=== PATIENT | female | born 1960 | race Caucasian/White ===

== ENCOUNTER 2020-08-21 07:24 | Day surgery (SDC) | payer OTHER ==
[2020-08-21 08:07] LABS: BUN Blood Urea Nitrogen 17 mg/dL (7-18); Bicarbonate 29 mmol/L (21-32); Glucose Level 132 mg/dL (74-106); Potassium 4.1 mmol/L (3.5-5.1); Sodium Level 141 mmol/L (136-145)
[2020-08-21 08:09] LABS: Absolute Lymphocytes (CBC) 2.1 K/uL (0.7-4.9); Basophils % 0.5 % (0-1.3); Hematocrit 36.2 % (36.0-45.0); Lymphocytes % 29.9 % (15.3-44.8); MPV 7.2 fL (7.6-11.3); RBC Red Blood Cell Count 4.11 M/uL (3.86-4.86)
[2020-08-21] MEDS ORDERED: CEFAZOLIN/SWI 1gm 1 GM/10 ML SYR ONE (08:11)
[2020-08-21] MEDS ORDERED: Ringers Lactate 1,000 ML IV ONE (08:11)
[2020-08-21 08:13] VITALS: O2SAT 99
--- NOTE | 2020-08-21 09:13 | RAD REPORT ---
EXAM DESCRIPTION: RAD - Chest Pa And Lat (2 Views) - 08/21/2020 8:32 am CLINICAL HISTORY: STAT, S [facility] DAY SURGERY, BED 7 Chest pain. COMPARISON: Chest Pa And Lat (2 Views) dated 06/27/2017; CHEST PA AND LAT 2 VIEW dated 12/24/2013 FINDINGS: The lungs are clear. The heart is upper limit of normal in size. No displaced fractures. IMPRESSION: No acute or concerning finding suspected.
[2020-08-21] MEDS ORDERED: MIDAZOLAM HCL 2 MG/2 ML INJ ONE (10:22)
[2020-08-21] MEDS ORDERED: LIDOCAINE 2% MPF 5 ML VIAL ONE (10:22)
[2020-08-21] MEDS ORDERED: propofoL 200 MG/20 ML VIAL IV ONE ×2 (10:22→11:14)
[2020-08-21] MEDS ORDERED: ONDANSETRON 4 MG/2 ML VIAL ONE (10:22)
[2020-08-21] MEDS ORDERED: KETOROLAC 30 MG/ML INJ ONE (10:22)
[2020-08-21] MEDS ORDERED: FENTANYL CITR 100 MCG/2 ML ONE (10:22)
[2020-08-21] MEDS ORDERED: dexAMETHasone 4 MG/ML VIAL ONE (10:23)
[2020-08-21 11:39] VITALS: BP 110/70; TEMP 96.9
--- NOTE | 2020-08-21 11:54 | OP ---
Date of Procedure: 08/21/2020 Surgeon: Bakari Valencia MD Tube Mill Operator: CAS Muniz. Preoperative Diagnosis: Right arm masses x2. Postoperative Diagnosis: Right arm masses x2. Procedure: Excision of right arm mass x2, proximal one 4 cm x 2 cm, distal one 2 cm x 2 cm and both of were closed with layered closure. Estimated Blood Loss: Minimal. Specimen: Right arm mass x2. Findings: Likely lipoma. Anesthesia: General. Complications: MAC. Complications: None. Disposition: The patient tolerated the procedure in stable condition and taken to Recovery in good g eneral condition. Procedure In Detail: The patient was brought to the OR and placed in supine position. MAC anesthesi a began. The patient was prepped and draped in the usual sterile fashion. Marcaine 0.5% infiltrated locally. A 15-blade used to make a 1 cm incision in the proximal right medial arm. Subcutaneous ti ssues divided. Initially, it felt like a lymph node, but incision to that area, a hard lipoma was id entified, excised and sent to Pathology as specimen. Wound irrigated. Bleeding controlled with caut juvencio. A 3-0 chromic used to reapproximate subcutaneous tissue and close the skin and then distal to t hat near the elbow, there was another mass near the epitrochlear region concerning for a lymph node a nd a 2 cm incision was made. Subcutaneous tissue divided and again it turned out to be a lipoma and was excised and sent to Pathology. Wound irrigated. Bleeding controlled with cautery. A 3-0 chromi c used to reapproximate the subcutaneous tissue and close the skin. Sterile dressing was applied. T he patient was awakened and taken to Recovery in good general condition. Discharge Note: The patient will go to Day Surgery and home when stable. Disposition: Home. Condition: Stable. Discharge Instructions: Resume home medications and diet. Activity as tolerated. No lifting. Francisco ve outer dressing in 2 days. Shower. Keep wound clean and dry. Follow up in my office in 10 days. Call for appointment. Tylenol No.3 one tablet p.o. q.4 p.r.n. pain. Keep Steri-Strips on at all ti mes. /MODL Voice ID: [id number] Report ID: [id number]
--- NOTE | 2020-08-21 11:55 | EKG ---
Test Date: 2020-08-21 Test Time: 06:55:31 Finisher [employer]: ROBERTA MEASUREMENT RESULTS: Intervals: Rate: 64 RI: 174 QRSD: 86 QT: 436 QTc: 449 [place]: P: 79 RI: 174 QRS: 36 T: 52 INTERPRETIVE STATEMENTS: Normal sinus rhythm Normal ECG Compared to ECG 03/28/2013 14:53:01 Sinus bradycardia no longer present Electronically Signed On 08-21-20 11:53:59 CDT by Matthew Lee
== END 2020-08-21 12:20 | disposition home or self-care (01) ==
LOC: OR 07:24
PROVIDERS: ATTEND Surgery
PROC: 0JBG0ZZ Excision of Right Lower Arm Subcutaneous Tissue and Fascia, Open Approach (ICD-10-PCS; principal; 2020-08-21 09:30)
DX: D17.21 Benign lipomatous neoplasm of skin and subcutaneous tissue of right arm (principal); Z20.822 Contact with and (suspected) exposure to COVID-19
CPT/HCPCS: 93005; 85025; 80048; 36415; 88304; 71046; 11402; 11404; U0003; J2704 ×2; J1100; J2250; J3010; J0690; J7120; J2405; 88305

== ENCOUNTER 2022-07-25 16:25 | Inpatient (IN) | payer OTHER ==
--- OUTSIDE RECORDS SUMMARY | 2022-07-25 16:32 | XMS REPORT | Continuity of Care Document ---
:1960 Author Organization [facility] [place] [facility] t Address [address] [place] [address] [place] [id number] Care Team Providers Name Role Phone Steven Barentt Primary Care Physician Yani Jacobo Attending Clinician Unavailable 2, [facility] Infusion Chair Attending Clinician Unavailable Briana Marcos MD Attending Clinician BRIANA MARCOS Attending Clinician Unavailable Doctor Unassigned, [place] Attending Clinician Unavailable [email or web address] Attending Clinician Unavailable Tamia Restrepo Attending Clinician Unavailable 1, Ad[facility] Infusion Chair Attending Clinician Unavailable Renee Tafoya RN Attending Clinician Unavailable Only, Ang Db Test Attending Clinician Unavailable Olvin Clements Attending Clinician OLVIN MCRAE Attending Clinician Unavailable 1, Ad[facility] Infusion Nurse Attending Clinician Unavailable [email or web address] Admitting Clinician Unavailable BRIANA MARCOS Admitting Clinician Unavailable Briana Marcos MD Admitting Clinician Tamia Restrepo Admitting Clinician Unavailable UNDEFINED Admitting Clinician Unavailable Payers Payer Name Policy Type Policy Number Effective Date Expiration Date Ally fung [place]ICARE B-[place]: [id number] 1997 [employer] 00:00:00 Problems Condition Condition Condition Status Onset Resolution Last Treating Co mments Source Name Details Category Date Date Treatment Clinician Date No known No known Disease Unive rs active active ity of problems problems [facility] Allergies, Adverse Reactions, Alerts Allergy Allergy Status Severity Reaction(s) Onset Inactive Treating Comm ents Source Name Type Date Date Clinician MORPHINE DRUG Active Low Unknown-Cmnt 2021-03 Un zulema INGREDI 0-20 ity of 00:00: [place] [facility] Morphine Propensi Active Unknown - 2021-03 "Does not Univers ty to See comments 0-20 work" ity of adverse 00:00: [place] reaction 00 Medical s to Branch drug morphine DA Active CO DOESNT WORK [facility] 8-10 [place] 00:00: d 00 [facility] No Known DA Active U 2020-0 [facility] Allergie 7-23 [place] 00:00: d 00 [facility] milk FA Active SV 2020-0 [facility] 7-21 Clear 00:00: [place] 00 [facility] milk FA Active SV STUFFY NOSE 2020-0 [facility] 7-21 Clear 00:00: [place] 00 [facility] MILK DRUG Active Other-Cmnt Univer s INGREDI 3-10 ity of 00:00: [place] 00 Medical Branch Milk Propensi Active Other - See Liquid Uni vers ty to comments 3-10 milk.. ity of adverse 00:00: Makes [place] reaction 00 patient Medical s congested Branch Social History Social Habit Start Date Stop Date Quantity Comments Source History SDOH University o f Alcohol Frequency [place] [facility] History SDOH University o f Alcohol Std [place] [facility] Drinks Branch History SDOH University o f Alcohol Binge [place] [facility] al Branch History of Cigarette Smoker Universi ty of tobacco use [facility] Exposure to 2021-12-04 2021-12-14 Not sure [facility] SARS-CoV-2 00:00:00 09:27:00 [facility] [place] Alcohol intake 2019-07-26 2019-07-26 0 /d University of 00:00:00 00:00:00 [facility] Tobacco use and 2016-12-02 2016-12-02 Smokeless tobacco Un iversity of exposure 00:00:00 00:00:00 non-user [facility] Alcohol Comment 2016-05-09 2016-05-09 Social Drinker Unive rsity of 00:00:00 00:00:00 [facility] Sex Ass[birth year] At [birth year] Universit y of 00:00:00 00:00:00 [facility] Smoking Status Start Date Stop Date Source Ex-smoker 2016-12-02 00:00:00 2016-12-02 00:00:00 [facility] Medications Ordered Filled Start Stop Current Ordering Indication Dosage Frequency Signature Comments Components Source Medication Medication Date Date Medication? Clinician (SIG) Name Name vedolizumab 2022- No [id number] 300mg 300 mg, IV Univers (ENTYVIO) 05-31 Infusion, ity of 300 mg in 15:30: 16:02 [place]CE[place] 1 [place] NaCl 0.9% 00 :00 dose, On Medica l (NS) 250 mL 05/31/22 Br anch IV infusion at 0930, Administer over 30 Minutes, 250 mL vedolizumab 2022- No [id number] 300mg 300 mg, IV Univers (ENTYVIO) 04-14 Infusion, ity of 300 mg in 15:00: 15:25 ONCE, 1 [place] NaCl 0.9% 00 :00 dose, On Medica l (NS) 250 mL [place]anna Branch IV infusion 04/14/22 at 0900, Administer over 30 Minutes, 250 mL vedolizumab 2022- No [id number] 300mg 300 mg, IV Univers (ENTYVIO) 04-14 Infusion, ity of 300 mg in 15:00: 15:25 ONCE, 1 [place] NaCl 0.9% 00 :00 dose, On Medica l (NS) 250 mL [place] Branch IV infusion 04/14/22 at 0900, Administer over 30 Minutes, 250 mL vedolizumab 2021-03- No [id number] 300mg 300 mg, IV Univers (ENTYVIO) 04-10 Infusion, ity of 300 mg in 14:26: 15:48 ONCE, 1 [place] NaCl 0.9% 00 :00 dose, On Medica l (NS) 250 mL Tue Branch IV infusion 02/08/22 at 0830, Administer over 30 Minutes, 250 mL water for 2021-03- No PRN, Univers irrigation 03-27 Starting ity of irrigation 19:36: 19:55 on Mon [place] solution 00 :51 01/25/22 at Medic al 1436, Branch Until Mon01/25/22 at 1455, Routine, Intra-op simethicone 2021-03- No PRN, [facility] rs (GAS RELIEF 03-27 Starting ity of (SIMETHICON 19:36: 19:55 on Mon [place] as E)) 40 00 :51 01/25/22 at Medical mg/0.6 mL 1436, Branch drops Until Mon01/25/22 at 1455, Routine, Intra-op lactated 2021-03- No 1000mL at 42 [facility] rs ringers IV 03-27 mL/hr, ity of infusion 18:15: 18:09 1,000 mL, Emmanuel as 1,000 mL 00 :00 IV Medical Infusion, Branch ONCE, 1 dose, On Mon01/25/22 at 1315, Routine, DSU Pre-op lactated 2021-03- No 1000mL at 42 [facility] rs ringers IV 03-27 mL/hr, ity of infusion 18:15: 18:09 1,000 mL, Emmanuel as 1,000 mL 00 :00 IV Medical Infusion, Branch ONCE, 1 dose, On Mon01/25/22 at 1315, Routine, DSU Pre-op amphetamine 2021-03 Yes 20mg Take 20 mg Univers -dextroamph 03-27 by mouth ity of etamine 20 15:43: daily. [place] mg 24 hr 02 Medical capsule Branch atenolol 25 2021-03 Yes 25mg Take 25 mg Univers mg tablet 1-01 by mouth ity of 15:43: daily. [place] [address] Medical Branch atorvastati 2021-03 Yes 10mg Take 10 mg Univers n 10 mg 01 by mouth ity of tablet 15:43: at [place] 02 bedtime. Medical Branch celecoxib 2021-03 Yes 200mg Take 200 Uni vers 200 mg 1-01 mg by ity of capsule 15:43: mouth [place] 02 daily. Medical Branch clonazePAM 2021-03 Yes .5mg Take 0.5 Uni vers 0.5 mg 1-01 mg by ity of tablet 15:43: mouth [place] 02 every Medical evening. Branch DULoxetine 2021-03 Yes 60mg Take 60 mg U nivers 60 mg 03-27 by mouth 2 ity of capsule 15:43: (two) [place] 02 times Medical daily. Branch estradiol 1 2021-03 Yes 1mg Take 1 mg U nivers mg tablet 03-27 by mouth ity of 15:43: daily. [place] [address] Medical Branch fluticasone 2021-03 Yes 2{spray Use 2 Un zulema propionate 03-27 } Sprays in ity of 50 15:43: each [place] [facility]/actuati 02 nostril Medic al on nasal daily. Branch spray fluocinonid 2021-03 Yes 1{dose} Apply 1 Univers e 0.05 % 1 Dose to ity of ointment 15:43: area(s) 2 [place] 02 (two) Medical times Branch daily. hyoscyamine 2021-03 Yes .125mg Take 0.125 Univers 0.125 mg 1-01 mg by ity of tablet 15:43: mouth [place] 02 every 6 Medical (six) Branch hours as needed. methocarbam 2021-03 Yes 750mg Take 750 U nivers ol 750 mg 1-01 mg by ity of tablet 15:43: mouth 3 [place] 02 (three) Medical times Branch daily. budesonide- 2021-03 Yes 1{puff} Inhale 1 Univers formoterol 1-01 Puff ity of (SYMBICORT) 15:43: daily. [place] 160-4.5 02 Medical mcg/actuati Branch on inhaler valsartan-h 2021-03 Yes 1{tbl} Take 1 Un zulema ydrochlorot 1- tablet by ity of hiazide 15:43: mouth [place] 320-25 mg 02 daily. Medical per tablet Branch multivit 2021-03 Yes 1{tbl} Take 1 Unive rs with 1-01 tablet by ity of minerals/maritza 15:43: mouth [place] tein 02 daily. Medical (MULTIVITAM Branch IN 50 PLUS ORAL) coenzyme 2021-03 Yes 100mg Take 100 Univ ers Q10 100 mg 1-01 mg by ity of softgel 15:43: mouth in [place] 02 the Medical morning. Branch Biotin 2021-03 Yes 2500ug Take 2,500 Uni vers 2,500 mcg 1-01 mcg by ity of Cap 15:43: mouth [place] 02 daily. Medical Branch acetaminoph 2021-03 Yes 2{tbl} Take 2 Un zulema en 650 mg 1- tablets by ity of CR tablet 15:43: mouth in [facility] s 02 the Medical morning Branch and 2 tablets in the evening. amphetamine 2021-03 Yes 20mg Take 20 mg Univers -dextroamph 03-27 by mouth ity of etamine 20 15:43: daily. [place] mg 24 hr 02 Medical capsule Branch atenolol 25 2021-03 Yes 25mg Take 25 mg Univers mg tablet 01 by mouth ity of 15:43: daily. 02 Medical Branch atorvastati 2021-03 Yes 10mg Take 10 mg Univers n 10 mg 01 by mouth ity of tablet 15:43: at [place] 02 bedtime. Medical Branch celecoxib 2021-03 Yes 200mg Take 200 Uni vers 200 mg 1-01 mg by ity of capsule 15:43: mouth [place] 02 daily. Medical Branch clonazePAM 2021-03 Yes .5mg Take 0.5 Uni vers 0.5 mg 1-01 mg by ity of tablet 15:43: mouth [place] 02 every Medical evening. Branch DULoxetine 2021-03 Yes 60mg Take 60 mg U nivers 60 mg -01 by mouth 2 ity of capsule 15:43: (two) [place] 02 times Medical daily. Branch estradiol 1 2021-03 Yes 1mg Take 1 mg U nivers mg tablet 01 by mouth ity of 15:43: daily. [place] 02 Medical Branch fluticasone 2021-03 Yes 2{spray Use 2 Un zulema propionate 1- } Sprays in ity of 50 15:43: each [place] mcg/actuati 02 nostril Medic al on nasal daily. Branch spray fluocinonid 2021-03 Yes 1{dose} Apply 1 Univers e 0.05 % 1- Dose to ity of ointment 15:43: area(s) 2 [place] 02 (two) Medical times Branch daily. hyoscyamine 2021-03 Yes .125mg Take 0.125 Univers 0.125 mg 1-01 mg by ity of tablet 15:43: mouth [place] 02 every 6 Medical (six) Branch hours as needed. methocarbam 2021-03 Yes 750mg Take 750 U nivers ol 750 mg 1-01 mg by ity of tablet 15:43: mouth 3 [place] 02 (three) Medical times Branch daily. budesonide- 2021-03 Yes 1{puff} Inhale 1 Univers formoterol 1- Puff ity of (SYMBICORT) 15:43: daily. [place] 160-4.5 02 Medical mcg/actuati Branch on inhaler valsartan-h 2021-03 Yes 1{tbl} Take 1 Un zulema ydrochlorot 1- tablet by ity of hiazide 15:43: mouth [place] 320-25 mg 02 daily. Medical per tablet Branch multivit 2021-03 Yes 1{tbl} Take 1 Unive rs with 1-01 tablet by ity of minerals/maritza 15:43: mouth [place] tein 02 daily. Medical (MULTIVITAM Branch IN 50 PLUS ORAL) coenzyme 2021-03 Yes 100mg Take 100 Univ ers Q10 100 mg 1-01 mg by ity of softgel 15:43: mouth in [place] 02 the Medical morning. Branch Biotin 2021-03 Yes 2500ug Take 2,500 Uni vers 2,500 mcg 1-01 mcg by ity of Cap 15:43: mouth [place] 02 daily. Medical Branch acetaminoph 2021-03 Yes 2{tbl} Take 2 Un zulema en 650 mg 1-01 tablets by ity of CR tablet 15:43: mouth in [place] 02 the Medical morning Branch and 2 tablets in the evening. amphetamine 2021-03 Yes 20mg Take 20 mg Univers -dextroamph 03-27 by mouth ity of etamine 20 15:43: daily. [place] mg 24 hr 02 Medical capsule Branch atenolol 25 2021-03 Yes 25mg Take 25 mg Univers mg tablet 01 by mouth ity of 15:43: daily. [place] [address] Medical Branch atorvastati 2021-03 Yes 10mg Take 10 mg Univers n 10 mg 01 by mouth ity of tablet 15:43: at [place] 02 bedtime. Medical Branch celecoxib 2021-03 Yes 200mg Take 200 Uni vers 200 mg 1-01 mg by ity of capsule 15:43: mouth [place] 02 daily. Medical Branch clonazePAM 2021-03 Yes .5mg Take 0.5 Uni vers 0.5 mg 1-01 mg by ity of tablet 15:43: mouth [place] 02 every Medical evening. Branch DULoxetine 2021-03 Yes 60mg Take 60 mg U nivers 60 mg 01 by mouth 2 ity of capsule 15:43: (two) [place] 02 times Medical daily. Branch estradiol 1 2021-03 Yes 1mg Take 1 mg U nivers mg tablet 03-27 by mouth ity of 15:43: daily. [place] [address] Medical Branch fluticasone 2021-03 Yes 2{spray Use 2 Un zulema propionate 03-27 } Sprays in ity of 50 15:43: each [place] [facility]/actuati 02 nostril Medic al on nasal daily. Branch spray fluocinonid 2021-03 Yes 1{dose} Apply 1 Univers e 0.05 % 03-27 Dose to ity of ointment 15:43: area(s) 2 [place] 02 (two) Medical times Branch daily. hyoscyamine 2021-03 Yes .125mg Take 0.125 Univers 0.125 mg 1-01 mg by ity of tablet 15:43: mouth [place] 02 every 6 Medical (six) Branch hours as needed. methocarbam 2021-03 Yes 750mg Take 750 U nivers ol 750 mg 1-01 mg by ity of tablet 15:43: mouth 3 [place] 02 (three) Medical times Branch daily. budesonide- 2021-03 Yes 1{puff} Inhale 1 Univers formoterol 1-01 Puff ity of (SYMBICORT) 15:43: daily. [place] 160-4.5 02 Medical mcg/actuati Branch on inhaler valsartan-h 2021-03 Yes 1{tbl} Take 1 Un zulema ydrochlorot 1- tablet by ity of hiazide 15:43: mouth [place] 320-25 mg 02 daily. Medical per tablet Branch multivit 2021-03 Yes 1{tbl} Take 1 Unive rs with 1-01 tablet by ity of minerals/maritza 15:43: mouth [place] tein 02 daily. Medical (MULTIVITAM Branch IN 50 PLUS ORAL) coenzyme 2021-03 Yes 100mg Take 100 Univ ers Q10 100 mg 1-01 mg by ity of softgel 15:43: mouth in [place] 02 the Medical morning. Branch Biotin 2021-03 Yes 2500ug Take 2,500 Uni vers 2,500 mcg 1-01 mcg by ity of Cap 15:43: mouth [place] 02 daily. Medical Branch acetaminoph 2021-03 Yes 2{tbl} Take 2 Un zulema en 650 mg 1-01 tablets by ity of CR tablet 15:43: mouth in [place] 02 the Medical morning Branch and 2 tablets in the evening. amphetamine 2021-03 Yes 20mg Take 20 mg Univers -dextroamph 03-27 by mouth ity of etamine 20 15:43: daily. [place] mg 24 hr 02 Medical capsule Branch atenolol 25 2021-03 Yes 25mg Take 25 mg Univers mg tablet 01 by mouth ity of 15:43: daily. 02 Medical Branch atorvastati 2021-03 Yes 10mg Take 10 mg Univers n 10 mg 01 by mouth ity of tablet 15:43: at [place] 02 bedtime. Medical Branch celecoxib 2021-03 Yes 200mg Take 200 Uni vers 200 mg 1-01 mg by ity of capsule 15:43: mouth [place] 02 daily. Medical Branch clonazePAM 2021-03 Yes .5mg Take 0.5 Uni vers 0.5 mg 1-01 mg by ity of tablet 15:43: mouth [place] 02 every Medical evening. Branch DULoxetine 2021-03 Yes 60mg Take 60 mg U nivers 60 mg 1-01 by mouth 2 ity of capsule 15:43: (two) [place] 02 times Medical daily. Branch estradiol 1 2021-03 Yes 1mg Take 1 mg U nivers mg tablet -01 by mouth ity of 15:43: daily. 02 Medical Branch fluticasone 2021-03 Yes 2{spray Use 2 Un zulema propionate 1- } Sprays in ity of 50 15:43: each [place] mcg/actuati 02 nostril Medic al on nasal daily. Branch spray fluocinonid 2021-03 Yes 1{dose} Apply 1 Univers e 0.05 % 1-01 Dose to ity of ointment 15:43: area(s) 2 [place] 02 (two) Medical times Branch daily. hyoscyamine 2021-03 Yes .125mg Take 0.125 Univers 0.125 mg 1-01 mg by ity of tablet 15:43: mouth [place] 02 every 6 Medical (six) Branch hours as needed. methocarbam 2021-03 Yes 750mg Take 750 U nivers ol 750 mg 1-01 mg by ity of tablet 15:43: mouth 3 [place] 02 (three) Medical times Branch daily. budesonide- 2021-03 Yes 1{puff} Inhale 1 Univers formoterol 1-01 Puff ity of (SYMBICORT) 15:43: daily. [place] 160-4.5 02 Medical mcg/actuati Branch on inhaler valsartan-h 2021-03 Yes 1{tbl} Take 1 Un zulema ydrochlorot 1-01 tablet by ity of hiazide 15:43: mouth [place] 320-25 mg 02 daily. Medical per tablet Branch multivit 2021-03 Yes 1{tbl} Take 1 Unive rs with 1-01 tablet by ity of minerals/maritza 15:43: mouth [place] tein 02 daily. Medical (MULTIVITAM Branch IN 50 PLUS ORAL) coenzyme 2021-03 Yes 100mg Take 100 Univ ers Q10 100 mg 1-01 mg by ity of softgel 15:43: mouth in [place] 02 the Medical morning. Branch Biotin 2021-03 Yes 2500ug Take 2,500 Uni vers 2,500 mcg 1-01 mcg by ity of Cap 15:43: mouth [place] 02 daily. Medical Branch acetaminoph 2021-03 Yes 2{tbl} Take 2 Un zulema en 650 mg 1-01 tablets by ity of CR tablet 15:43: mouth in [place] 02 the Medical morning Branch and 2 tablets in the evening. amphetamine 2021-03 Yes 20mg Take 20 mg Univers -dextroamph 1-01 by mouth ity of etamine 20 15:43: daily. [place] mg 24 hr 02 Medical capsule Branch atenolol 25 2022-1 Yes 25mg Take 25 mg Univers mg tablet 101 by mouth ity of 15:43: daily. [place] [address] Medical Branch atorvastati 2021-03 Yes 10mg Take 10 mg Univers n 10 mg 01 by mouth ity of tablet 15:43: at [place] 02 bedtime. Medical Branch celecoxib 2021-03 Yes 200mg Take 200 Uni vers 200 mg 1-01 mg by ity of capsule 15:43: mouth [place] 02 daily. Medical Branch clonazePAM 2021-03 Yes .5mg Take 0.5 Uni vers 0.5 mg 1-01 mg by ity of tablet 15:43: mouth [place] 02 every Medical evening. Branch DULoxetine 2021-03 Yes 60mg Take 60 mg U nivers 60 mg 03-27 by mouth 2 ity of capsule 15:43: (two) [place] 02 times Medical daily. Branch estradiol 1 2021-03 Yes 1mg Take 1 mg U nivers mg tablet 03-27 by mouth ity of 15:43: daily. [place] [address] Medical Branch fluticasone 2021-03 Yes 2{spray Use 2 Un zulema propionate 03-27 } Sprays in ity of 50 15:43: each [facility] [place] [facility]/actuati 02 nostril Medic al on nasal daily. Branch spray fluocinonid 2021-03 Yes 1{dose} Apply 1 Univers e 0.05 % 03-27 Dose to ity of ointment 15:43: area(s) 2 [place] 02 (two) Medical times Branch daily. hyoscyamine 2021-03 Yes .125mg Take 0.125 Univers 0.125 mg 1-01 mg by ity of tablet 15:43: mouth [place] 02 every 6 Medical (six) Branch hours as needed. methocarbam 2021-03 Yes 750mg Take 750 U nivers ol 750 mg 1-01 mg by ity of tablet 15:43: mouth 3 [place] 02 (three) Medical times Branch daily. budesonide- 2021-03 Yes 1{puff} Inhale 1 Univers formoterol 1-01 Puff ity of (SYMBICORT) 15:43: daily. [place] 160-4.5 02 Medical mcg/actuati Branch on inhaler valsartan-h 2021-03 Yes 1{tbl} Take 1 Un zulema ydrochlorot 1- tablet by ity of hiazide 15:43: mouth [place] 320-25 mg 02 daily. Medical per tablet Branch multivit 2021-03 Yes 1{tbl} Take 1 Unive rs with 1-01 tablet by ity of minerals/maritza 15:43: mouth [place] tein 02 daily. Medical (MULTIVITAM Branch IN 50 PLUS ORAL) coenzyme 2021-03 Yes 100mg Take 100 Univ ers Q10 100 mg 1-01 mg by ity of softgel 15:43: mouth in [place] 02 the Medical morning. Branch Biotin 2021-03 Yes 2500ug Take 2,500 Uni vers 2,500 mcg 1-01 mcg by ity of Cap 15:43: mouth [place] 02 daily. Medical Branch acetaminoph 2021-03 Yes 2{tbl} Take 2 Un zulema en 650 mg 1-01 tablets by ity of CR tablet 15:43: mouth in [place] 02 the Medical morning Branch and 2 tablets in the evening. amphetamine 2021-03 Yes 20mg Take 20 mg Univers -dextroamph 03-27 by mouth ity of etamine 20 15:43: daily. [place] mg 24 hr 02 Medical capsule Branch atenolol 25 2021-03 Yes 25mg Take 25 mg Univers mg tablet 01 by mouth ity of 15:43: daily. 02 Medical Branch atorvastati 2021-03 Yes 10mg Take 10 mg Univers n 10 mg 01 by mouth ity of tablet 15:43: at [place] 02 bedtime. Medical Branch celecoxib 2021-03 Yes 200mg Take 200 Uni vers 200 mg 1-01 mg by ity of capsule 15:43: mouth [place] 02 daily. Medical Branch clonazePAM 2021-03 Yes .5mg Take 0.5 Uni vers 0.5 mg 1-01 mg by ity of tablet 15:43: mouth [place] 02 every Medical evening. Branch DULoxetine 2021-03 Yes 60mg Take 60 mg U nivers 60 mg 1-01 by mouth 2 ity of capsule 15:43: (two) [place] 02 times Medical daily. Branch estradiol 1 2021-03 Yes 1mg Take 1 mg U nivers mg tablet -01 by mouth ity of 15:43: daily. [place] 02 Medical Branch fluticasone 2021-03 Yes 2{spray Use 2 Un zulema propionate - } Sprays in ity of 50 15:43: each [place] mcg/actuati 02 nostril Medic al on nasal daily. Branch spray fluocinonid 2021-03 Yes 1{dose} Apply 1 Univers e 0.05 % 1-01 Dose to ity of ointment 15:43: area(s) 2 [place] 02 (two) Medical times Branch daily. hyoscyamine 2021-03 Yes .125mg Take 0.125 Univers 0.125 mg 1-01 mg by ity of tablet 15:43: mouth [place] 02 every 6 Medical (six) Branch hours as needed. methocarbam 2021-03 Yes 750mg Take 750 U nivers ol 750 mg 1-01 mg by ity of tablet 15:43: mouth 3 [place] 02 (three) Medical times Branch daily. budesonide- 2021-03 Yes 1{puff} Inhale 1 Univers formoterol 1-01 Puff ity of (SYMBICORT) 15:43: daily. [place] 160-4.5 02 Medical mcg/actuati Branch on inhaler valsartan-h 2021-03 Yes 1{tbl} Take 1 Un zulema ydrochlorot 1-01 tablet by ity of hiazide 15:43: mouth [place] 320-25 mg 02 daily. Medical per tablet Branch multivit 2021-03 Yes 1{tbl} Take 1 Unive rs with 1-01 tablet by ity of minerals/maritza 15:43: mouth [place] tein 02 daily. Medical (MULTIVITAM Branch IN 50 PLUS ORAL) coenzyme 2021-03 Yes 100mg Take 100 Univ ers Q10 100 mg 1-01 mg by ity of softgel 15:43: mouth in [place] 02 the Medical morning. Branch Biotin 2021-03 Yes 2500ug Take 2,500 Uni vers 2,500 mcg 1-01 mcg by ity of Cap 15:43: mouth [place] 02 daily. Medical Branch acetaminoph 2021-03 Yes 2{tbl} Take 2 Un zulema en 650 mg 1-01 tablets by ity of CR tablet 15:43: mouth in [place] 02 the Medical morning Branch and 2 tablets in the evening. amphetamine 2021-03 Yes 20mg Take 20 mg Univers -dextroamph 1-01 by mouth ity of etamine 20 15:43: daily. [place] mg 24 hr 02 Medical capsule Branch atenolol 25 2021-03 Yes 25mg Take 25 mg Univers mg tablet 01 by mouth ity of 15:43: daily. [place] [address] Medical Branch atorvastati 2021-03 Yes 10mg Take 10 mg Univers n 10 mg 01 by mouth ity of tablet 15:43: at [place] 02 bedtime. Medical Branch celecoxib 2021-03 Yes 200mg Take 200 Uni vers 200 mg 1-01 mg by ity of capsule 15:43: mouth [place] 02 daily. Medical Branch clonazePAM 2021-03 Yes .5mg Take 0.5 Uni vers 0.5 mg 1-01 mg by ity of tablet 15:43: mouth [place] 02 every Medical evening. Branch DULoxetine 2021-03 Yes 60mg Take 60 mg U nivers 60 mg 03-27 by mouth 2 ity of capsule 15:43: (two) [place] 02 times Medical daily. Branch estradiol 1 2021-03 Yes 1mg Take 1 mg U nivers mg tablet 03-27 by mouth ity of 15:43: daily. [place] [address] Medical Branch fluticasone 2021-03 Yes 2{spray Use 2 Un zulema propionate 03-27 } Sprays in ity of 50 15:43: each [place] [facility]/actuati 02 nostril Medic al on nasal daily. Branch spray fluocinonid 2021-03 Yes 1{dose} Apply 1 Univers e 0.05 % 03-27 Dose to ity of ointment 15:43: area(s) 2 [place] 02 (two) Medical times Branch daily. hyoscyamine 2021-03 Yes .125mg Take 0.125 Univers 0.125 mg 1-01 mg by ity of tablet 15:43: mouth [place] 02 every 6 Medical (six) Branch hours as needed. methocarbam 2021-03 Yes 750mg Take 750 U nivers ol 750 mg 1-01 mg by ity of tablet 15:43: mouth 3 [place] 02 (three) Medical times Branch daily. budesonide- 2021-03 Yes 1{puff} Inhale 1 Univers formoterol 1-01 Puff ity of (SYMBICORT) 15:43: daily. [place] 160-4.5 02 Medical mcg/actuati Branch on inhaler valsartan-h 2021-03 Yes 1{tbl} Take 1 Un zulema ydrochlorot 1- tablet by ity of hiazide 15:43: mouth [place] 320-25 mg 02 daily. Medical per tablet Branch amphetamine 2021-03 Yes 20mg Take 20 mg Univers -dextroamph 03-27 by mouth ity of etamine 20 15:43: daily. [place] mg 24 hr 02 Medical capsule Branch atenolol 25 2021-03 Yes 25mg Take 25 mg Univers mg tablet 01 by mouth ity of 15:43: daily. [place] Medical Branch atorvastati 2021-03 Yes 10mg Take 10 mg Univers n 10 mg 01 by mouth ity of tablet 15:43: at [place] 02 bedtime. Medical Branch celecoxib 2021-03 Yes 200mg Take 200 Uni vers 200 mg 1-01 mg by ity of capsule 15:43: mouth [place] 02 daily. Medical Branch clonazePAM 2021-03 Yes .5mg Take 0.5 Uni vers 0.5 mg 1-01 mg by ity of tablet 15:43: mouth [place] 02 every Medical evening. Branch DULoxetine 2021-03 Yes 60mg Take 60 mg U nivers 60 mg 03-27 by mouth 2 ity of capsule 15:43: (two) [place] 02 times Medical daily. Branch estradiol 1 2021-03 Yes 1mg Take 1 mg U nivers mg tablet 03-27 by mouth ity of 15:43: daily. [place] [address] Medical Branch fluticasone 2021-03 Yes 2{spray Use 2 Un zulema propionate 03-27 } Sprays in ity of 50 15:43: each [place] mcg/actuati 02 nostril Medic al on nasal daily. Branch spray fluocinonid 2021-03 Yes 1{dose} Apply 1 Univers e 0.05 % 03-27 Dose to ity of ointment 15:43: area(s) 2 [place] 02 (two) Medical times Branch daily. hyoscyamine 2021-03 Yes .125mg Take 0.125 Univers 0.125 mg 1-01 mg by ity of tablet 15:43: mouth [place] 02 every 6 Medical (six) Branch hours as needed. methocarbam 2021-03 Yes 750mg Take 750 U nivers ol 750 mg 1-01 mg by ity of tablet 15:43: mouth 3 [place] 02 (three) Medical times Branch daily. budesonide- 2021-03 Yes 1{puff} Inhale 1 [facility] formoterol 1-01 Puff ity of (SYMBICORT) 15:43: daily. [place] 160-4.5 02 Medical mcg/actuati Branch on inhaler valsartan-h 2021-03 Yes 1{tbl} Take 1 Un zulema ydrochlorot 1- tablet by ity of hiazide 15:43: mouth [place] 320-25 mg 02 daily. Medical per tablet Branch amphetamine 2021-03 Yes 20mg Take 20 mg [facility] -dextroamph 03-27 by mouth ity of etamine 20 15:43: daily. [place] mg 24 hr 02 Medical capsule Branch atenolol 25 2021-03 Yes 25mg Take 25 mg [facility] mg tablet 01 by mouth ity of 15:43: daily. [place] 02 Medical Branch atorvastati 2021-03 Yes 10mg Take 10 mg [facility] n 10 mg 03-27 by mouth ity of tablet 15:43: at [place] 02 bedtime. Medical Branch celecoxib 2021-03 Yes 200mg Take 200 Uni vers 200 mg 1-01 mg by ity of capsule 15:43: mouth [place] 02 daily. Medical Branch clonazePAM 2021-03 Yes .5mg Take 0.5 Uni vers 0.5 mg 1-01 mg by ity of tablet 15:43: mouth [place] 02 every Medical evening. Branch DULoxetine 2021-03 Yes 60mg Take 60 mg U nivers 60 mg 03-27 by mouth 2 ity of capsule 15:43: (two) [place] 02 times Medical daily. Branch estradiol 1 2021-03 Yes 1mg Take 1 mg U nivers mg tablet 03-27 by mouth ity of 15:43: daily. [place] [address] Medical Branch fluticasone 2021-03 Yes 2{spray Use 2 Un zulema propionate 03-27 } Sprays in ity of 50 15:43: each [place] mcg/actuati 02 nostril Medic al on nasal daily. Branch spray fluocinonid 2021-03 Yes 1{dose} Apply 1 [facility] e 0.05 % 03-27 Dose to ity of ointment 15:43: area(s) 2 [place] 02 (two) Medical times Branch daily. hyoscyamine 2021-03 Yes .125mg Take 0.125 [facility] 0.125 mg 1-01 mg by ity of tablet 15:43: mouth [place] 02 every 6 Medical (six) Branch hours as needed. methocarbam 2021-03 Yes 750mg Take 750 U nivers ol 750 mg 1-01 mg by ity of tablet 15:43: mouth 3 [place] 02 (three) Medical times Branch daily. budesonide- 2021-03 Yes 1{puff} Inhale 1 [facility] formoterol 1- Puff ity of (SYMBICORT) 15:43: daily. [place] 160-4.5 02 Medical [facility]/actuati Branch on inhaler valsartan-h 2021-03 Yes 1{tbl} Take 1 Un zulema ydrochlorot 1- tablet by ity of hiazide 15:43: mouth [place] 320-25 mg 02 daily. Medical per tablet Branch amphetamine 2021-03 Yes 20mg Take 20 mg [facility] -dextroamph 03-27 by mouth ity of etamine 20 15:43: daily. [place] mg 24 hr 02 Medical capsule Branch atenolol 25 2021-03 Yes 25mg Take 25 mg [facility] mg tablet 03-27 by mouth ity of 15:43: daily. [place] Medical Branch atorvastati 2021-03 Yes 10mg Take 10 mg [facility] n 10 mg 03-27 by mouth ity of tablet 15:43: at [place] [address] bedtime. Medical Branch celecoxib 2021-03 Yes 200mg Take 200 Uni vers 200 mg 1-01 mg by ity of capsule 15:43: mouth [place] 02 daily. Medical Branch clonazePAM 2021-03 Yes .5mg Take 0.5 Uni vers 0.5 mg 1-01 mg by ity of tablet 15:43: mouth [place] 02 every Medical evening. Branch DULoxetine 2021-03 Yes 60mg Take 60 mg U nivers 60 mg 01 by mouth 2 ity of capsule 15:43: (two) [place] 02 times Medical daily. Branch estradiol 1 2021-03 Yes 1mg Take 1 mg U nivers mg tablet 03-27 by mouth ity of 15:43: daily. [place] [address] Medical Branch fluticasone 2021-03 Yes 2{spray Use 2 Un zulema propionate 1 } Sprays in ity of 50 15:43: each [facility] [place] [facility]/actuati 02 nostril Medic al on nasal daily. Branch spray fluocinonid 2021-03 Yes 1{dose} Apply 1 [facility] e 0.05 % 1 Dose to ity of ointment 15:43: area(s) 2 [place] 02 (two) Medical times Branch daily. hyoscyamine 2021-03 Yes .125mg Take 0.125 [facility] 0.125 mg 1-01 mg by ity of tablet 15:43: mouth [place] 02 every 6 Medical (six) Branch hours as needed. methocarbam 2021-03 Yes 750mg Take 750 U nivers ol 750 mg 1-01 mg by ity of tablet 15:43: mouth 3 [place] 02 (three) Medical times Branch daily. budesonide- 2021-03 Yes 1{puff} Inhale 1 [facility] formoterol 1- Puff ity of (SYMBICORT) 15:43: daily. [place] 160-4.5 02 Medical mcg/actuati Branch on inhaler valsartan-h 2021-03 Yes 1{tbl} Take 1 Un zulema ydrochlorot 03-27 tablet by ity of hiazide 15:43: mouth [place] 320-25 mg 02 daily. Medical per tablet Branch amphetamine 2021-03 Yes 20mg Take 20 mg [facility] -dextroamph 03-27 by mouth ity of etamine 20 15:43: daily. [place] mg 24 hr 02 Medical capsule Branch atenolol 25 2021-03 Yes 25mg Take 25 mg [facility] mg tablet 01 by mouth ity of 15:43: daily. [place] [address] Medical Branch atorvastati 2021-03 Yes 10mg Take 10 mg [facility] n 10 mg 03-27 by mouth ity of tablet 15:43: at [place] 02 bedtime. Medical Branch celecoxib 2021-03 Yes 200mg Take 200 [facility] vers 200 mg 1-01 mg by ity of capsule 15:43: mouth [place] 02 daily. Medical Branch clonazePAM 2021-03 Yes .5mg Take 0.5 Uni vers 0.5 mg 1-01 mg by ity of tablet 15:43: mouth [place] 02 every Medical evening. Branch DULoxetine 2021-03 Yes 60mg Take 60 mg U nivers 60 mg -01 by mouth 2 ity of capsule 15:43: (two) [place] 02 times Medical daily. Branch estradiol 1 2021-03 Yes 1mg Take 1 mg U nivers mg tablet 01 by mouth ity of 15:43: daily. [place] [address] Medical Branch fluticasone 2021-03 Yes 2{spray Use 2 Un zulema propionate 1- } Sprays in ity of 50 15:43: each [facility] [place] [facility]/actuati 02 nostril Medic al on nasal daily. Branch spray fluocinonid 2021-03 Yes 1{dose} Apply 1 [facility] e 0.05 % 1- Dose to ity of ointment 15:43: area(s) 2 [place] 02 (two) Medical times Branch daily. hyoscyamine 2021-03 Yes .125mg Take 0.125 [facility] 0.125 mg 1-01 mg by ity of tablet 15:43: mouth [place] 02 every 6 Medical (six) Branch hours as needed. methocarbam 2021-03 Yes 750mg Take 750 U nivers ol 750 mg 1-01 mg by ity of tablet 15:43: mouth 3 [place] 02 (three) Medical times Branch daily. budesonide- 2021-03 Yes 1{puff} Inhale 1 [facility] formoterol 1- Puff ity of (SYMBICORT) 15:43: daily. [place] 160-4.5 02 Medical mcg/actuati Branch on inhaler valsartan-h 2021-03 Yes 1{tbl} Take 1 Un zulema ydrochlorot 1- tablet by ity of hiazide 15:43: mouth [place] 320-25 mg 02 daily. Medical per tablet Branch amphetamine 2021-03 Yes 20mg Take 20 mg [facility] -dextroamph 03-27 by mouth ity of etamine 20 15:43: daily. [place] mg 24 hr 02 Medical capsule Branch atenolol 25 2021-03 Yes 25mg Take 25 mg [facility] mg tablet 03-27 by mouth ity of 15:43: daily. [place] [address] Medical Branch atorvastati 2021-03 Yes 10mg Take 10 mg [facility] n 10 mg 01 by mouth ity of tablet 15:43: at [place] 02 bedtime. Medical Branch celecoxib 2021-03 Yes 200mg Take 200 Uni vers 200 mg 1-01 mg by ity of capsule 15:43: mouth [place] 02 daily. Medical Branch clonazePAM 2021-03 Yes .5mg Take 0.5 Uni vers 0.5 mg 1-01 mg by ity of tablet 15:43: mouth [place] 02 every Medical evening. Branch DULoxetine 2021-03 Yes 60mg Take 60 mg U nivers 60 mg 03-27 by mouth 2 ity of capsule 15:43: (two) [place] 02 times Medical daily. Branch estradiol 1 2021-03 Yes 1mg Take 1 mg U nivers mg tablet 03-27 by mouth ity of 15:43: daily. [place] 02 Medical Branch fluticasone 2021-03 Yes 2{spray Use 2 Un zulema propionate 03-27 } Sprays in ity of 50 15:43: each [facility] [place] [facility] nost[facility] Medic al on nasal daily. Branch spray fluocinonid 2021-03 Yes 1{dose} Apply 1 [facility] e 0.05 % 03-27 Dose to ity of ointment 15:43: area(s) 2 [place] 02 (two) Medical times Branch daily. hyoscyamine 2021-03 Yes .125mg Take 0.125 [facility] 0.125 mg 1-01 mg by ity of tablet 15:43: mouth [place] 02 every 6 Medical (six) Branch hours as needed. methocarbam 2021-03 Yes 750mg Take 750 U nivers ol 750 mg 1-01 mg by ity of tablet 15:43: mouth 3 [place] 02 (three) Medical times Branch daily. budesonide- 2021-03 Yes 1{puff} Inhale 1 [facility] formoterol 03-27 Puff ity of (SYMBICORT) 15:43: daily. [place] 160-4.5 02 Medical mcg/actuati Branch on inhaler valsartan-h 2021-03 Yes 1{tbl} Take 1 Un zulema ydrochlorot 03-27 tablet by ity of hiazide 15:43: mouth [place] 320-25 mg 02 daily. Medical per tablet Branch amphetamine 2021-03 Yes 20mg Take 20 mg [facility] -dextroamph 03-27 by mouth ity of etamine 20 15:43: daily. [place] mg 24 hr 02 Medical capsule Branch atenolol 25 2021-03 Yes 25mg Take 25 mg [facility] mg tablet 03-27 by mouth ity of 15:43: daily. [place] 02 Medical Branch atorvastati 2021-03 Yes 10mg Take 10 mg [facility] n 10 mg 03-27 by mouth ity of tablet 15:43: at [place] 02 bedtime. Medical Branch celecoxib 2021-03 Yes 200mg Take 200 Uni vers 200 mg 1-01 mg by ity of capsule 15:43: mouth [place] 02 daily. Medical Branch clonazePAM 2021-03 Yes .5mg Take 0.5 Uni vers 0.5 mg 1-01 mg by ity of tablet 15:43: mouth [place] 02 every Medical evening. Branch DULoxetine 2021-03 Yes 60mg Take 60 mg U nivers 60 mg 01 by mouth 2 ity of capsule 15:43: (two) [place] 02 times Medical daily. Branch estradiol 1 2021-03 Yes 1mg Take 1 mg U nivers mg tablet 01 by mouth ity of 15:43: daily. [place] 02 Medical Branch fluticasone 2021-03 Yes 2{spray Use 2 Un zulema propionate 03-27 } Sprays in ity of 50 15:43: each [place] mcg/actuati 02 nostril Medic al on nasal daily. Branch spray fluocinonid 2021-03 Yes 1{dose} Apply 1 [facility] e 0.05 % 03-27 Dose to ity of ointment 15:43: area(s) 2 [place] 02 (two) Medical times Branch daily. hyoscyamine 2021-03 Yes .125mg Take 0.125 [facility] 0.125 mg 1-01 mg by ity of tablet 15:43: mouth [place] 02 every 6 Medical (six) Branch hours as needed. methocarbam 2021-03 Yes 750mg Take 750 U nivers ol 750 mg 1-01 mg by ity of tablet 15:43: mouth 3 [place] 02 (three) Medical times Branch daily. budesonide- 2021-03 Yes 1{puff} Inhale 1 [facility] formoterol 1-01 Puff ity of (SYMBICORT) 15:43: daily. [place] 160-4.5 02 Medical mcg/actuati Branch on inhaler valsartan-h 2021-03 Yes 1{tbl} Take 1 Un zulema ydrochlorot 1-01 tablet by ity of hiazide 15:43: mouth [place] 320-25 mg 02 daily. Medical per tablet Branch multivit 2021-03 Yes 1{tbl} Take 1 Unive rs with 1-01 tablet by ity of minerals/maritza 15:43: mouth [place] tein 02 daily. Medical (MULTIVITAM Branch IN 50 PLUS ORAL) coenzyme 2021-03 Yes 100mg Take 100 Univ ers Q10 100 mg 1-01 mg by ity of softgel 15:43: mouth in [place] 02 the Medical morning. Branch Biotin 2021-03 Yes 2500ug Take 2,500 Uni vers 2,500 mcg 1-01 mcg by ity of Cap 15:43: mouth [place] 02 daily. Medical Branch acetaminoph 2021-03 Yes 2{tbl} Take 2 Un zulema en 650 mg 1-01 tablets by ity of CR tablet 15:43: mouth in [place] 02 the Medical morning Branch and 2 tablets in the evening. amphetamine 2021-03 Yes 20mg Take 20 mg [facility] -dextroamph 01 by mouth ity of etamine 20 15:43: daily. [place] mg 24 hr 02 Medical capsule Branch atenolol 25 2021-03 Yes 25mg Take 25 mg [facility] mg tablet 01 by mouth ity of 15:43: daily. [place] Medical Branch atorvastati 2021-03 Yes 10mg Take 10 mg [facility] n 10 mg 01 by mouth ity of tablet 15:43: at [place] 02 bedtime. Medical Branch celecoxib 2021-03 Yes 200mg Take 200 Uni vers 200 mg 1-01 mg by ity of capsule 15:43: mouth [place] 02 daily. Medical Branch clonazePAM 2021-03 Yes .5mg Take 0.5 Uni vers 0.5 mg 1-01 mg by ity of tablet 15:43: mouth [place] 02 every Medical evening. Branch DULoxetine 2021-03 Yes 60mg Take 60 mg U nivers 60 mg 1-01 by mouth 2 ity of capsule 15:43: (two) [place] 02 times Medical daily. Branch estradiol 1 2021-03 Yes 1mg Take 1 mg U nivers mg tablet 01 by mouth ity of 15:43: daily. [place] 02 Medical Branch fluticasone 2021-03 Yes 2{spray Use 2 Un zulema propionate 03-27 } Sprays in ity of 50 15:43: each [place] mcg/actuati 02 nostril Medic al on nasal daily. Branch spray fluocinonid 2021-03 Yes 1{dose} Apply 1 [facility] e 0.05 % 1- Dose to ity of ointment 15:43: area(s) 2 [place] 02 (two) Medical times Branch daily. hyoscyamine 2021-03 Yes .125mg Take 0.125 [facility] 0.125 mg 1-01 mg by ity of tablet 15:43: mouth [place] 02 every 6 Medical (six) Branch hours as needed. methocarbam 2021-03 Yes 750mg Take 750 U nivers ol 750 mg 1-01 mg by ity of tablet 15:43: mouth 3 [place] 02 (three) Medical times Branch daily. budesonide- 2021-03 Yes 1{puff} Inhale 1 [facility] formoterol 1-01 Puff ity of (SYMBICORT) 15:43: daily. [place] 160-4.5 02 Medical mcg/actuati Branch on inhaler valsartan-h 2021-03 Yes 1{tbl} Take 1 Un zulema ydrochlorot 1-01 tablet by ity of hiazide 15:43: mouth [place] 320-25 mg 02 daily. Medical per tablet Branch multivit 2021-03 Yes 1{tbl} Take 1 Unive rs with 1-01 tablet by ity of minerals/maritza 15:43: mouth [place] tein 02 daily. Medical (MULTIVITAM Branch IN 50 PLUS ORAL) coenzyme 2021-03 Yes 100mg Take 100 Univ ers Q10 100 mg 1-01 mg by ity of softgel 15:43: mouth in [place] 02 the Medical morning. Branch Biotin 2021-03 Yes 2500ug Take 2,500 Uni vers 2,500 mcg 1-01 mcg by ity of Cap 15:43: mouth [place] 02 daily. Medical Branch acetaminoph 2021-03 Yes 2{tbl} Take 2 Un zulema en 650 mg 1-01 tablets by ity of CR tablet 15:43: mouth in [place] 02 the Medical morning Branch and 2 tablets in the evening. amphetamine 2021-03 Yes 20mg Take 20 mg [facility] -dextroamph 1-01 by mouth ity of etamine 20 15:43: daily. [place] mg 24 hr 02 Medical capsule Branch atenolol 25 2021-03 Yes 25mg Take 25 mg [facility] mg tablet 1-01 by mouth ity of 15:43: daily. [place] 02 Medical Branch atorvastati 2021-03 Yes 10mg Take 10 mg [facility] n 10 mg 1-01 by mouth ity of tablet 15:43: at [place] 02 bedtime. Medical Branch celecoxib 2021-03 Yes 200mg Take 200 Uni vers 200 mg 1-01 mg by ity of capsule 15:43: mouth [place] 02 daily. Medical Branch clonazePAM 2021-03 Yes .5mg Take 0.5 Uni vers 0.5 mg 1-01 mg by ity of tablet 15:43: mouth [place] 02 every Medical evening. Branch DULoxetine 2021-03 Yes 60mg Take 60 mg U nivers 60 mg 01 by mouth 2 ity of capsule 15:43: (two) [place] 02 times Medical daily. Branch estradiol 1 2021-03 Yes 1mg Take 1 mg U nivers mg tablet 01 by mouth ity of 15:43: daily. [place] 02 Medical Branch fluticasone 2021-03 Yes 2{spray Use 2 Un zulema propionate 03-27 } Sprays in ity of 50 15:43: each [place] mcg/actuati 02 nostril Medic al on nasal daily. Branch spray fluocinonid 2021-03 Yes 1{dose} Apply 1 [facility] e 0.05 % 03-27 Dose to ity of ointment 15:43: area(s) 2 [place] 02 (two) Medical times Branch daily. hyoscyamine 2021-03 Yes .125mg Take 0.125 [facility] 0.125 mg 1-01 mg by ity of tablet 15:43: mouth [place] 02 every 6 Medical (six) Branch hours as needed. methocarbam 2021-03 Yes 750mg Take 750 U nivers ol 750 mg 1-01 mg by ity of tablet 15:43: mouth 3 [place] 02 (three) Medical times Branch daily. budesonide- 2021-03 Yes 1{puff} Inhale 1 [facility] formoterol 1-01 Puff ity of (SYMBICORT) 15:43: daily. [place] 160-4.5 02 Medical mcg/actuati Branch on inhaler valsartan-h 2021-03 Yes 1{tbl} Take 1 Un zulema ydrochlorot 1-01 tablet by ity of hiazide 15:43: mouth [place] 320-25 mg 02 daily. Medical per tablet Branch multivit 2021-03 Yes 1{tbl} Take 1 Unive rs with 1-01 tablet by ity of minerals/maritza 15:43: mouth [place] tein 02 daily. Medical (MULTIVITAM Branch IN 50 PLUS ORAL) coenzyme 2021-03 Yes 100mg Take 100 Univ ers Q10 100 mg 1-01 mg by ity of softgel 15:43: mouth in [place] 02 the Medical morning. Branch Biotin 2021-03 Yes 2500ug Take 2,500 Uni vers 2,500 mcg 1-01 mcg by ity of Cap 15:43: mouth [place] 02 daily. Medical Branch acetaminoph 2021-03 Yes 2{tbl} Take 2 Un zulema en 650 mg 1-01 tablets by ity of CR tablet 15:43: mouth in [place] 02 the Medical morning Branch and 2 tablets in the evening. amphetamine 2021-03 Yes 20mg Take 20 mg [facility] -dextroamph 01 by mouth ity of etamine 20 15:43: daily. [place] mg 24 hr 02 Medical capsule Branch atenolol 25 2021-03 Yes 25mg Take 25 mg [facility] mg tablet 01 by mouth ity of 15:43: daily. [place] Medical Branch atorvastati 2021-03 Yes 10mg Take 10 mg [facility] n 10 mg 01 by mouth ity of tablet 15:43: at [place] 02 bedtime. Medical Branch celecoxib 2021-03 Yes 200mg Take 200 Uni vers 200 mg 1-01 mg by ity of capsule 15:43: mouth [place] 02 daily. Medical Branch clonazePAM 2021-03 Yes .5mg Take 0.5 Uni vers 0.5 mg 1-01 mg by ity of tablet 15:43: mouth [place] 02 every Medical evening. Branch DULoxetine 2021-03 Yes 60mg Take 60 mg U nivers 60 mg -01 by mouth 2 ity of capsule 15:43: (two) [place] 02 times Medical daily. Branch estradiol 1 2021-03 Yes 1mg Take 1 mg U nivers mg tablet 01 by mouth ity of 15:43: daily. [place] 02 Medical Branch fluticasone 2021-03 Yes 2{spray Use 2 Un zulema propionate 1- } Sprays in ity of 50 15:43: each [place] mcg/actuati 02 nostril Medic al on nasal daily. Branch spray fluocinonid 2021-03 Yes 1{dose} Apply 1 [facility] e 0.05 % 1- Dose to ity of ointment 15:43: area(s) 2 [place] 02 (two) Medical times Branch daily. hyoscyamine 2021-03 Yes .125mg Take 0.125 [facility] 0.125 mg 1-01 mg by ity of tablet 15:43: mouth [place] 02 every 6 Medical (six) Branch hours as needed. methocarbam 2021-03 Yes 750mg Take 750 U nivers ol 750 mg 1-01 mg by ity of tablet 15:43: mouth 3 [place] 02 (three) Medical times Branch daily. budesonide- 2021-03 Yes 1{puff} Inhale 1 [facility] formoterol 1-01 Puff ity of (SYMBICORT) 15:43: daily. [place] 160-4.5 02 Medical mcg/actuati Branch on inhaler valsartan-h 2021-03 Yes 1{tbl} Take 1 Un zulema ydrochlorot 1-01 tablet by ity of hiazide 15:43: mouth [place] 320-25 mg 02 daily. Medical per tablet Branch multivit 2021-03 Yes 1{tbl} Take 1 Unive rs with 0-20 tablet by ity of minerals/maritza 16:26: mouth [place] tein 33 daily. Medical (MULTIVITAM Branch IN 50 PLUS ORAL) coenzyme 2021-03 Yes 100mg Take 100 Univ ers Q10 100 mg 0-20 mg by ity of softgel 16:26: mouth in [place] 33 the Medical morning. Branch Biotin 2021-03 Yes 2500ug Take 2,500 Uni vers 2,500 mcg 0-20 mcg by ity of Cap 16:26: mouth [place] 33 daily. Medical Branch acetaminoph 2021-03 Yes 2{tbl} Take 2 Un zulema en 650 mg 0-20 tablets by ity of CR tablet 16:26: mouth in [place] 33 the Medical morning Branch and 2 tablets in the evening. amphetamine 2021-03 Yes 20mg Take 20 mg [facility] -dextroamph 0-20 by mouth ity of etamine 20 16:14: daily. [place] mg 24 hr 10 Medical capsule Branch atenolol 25 2021-03 Yes 25mg Take 25 mg [facility] mg tablet 0-20 by mouth ity of 16:14: daily. [place] 10 Medical Branch atorvastati 2021-03 Yes 10mg Take 10 mg [facility] n 10 mg 0-20 by mouth ity of tablet 16:14: at [place] 10 bedtime. Medical Branch celecoxib 2021-03 Yes 200mg Take 200 Uni vers 200 mg 0-20 mg by ity of capsule 16:14: mouth [place] 10 daily. Medical Branch clonazePAM 2021-03 Yes .5mg Take 0.5 Uni vers 0.5 mg 0-20 mg by ity of tablet 16:14: mouth [place] 10 every Medical evening. Branch DULoxetine 2021-03 Yes 60mg Take 60 mg U nivers 60 mg 0-20 by mouth 2 ity of capsule 16:14: (two) [place] 10 times Medical daily. Branch estradiol 1 2021-03 Yes 1mg Take 1 mg U nivers mg tablet 0-20 by mouth ity of 16:14: daily. [place] 10 Medical Branch fluticasone 2021-03 Yes 2{spray Use 2 Un zulema propionate 0-20 } Sprays in ity of 50 16:14: each [place] mcg/actuati 10 nostril Medic al on nasal daily. Branch spray fluocinonid 2021-03 Yes 1{dose} Apply 1 [facility] e 0.05 % 0-20 Dose to ity of ointment 16:14: area(s) 2 [place] 10 (two) Medical times Branch daily. hyoscyamine 2021-03 Yes .125mg Take 0.125 [facility] 0.125 mg 0-20 mg by ity of tablet 16:14: mouth [place] 10 every 6 Medical (six) Branch hours as needed. methocarbam 2021-03 Yes 750mg Take 750 U nivers ol 750 mg 0-20 mg by ity of tablet 16:14: mouth 3 [place] 10 (three) Medical times Branch daily. valsartan-h 2021-03 Yes 1{tbl} Take 1 Un zulema ydrochlorot 0-20 tablet by ity of hiazide 16:14: mouth [place] 320-25 mg 10 daily. Medical per tablet Branch vedolizumab 2021- No [id number] 300mg 300 mg, IV [facility] (ENTYVIO) 12-1420 Infusion, ity of 300 mg in 15:15: 15:34 ONCE, 1 [place] NaCl 0.9% 00 :00 dose, On Medica l (NS) 250 mL Tue Branch IV infusion 12/14/21 at 1015, Administer over 30 Minutes, 250 mL vedolizumab 2022-0 2- No [id number] 300mg 300 mg, IV [facility] (ENTYVIO) 12-14 Infusion, ity of 300 mg in 15:15: 15:34 ONCE, 1 [place] NaCl 0.9% 00 :00 dose, On Medica l (NS) 250 mL Tue Branch IV infusion 12/14/21 at 1015, Administer over 30 Minutes, 250 mL vedolizumab 2022-0 2- No [id number] 300mg 300 mg, IV [facility] (ENTYVIO) 12-14 Infusion, ity of 300 mg in 15:15: 15:34 ONCE, 1 [place] NaCl 0.9% 00 :00 dose, On Medica l (NS) 250 mL Tue Branch IV infusion 12/14/21 at 1015, Administer over 30 Minutes, 250 mL pregabalin 2022-0 Yes 100mg Take 100 Un zulema 50 mg 9-02 mg by ity of capsule 00:00: mouth in [place] the Medical morning. Branch pregabalin 2022-0 Yes 100mg Take 100 Un zulema 50 mg 9-02 mg by ity of capsule 00:00: mouth in [place] the Medical morning. Branch pregabalin 2022-0 Yes 100mg Take 100 Un zulema 50 mg 9-02 mg by ity of capsule 00:00: mouth in [place] the Medical morning. Branch pregabalin 2022-0 Yes 100mg Take 100 Un zulema 50 mg 9-02 mg by ity of capsule 00:00: mouth in [place] the Medical morning. Branch pregabalin 2022-0 Yes 100mg Take 100 Un zulema 50 mg 9-02 mg by ity of capsule 00:00: mouth in [place] the Medical morning. Branch pregabalin 2022-0 Yes 100mg Take 100 Un zulema 50 mg 9-02 mg by ity of capsule 00:00: mouth in [place] the Medical morning. Branch pregabalin 2022-0 Yes 100mg Take 100 Un zulema 50 mg 9-02 mg by ity of capsule 00:00: mouth in [place] the Medical morning. Branch pregabalin 2022-0 Yes 100mg Take 100 Un zulema 50 mg 9-02 mg by ity of capsule 00:00: mouth in [place] 00 the Medical morning. Branch pregabalin 2022-0 Yes 100mg Take 100 Un zulema 50 mg 9-02 mg by ity of capsule 00:00: mouth in [place] 00 the Medical morning. Branch pregabalin 2022-0 Yes 100mg Take 100 Un zulema 50 mg 9-02 mg by ity of capsule 00:00: mouth in [place] 00 the Medical morning. Branch metformin 2022-0 Yes 500mg Take 500 Uni vers ER 500 mg 8-29 mg by ity of 24 hr 00:00: mouth in [place] tablet 00 the Medical morning. Branch metformin 2022-0 Yes 500mg Take 500 Uni vers ER 500 mg 8-29 mg by ity of 24 hr 00:00: mouth in [place] tablet 00 the Medical morning. Branch metformin 2022-0 Yes 500mg Take 500 Uni vers ER 500 mg 8-29 mg by ity of 24 hr 00:00: mouth in [place] tablet 00 the Medical morning. Branch metformin 2022-0 Yes 500mg Take 500 Uni vers ER 500 mg 8-29 mg by ity of 24 hr 00:00: mouth in [place] tablet 00 the Medical morning. Branch metformin 2022-0 Yes 500mg Take 500 Uni vers ER 500 mg 8-29 mg by ity of 24 hr 00:00: mouth in [place] tablet 00 the Medical morning. Branch metformin 2022-0 Yes 500mg Take 500 Uni vers ER 500 mg 8-29 mg by ity of 24 hr 00:00: mouth in [place] tablet 00 the Medical morning. Branch metformin 2022-0 Yes 500mg Take 500 Uni vers ER 500 mg 8-29 mg by ity of 24 hr 00:00: mouth in [place] tablet 00 the Medical morning. Branch metformin 2022-0 Yes 500mg Take 500 Uni vers ER 500 mg 8-29 mg by ity of 24 hr 00:00: mouth in [place] tablet 00 the Medical morning. Branch metformin 2022-0 Yes 500mg Take 500 Uni vers ER 500 mg 8-29 mg by ity of 24 hr 00:00: mouth in [place] tablet 00 the Medical morning. Branch metformin 2022-0 Yes 500mg Take 500 Uni vers ER 500 mg 8-29 mg by ity of 24 hr 00:00: mouth in [place] tablet 00 the Medical morning. Branch vedolizumab 2021-0 2021- No [id number] 300mg 300 mg, IV [facility] (ENTYVIO) 7-15 07-15 Infusion, ity of 300 mg in 15:56: 17:02 ONCE, 1 [place] NaCl 0.9% 00 :00 dose, On Medica l (NS) 250 mL Fri Branch IV infusion 10/08/21 at 1100, Administer over 30 Minutes, 250 mL vedolizumab 2021-0 2- No [id number] 300mg 300 mg, IV [facility] (ENTYVIO) 10-08 Infusion, ity of 300 mg in 15:56: 17:02 ONCE, 1 [place] NaCl 0.9% 00 :00 dose, On Medica l (NS) 250 mL Fri Branch IV infusion 10/08/21 at 1100, Administer over 30 Minutes, 250 mL vedolizumab 2021-0 2021- No [id number] 300mg 300 mg, IV [facility] (ENTYVIO) 10-08 Infusion, ity of 300 mg in 15:56: 17:02 ONCE, 1 [place] NaCl 0.9% 00 :00 dose, On Medica l (NS) 250 mL Fri Branch IV infusion 10/08/21 at 1100, Administer over 30 Minutes, 250 mL vedolizumab 2021-0 2021- No [id number] 300mg 300 mg, IV [facility] (ENTYVIO) 10-08 Infusion, ity of 300 mg in :56: 17:02 ONCE, 1 [place] NaCl 0.9% 00 :00 dose, On Medica l (NS) 250 mL Fri Branch IV infusion 10/08/21 at 1100, Administer over 30 Minutes, 250 mL vedolizumab 2021-0 2021- No [id number] 300mg 300 mg, IV [facility] (ENTYVIO) 10-08 Infusion, ity of 300 mg in 15:56: 17:02 ONCE, 1 [place] NaCl 0.9% 00 :00 dose, On Medica l (NS) 250 mL Fri Branch IV infusion 10/08/21 at 1100, Administer over 30 Minutes, 250 mL vedolizumab 2021-0 2- No [id number] 300mg 300 mg, IV Univers (ENTYVIO) 10-08 Infusion, ity of 300 mg in 15:56: 17:02 [place]CE, 1 [place] NaCl 0.9% 00 :00 dose, On Medica l (NS) 250 mL Fri Branch IV infusion 10/08/21 at 1100, Administer over 30 Minutes, 250 mL vedolizumab 2021- No [id number] 300mg 300 mg, IV Univers (ENTYVIO) 08-1320 Infusion, ity of 300 mg in 17:30: 17:29 [place]CE, [place] NaCl 0.9% 00 :00 dose, On Medica l (NS) 250 mL Fri Branch IV infusion 08/13/21 at 1230, Administer over 30 Minutes, 250 mL DULoxetine Yes 60mg Take 60 mg U nivers 60 mg 4-09 by mouth 2 ity of capsule 13:01: (two) [place] 23 times Medical daily. Branch valsartan-h Yes 1{tbl} Take 1 Un [facility] ydrochlorot 4-09 tablet by ity of hiazide 13:01: mouth [place] 320-25 mg 23 daily. Medical per tablet Branch DULoxetine Yes 60mg Take 60 mg U nivers 60 mg 4-09 by mouth 2 ity of capsule 13:01: (two) [place] 23 times Medical daily. Branch valsartan-h Yes 1{tbl} Take 1 Un [place] ydrochlorot 4-09 tablet by ity of hiazide 13:01: mouth [place] 320-25 mg 23 daily. Medical per tablet Branch DULoxetine Yes 60mg Take 60 mg U nivers 60 mg 4-09 by mouth 2 ity of capsule 13:01: (two) [place] 23 times Medical daily. Branch valsartan-h Yes 1{tbl} Take 1 Un [place] ydrochlorot 4-09 tablet by ity of hiazide 13:01: mouth [place] 320-25 mg 23 daily. Medical per tablet Branch atenolol Yes 25mg Take 25 mg Univers mg tablet 8-31 by mouth ity of 10:45: daily. [address] estradiol 1 Yes 1mg Take 1 mg U nivers mg tablet 8-31 by mouth ity of 10:45: daily. [address] atenolol Yes 25mg Take 25 mg Univers mg tablet 8-31 by mouth ity of 10:45: daily. [address] estradiol 1 2018-0 Yes 1mg Take 1 mg U nivers mg tablet 8-31 by mouth ity of 10:45: daily. [address] atenolol 25 2018-0 Yes 25mg Take 25 mg Univers mg tablet 8-31 by mouth ity of 10:45: daily. [address] estradiol 1 2018-0 Yes 1mg Take 1 mg U nivers mg tablet 8-31 by mouth ity of 10:45: daily. [address] amphetamine 2016-03 Yes 20mg Take 20 mg Univers -dextroamph 0-27 by mouth ity of etamine 20 10:50: daily. [place] mg 24 hr 24 Medical capsule Branch atorvastati 2016-03 Yes 10mg Take 10 mg Univers n 10 mg 0-27 by mouth ity of tablet 10:50: at [place] 24 bedtime. Medical Branch celecoxib 2016-03 Yes 200mg Take 200 Uni vers (CELEBREX) 0-27 mg by ity of 200 mg 10:50: mouth [place] capsule 24 daily. Medical Branch clonazePAM 2016-03 Yes .5mg Take 0.5 Uni vers 0.5 mg 0-27 mg by ity of tablet 10:50: mouth [place] 24 every Medical evening. Branch fluticasone 2016-03 Yes 2{spray Use 2 Un zulema (FLONASE) 0-27 } Sprays in ity o f 50 10:50: each [place] mcg/actuati 24 nostril Medic al on nasal daily. Branch spray fluocinonid 2016-03 Yes 1{dose} Apply 1 Univers e 0.05 % 0-27 Dose to ity of ointment 10:50: area(s) 2 [place] 24 (two) Medical times Branch daily. hyoscyamine 2016-03 Yes .125mg Take 0.125 Univers 0.125 mg 0-27 mg by ity of tablet 10:50: mouth [place] 24 every 6 Medical (six) Branch hours as needed. methocarbam 2016-03 Yes 750mg Take 750 U nivers ol 750 mg 0-27 mg by ity of tablet 10:50: mouth 3 [place] 24 (three) Medical times Branch daily. budesonide- 2016-03 Yes 1{puff} Inhale 1 Univers formoterol 0-27 Puff ity of (SYMBICORT) 10:50: daily. [place] 160-4.5 24 Medical mcg/actuati Branch on inhaler amphetamine 2016-03 Yes 20mg Take 20 mg Univers -dextroamph 0-27 by mouth ity of etamine 20 10:50: daily. [place] mg 24 hr 24 Medical capsule Branch atorvastati 2016-03 Yes 10mg Take 10 mg Univers n 10 mg 0-27 by mouth ity of tablet 10:50: at [place] 24 bedtime. Medical Branch celecoxib 2016-03 Yes 200mg Take 200 Uni vers (CELEBREX) 0-27 mg by ity of 200 mg 10:50: mouth [place] capsule 24 daily. Medical Branch clonazePAM 2016-03 Yes .5mg Take 0.5 Uni vers 0.5 mg 0-27 mg by ity of tablet 10:50: mouth [place] 24 every Medical evening. Branch fluticasone 2016-03 Yes 2{spray Use 2 Un [facility] (FLONASE) 0-27 } Sprays in ity o f 50 10:50: each [place] mcg/actuati 24 nostril Medic al on nasal daily. Branch spray fluocinonid 2016-03 Yes 1{dose} Apply 1 Univers e 0.05 % 0-27 Dose to ity of ointment 10:50: area(s) 2 [place] 24 (two) Medical times Branch daily. hyoscyamine 2016-03 Yes .125mg Take 0.125 Univers 0.125 mg 0-27 mg by ity of tablet 10:50: mouth [place] 24 every 6 Medical (six) Branch hours as needed. methocarbam 2016-03 Yes 750mg Take 750 U nivers ol 750 mg 0-27 mg by ity of tablet 10:50: mouth 3 [place] 24 (three) Medical times Branch daily. budesonide- 2016-03 Yes 1{puff} Inhale 1 Univers formoterol 0-27 Puff ity of (SYMBICORT) 10:50: daily. [place] 160-4.5 24 Medical mcg/actuati Branch on inhaler amphetamine 2016-03 Yes 20mg Take 20 mg Univers -dextroamph 0-27 by mouth ity of etamine 20 10:50: daily. [place] mg 24 hr 24 Medical capsule Branch atorvastati 2016-03 Yes 10mg Take 10 mg Univers n 10 mg 0-27 by mouth ity of tablet 10:50: at [place] 24 bedtime. Medical Branch celecoxib 2016-03 Yes 200mg Take 200 Uni vers (CELEBREX) 0-27 mg by ity of 200 mg 10:50: mouth [place] capsule 24 daily. Medical Branch clonazePAM 2016-03 Yes .5mg Take 0.5 Uni vers 0.5 mg 0-27 mg by ity of tablet 10:50: mouth [place] 24 every Medical evening. Branch fluticasone 2016-03 Yes 2{spray Use 2 Un [facility] (FLONASE) 0-27 } Sprays in ity o f 50 10:50: each [place] mcg/actuati 24 nostril Medic al on nasal daily. Branch spray fluocinonid 2016-03 Yes 1{dose} Apply 1 Univers e 0.05 % 0-27 Dose to ity of ointment 10:50: area(s) 2 [place] 24 (two) Medical times Branch daily. hyoscyamine 2016-03 Yes .125mg Take 0.125 Univers 0.125 mg 0-27 mg by ity of tablet 10:50: mouth [place] 24 every 6 Medical (six) Branch hours as needed. methocarbam 2016-03 Yes 750mg Take 750 U nivers ol 750 mg 0-27 mg by ity of tablet 10:50: mouth 3 [place] 24 (three) Medical times Branch daily. budesonide- 2016-03 Yes 1{puff} Inhale 1 [facility] formoterol 0-27 Puff ity of (SYMBICORT) 10:50: daily. [place] 160-4.5 24 Medical mcg/actuati Branch on inhaler budesonide- 2016-03 Yes 1{puff} Inhale 1 [facility] formoterol 0-27 Puff ity of (SYMBICORT) 10:50: daily. [place] 160-4.5 24 Medical mcg/actuati Branch on inhaler montelukast 2008-03 Yes 10mg Take 10 mg Univers 10 mg 1-01 by mouth ity of tablet 00:00: in the [place] 00 morning. Medical Branch cimetidine 2008-03 Yes 200mg Take 200 Un [facility] (TAGAMET 1-01 mg by ity of HB) 200 mg 00:00: mouth in [place] as tablet 00 the Medical morning. Branch montelukast 2008-03 Yes 10mg Take 10 mg Univers 10 mg 1-01 by mouth ity of tablet 00:00: in the [place] 00 morning. Medical Branch cimetidine 2008-03 Yes 200mg Take 200 Un [facility] (TAGAMET 1-01 mg by ity of HB) 200 mg 00:00: mouth in [place] as tablet 00 the Medical morning. Branch montelukast 2008-03 Yes 10mg Take 10 mg Univers 10 mg 1-01 by mouth ity of tablet 00:00: in the [place] 00 morning. Medical Branch cimetidine 2008-03 Yes 200mg Take 200 Un [facility] (TAGAMET 1-01 mg by ity of HB) 200 mg 00:00: mouth in [place] as tablet 00 the Medical morning. Branch montelukast 2008-03 Yes 10mg Take 10 mg Univers 10 mg 1-01 by mouth ity of tablet 00:00: in the [place] 00 morning. Medical Branch cimetidine 2008-03 Yes 200mg Take 200 Un [facility] (TAGAMET 1-01 mg by ity of HB) 200 mg 00:00: mouth in [place] as tablet 00 the Medical morning. Branch montelukast 2008-03 Yes 10mg Take 10 mg Univers 10 mg 1-01 by mouth ity of tablet 00:00: in the [place] 00 morning. Medical Branch cimetidine 2008-03 Yes 200mg Take 200 Un [facility] (TAGAMET 1-01 mg by ity of HB) 200 mg 00:00: mouth in [place] as tablet 00 the Medical morning. Branch montelukast 2008-03 Yes 10mg Take 10 mg Univers 10 mg 1-01 by mouth ity of tablet 00:00: in the [place] 00 morning. Medical Branch cimetidine 2008-03 Yes 200mg Take 200 Un [facility] (TAGAMET 1-01 mg by ity of HB) 200 mg 00:00: mouth in [place] as tablet 00 the Medical morning. Branch montelukast 2008-03 Yes 10mg Take 10 mg Univers 10 mg 1-01 by mouth ity of tablet 00:00: in the [place] 00 morning. Medical Branch cimetidine 2008-03 Yes 200mg Take 200 Un [facility] (TAGAMET 1-01 mg by ity of HB) 200 mg 00:00: mouth in [place] as tablet 00 the Medical morning. Branch montelukast 2008-03 Yes 10mg Take 10 mg Univers 10 mg 1-01 by mouth ity of tablet 00:00: in the [place] 00 morning. Medical Branch cimetidine 2008- Yes 200mg Take 200 Un [facility] (TAGAMET 1-01 mg by ity of HB) 200 mg 00:00: mouth in [place] as tablet 00 the Medical morning. Branch montelukast 2008- Yes 10mg Take 10 mg Univers 10 mg 1-01 by mouth ity of tablet 00:00: in the [place] 00 morning. Medical Branch cimetidine 2008- Yes 200mg Take 200 Un [facility] (TAGAMET 1-01 mg by ity of HB) 200 mg 00:00: mouth in [place] as tablet 00 the Medical morning. Branch montelukast 2008- Yes 10mg Take 10 mg Univers 10 mg 1-01 by mouth ity of tablet 00:00: in the [place] 00 morning. Medical Branch cimetidine 2008- Yes 200mg Take 200 Un [facility] (TAGAMET 1-01 mg by ity of HB) 200 mg 00:00: mouth in [place] as tablet 00 the Medical morning. Branch Immunizations Ordered Filled Immunization Date Status Comments [facility] e Immunization Name Name SARS-COV-2 COVID-19 2020-07-04 Completed Unive rsity of PFIZER VACCINE 00:00:00 [facility] SARS-COV-2 COVID-19 2020-07-04 Completed Unive rsity of PFIZER VACCINE 00:00:00 [facility] SARS-COV-2 COVID-19 2020-07-04 Completed Unive rsity of PFIZER VACCINE 00:00:00 [facility] SARS-COV-2 COVID-19 2020-07-04 Completed Unive rsity of PFIZER VACCINE 00:00:00 [facility] SARS-COV-2 COVID-19 2020-07-04 Completed Unive rsity of PFIZER VACCINE 00:00:00 [facility] SARS-COV-2 COVID-19 2020-07-04 Completed Unive rsity of PFIZER VACCINE 00:00:00 [facility] SARS-COV-2 COVID-19 2020-07-04 Completed Unive rsity of PFIZER VACCINE 00:00:00 [facility] SARS-COV-2 COVID-19 2020-07-04 Completed Unive rsity of PFIZER VACCINE 00:00:00 [facility] SARS-COV-2 COVID-19 2020-07-04 Completed Unive rsity of PFIZER VACCINE 00:00:00 [facility] Branch SARS-COV-2 COVID-19 2020-07-04 Completed Unive rsity of PFIZER VACCINE 00:00:00 [facility] Branch SARS-COV-2 COVID-19 2020-07-04 Completed Unive rsity of PFIZER VACCINE 00:00:00 [facility] Branch SARS-COV-2 COVID-19 2020-07-04 Completed Unive rsity of PFIZER VACCINE 00:00:00 [facility] Branch SARS-COV-2 COVID-19 2020-07-04 Completed Unive rsity of PFIZER VACCINE 00:00:00 [facility] Branch SARS-COV-2 COVID-19 2020-07-04 Completed Unive rsity of PFIZER VACCINE 00:00:00 [facility] Branch SARS-COV-2 COVID-19 2020-07-04 Completed Unive rsity of PFIZER VACCINE 00:00:00 [facility] Branch SARS-COV-2 COVID-19 2020-07-04 Completed Unive rsity of PFIZER VACCINE 00:00:00 [facility] Branch SARS-COV-2 COVID-19 2020-07-04 Completed Unive rsity of PFIZER VACCINE 00:00:00 [facility] Branch SARS-COV-2 COVID-19 2020-07-04 Completed Unive rsity of PFIZER VACCINE 00:00:00 [facility] Branch SARS-COV-2 COVID-19 2020-07-04 Completed Unive rsity of PFIZER VACCINE 00:00:00 [facility] Branch SARS-COV-2 COVID-19 2020-07-04 Completed Unive rsity of PFIZER VACCINE 00:00:00 [facility] Branch SARS-COV-2 COVID-19 2020-06-13 Completed Unive rsity of PFIZER VACCINE 00:00:00 [facility] Branch SARS-COV-2 COVID-19 2020-06-13 Completed Unive rsity of PFIZER VACCINE 00:00:00 [facility] Branch SARS-COV-2 COVID-19 2020-06-13 Completed Unive rsity of PFIZER VACCINE 00:00:00 [facility] Branch SARS-COV-2 COVID-19 2020-06-13 Completed Unive rsity of PFIZER VACCINE 00:00:00 [facility] Branch SARS-COV-2 COVID-19 2020-06-13 Completed Unive rsity of PFIZER VACCINE 00:00:00 [facility] Branch SARS-COV-2 COVID-19 2020-06-13 Completed Unive rsity of PFIZER VACCINE 00:00:00 [facility] Branch SARS-COV-2 COVID-19 2020-06-13 Completed Unive rsity of PFIZER VACCINE 00:00:00 [facility] Branch SARS-COV-2 COVID-19 2020-06-13 Completed Unive rsity of PFIZER VACCINE 00:00:00 [facility] Branch SARS-COV-2 COVID-19 2020-06-13 Completed Unive rsity of PFIZER VACCINE 00:00:00 [facility] Branch SARS-COV-2 COVID-19 2020-06-13 Completed Unive rsity of PFIZER VACCINE 00:00:00 [facility] Branch SARS-COV-2 COVID-19 2020-06-13 Completed Unive rsity of PFIZER VACCINE 00:00:00 [facility] Branch SARS-COV-2 COVID-19 2020-06-13 Completed Unive rsity of PFIZER VACCINE 00:00:00 [facility] Branch SARS-COV-2 COVID-19 2020-06-13 Completed Unive rsity of PFIZER VACCINE 00:00:00 [facility] Branch SARS-COV-2 COVID-19 2020-06-13 Completed Unive rsity of PFIZER VACCINE 00:00:00 [facility] Branch SARS-COV-2 COVID-19 2020-06-13 Completed Unive rsity of PFIZER VACCINE 00:00:00 [facility] Branch SARS-COV-2 COVID-19 2020-06-13 Completed Unive rsity of PFIZER VACCINE 00:00:00 [facility] Branch SARS-COV-2 COVID-19 2020-06-13 Completed Unive rsity of PFIZER VACCINE 00:00:00 [facility] Branch SARS-COV-2 COVID-19 2020-06-13 Completed Unive rsity of PFIZER VACCINE 00:00:00 [facility] Branch SARS-COV-2 COVID-19 2020-06-13 Completed Unive rsity of PFIZER VACCINE 00:00:00 [facility] Branch SARS-COV-2 COVID-19 2020-06-13 Completed Unive rsity of PFIZER VACCINE 00:00:00 [facility] Vital Signs Vital Name Observation Time Observation Value Comments Source Systolic blood 2022-05-31 14:30:00 139 mm[Hg] Univer sity of pressure [place] [facility] Diastolic blood 2022-05-31 14:30:00 81 mm[Hg] Unive rsity of pressure [place] [facility] Heart rate 2022-05-31 14:30:00 78 /min Universi ty of [place] [facility] Body temperature 2022-05-31 14:30:00 36 [place] Univ ersity of [place] [facility] Respiratory rate 2022-05-31 14:30:00 18 /min Univ ersity of [place] [facility] Body height 2022-05-31 14:30:00 160 cm Universi ty of [place] [facility] Body weight 2022-05-31 14:30:00 111.131 kg Universi ty of [place] [facility] BMI 2022-05-31 14:30:00 43.40 kg/m2 Universi ty of [place] [facility] Oxygen saturation in 2022-05-31 14:30:00 98 /min University of Arterial blood by [facility] Pulse oximetry Branch Systolic blood 2022-04-14 14:06:00 152 mm[Hg] Univer sity of pressure [place] [facility] Diastolic blood 2022-04-14 14:06:00 77 mm[Hg] Unive rsity of pressure [place] [facility] Heart rate 2022-04-14 14:06:00 69 /min Universi ty of [place] [facility] Body temperature 2022-04-14 14:06:00 35.94 [place] Univ ersity of [place] [facility] Respiratory rate 2022-04-14 14:06:00 16 /min Univ ersity of [place] [facility] Body weight 2022-04-14 14:06:00 108.863 kg Universi ty of [place] [facility] BMI 2022-04-14 14:06:00 42.52 kg/m2 Universi ty of [place] [facility] Oxygen saturation in 2022-04-14 14:06:00 96 /min University of Arterial blood by [facility] Pulse oximetry Branch Systolic blood 2022-02-08 14:24:00 145 mm[Hg] Univer sity of pressure [place] [facility] Diastolic blood 2022-02-08 14:24:00 70 mm[Hg] Unive rsity of pressure [place] [facility] Heart rate 2022-02-08 14:24:00 70 /min Universi ty of [place] [facility] Body temperature 2022-02-08 14:24:00 36.17 [place] Univ ersity of [place] [facility] Respiratory rate 2022-02-08 14:24:00 16 /min Univ ersity of [place] [facility] Oxygen saturation in 2022-02-08 14:24:00 97 /min University of Arterial blood by [facility] Pulse oximetry Branch Heart rate 2022-01-25 20:24:00 74 /min Universi ty of [place] [facility] Respiratory rate 2022-01-25 20:24:00 16 /min Univ ersity of [place] [facility] Oxygen saturation in 2022-01-25 20:24:00 94 /min University of Arterial blood by [facility] Pulse oximetry Branch Systolic blood 2022-01-25 20:23:00 118 mm[Hg] Univer sity of pressure [place] [facility] Diastolic blood 2022-01-25 20:23:00 66 mm[Hg] Unive rsity of pressure [place] [facility] Body temperature 2022-01-25 19:46:00 36.28 [place] Univ ersity of [place] [facility] Body height 2022-01-13 18:30:00 160 cm Universi ty of [place] [facility] Body weight 2022-01-13 18:30:00 108.9 kg Universi ty of [place] [facility] BMI 2022-01-13 18:30:00 42.54 kg/m2 [facility]i [facility] of [place] [facility] Systolic blood 2022-01-25 19:46:00 129 mm[Hg] Univer sity of pressure [place] [facility] Diastolic blood 2022-01-25 19:46:00 68 mm[Hg] Unive rsity of pressure [place] [facility] Heart rate 2022-01-25 19:46:00 78 /min [facility]i ty [facility] [place] [facility] Body temperature 2022-01-25 19:46:00 36.28 [place] Univ ersity of [place] [facility] Respiratory rate 2022-01-25 19:46:00 17 /min Univ ersity of [place] [facility] Oxygen saturation in 2022-01-25 19:46:00 100 /min University of Arterial blood by [facility] Pulse oximetry Branch Body height 2022-01-13 18:30:00 160 cm Universi ty [facility] [place] [facility] Body weight 2022-01-13 18:30:00 108.9 kg Universi ty of [place] [facility] BMI 2022-01-13 18:30:00 42.54 kg/m2 Universi ty of [place] [facility] Systolic blood 2021-12-14 14:25:00 133 mm[Hg] Univer sity of pressure [place] [facility] Diastolic blood 2021-12-14 14:25:00 76 mm[Hg] Unive rsity of pressure [place] [facility] Heart rate 2021-12-14 14:25:00 74 /min Universi ty of [place] [facility] Body temperature 2021-12-14 14:25:00 36.22 [place] Univ ersity of [place] [facility] Body weight 2021-12-14 14:25:00 108.863 kg Universi ty of [place] [facility] BMI 2021-12-14 14:25:00 42.51 kg/m2 [facility] ty [facility] [place] [facility] Oxygen saturation in 2021-12-14 14:25:00 96 /min University of Arterial blood by [place] [facility] Pulse oximetry Branch Systolic blood 2021-10-08 15:53:00 161 mm[Hg] Univer sity of pressure [place] [facility] Diastolic blood 2021-10-08 15:53:00 78 mm[Hg] Unive rsity of pressure [place] [facility] Heart rate 2021-10-08 15:53:00 81 /min [facility]i ty of [place] [facility] Body temperature 2021-10-08 15:53:00 36 [place] Univ ersity of [place] [facility] Respiratory rate 2021-10-08 15:53:00 16 /min Univ ersity of [place] [facility] Body height 2021-10-08 15:53:00 160 cm [facility]i ty [facility] [place] [facility] Body weight 2021-10-08 15:53:00 108.863 kg [facility]i ty [facility] [place] [facility] BMI 2021-10-08 15:53:00 42.51 kg/m2 [facility] ty [facility] [place] [facility] Oxygen saturation in 2021-10-08 15:53:00 95 /min University of Arterial blood by [employer] Pulse oximetry Branch Systolic blood 2021-08-13 16:22:00 155 mm[Hg] Univer sity of pressure [place] [facility] Diastolic blood 2021-08-13 16:22:00 76 mm[Hg] Unive rsity of pressure [facility] Heart rate 2021-08-13 16:22:00 82 /min [facility] Body temperature 2021-08-13 16:22:00 36.39 [place] [facility] 2021-08-13 16:22:00 160 cm [facility] Body weight 2021-08-13 16:22:00 111.131 kg [facility] BMI 2021-08-13 16:22:00 43.40 kg/m2 [facility] Oxygen saturation in 2021-08-13 16:22:00 98 /min [facility] Arterial blood by [facility] Pulse oximetry Branch Procedures Procedure Date / Time Performing Clinician Source Performed INFUSION THERAPY DOCUMENTS 2022-05-31 06:01:00 Doctor Unalouis , [facility] PHYSICIAN ORDERS 2022-05-09 06:01:00 Doctor Unassigned, [facility] Name [facility] INFUSION THERAPY DOCUMENTS 2022-04-14 06:01:00 Doctor Unalouis , [facility] ESOPHAGOGASTRODUODENOSCOPY 2022-01-25 19:18:00 King Marcos [facility] EGD (ENDO) 2022-01-25 19:09:20 Steven Barnett [facility] EGD (ENDO) 2022-01-25 19:09:20 Steven Barnett [facility] POCT GLUCOSE (AUTOMATED) 2022-01-25 18:06:00 Briana Marcos [facility] POCT GLUCOSE (AUTOMATED) 2022-01-25 18:06:00 Briana Marcos [facility] US ABDOMEN LIMITED 2022-01-20 15:33[facility] 2021-12-20 05:01:00 Doctor Alejandro, [facility] Name [facility] EXTERNAL PROVIDER RECORDS 2021-12-20 05:01:00 Doctor Unassnicole, [facility] [id number] 2019-10-17 00:00:00 VOLTH [facility] [id number] 2019-10-17 00:00:00 [facility] Encounters Start End Encounter Admission Attending Care Care Encounter Source Date/Time Date/Time Type Type Clinicians Facility Department ID 2019-10-15 Inpatient Donnell ESTESCL DAYS [id number] [facility] 2022-05-31 2022-05-31 Nurse 2, Adc Infusion Chair [facility] 1.2. 840.114 [id number] Univers 08:00:00 10:30:00 Visit Briana Marcos 350.1.1 3.10 ity of [place] [id number] [place] [id number] Branch 2022-05-31 2022-05-31 Outpatient [facility] [id number] Univers 08:00:00 08:00:00 BRIANA Zamudio [facility] 2022-05-31 2022-05-31 Orders Doctor MACHADO [id number] Univers 00:00:00 00:00:00 Only Unassigned, THALIA 350.1.13.10 ity of [place] [facility] 4.2.7.2.686 [place] as [id number] [address] 2022-05-20 2022-05-20 Outpatient R [facility] [id number] Univers 10:00:00 10:00:00 BRIANA Zamudio [facility] 2022-05-09 2022-05-09 Orders Doctor MACHADO [id number] Univers 00:00:00 00:00:00 Only Unassigned, THALIA [id number] ity of [place] [facility] [id number] [place] as [id number] [address] 2022-04-14 2022-04-14 Nurse 2, Adc Infusion Chair [facility] 1.2. 840.114 [id number] Univers 07:30:00 10:00:00 Visit Briana Marcos 350.1.1 3.10 [place] [id number] [address] 2022-04-14 2022-04-14 Outpatient R [facility] [id number] Univers 07:30:00 07:30:00 BRIANA Zamudio [facility] 2022-04-14 2022-04-14 Orders Doctor CARTER [id number] Univers 00:00:00 00:00:00 Only Unassigned, THALIA 350.1.13.10 ity of [place] [facility] 4.2.7.2.686 [place] as [id number] [address] 2022-04-08 2022-04-08 Outpatient GC_SWHATBIC PRIV PRIV [id number] [facility] 00:00:00 00:00:00 _[facility]_S [id number] Medica l 2022-04-05 2022-04-05 Outpatient R [facility] [id number] Univers 08:00:00 08:00:00 CARMENCITA ZamudioOmero kennedyduglas huerta [facility] 2022-02-08 2022-02-08 Nurse 2, Adc Infusion Chair [facility] 1.2. 840.114 [id number] Univers 08:00:00 10:30:00 Visit Briana Marcos 350.1.1 3.10 [place]y [id number] [id number] [address] 2022-02-08 2022-02-08 Outpatient R [facility] [id number] Univers 08:00:00 08:00:00 DemetriceCARMENCITAOmero christiansen terrie huerta [facility] 2022-01-25 2022-01-25 Outpatient R [facility] [id number] Univers 12:54:00 15:35:00 DemetriceCARMENCITAOmero falcon bradley [facility] 2022-01-25 2022-01-25 [facility] 1.2.840.114 [id number] Univers 12:54:00 15:35:00 Encounter Briana zamudio 350.1.13.10 ity of [place] [id number] [facility] [address] 2022-01-25 2022-01-25 Surgery [facility] 1.2.840.114 [id number] [facility] 14:09:00 14:46:00 demetrice Briana Gallagher [place] 350.1.13.10 it[place] of [place] [id number] [facility] [address] 2022-01-20 2022-01-20 Outpatient [facility] [id number] Univers 10:03:11 23:59:00 Demetrice BRIANA falcon bradley [facility] 2022-01-20 2022-01-20 [facility] 1.2.840.114 [id number] Univers 09:30:00 23:59:00 Encounter Briana zamudio 350.1.13.10 it[place] [id number] [facility] [address] 2022-01-19 2022-01-19 Outpatient [facility] [id number] Univers 00:00:00 00:00:00 Demetrice BRIANA falcon bradley [facility] 2022-01-12 2022-01-12 Outpatient [facility] [id number] Univers 00:00:00 00:00:00 Demetrice BRIAAN falcon bradley [facility] 2022-01-01 2022-01-01 Outpatient [facility] [id number] Univers 00:00:00 00:00:00 Demetrice BRIANA falcon bradley [facility] 2021-12-14 2021-12-14 Nurse 2, Adc Infusion Chair [facility] 1.2. 840.114 [id number] Univers 09:00:00 11:30:00 Visit Briana Marcos 350.1.1 3.10 ity of [place] [id number] Med ical [address] 2021-12-14 2021-12-14 [facility] [id number] Univers 09:00:00 09:00:00 BRIANA Zamudio [facility] 2021-12-10 2021-12-10 Outpatient [facility] [id number] Univers 09:00:00 09:00:00 BRIANA Zamudio [facility] 2021-12-03 2021-12-03 Outpatient [facility] [id number] Univers 10:00:00 10:00:00 BRIANA Zamudio [facility] 2021-11-04 2021-11-04 Outpatient KATARZYNA Restrepo, HCAPM HCAPM [id number] 64-20 [facility] 06:11:00 06:11:00 Tamia [id number] [facility] 2021-11-04 2021-11-04 Outpatient KATARZYNA Restrepo, HCAPM OA630 [id number] [facility] 06:11:00 06:11:00 Tamia 31 [facility] 2021-10-08 2021-10-08 Nurse 1, Adc Infusion Chair [facility] 1.2. 840.114 [id number] Univers 10:00:00 12:00:00 Visit Briana Marcos 350.1.1 3.10 [place] [id number] [address] 2021-10-08 2021-10-08 Outpatient [facility] [id number] Univers 10:00:00 10:00:00 BRIANA Zamudio brentduglas huerta [facility] 2021-10-08 2021-10-08 Outpatient [facility] [id number] Univers 10:00:00 10:00:00 CARMENCITA ZamudioOmero christiansen terrie huerta [facility] 2021-09-24 2021-09-24 Outpatient [facility] [id number] Univers 10:30:00 10:30:00 DINA ZamudioLIZBETH christiansen terrie huerta [facility] 2021-08-13 2021-08-13 Nurse 1, Adc Infusion Chair [facility] 1.2. 840.114 [id number] Univers 11:00:00 13:00:00 Visit Briana Marcos 350.1.1 3.10 ity of [place] [id number] [address] 2021-08-13 2021-08-13 Outpatient [facility] [id number] Univers 11:00:00 11:00:00 Demetrice DINASHRADDHAOmero falcon bradley [facility] 2021-07-30 2021-07-30 Outpatient [facility] [id number] Univers 10:30:00 10:30:00 BRIANA Zamudio bradley [facility] 2021-07-09 2021-07-09 Letter CARTER Tafoya 1.2.840.114 [id number] Univers 00:00:00 00:00:00 (Out) Renee VÁSQUEZ 350.1.13.10 it y of HOSPITAL 4.2.7.2.686 Emmanuel as [id number] [address] 2021-07-08 2021-07-08 Laboratory Only, Ang Db Test [facility] 1.2.8 40.114 [id number] Univers 11:30:00 11:45:00 Only Lele Acunote 350.1.13.10 ity of [place] 4.2.7.2.686 Emmanuel as JACLYN?BLEA [id number] [address] MEDICAL OFFICE [facility]ILD[facility] 2021-07-08 2021-07-08 Outpatient R LELE [facility] [id number] Univers 11:30:00 11:30:00 RANIA ity of [facility] 2021-06-18 2021-06-18 Nurse 1, Adc Infusion Chair [facility] 1.2. 840.114 [id number] Univers 09:00:00 09:30:00 Visit Briana Marcos 350.1.1 3.10 ity of [place] [id number] [address] 2021-06-18 2021-06-18 Outpatient [facility] [id number] Univers 09:00:00 09:00:00 DemetriceDINALIZBETH christiansen terrie huerta [facility] 2021-06-08 2021-06-08 Orders Doctor MACHADO 1.2.840.114 [id number] Univers 00:00:00 00:00:00 Only Unassigned, THALIA 350.1.13.10 [facility] 4.2.7.2.686 [place] as [phone] [address] 2021-06-04 2021-06-04 Outpatient [facility] [id number] Univers 10:30:00 10:30:00 BRIANA Zamudio bradley [facility] 2021-06-03 2021-06-03 Outpatient [facility] [id number] Univers 11:00:00 11:00:00 BRIANA Zamudio bradley [facility] 2021-04-09 2021-04-09 Nurse 1, Adc Infusion Nurse [facility] 1.2. 840.114 [id number] Univers 10:30:00 12:30:00 Visit Briana Marcos 350.1.1 3.10 [facility] 4.2.[place] [id number] [address] 2021-04-09 2021-04-09 Outpatient [facility] [id number] Univers 10:30:00 10:30:00 BRIANA Zamudio [facility] 2021-02-12 2021-02-12 Nurse 1, Adc Infusion Nurse [facility] 1.2. 840.114 [id number] Univers 10:39:30 12:39:30 Visit Briana Marcos 350.1.1 3.10 [facility] 4.2.[place] [id number] [address] 2021-02-12 2021-02-12 Outpatient [facility] [id number] Univers 10:30:00 10:30:00 BRIANA Zamudio [facility] 2021-02-12 2021-02-12 Orders Doctor CARTER 1.2.840.114 [id number] Univers 00:00:00 00:00:00 Only Unassigned, THALIA 350.1.13.10 ity of [place] [facility] 4.2.7.2.686 Emmanuel as [id number] [address] 2020-12-18 2020-12-18 Nurse 1, Adc Infusion Nurse [facility] 1.2. 840.114 [id number] Univers 10:40:27 12:40:27 Visit Briana Marcos 350.1.1 3.10 ity of [place] [id number] [address] 2020-12-18 2020-12-18 Outpatient [facility] [id number] Univers 10:30:00 10:30:00 BRIANA Zamudio [facility] 2020-12-18 2020-12-18 Orders Doctor MACHADO 1.2.840.114 [id number] Univers 00:00:00 00:00:00 Only Unassigned, THALIA 350.1.13.10 ity of [place] [facility] 4.2.7.2.686 Emmanuel as [id number] [address] 2020-12-04 2020-12-04 Outpatient [facility] [id number] Univers 10:30:00 10:30:00 BRIANA Zamudio [facility] 2020-10-23 2020-10-23 Nurse 1, Adc Infusion Nurse [facility] 1.2. 840.114 [id number] Univers 10:49:58 12:49:58 Visit Briana Marcos 350.1.1 3.10 ity of [place] [phone] [address] 2020-10-23 2020-10-23 Outpatient [facility] [id number] Univers 10:30:00 10:30:00 BRIANA Zamudio [facility] 2020-10-09 2020-10-09 Outpatient R [facility] [id number] Univers 10:30:00 10:30:00 ity of [facility] 2020-10-01 2020-10-01 Hospital [facility] 1.2.840.114 [id number] Univers 13:52:39 23:59:00 Encounter Briana zamudio 350.1.13.10 it[place] of [place] [id number] [facility] [address] 2020-10-01 2020-10-01 Outpatient [facility] [id number] Univers 00:00:00 00:00:00 Demetrice BRIANA falcon bradley [facility] 2020-08-28 2020-08-28 Nurse 1, Adc Infusion Nurse [facility] 1.2. 840.114 [id number] Univers 10:20:20 12:20:20 Visit Briana Marcos 350.1.1 3.10 it[place] of [place].2.686 [place] [facility] [id number] [facility] [address] 2020-08-28 2020-08-28 Outpatient [facility] [id number] Univers 10:00:00 10:00:00 Demetrice BRIANA falcon bradley [facility] 2020-08-28 2020-08-28 Outpatient [facility] [id number] Univers 10:00:00 10:00:00 Demetrice BRIANA falcon bradley [facility] 2020-08-28 2020-08-28 Orders Doctor MACHADO 1.2.840.114 [id number] Univers 00:00:00 00:00:00 Only Unassigned, THALIA 350.1.13.10 ity of [place] [facility] 4.2.7.2.686 Emmanuel as [id number] [facility] [address] 2020-08-14 2020-08-14 Outpatient R [facility] [id number] Univers 10:30:00 10:30:00 ity of [facility] 2020-07-17 2020-07-17 Nurse 1, Adc Infusion Chair [facility] 1.2. 840.114 [id number] Univers 11:02:23 13:02:23 Visit Briana Marcos 350.1.1 3.10 ity [facility] 4[place]2.[place] [id number] [address] 2020-07-17 2020-07-17 Outpatient R [facility] [id number] Univers 10:30:00 10:30:00 ity of [facility] 2020-07-10 2020-07-10 Orders Doctor CARTER 1.2.840.114 [id number] Univers 00:00:00 00:00:00 Only Unassigned, THALIA 350.1.13.[address] [facility] 4.2.7.2.686 Emmanuel as [id number] [address] 2020-07-04 2020-07-04 Outpatient [facility] [id number] Univers 16:20:00 16:20:00 ity of [facility] 2020-07-03 2020-07-03 Nurse 1, Adc Infusion Chair [facility] 1.2. 840.114 [id number] Univers 11:12:13 13:12:13 Visit Briana Marcos 350.1.1 3.10 ity [facility] 4[place]2.[place] [phone] [address] 2020-07-03 2020-07-03 [facility] [id number] Univers 11:00:00 11:00:00 BRIANA Zamudio o f [facility] 2020-06-23 2020-06-23 Orders Doctor MACHADO 1.2.840.114 [id number] Univers 00:00:00 00:00:00 Only Unassigned, THALIA 350.1.13.[address] [facility] 4.2.7.2.686 Emmanuel as [id number] [address] 2020-06-13 2020-06-13 Outpatient [facility] [id number] Univers 16:20:00 16:20:00 ity of [facility] 2020-05-08 2020-05-08 Nurse 1, Adc Infusion Chair [facility] 1.2. 840.114 [id number] Univers 10:22:40 12:22:40 Visit Briana Marcos 350.1.1 3.10 [place] of [place] [id number] [address] 2020-05-08 2020-05-08 Outpatient [facility] [id number] Univers 10:00:00 10:00:00 Demetrice BRIANA huerta [facility] 2020-05-08 2020-05-08 Orders Doctor CARTER 1.2.840.114 [id number] Univers 00:00:00 00:00:00 Only Unassigned, THALIA 350.1.13.10 ity of [place] [facility] 4.2.7.2.686 Emmanuel as [id number] [address] 2020-05-01 2020-05-01 Outpatient [facility] [id number] Univers 10:00:00 10:00:00 BRIANA Zamudio [facility] 2020-04-28 2020-04-28 Orders Doctor CARTER 1.2.840.114 [id number] Univers 00:00:00 00:00:00 Only Unassigned, THALIA 350.1.13.10 ity of [place] [facility] 4.2.7.2.686 Emmanuel as [id number] [address] 2020-03-06 2020-03-06 Nurse 1, Adc Infusion Nurse [facility] 1.2. 840.114 [id number] Univers 10:18:01 13:00:35 Visit Briana Marcos 350.1.1 3.10 [place] of [place] [id number] [address] 2020-03-06 2020-03-06 Outpatient [facility] [id number] Univers 10:00:00 10:00:00 BRIANA Zamudio [facility] 2020-01-10 2020-01-10 Outpatient [facility] [id number] Univers 10:00:00 10:00:00 BRIANA Zamudio [facility] 2020-01-07 2020-01-07 Nurse 1, Adc Infusion Chair [facility] 1.2. 840.114 [id number] Univers 10:19:32 12:19:32 Visit Briana Marcos 350.1.1 3.10 [place] [id number] [address] 2020-01-07 2020-01-07 Outpatient [facility] [id number] Univers 10:00:00 10:00:00 Demetrice BRIANA huerta [facility] 2020-01-07 2020-01-07 Orders Doctor MACHADO 1.2.840.114 [id number] Univers 00:00:00 00:00:00 Only Unassigned, THALIA 350.1.13.10 ity of [place] [facility] 4.2.7.2.686 Emmanuel as [id number] [address] 2019-11-15 2019-11-15 Outpatient [facility] [id number] Univers 10:00:00 10:00:00 BRIANA Zamudio [facility] 2019-11-12 2019-11-12 Nurse 1, Adc Infusion Chair [facility] 1.2. 840.114 [id number] Univers 11:18:05 13:18:05 Visit Briana Marcos 350.1.1 3.10 [place] of [place] [id number] [address] 2019-11-12 2019-11-12 Outpatient [facility] [id number] Univers 11:00:00 11:00:00 BRIANA Zamudio [facility] 2019-11-12 2019-11-12 Orders Doctor MACHADO 1.2.840.114 [id number] Univers 00:00:00 00:00:00 Only UnassignedTHALIA 350.1.13.10 ity of [place] [facility] 4.2.7.2.686 Emmanuel as [id number] [address] 2019-10-08 2019-10-08 Orders Doctor CARTER 1.2.840.114 [id number] Univers 00:00:00 00:00:00 Only Unassigned, THALIA 350.1.13.10 ity of [place] [facility] 4.2.7.2.686 Emmanuel as [id number] [address] 2019-10-08 2019-10-08 Orders Doctor CARTER 1.2.840.114 [id number] 00:00:00 00:00:00 Only Unassigned, THALIA 350.1.13.10 [place] [facility] 4.2.7.2.686 [id number] [facility] 2019-09-20 2019-09-20 Nurse 1, Adc Infusion Chair [facility] 1.2. 840.114 [id number] [facility] 10:24:26 10:54:26 Visit 1, Adc Infusion Nurse Nilson 350.1.1 3.10 ity of [place] 4.2.7.2.68 6 [place] [facility] [id number] [address] 2019-09-20 2019-09-20 Nurse 1, Adc Infusion Chair [facility] 1.2. 840.114 [id number] 10:24:26 10:54:26 Visit 1, Adc Infusion Nurse [place] 350.1.1 3.10 [place] 4.2.7.2.686 Surgical [id number] [place] [address] 2019-09-20 2019-09-20 Outpatient R CHARAFEDDIN [facility] [id number] Univers 10:00:00 10:00:00 BRIANA Zamudio [facility] 2019-08-27 2019-08-27 Outpatient R CHARAFEDDIN [facility] [id number] Univers 11:40:40 23:59:00 BRIANA Zamudio [facility] 2019-08-02 2019-08-02 Nurse 2, Adc Infusion Chair [facility] 1.2. 840.114 [id number] Univers 09:53:10 10:23:10 Visit 1, Adc Infusion Nurse Nilson 350.1.1 3.10 ity of [place] 4.2.7.2.68 6 [place] [facility] [id number] [address] 2019-08-02 2019-08-02 Nurse 2, Adc Infusion Chair [facility] 1.2. 840.114 [id number] 09:53:10 10:23:10 Visit 1, Adc Infusion Nurse [place] 350.1.1 3.10 [place] 4.2.7.2.686 Surgical [id number] [place] [address] 2019-08-02 2019-08-02 Outpatient [facility] [id number] [facility] 10:00:00 10:00:00 Demetrice BRIANA huerta [facility] 2019-08-02 2019-08-02 Orders Doctor MACHADO 1.2.840.114 [id number] [facility] 00:00:00 00:00:00 Only Unassigned, THALIA 350.1.13.10 ity of [place] [facility] 4.2.7.2.686 Emmanuel as [id number] [address] 2019-08-02 2019-08-02 Orders Doctor MACHADO 1.2.840.114 [id number] 00:00:00 00:00:00 Only Unassigned, THALIA 350.1.13.10 [place] [facility] 4.2.7.2.686 [id number] [facility] 2019-07-30 2019-07-30 Outpatient [facility] [id number] Univers 10:00:00 10:00:00 Demetrice BRIANA huerta [facility] 2019-07-26 2019-07-26 Outpatient [facility] [id number] Univers 10:00:00 10:00:00 Demetrice BRIANA huerta [facility] 2019-05-31 2019-05-31 Nurse 1, Adc Infusion Chair [facility] 1.2. 840.114 [id number] Univers 10:33:46 11:03:46 Visit 1, Adc Infusion Nurse Nilson 350.1.1 3.10 ity of [place] 4.2.7.2.68 6 [place] [facility] [id number] [address] 2019-05-31 2019-05-31 Nurse 1, Adc Infusion Chair [facility] 1.2. 840.114 [id number] 10:33:46 11:03:46 Visit 1, Adc Infusion Nurse [place] 350.1.1 3.10 [place] 4.2.7.2.686 Surgical [phone] [place] [address] 2019-05-31 2019-05-31 Outpatient [facility] [id number] Univers 10:00:00 10:00:00 Demetrice BRIANA huerta [facility] 2019-04-12 2019-04-12 Nurse 2, Adc Infusion Chair [facility] 1.2. 840.114 [id number] [facility] 10:21:57 10:51:57 Visit 1, Adc Infusion Nurse Nilson 350.1.1 3.10 ity of [place] 4.2.7.2.68 6 [place] [facility] [id number] [address] 2019-04-12 2019-04-12 Nurse 2, Adc Infusion Chair [facility] 1.2. 840.114 [id number] 10:21:57 10:51:57 Visit 1, Adc Infusion Nurse [place] 350.1.1 3.10 [place] 4.2.7.2.686 Surgical [id number] [place] [address] 2019-04-12 2019-04-12 Outpatient [facility] [id number] [facility] 10:00:00 10:00:00 DemetriceBRIANA [facility] 2019-04-12 2019-04-12 Orders Doctor MACHADO 1.2.840.114 [id number] [facility] 00:00:00 00:00:00 Only Unassigned, THALIA 350.1.13.10 ity of [place] [facility] 4.2.7.2.686 Emmanuel as [phone] [address] 2019-04-12 2019-04-12 Orders Doctor MACHADO 1.2.840.114 [id number] 00:00:00 00:00:00 Only Unassigned, THALIA 350.1.13.10 [place] [facility] 4.2.7.2.686 [id number] 009 2018-12-14 2018-12-14 Nurse 1, Adc Infusion Chair [facility] 1.2. 840.114 [id number] [facility] 10:15:46 10:45:46 Visit 1, Adc Infusion Nurse Nilson 350.1.1 3.10 ity of [place] 4.2.7.2.68 6 [place] [facility] [id number] [place] 2018-12-14 2018-12-14 Nurse 1, Adc Infusion Chair [facility] 1.2. 840.114 [id number] 10:15:46 10:45:46 Visit 1, Adc Infusion Nurse [place] 350.1.1 3.10 [place] 4.2.7.2.686 Surgical [phone] [place] [address] 2018-12-14 2018-12-14 Outpatient R ASHWIN [facility] [id number] Univers 10:00:00 10:00:00 BRIANA Zamudio f [facility] 2018-12-14 2018-12-14 Orders Doctor CARTER 1.2.840.114 [id number] Univers 00:00:00 00:00:00 Only Unassigned, THALIA 350.1.13.10 ity of [place] [facility] 4.2.7.2.686 Emmanuel as [phone] [address] 2018-12-14 2018-12-14 Orders Doctor CARTER 1.2.840.114 [id number] 00:00:00 00:00:00 Only Unassigned, THALIA 350.1.13.10 [place] [facility] 4.2.7.2.686 [id number] 009 Results Test Description Test Time Test Comments Results Result Comments Source POCT GLUCOSE (AUTOMATED) 2022-01-25 18:08:14 Test Item Value Reference Range Interpretation Comme nts POCT GLU (test code = 9203186192) 120 mg/dL 70-110 H Lab Interpretation (test code = 69078-4) [facility] 18:08:14 Test Item Value Reference Range Interpretation Comments POCT GLU (test code = 3585639381) 120 mg/dL 70-110 H Lab Interpretation (test code = Abnormal 18999-8) [facility] [id number] 08:34:00 Test Item Value Reference Range Interpretation Comments GLUCOSE BEDSIDE TESTING (test code 134 mg/dL 70-110 H = GLUBED) PROTHROMBIN [id number] 14:55:00 Test Item Value Reference Range Interpretation Comments PT PATIENT (test 10.6 SECONDS 9.3-12.9 N code = PTP) INTERNATIONAL NORMAL 0.93 INR Unit 0.8-1.2 N TARGE T INR BY RATIO (test code = INDICATIO N Indication INR) INR1. Prophylax is of venous thrombos is 2.0 - 3.0 (orthoped ic surgery), Proph ylaxis of venous throm bosis (other than hig h-risk surgery), Treat ment of Deep Vein Thrombosis/Pulm onary Embolism, Preve ntion of systemic emb olism - Tissue heart va lves, Acute Myocardia l Infarction (to prevent systemic emboli sm), Valvular heart disease, Acute Myocardial Infa rction (to prevent sys temic embolism), Valv ular heart disease, Atrial Fibrillation, Bileaflet mecha nical valve in aortic position.2. Mec hanical prosthetic valv es (high risk), 2. 5 - 3.5 Presence of Lup us Anticoagulant o r Antiphospholipi d Antibodies, Pre vention of systemic emb olism - Acute Myocardia l Infarction (to prevent recurrent infar ct). THROMBOPLASTIN TIME [id number] 14:55:00 Test Item Value Reference Range Interpretation Comments THROMBOPLASTIN TIME PARTIAL 36.5 SECONDS 26-35 H (test code = PTT) BASIC METABOLIC [id number] 12:52:00 Test Item Value Reference Range Interpretation Comments SODIUM (test code = NA) 137 mmol/L 134-147 N POTASSIUM (test code = 4.0 mmol/L 3.4-5.0 N K) CHLORIDE (test code = 102 mmol/L 100-108 N CL) CARBON DIOXIDE (test 31 mmol/L 21-32 N code = CO2) ANION GAP (test code = 4.0 GAP calc 4.0-15.0 N GAP) GLUCOSE (test code = 107 MG/DL 70-110 N GLU) BLOOD UREA NITROGEN 19 MG/DL 7-18 H (test code = BUN) GLOMERULAR FILTRATION >=60 max estimate >60 RATE (test code = GFR) estGFR CREATININE (test code = 0.5 MG/DL 0.6-1.0 L CREAT) CALCIUM (test code = CA) 9.1 MG/DL 8.5-10.1 N COVID 19 INHOUSE [id number] 12:50:00 Test Item Value Reference Range Interpretation Comments COVID 19 INHOUSE AG NEGATIVE Negative Per alayna facturer, (test code = negative result s should [id number]) be treated aspr esumptive and, if inconsi stent with clinical signs andsymptoms or necessary for patient man agement, should betested with an alternative mol ecular assay. Negative resultsdo not preclude SA RS-CoV-2 infection and s hould not be usedas the s ole basis for patient man agement decisions. Nega tive results should be considered in t he context of apatient's r ecent exposures, hist ory, presence of cli nicalsigns and symptoms co nsistent with COVID-19. URINALYSIS [id number] 12:45:00 Test Item Value Reference Range Interpretation Comments UA GLUCOSE DIPSTICK (test NEGATIVE mg/dL NEG code = DGLUU) UA BILIRUBIN DIPSTICK (test NEGATIVE mg/dL NEG code = BILU) UA KETONE DIPSTICK (test TRACE mg/dL NEG code = KETU) UA SPECIFIC GRAVITY (test 1.025 SG 1.005-1.030 code = SGU) UA BLOOD DIPSTICK (test NEGATIVE mg/DL NEG code = BELIA) UA PH DIPSTICK (test code = 5.5 pH UNITS 5.0-7.0 MELISSA) UA PROTEIN DIPSTICK (test NEGATIVE mg/dL NEG code = PROU) UA UROBILINIOGEN DIPSTICK 0.2 mg/dL <2.0 (test code = URO) UA NITRITE DIPSTICK (test NEGATIVE SCREEN NEG code = SHAI) UA LEUKOCYTE ESTERASE NEGATIVE Leuk/mcL NEGATIVE DIPSTICK (test code = LEUU) Urine Specimen Type: Clean CatchUR HCG [id number] 12:45:00 Test Item Value Reference Range Interpretation Comments UR HCG QUAL (test code = HCGQLU) NEGATIVE NEGATIVE Urine Specimen Type: Clean Catch- XR CHEST 1 [id number] 12:41:00 [facility] 1960 [facility]: [facility] 1960 Age[facility]S: 60 / F [id number] [facility] Unit #: [id number] Loc: [place] [address] Phys: Elio Cavazos MD Acct: [id number] Dis Date: Status: PRE [facility] – [place] PHONE #: [phone] Exam Date: 11/03/2021 1239 FAX #: Reason: PREOP EXAMS: CPT: [id number] XR CHEST 1 V 28940 Fluoro Time: DAP (Gy m2): Air Kerma (mGy): EXAM: CHEST ONE VIEW INDICATION: PREOP LOCATION: B2 COMPARISON: 2019 TECHNIQUE: AP view of the chest FINDINGS: The heart size is normal. The lungs are clear bilaterally. The pulmonary vasculature is normal. No pneumothorax or pleural effusion is identified. Theosseous structures are normal. IMPRESSION: No acute cardiopulmonary process. at 1241 Reported and signed by: Keyona Wan M.D. CC: Tamia Restrepo MD; Elio Cavazos MD PAGE 1 Signed Report Name: JESÚS MUNIZ [place] : 1960 Age/S: 60 / F [id number] [facility] Unit #: [id number] Loc: [place] [address] Phys: Elio Cavazos MD Acct: [id number] Dis Date: Status: PRE [facility] – [place] PHONE #: [phone] Exam Date: 11/03/2021 123 FAX #: Reason: PREOP EXAMS: CPT: [id number] XR CHEST 1 V 17144 Fluoro Time: DAP (Gy m2): Air Kerma (mGy): <Continued> Technologist: Nava English, RT(R) Trnscb Date/Time: 11/03/2021 (3112) 16 Orig Print D/T: S: 11/03/2021 (4530) PAGE 2 Signed ReportC W/AUTO [id number] 12:38:00 Test Item Value Reference Range Interpretation Comments WHITE BLOOD CELL (test code = 7.7 K/mm3 3.5-11.0 N WBC) RED BLOOD CELL (test code = 4.54 M/mm3 4.70-6.10 L RBC) HEMOGLOBIN (test code = HGB) 12.7 G/DL 10.4-14.9 N HEMATOCRIT (test code = HCT) 39.9 % 31.5-44.1 N MEAN CELL VOLUME (test code = 87.9 Fl 84.5-98.6 N MCV) MEAN CELL HGB (test code = MCH) 28.0 pg 27.0-34.2 N MEAN CELL HGB CONCETRATION 31.8 G/DL 31.5-34.0 N (test code = MCHC) RED CELL DISTRIBUTION WIDTH 14.3 SD 11.5-14.5 N (test code = RDW) PLATELET COUNT (test code = 297 K/mm3 150-450 N PLT) MEAN PLATELET VOLUME (test code 9.00 fL 7.0-10.5 N = MPV) NEUTROPHIL % (test code = NT%) 66.4 % 40-76 N IMMATURE GRANULOCYTE % (test 0.3 % 0.0-5.0 N code = IG%) LYMPHOCYTE % (test code = LY%) 23.1 % 20.5-51.1 N MONOCYTE % (test code = MO%) 7.8 % 1.7-9.3 N EOSINOPHIL % (test code = EO%) 2.1 % 0.0-6.0 N BASOPHIL % (test code = BA%) 0.3 % 0.0-2.0 N NUCLEATED RBC % (test code = 0.0 /100WBC% 0.0-1.0 N NRBC%) NEUTROPHIL # (test code = NT#) 5.1 K/mm3 1.8-7.6 N IMMATURE GRANULOCYTE # (test 0.02 x10 3/uL 0.00-0.03 N code = IG#) LYMPHOCYTE # (test code = LY#) 1.8 K/mm3 0.6-3.2 N MONOCYTE # (test code = MO#) 0.6 K/mm3 0.3-1.1 N EOSINOPHIL # (test code = EO#) 0.2 K/mm3 0.0-0.4 N BASOPHIL # (test code = BA#) 0.0 K/mm3 0.0-0.1 N NUCLEATED RBC # (test code = 0.0 K/mm3 0.0-0.1 N NRBC#) MANUAL DIFF REQUIRED (test code NO DIFF/SCN CRITERIA = MDIFF) SURGICAL [id number] 21:57:00 RUN DATE: 10/21/19 [facility] *LIVE* PAGE 1 RUN TIME: 2156 Specimen Inquiry RUN USER: INTERFACE --------- ---PATIENT: JESÚS MUNIZ LOC: G.5WS U #: [id number] AGE/SX: 58/F [place] [facility] [place]10/17[place]19REG DR: Yani Jacobo : 64 BED: 1 DIS: 10/19/19 STATUS: DIS IN TLOC: SPEC #: [id number] RECD: 10/18/19 STATUS: NANCY HUERTAS #: [id number] ARNOLD: 10/18/[address]: Yani Jacobo MD ENTERED: 10/21/19 SP TYPE: SURG SPEC OTHR DR: Marc Flynn MD, Luigi MD Undefined ProviderORDERED: GROSS AND MICRO CODES: [id number] - COLON, NOS COPIES TO: Marc Flynn MD [address] [place] [address] Murtaza Hernandez MD [address] [address] Undefined Provider Yani Jacobo MD [address] [place], [place] [address] [place] [address] [email or web address] PROCEDURES: GROSS AND MICRO (Incomplete) TISSUES: 1. COLON, NOS - Colon, right, terminal ileum, excision FINAL DIAGNOSIS Colon, right, terminal ileum, excision: Ulceration of the small intestine with moderate active acute inflammation consistent with patient's history of Crohn's disease, fibrous adhesions forming stricture, margins appear viable; 4 benign lymph nodes; appendix with fibrous obliteration of the tip. GROSS AND MICROSCOPIC GROSS EXAMINATION: Received in formalin labeled right colon and terminal ileum is a 9 cm in length 1.8 cm in diameter segment of colon with a 13 cm in length 3 cm in diameter portion of small intestine and a 5.5 cm in length 1 cm in diameter vermiform appendix. The surrounding adipose has CONTINUED ON NEXT PAGE --RUN DATE: 10/21/19[facility] *LIVE* PAGE 2 RUN TIME: 2156 Specimen Inquiry RUN USER: INTERFACE SPEC #: [id number] PATIENT:JESÚS MUNIZ #[id number] (Continued) GROSS AND MICROSCOPIC (Continued) some dense fibrosis, there are fibrous adhesions present. There is an additional 4 x 2.2 x 2 cm portion of intestine in the container with edson on either side. Mucosa of the small intestine shows areas of ulceration. The mucosa near ileocecal valve is granular. Areas of the colonic mucosa shows some mild erythema and is otherwise unremarkable. Tissue submitted (A)-(B) margins (C) appendix (D) additional portion of intestine (E) fibrous adhesions (F)-(H) small intestine (I)-(J) colon (K) lymph nodes. MICROSCOPIC EXAMINATION: Sections of the margins reveal viable tissue. There are reactive lymphoid aggregates present. The appendix shows fibrous obliteration of the lumen. The distal tip and is otherwise unremarkable. Sections of thesmall intestine show flattening of the villi with areas of active acute inflammation and ulceration of the mucosa. There is some inflammation extends into the muscularis in areas. The changes are consistent with the patient's history of Crohn's disease with skip areas and treatment. The serosa shows fibrous adhesions. The surrounding lymph nodes show some reactive changes. POST-OP DIAGNOSIS None given PRE-OP DIAGNOSIS Crohn's disease of terminal ileum with stricture REVIEWED BY: REBA Signed SIGNATURE ON Steven Jones Rebecca PRAKASH 10/21/19 2157 END OF REPORT CBC W/AUTO [id number] 08:27:00 Test Item Value Reference Range Interpretation Comments WHITE BLOOD CELL (test code = 9.66 x10 3/uL 4.5-11.0 N WBC) RED BLOOD CELL (test code = 3.53 x10 6/uL 3.54-5.02 L RBC) HEMOGLOBIN (test code = HGB) 10.2 g/dL 11.0-15.0 L HEMATOCRIT (test code = HCT) 33.7 % 33.0-45.0 N MEAN CELL VOLUME (test code = 95.5 fL 81.0-99.0 N MCV) MEAN CELL HGB (test code = MCH) 28.9 pg 27.0-33.0 N MEAN CELL HGB CONCETRATION 30.3 g/dL 33.0-37.0 L (test code = MCHC) RED CELL DISTRIBUTION WIDTH CV 14.8 % 11.5-14.5 H (test code = RDW) RED CELL DISTRIBUTION WIDTH SD 51.7 fL 37.0-54.0 N (test code = RDW-SD) PLATELET COUNT (test code = 275 x10 3/uL 150-400 N PLT) MEAN PLATELET VOLUME (test code 9.5 fL 7.0-9.0 H = MPV) NEUTROPHIL % (test code = NT%) 61.9 % 56.0-77.0 N IMMATURE GRANULOCYTE % (test 0.3 % 0.0-2.0 N code = IG%) LYMPHOCYTE % (test code = LY%) 26.4 % 14.0-32.0 N MONOCYTE % (test code = MO%) 9.0 % 4.8-9.0 N EOSINOPHIL % (test code = EO%) 2.1 % 0.3-3.7 N BASOPHIL % (test code = BA%) 0.3 % 0.0-2.0 N NUCLEATED RBC % (test code = 0.0 % 0-0 N NRBC%) NEUTROPHIL # (test code = NT#) 5.98 x10 3/uL 2.0-7.6 N IMMATURE GRANULOCYTE # (test 0.03 x10 3/uL 0.00-0.03 N code = IG#) LYMPHOCYTE # (test code = LY#) 2.55 x10 3/uL 1.0-3.8 N MONOCYTE # (test code = MO#) 0.87 x10 3/uL 0.1-0.8 H EOSINOPHIL # (test code = EO#) 0.20 x10 3/uL 0.0-0.2 N BASOPHIL # (test code = BA#) 0.03 x10 3/uL 0.0-0.2 N NUCLEATED RBC # (test code = 0.00 x10 3/uL 0.0-0.1 N NRBC#) MANUAL DIFF REQUIRED (test code NO = MDIFF) BASIC METABOLIC [id number] 08:19:00 Test Item Value Reference Range Interpretation Comments SODIUM (test code = NA) 142 mEq/L 134-147 N POTASSIUM (test code = 3.1 mEq/L 3.4-5.0 L K) CHLORIDE (test code = 106 mEq/L 100-108 N CL) CARBON DIOXIDE (test 31 mEq/L 21-33 N code = CO2) ANION GAP (test code = 8 0-20 N GAP) GLUCOSE (test code = 103 mg/dL 70-110 N GLU) BLOOD UREA NITROGEN 8 mg/dL 7-18 N (test code = BUN) GLOMERULAR FILTRATION 127.6 90-95 H Units of measure = RATE (test code = GFR) ml/mi n/1.73 m2 CREATININE (test code = 0.5 mg/dL 0.6-1.3 L CREAT) CALCIUM (test code = 8.7 mg/dL 8.0-10.5 N CA) CBC W/AUTO [id number] 08:38:00 Test Item Value Reference Range Interpretation Comments WHITE BLOOD CELL (test code = 13.61 x10 3/uL 4.5-11.0 H WBC) RED BLOOD CELL (test code = 3.74 x10 6/uL 3.54-5.02 N RBC) HEMOGLOBIN (test code = HGB) 11.0 g/dL 11.0-15.0 N HEMATOCRIT (test code = HCT) 35.0 % 33.0-45.0 N MEAN CELL VOLUME (test code = 93.6 fL 81.0-99.0 MCV) MEAN CELL HGB (test code = 29.4 pg 27.0-33.0 N MCH) MEAN CELL HGB CONCETRATION 31.4 g/dL 33.0-37.0 L (test code = MCHC) RED CELL DISTRIBUTION WIDTH CV 14.3 % 11.5-14.5 N (test code = RDW) RED CELL DISTRIBUTION WIDTH SD 49.4 fL 37.0-54.0 N (test code = RDW-SD) PLATELET COUNT (test code = 339 x10 3/uL 150-400 N PLT) MEAN PLATELET VOLUME (test 9.5 fL 7.0-9.0 H code = MPV) NEUTROPHIL % (test code = NT%) 80.5 % 56.0-77.0 H IMMATURE GRANULOCYTE % (test 0.6 % 0.0-2.0 N code = IG%) LYMPHOCYTE % (test code = LY%) 9.8 % 14.0-32.0 L MONOCYTE % (test code = MO%) 9.0 % 4.8-9.0 N EOSINOPHIL % (test code = EO%) 0.0 % 0.3-3.7 L BASOPHIL % (test code = BA%) 0.1 % 0.0-2.0 N NUCLEATED RBC % (test code = 0.0 % 0-0 N NRBC%) NEUTROPHIL # (test code = NT#) 10.96 x10 3/uL 2.0-7.6 H IMMATURE GRANULOCYTE # (test 0.08 x10 3/uL 0.00-0.03 H code = IG#) LYMPHOCYTE # (test code = LY#) 1.33 x10 3/uL 1.0-3.8 N MONOCYTE # (test code = MO#) 1.23 x10 3/uL 0.1-0.8 H EOSINOPHIL # (test code = EO#) 0.00 x10 3/uL 0.0-0.2 N BASOPHIL # (test code = BA#) 0.01 x10 3/uL 0.0-0.2 N NUCLEATED RBC # (test code = 0.00 x10 3/uL 0.0-0.1 N NRBC#) MANUAL DIFF REQUIRED (test NO code = MDIFF) BASIC METABOLIC [id number] 07:18:00 Test Item Value Reference Range Interpretation Comments SODIUM (test code = NA) 138 mEq/L 134-147 N POTASSIUM (test code = 3.5 mEq/L 3.4-5.0 K) CHLORIDE (test code = 102 mEq/L 100-108 N CL) CARBON DIOXIDE (test 29 mEq/L 21-33 N code = CO2) ANION GAP (test code = 11 0-20 N GAP) GLUCOSE (test code = 134 mg/dL 70-110 H GLU) BLOOD UREA NITROGEN 8 mg/dL 7-18 (test code = BUN) GLOMERULAR FILTRATION 86.6 90-95 L Units of measure = RATE (test code = GFR) ml/mi n/1.73 m2 CREATININE (test code = 0.7 mg/dL 0.6-1.3 N CREAT) CALCIUM (test code = 8.5 mg/dL 8.0-10.5 N CA) [id number] 07:18:00 Test Item Value Reference Range Interpretation Comments PHOSPHOROUS (test code = PHOS) 2.5 MG/DL 2.5-4.9 N [id number] 07:18:00 Test Item Value Reference Range Interpretation Comments MAGNESIUM (test code = MAG) 2.40 mg/dL 1.8-2.4 N CALCIUM [id number] 07:18:00 Test Item Value Reference Range Interpretation Comments CALCIUM IONIZED (test code = GLO) 1.04 MMOL/L 1.12-1.32 L BASIC METABOLIC [id number] 07:05:00 Test Item Value Reference Range Interpretation Comments SODIUM (test code = NA) mEq/L 134-147 POTASSIUM (test code = K) mEq/L 3.4-5.0 CHLORIDE (test code = CL) mEq/L 100-108 CARBON DIOXIDE (test code = CO2) mEq/L 21-33 ANION GAP (test code = GAP) 0-20 GLUCOSE (test code = GLU) mg/dL 70-110 BLOOD UREA NITROGEN (test code = BUN) mg/dL 7-18 GLOMERULAR FILTRATION RATE (test code 90-95 = GFR) CREATININE (test code = CREAT) mg/dL 0.6-1.3 CALCIUM (test code = CA) mg/dL 8.0-10.5 [id number] 07:05:00 Test Item Value Reference Range Interpretation Comments PHOSPHOROUS (test code = PHOS) MG/DL 2.5-4.9 [id number] 07:05:00 Test Item Value Reference Range Interpretation Comments MAGNESIUM (test code = MAG) mg/dL 1.8-2.4 CALCIUM [id number] 07:05:00 Test Item Value Reference Range Interpretation Comments CALCIUM IONIZED (test code = GLO) 1.04 MMOL/L 1.12-1.32 L BASIC METABOLIC [id number] 08:12:00 Test Item Value Reference Range Interpretation Comments SODIUM (test code = 137 mEq/L 134-147 N NA) POTASSIUM (test code = 4.9 mEq/L 3.4-5.0 SPECI MEN 2+ K) HEMOLYZED.Resul ts known to be adv ersely affected by hem olysis are: Potassium Magnesium LDH Phosphorus CHLORIDE (test code = 100 mEq/L 100-108 N CL) CARBON DIOXIDE (test 30 mEq/L 21-33 N code = CO2) ANION GAP (test code = 12 0-20 N GAP) GLUCOSE (test code = 170 mg/dL 70-110 H GLU) BLOOD UREA NITROGEN 11 mg/dL 7-18 (test code = BUN) GLOMERULAR FILTRATION 86.6 90-95 L Units of measure = RATE (test code = GFR) ml/mi n/1.73 m2 CREATININE (test code 0.7 mg/dL 0.6-1.3 = CREAT) CALCIUM (test code = 9.1 mg/dL 8.0-10.5 N CA) BASIC METABOLIC [id number] 08:06:00 Test Item Value Reference Range Interpretation Comments SODIUM (test code = 137 mEq/L 134-147 N NA) POTASSIUM (test code = 4.9 mEq/L 3.4-5.0 SPECI MEN 2+ K) HEMOLYZED.Resul ts known to be adv ersely affected by hem olysis are: Potassium Magnesium LDH Phosphorus CHLORIDE (test code = 100 mEq/L 100-108 N CL) CARBON DIOXIDE (test 30 mEq/L 21-33 N code = CO2) ANION GAP (test code = 12 0-20 N GAP) GLUCOSE (test code = 170 mg/dL 70-110 H GLU) BLOOD UREA NITROGEN 11 mg/dL 7-18 (test code = BUN) GLOMERULAR FILTRATION 90-95 RATE (test code = GFR) CREATININE (test code mg/dL 0.6-1.3 = CREAT) CALCIUM (test code = 9.1 mg/dL 8.0-10.5 N CA) COVID 19 Asymptomatic IH [id number] 11:48:00 Test Item Value Reference Range Interpretation Comments COVID 19 Asymptomatic Negative Negative A nega tive result is IH AG (test code = presumpti ve and should COVNONPUIAG) be confirmedwit h an FDA authorized mole cular assay, if neces alpa forpatient epifanio gement.A positive result does not rule out co-inf ections withother patho gens.This test detects santana th viable (live) and non-viable,SARS -CoV, and SARS-CoV-2. Kayla t performance dep ends on theamount of vi antonia (antigen) in th e sample.This kayla t has not been FDA cleare d or approved; the t est hasbeen authori zed by FDA under an Em ergency Use Authorizati on(EUA) for use by labo ratories certified under the CLIA thatmeet the requirements to perform moderate, high or waivedcomplexit y tests. BASIC METABOLIC [id number] 10:45:00 Test Item Value Reference Range Interpretation Comments SODIUM (test code = NA) 138 mEq/L 134-147 N POTASSIUM (test code = 3.5 mEq/L 3.4-5.0 N K) CHLORIDE (test code = 101 mEq/L 100-108 N CL) CARBON DIOXIDE (test 29 mEq/L 21-33 N code = CO2) ANION GAP (test code = 12 0-20 N GAP) GLUCOSE (test code = 135 mg/dL 70-110 H GLU) BLOOD UREA NITROGEN 18 mg/dL 7-18 N (test code = BUN) GLOMERULAR FILTRATION 127.6 90-95 H Units of measure = RATE (test code = GFR) ml/mi n/1.73 m2 CREATININE (test code = 0.5 mg/dL 0.6-1.3 L CREAT) CALCIUM (test code = 9.4 mg/dL 8.0-10.5 N CA) BASIC METABOLIC [id number] 10:44:00 Test Item Value Reference Range Interpretation Comments SODIUM (test code = NA) 138 mEq/L 134-147 N POTASSIUM (test code = K) 3.5 mEq/L 3.4-5.0 N CHLORIDE (test code = CL) 101 mEq/L 100-108 N CARBON DIOXIDE (test code = CO2) 29 mEq/L 21-33 N ANION GAP (test code = GAP) 12 0-20 N GLUCOSE (test code = GLU) 135 mg/dL 70-110 H BLOOD UREA NITROGEN (test code = 18 mg/dL 7-18 N BUN) GLOMERULAR FILTRATION RATE (test 90-95 code = GFR) CREATININE (test code = CREAT) mg/dL 0.6-1.3 CALCIUM (test code = CA) 9.4 mg/dL 8.0-10.5 N PROTHROMBIN [id number] 10:26:00 Test Item Value Reference Range Interpretation Comments PROTHROMBIN TIME 10.4 SECONDS 9.3-12.9 N PATIENT (test code = PTP) INTERNATIONAL NORMAL 1.0 0.8-1.2 N TARGET INR BY RATIO (test code = INDICATIO N Indication INR) INR1. Prophylax is of venous thrombos is 2.0 - 3.0 (orthoped ic surgery), Proph ylaxis of venous throm bosis (other than hig h-risk surgery), Treat ment of Deep Vein Thrombosis/Pulm onary Embolism, Preve ntion of systemic emb olism - Tissue heart va lves, Acute Myocardia l Infarction (to prevent systemic emboli sm), Valvular heart disease, Atrial Fibrillation, Bileaflet mecha nical valve in aortic position.2. Mec hanical prosthetic valv es (high risk), 2. 5 - 3.5 Presence of Lup us Anticoagulant o r Antiphospholipi d Antibodies, Pre vention of systemic emb olism - Acute Myocardia l Infarction (to prevent recurrent infar ct). THROMBOPLASTIN TIME [id number] 10:26:00 Test Item Value Reference Range Interpretation Comments THROMBOPLASTIN TIME 37.3 Seconds 25.0-39.5 N Therape utic Range: PARTIAL (test code = 50.4 - 88.3 Seconds PTT) Effective 07/10/2018 CBC W/AUTO [id number] 10:05:00 Test Item Value Reference Range Interpretation Comments WHITE BLOOD CELL (test code = 9.00 x10 3/uL 4.5-11.0 N WBC) RED BLOOD CELL (test code = 4.39 x10 6/uL 3.54-5.02 N RBC) HEMOGLOBIN (test code = HGB) 12.7 g/dL 11.0-15.0 N HEMATOCRIT (test code = HCT) 39.7 % 33.0-45.0 N MEAN CELL VOLUME (test code = 90.4 fL 81.0-99.0 N MCV) MEAN CELL HGB (test code = MCH) 28.9 pg 27.0-33.0 N MEAN CELL HGB CONCETRATION 32.0 g/dL 33.0-37.0 L (test code = MCHC) RED CELL DISTRIBUTION WIDTH CV 14.0 % 11.5-14.5 N (test code = RDW) RED CELL DISTRIBUTION WIDTH SD 46.2 fL 37.0-54.0 N (test code = RDW-SD) PLATELET COUNT (test code = 327 x10 3/uL 150-400 N PLT) MEAN PLATELET VOLUME (test code 9.0 fL 7.0-9.0 N = MPV) NEUTROPHIL % (test code = NT%) 53.8 % 56.0-77.0 L IMMATURE GRANULOCYTE % (test 0.8 % 0.0-2.0 N code = IG%) LYMPHOCYTE % (test code = LY%) 31.1 % 14.0-32.0 N MONOCYTE % (test code = MO%) 11.2 % 4.8-9.0 H EOSINOPHIL % (test code = EO%) 2.8 % 0.3-3.7 N BASOPHIL % (test code = BA%) 0.3 % 0.0-2.0 N NUCLEATED RBC % (test code = 0.0 % 0-0 N NRBC%) NEUTROPHIL # (test code = NT#) 4.84 x10 3/uL 2.0-7.6 N IMMATURE GRANULOCYTE # (test 0.07 x10 3/uL 0.00-0.03 H code = IG#) LYMPHOCYTE # (test code = LY#) 2.80 x10 3/uL 1.0-3.8 N MONOCYTE # (test code = MO#) 1.01 x10 3/uL 0.1-0.8 H EOSINOPHIL # (test code = EO#) 0.25 x10 3/uL 0.0-0.2 H BASOPHIL # (test code = BA#) 0.03 x10 3/uL 0.0-0.2 N NUCLEATED RBC # (test code = 0.00 x10 3/uL 0.0-0.1 N NRBC#) MANUAL DIFF REQUIRED (test code NO = MDIFF) - XR CHEST 2 [id number] 09:49:00 FAX: [place] Mayen [phone] [place]: St: PRE Name: JESÚS MUNIZ [facility] : 1960 Age/S: 58/F [address] [place] [address] Unit #: [id number] Loc: [address] [address] Phys: Lennie Jacobo Acct: [id number] Dis Date: Status: PRE IN PHONE #: [phone] Exam Date: 10/15/2019 0942 FAX #: [phone] Reason: PRE-OP COLECTOMY EXAMS: CPT CODE: [id number] XR CHEST 2 V 25897 XR CHEST 2 VIEWS HISTORY: PRE-OP COLECTOMY COMPARISON: None. FINDINGS: The lungs are clear. The heart and vascularmarkings are normal. No pleural abnormality. The bones are intact. IMPRESSION: No active process. at 0949 Reported and signed by: Mckinley Carlson M.D. CC: Yani Jacobo MD Technologist: RT Heather(Omero) Trnscrd Date/Time/By: 10/15/2019 (0963) : By: [email or web address] Orig Print D/T: S: 10/15/2019 (3375) PAGE 1 Signed Report
[2022-07-25 18:23] LABS: Absolute Lymphocytes (CBC) 1.5 K/uL (0.7-4.9); Hematocrit 34.7 % (36.0-45.0); MCV 84.1 fL (80-100); MPV 6.7 fL (7.6-11.3); RBC Red Blood Cell Count 4.13 M/uL (3.86-4.86)
[2022-07-25] MEDS ORDERED: NA CHLORIDE 0.9% 3,000 ML ONE (18:25)
[2022-07-25 18:31] LABS: Protime INR 1.15
[2022-07-25 18:42] LABS: Albumin 3.2 g/dL (3.4-5.0); Bilirubin Total 1.2 mg/dL (0.2-1.0); Potassium 3.5 mEq/L (3.5-5.1); Protein, Total 7.5 g/dL (6.4-8.2)
--- NOTE | 2022-07-25 18:45 | RAD REPORT ---
EXAM DESCRIPTION: RADChest Single View07/25/2022 6:20 pm CLINICAL HISTORY: Congestion;Cough COMPARISON: Chest Pa And Lat (2 Views) dated 08/21/2020; Chest Pa And Lat (2 Views) dated 06/27/2017; C HEST PA AND LAT 2 VIEW dated 12/24/2013 TECHNIQUE: Portable AP view of the chest. FINDINGS: New patchy right basilar airspace opacification. Possible trace right effusion. Minimal le ft basilar airspace opacification versus artifactual increased density related to superimposition of soft tissues. No pneumothorax or effusion. The cardiomediastinal contours are unremarkable. IMPRESSION: New patchy right basilar airspace opacities with possible trace effusion, concerning for pneumonia.
--- NOTE | 2022-07-25 18:56 | EDPHYS ---
Physician Documentation [facility] Name: Cristal Ramsay Age: 61 yrs Sex: Female : 1960 Arrival Date: 07/25/2022 Time: 16:25 Bed 2 Private MD: ED Physician Gary Bender HPI: 07/25 16:43 This 61 yrs old Female presents to ER via Wheelchair with complaints of Shortness Of kb Breath. 16:43 The patient has shortness of breath at rest. Onset: The symptoms/episode began/occurred kb 2 week(s) ago, and became worse last night. Duration: The symptoms are continuous. The patient's shortness of breath is aggravated by nothing, is alleviated by nothing. Associated signs and symptoms: Pertinent positives: productive cough. Severity of symptoms: At their worst the symptoms were moderate in the emergency department the symptoms are unchanged. The patient has not experienced similar symptoms in the past. The patient has not recently seen a physician. Pt reports cough and shortness of breath for 2 weeks, got worse last night. Reports chills and bodyaches this morning. . Historical: - Allergies: 16:33 No Known Allergies; mb9 - PMHx: 16:32 ADD/ADHD; COPD; Crohn's; Fibromyalgia; High Cholesterol; Hypertension; restless leg mb9 syndrome; - PSHx: 16:33 Appendectomy; mb9 - Immunization history:: Adult Immunizations up to date. - Social history:: Smoking status: Patient/guardian denies using tobacco. ROS: 16:39 Abdomen/GI: Negative for abdominal pain, nausea, vomiting, diarrhea, and constipation. kb 16:39 Constitutional: Positive for body aches, chills, malaise. 16:39 Respiratory: Positive for cough, shortness of breath, Negative for dyspnea on exertion, hemoptysis, orthopnea, pleurisy, sputum production, wheezing. 16:39 All other systems are negative. Exam: 16:39 Constitutional: This is a well developed, well nourished patient who is awake, alert, kb and in no acute distress. Head/Face: Normocephalic, atraumatic. ENT: Moist Mucous membranes Cardiovascular: Regular rate and rhythm with a normal S1 and S2. No gallops, murmurs, or rubs. No pulse deficits. Abdomen/GI: Soft, non-tender. No distention Skin: Warm, dry with normal turgor. Normal color. MS/ Extremity: Pulses equal, no cyanosis. Neurovascular intact. Full, normal range of motion. Neuro: Awake and alert, GCS 15, oriented to person, place, time, and situation. Moves all extremities. Normal gait. 16:39 Respiratory: the patient does not display signs of respiratory distress, Respirations: normal, Breath sounds: rhonchi, that are mild, are located in both bases. Vital Signs: 16:30 BP 83 / 52; Pulse 78; Resp 20; Temp 98.2(O); Pulse Ox 93% on R/A; Weight 111.13 kg; mb9 Height 5 ft. 3 in. ; Pain 7/10; 17:38 BP 94 / 59; Pulse 75; Resp 18; Pulse Ox 91% on R/A; ld1 18:15 BP 103 / 55; Pulse 76; Resp 18; Pulse Ox 92% on R/A; ld1 19:30 BP 104 / 54; Pulse 80; Resp 18; Pulse Ox 93% on R/A; nj1 20:30 BP 112 / 53; Pulse 89; Resp 20; Pulse Ox 91% on R/A; nj1 22:17 BP 117 / 57; Pulse 85; Resp 18; Temp 98.9; Pulse Ox 94% on 2 lpm NC; nj1 16:30 Body Mass Index 43.40 (111.13 kg, 160.02 cm) mb9 16:30 Pain Scale: Adult mb9 20:30 2 LPM via NC started at this time. nj1 MDM: 16:30 Patient medically screened. kb 16:42 Differential diagnosis: Chronic Obstructive Pulmonary Disease pneumonia, pulmonary kb edema, Sepsis. Data reviewed: vital signs, nurses notes. 18:55 Antibiotic administration: Levaquin given, pt just completed course of zithromax. kb Consideration of Admission/Observation Patient was admitted/placed on observation. Management of patient was discussed with the following: Hospitalist: MARYURI Guthrie accepts pt for admission under Dr Chandra. Counseling: I had a detailed discussion with the patient and/or guardian regarding: the historical points, exam findings, and any diagnostic results supporting the discharge/admit diagnosis, lab results, radiology results, the need for further work-up and treatment in the hospital. 07/25 16:36 Order name: Blood Culture Adult (2) kb 07/25 16:36 Order name: CBC with Diff; Complete Time: 21:14 kb 07/25 16:36 Order name: CMP; Complete Time: 18:45 kb 07/25 16:36 Order name: Lactate w/ 2H reflex if indic.; Complete Time: 18:38 kb 07/25 16:36 Order name: Protime (+inr); Complete Time: 18:32 kb 07/25 16:36 Order name: Ptt, Activated; Complete Time: 18:32 kb 07/25 16:44 Order name: Flu; Complete Time: 19:04 kb 07/25 16:44 Order name: SARS-COV-2 RT PCR; Complete Time: 19:26 kb 07/25 18:29 Order name: CBC Smear Scan; Complete Time: 21:14 EDMS 07/25 16:36 Order name: Chest Single View XRAY; Complete Time: 18:48 kb 07/25 16:36 Order name: EKG; Complete Time: 16:36 kb 07/25 16:36 Order name: Accucheck kb 07/25 16:36 Order name: Cardiac monitoring; Complete Time: 17:46 kb 07/25 16:36 Order name: EKG - Nurse/Tech; Complete Time: 17:22 kb 07/25 16:36 Order name: IV Saline Lock - Large Bore; Complete Time: 18:12 kb 07/25 16:36 Order name: Labs collected and sent; Complete Time: 18:12 kb 07/25 16:36 Order name: O2 Per Protocol; Complete Time: 17:21 kb 07/25 16:36 Order name: O2 Sat Monitoring; Complete Time: 17:22 kb 07/25 16:36 Order name: Vital Signs; Complete Time: 17:22 kb Administered Medications: 18:20 Drug: NS 0.9% IV (30 ml/kg) 30 ml/kg Route: IV; Rate: bolus; Site: right antecubital; nj1 20:17 Follow up: Response: No adverse reaction; IV Status: Infusion continued upon admission; nj1 IV Intake: 2050ml 18:52 CANCELLED (Physician Discretion): Rocephin IV 1 grams IV at calculated rate once; Given kb slow IV push per pharmacy instructions 18:52 CANCELLED (Physician Discretion): Zithromax IVPB 500 mg IVPB once over 1 hrs; mix in kb 250 mL NS 19:22 Drug: MethylPrednisoLONE IVP 125 mg Route: IVP; Site: right upper arm; cm9 22:15 Follow up: Response: No adverse reaction nj1 19:23 Drug: levofloxacin IVPB 500 mg Volume: 100 ml; Route: IVPB; Infused Over: 60 mins; cm9 Site: right upper arm; 20:20 Follow up: Response: No adverse reaction; IV Status: Completed infusion; IV Intake: nj1 100ml 19:23 Drug: Albuterol Inhalation 2.5 mg Route: Inhalation; cm9 19:23 Drug: Ipratropium Inhalation Aerosol 0.5 mg Route: Inhalation; cm9 Disposition: 07/26 07:15 Co-signature as Attending Physician, Gary Bender MD I reviewed the patient's care rn provided by the Advanced Practice Provider and agree with the diagnosis and treatment plan. Disposition Summary: 07/25/22 18:56 Hospitalization Ordered Hospitalization Status: Inpatient Admission kb Provider: Juan Pablo Chandra Location: Telemetry/[facility] (Inpatient) kb Condition: Stable kb Problem: new kb Symptoms: are unchanged kb Bed/Room Type: Standard kb Room Assignment: 219(07/25/22 19:52) cg Diagnosis - Pneumonia, unspecified organism kb - Hypotension, unspecified kb - Elevated white blood cell count kb Forms: - Medication Reconciliation Form kb - SBAR form kb Signatures: Dispatcher [employer] EDNava Sanches, OLENA FRAME CATCHER-Gary Green MD MD rn Garcia, Cindy, RN RN cg Brown, Sophia, PA-C PATalha sb4 Susanne Weber RN RN mb9 Vale Hou RN RN nj1 Mikaela Carrillo, ABHAY RN cm9 Corrections: (The following items were deleted from the chart) 07/25 18:52 18:49 Rocephin IV 1 grams IV at calculated rate once; Given slow IV push per pharmacy kb instructions ordered. kb 18:52 18:49 Zithromax IVPB 500 mg IVPB once over 1 hrs; mix in 250 mL NS ordered. kb kb 19:48 18:56 kb cg 19:52 19:48 216 cg cg
--- NOTE | 2022-07-25 18:56 | ER ---
Nurse's Notes [facility] Name: Cristal Ramsay Age: 61 yrs Sex: Female : 1960 Arrival Date: 07/25/2022 Time: 16:25 Bed 2 Private MD: Diagnosis: Pneumonia, unspecified organism;Hypotension, unspecified;Elevated white blood cell count Presentation: 07/25 16:30 Chief complaint: Patient states: "Last night I couldn't breathe, I had crackling in my mb9 chest, freezing cold, headache, and everything hurt. I've been coughing for 2 weeks". Coronavirus screen: Vaccine status: Patient reports receiving the 2nd dose of the covid vaccine. Ebola Screen: No symptoms or risks identified at this time. Initial Sepsis Screen: Does the patient meet any 2 criteria? No. Patient's initial sepsis screen is negative. Does the patient have a suspected source of infection? No. Patient's initial sepsis screen is negative. Risk Assessment: Do you want to hurt yourself or someone else? Patient reports no desire to harm self or others. Onset of symptoms was July 24, 2022. 16:30 Method Of Arrival: Wheelchair mb9 16:30 Acuity: HARLEEN 2 mb9 Triage Assessment: 22:10 Pain: Complains of pain in chest Pain currently is 7 out of 10 on a pain scale. nj1 Aggravated by Deep breathing/cough. Historical: - Allergies: 16:33 No Known Allergies; mb9 - PMHx: 16:32 ADD/ADHD; COPD; Crohn's; Fibromyalgia; High Cholesterol; Hypertension; restless leg mb9 syndrome; - PSHx: 16:33 Appendectomy; mb9 - Immunization history:: Adult Immunizations up to date. - Social history:: Smoking status: Patient/guardian denies using tobacco. Screenin:16 [facility] ED Fall Risk Assessment (Adult) History of falling in the last 3 months, ld1 including since admission No falls in past 3 months (0 pts). Abuse screen: Denies threats or abuse. Denies injuries from another. Nutritional screening: No deficits noted. Tuberculosis screening: No symptoms or risk factors identified. Assessment: 17:45 General: Appears in no apparent distress. uncomfortable, Behavior is calm, cooperative, nj1 appropriate for age. Cardiovascular: Patient's skin is warm and dry. Respiratory: Reports shortness of breath cough that is Airway is patent Respiratory effort is even, unlabored, Sputum is thick, blood streaked. 19:00 Reassessment: Patient appears in no apparent distress at this time. Patient and/or nj1 family updated on plan of care and expected duration. Pain level reassessed. Patient is alert, oriented x 3, equal unlabored respirations, skin warm/dry/pink. 20:00 Reassessment: Patient appears in no apparent distress at this time. Patient and/or nj1 family updated on plan of care and expected duration. Pain level reassessed. Patient is alert, oriented x 3, equal unlabored respirations, skin warm/dry/pink. 21:00 Reassessment: Patient appears in no apparent distress at this time. Patient and/or nj1 family updated on plan of care and expected duration. Pain level reassessed. Patient is alert, oriented x 3, equal unlabored respirations, skin warm/dry/pink. 21:10 Reassessment: Unsuccessful attempt to call report at this time. nj1 Vital Signs: 16:30 BP 83 / 52; Pulse 78; Resp 20; Temp 98.2(O); Pulse Ox 93% on R/A; Weight 111.13 kg; mb9 Height 5 ft. 3 in. ; Pain 7/10; 17:38 BP 94 / 59; Pulse 75; Resp 18; Pulse Ox 91% on R/A; ld1 18:15 BP 103 / 55; Pulse 76; Resp 18; Pulse Ox 92% on R/A; ld1 19:30 BP 104 / 54; Pulse 80; Resp 18; Pulse Ox 93% on R/A; nj1 20:30 BP 112 / 53; Pulse 89; Resp 20; Pulse Ox 91% on R/A; nj1 22:17 BP 117 / 57; Pulse 85; Resp 18; Temp 98.9; Pulse Ox 94% on 2 lpm NC; nj1 16:30 Body Mass Index 43.40 (111.13 kg, 160.02 cm) mb9 16:30 Pain Scale: Adult mb9 20:30 2 LPM via NC started at this time. [facility] ED Course: 16:26 Patient arrived in ED. ts1 16:29 Nava Jaime FNP-C is PHCP. kb 16:30 Gary Bender MD is Attending Physician. kb 16:30 Arm band placed on. mb9 16:32 Triage completed. mb9 16:51 Vale Hou, ABHAY is Primary Nurse. nj1 17:56 Radiology exam delayed due to IV insertion attempt and/or patient not having az appropriate IV at this time. waiting on IV to get started the first and second time. 18:00 Inserted saline lock: 20 gauge in right antecubital area, using aseptic technique. nj1 ,using aseptic technique. Ultrasound guided. Blood collected. 18:00 Patient maintains SpO2 saturation greater than 95% on room air. nj1 18:16 Patient has correct armband on for positive identification. Placed in gown. Bed in low ld1 position. Call light in reach. Side rails up X2. monitoring specialist on. Pulse ox on. NIBP on. Door closed. Noise minimized. Warm blanket given. 18:16 No provider procedures requiring assistance completed. Missed attempt(s): 20 gauge in ld1 left forearm. 18:16 Missed attempt(s): 20 gauge in right upper arm. ld1 18:22 Chest Single View XRAY In Process Unspecified. EDMS 18:35 COVID swab sent to lab. Flu and/or RSV swab sent to lab. jl7 18:56 Juan Pablo Chandra is Hospitalizing Provider. kb 22:05 Patient admitted, IV remains in place. nj1 Administered Medications: 18:20 Drug: NS 0.9% IV (30 ml/kg) 30 ml/kg Route: IV; Rate: bolus; Site: right antecubital; nj1 20:17 Follow up: Response: No adverse reaction; IV Status: Infusion continued upon admission; nj1 IV Intake: 2050ml 18:52 CANCELLED (Physician Discretion): Rocephin IV 1 grams IV at calculated rate once; Given kb slow IV push per pharmacy instructions 18:52 CANCELLED (Physician Discretion): Zithromax IVPB 500 mg IVPB once over 1 hrs; mix in kb 250 mL NS 19:22 Drug: MethylPrednisoLONE IVP 125 mg Route: IVP; Site: right upper arm; cm9 22:15 Follow up: Response: No adverse reaction nj1 19:23 Drug: levofloxacin IVPB 500 mg Volume: 100 ml; Route: IVPB; Infused Over: 60 mins; cm9 Site: right upper arm; 20:20 Follow up: Response: No adverse reaction; IV Status: Completed infusion; IV Intake: nj1 100ml 19:23 Drug: Albuterol Inhalation 2.5 mg Route: Inhalation; cm9 19:23 Drug: Ipratropium Inhalation Aerosol 0.5 mg Route: Inhalation; cm9 Medication: 18:16 VIS not applicable for this client. ld1 Intake: 20:17 IV: 2050ml; Total: 2050ml. nj1 20:20 IV: 100ml; Total: 2150ml. nj1 Outcome: 18:56 Decision to Hospitalize by Provider. kb 22:04 Admitted to Med/surg accompanied by tech, via stretcher, room 219, with oxygen, Report nj1 called to Bee BLANK 22:04 Condition: stable 22:04 Instructed on the need for admit. 22:31 Patient left the ED. lg3 Signatures: Dispatcher [employer] EDMS Nava Jaime, DIRECTOR MEDICAL SURGICAL-C DIRECTOR MEDICAL SURGICAL-Jaxon Quarles, RN RN jl7 Christie Ayon Lacie RN RN lg3 Yulia Smith RN RN ld1 Susanne Weber RN RN mb9 Vale Hou RN RN nj1 Mikaela Carrillo, RN RN cm9 Phyllis Harding, GISELA PAS ts1 Corrections: (The following items were deleted from the chart) 16:32 16:30 Pulse 78bpm; Resp 20bpm; Pulse Ox 93% RA; Temp 98.2F Oral; 111.13 kg; Height 5 mb9 ft. 3 in.; BMI: 43.4; mb9 16:35 16:30 Acuity: HARLEEN 3 mb9 mb9 16:35 16:30 Pulse 78bpm; Resp 20bpm; Pulse Ox 94% RA; Temp 98.2F Oral; 111.13 kg; Height 5 mb9 ft. 3 in.; BMI: 43.4; mb9 16:35 16:30 Pulse 78bpm; Resp 20bpm; Pulse Ox 96% RA; Temp 98.2F Oral; 111.13 kg; Height 5 mb9 ft. 3 in.; BMI: 43.4; Pain 7/10, Adult; mb9
[2022-07-25] MEDS ORDERED: METHYLPREDNISOLONE 125 MG INJ ONE (19:12)
[2022-07-25] MEDS ORDERED: ALBUTEROL 2.5 MG/3 ML NEB SOL ONE (19:13)
[2022-07-25] MEDS ORDERED: IPRATROPIUM BROM 0.5MG/2.5ML ONE (19:13)
[2022-07-25] MEDS ORDERED: Levofloxacin500mg IV 500 MG/100 ML BAG IV ONE (19:14)
--- NOTE | 2022-07-25 19:39 | P.HP ---
Certification for Inpatient Patient admitted to: Inpatient With expected LOS: <2 Midnights Patient will require the following post-hospital care: None Practitioner: I am a practitioner with admitting privileges, knowledge of patient current condition, hospital course, and medical plan of care. Services: Services provided to patient in accordance with Admission requirements found in Title 42 Section 412.3 of the Code of Federal Regulations Patient History Date of Service: 07/25/22 Primary Care Provider: Ericka Reason for admission: Pneumonia History of Present Illness: Ms. Ramsay is a 61 year old female with past medical history of asthma, hypertension, hyperlipidemia, crohns, and fibromyalgia who presented to the emergency department with complaints of productive cough x 2 weeks and new onset shortness of breath, chills and body aches. She states that she was not seen by her PCP but was prescribed a zpack for a "chest infection." BP was low upon arrival- 83/52. Today her labs are significant for WBC 21, sodium 131, chloride 97, BUN 20, tbili 1.2. Lactate negative. Covid/flu negative. Chest xray showed "New patchy right basilar airspace opacities with possible trace effusion, concerning for pneumonia." She is saturating appropriately on room air. In the emergency department, she was treated with IV fluids, solumedrol, breathing treatments, and levaquin. Blood pressure improved after sepsis fluids bolus. ED provider wishes to admit patient for further management. Allergies No Known Allergies Allergy (Verified 08/21/20 07:54) Home medications list reviewed: Yes Home Medications: Atorvastatin Calcium 1 tab PO DAILY 01/14/14 Celecoxib [Celebrex] 1 tab PO DAILY 01/14/14 Clonazepam 1 tab PO BEDTIME 01/14/14 Methocarbamol 1 tab PO PRN PRN 01/14/14 Multivitamin [Multivitamins] 1 tab PO DAILY 01/14/14 [place]-3 Fatty Acids [Fish Oil] 1 tab PO DAILY 01/14/14 atenoloL [Atenolol] 1 tab PO DAILY 01/14/14 estradioL [Estradiol] 1 tab PO DAILY 01/14/14 Duloxetine [Cymbalta Dalayed Release Pellets] 60 mg PO BID 06/13/14 Vitamin B Complex [B Complex] 1 tab PO DAILY 07/23/14 Fluticasone [Flonase 50mcg Nasal [place]] 2 sprays NS BID 11/20/14 Cimetidine [Tagamet] 150 mg PO BID 07/25/22 Dextroamphetamine/Amphetamine [Adderall Xr 20 mg Capsule] 20 mg PO DAILY 07/25/22 Fluticasone/Umeclidin/Vilanter [Trelegy Ellipta 200-62.5-25] 1 each IH DAILY 07/25/22 Metformin HCl [Metformin HCl ER] 500 mg PO BEDTIME 07/25/22 Montelukast [Singulair] 10 mg PO DAILY 07/25/22 Pregabalin [Lyrica] 50 mg PO BEDTIME 07/25/22 Valsartan 320 mg PO DAILY 07/25/22 - Past Medical/Surgical History Diabetic: No -: Asthma -: Crohns -: Fibromyalgia -: Hyperlipidemia -: Hypertension -: Restless Leg Syndrome -: Appendectomy Psychosocial/ Personal History: Patient is . - Family History Mother -: Heart disease Father -: Heart disease, Lung disease, Diabetes - Social History Smoking Status: Never smoker Alcohol use: No CD- Drugs: No Caffeine use: Yes Place of Residence: Home Review of Systems General: Chills, Sweats, Malaise Respiratory: Cough, Shortness of Breath, Sputum Physical Examination - Vital Signs Temperature: 98.2 F Blood Pressure: 103/55 Pulse: 76 Respirations: 18 Pulse Ox (%): 92 - Physical Exam General: Alert, In no apparent distress, Obese HEENT: Atraumatic, EOMI, Sclerae nonicteric Neck: Supple, 2+ carotid pulse no bruit Respiratory: Expiratory wheezes Cardiovascular: Regular rate/rhythm, Normal S1 S2 Gastrointestinal: Normal bowel sounds, No tenderness Musculoskeletal: No tenderness Integumentary: No rashes Neurological: Normal speech, Normal affect - Studies Laboratory Data (last 24 hrs) 07/25/22 18:00: PT 12.6 H, INR 1.15, APTT 34.0 07/25/22 18:00: Sodium 131 L, Potassium 3.5, BUN 20 H, Creatinine 0.89, Glucose 121 H, Total Bilirubin 1.2 H, AST 16, ALT 25, Alkaline Phosphatase 110 07/25/22 18:00: WBC 21.00 H, Hgb 11.5 L, Hct 34.7 L, Plt Count 330 Microbiology Data (last 24 hrs): 07/25/22 18:30 Nasopharnyx Influenza Type A Antigen Screen - Final 07/25/22 18:30 Nasopharnyx Influenza Type B Antigen Screen - Final Assessment and Plan - Problems (Diagnosis) (1) Pneumonia Current Visit: Yes Status: Acute Qualifiers: Pneumonia type: due to unspecified organism Laterality: right Lung location: lower lobe of lung Qualified Code(s): J18.9 - Pneumonia, unspecified organism (2) Hypertension Current Visit: Yes Status: Chronic Qualifiers: Hypertension type: primary hypertension Qualified Code(s): I10 - Essential (primary) hypertension (3) Hyperlipidemia Current Visit: Yes Status: Chronic Qualifiers: Hyperlipidemia type: unspecified Qualified Code(s): E78.5 - Hyperlipidemia, unspecified - Plan Patient is admitted for further management of pneumonia. Continue levaquin. Patient previously taking azithromycin. Blood cultures obtained. Obtain sputum culture. Solumedrol and incentive spirometry. Supportive measures with PRN breathing treatments, IV hydration, and antitussives. She is not requiring supplemental O2 at this time. Monitor pulse oximetry. Monitor and replete electrolytes per protocol. Reconcile and continue home medications. Lovenox for VTE prophylaxis. Full code. Discharge Plan: Home Plan to discharge in: 48 Hours - Advance Directives Does patient have a Living Will: No Does patient have a Durable POA for Healthcare: No - Code Status/Comfort Care Code Status Assessed: Yes Code Status: Full Code Physician Review: Patient Assessed, Agree with Above Assessment and Plan Critical Care: No Time Spent Managing Pts Care (In Minutes): 50
[2022-07-25 19:53] LABS: Blood Morphology Comment NOT SEEN (NOT SEEN); Platelet Estimate ADEQ; White Blood Cell Scan OK (OK)
[2022-07-25] MEDS ORDERED: IPRATROPIUM BROM 0.5MG/2.5ML NEB PRN (22:46)
[2022-07-25] MEDS ORDERED: ALBUTEROL 2.5 MG/3 ML NEB SOL NEB PRN (22:46)
[2022-07-25] MEDS ORDERED: Levofloxacin500mg IV 500 MG/100 ML BAG IV SCH (22:46)
[2022-07-25] MEDS ORDERED: ONDANSETRON 4 MG/2 ML VIAL IV PRN (22:46)
[2022-07-25] MEDS ORDERED: HYDROCODONE/CHLORPHEN 5 ML/OSYR PO PRN (22:46)
[2022-07-25] MEDS: NA CHLORIDE 0.9% 1,000 ML IV SCH (23:17)
[2022-07-26 00:07] VITALS: BMI 43.4
[2022-07-26] MEDS: BENZONATATE 100 MG CAP PO PRN ×3 (00:29→17:16)
[2022-07-26] MEDS: ACETAMINOPHEN 500 MG TAB PO PRN ×3 (00:29→23:49)
[2022-07-26] MEDS: PREGABALIN 150 MG CAP PO SCH ×2 (01:23→21:03)
[2022-07-26 06:15] LABS: Specific Gravity 1.007 (1.005-1.030); Urine Bilirubin NEGATIVE (Negative); Urine Blood Negative (Negative); Urine Clarity Clear (Clear); Urine Color Colorless (Yellow); Urine Glucose 2+ (Negative); Urine Protein NEGATIVE (Negative); Urine Urobilinogen Normal (Normal)
[2022-07-26 07:13] LABS: Absolute Lymphocytes (CBC) 0.8 K/uL (0.7-4.9); Hematocrit 30.9 % (36.0-45.0); Lymphocytes % 4.1 % (15.3-44.8); MCV 84.4 fL (80-100); MPV 6.8 fL (7.6-11.3); RBC Red Blood Cell Count 3.66 M/uL (3.86-4.86)
[2022-07-26 07:27] LABS: Magnesium 2.2 mg/dL (1.6-2.4); Phosphorus 2.6 mg/dL (2.5-4.9); Potassium 3.7 mEq/L (3.5-5.1)
[2022-07-26 08:09] LABS: Blood Morphology Comment NOT SEEN (NOT SEEN); Dohle Bodies PRESENT; Platelet Estimate ADEQ
[2022-07-26] MEDS: NA CHLORIDE 0.9% 1,000 ML IV SCH (08:46)
[2022-07-26] MEDS ORDERED: DULOXETINE 20 MG CAP PO SCH (09:00)
[2022-07-26] MEDS: atenoloL 25 MG TAB PO SCH (09:20)
[2022-07-26] MEDS: ATORVASTATIN 10 MG TAB PO SCH (09:20)
[2022-07-26] MEDS: MONTELUKAST 10 MG TAB PO SCH (09:20)
[2022-07-26] MEDS: DULOXETINE 30 MG CAP PO SCH ×2 (09:20→21:03)
[2022-07-26] MEDS: ENOXAPARIN 40 MG/0.4 ML SQ SCH (09:20)
[2022-07-26] MEDS: VALSARTAN 160 MG TAB PO SCH (09:27)
--- NOTE | 2022-07-26 14:20 | P.PN ---
Subjective Date of Service: 07/26/22 Primary Care Provider: Ericka Chief Complaint: Pneumonia Patient states her shortness of breath has improved compared to yesterday. She also reports improvement of the left pleuritic chest pain. She is coughing up bloodstained sputum. She has been afebrile. Physical Examination - Vital Signs Temperature: 97.0 F Blood Pressure: 125/61 Pulse: 75 Respirations: 18 Pulse Ox (%): 95 - Studies Laboratory Data (last 24 hrs) 07/25/22 18:00: PT 12.6 H, INR 1.15, APTT 34.0 07/25/22 18:00: Sodium 131 L, Potassium 3.5, BUN 20 H, Creatinine 0.89, Glucose 121 H, Total Bilirubin 1.2 H, AST 16, ALT 25, Alkaline Phosphatase 110 07/25/22 18:00: WBC 21.00 H, Hgb 11.5 L, Hct 34.7 L, Plt Count 330 Microbiology Data (last 24 hrs): 07/25/22 18:30 Nasopharnyx Influenza Type A Antigen Screen - Final 07/25/22 18:30 Nasopharnyx Influenza Type B Antigen Screen - Final Assessment And Plan - Current Problems (Diagnosis) (1) Pneumonia Current Visit: Yes Status: Acute Qualifiers: Pneumonia type: due to unspecified organism Laterality: right Lung location: lower lobe of lung Qualified Code(s): J18.9 - Pneumonia, unspecified organism (2) COPD (chronic obstructive pulmonary disease) Current Visit: Yes Status: Chronic Qualifiers: COPD type: unspecified COPD Qualified Code(s): J44.9 - Chronic obstructive pulmonary disease, unspecified (3) Hypertension Current Visit: Yes Status: Chronic Qualifiers: Hypertension type: primary hypertension Qualified Code(s): I10 - Essential (primary) hypertension - Plan Physical Exam General: Alert, In no apparent distress. Neck: Supple, 2+ carotid pulse no bruit Respiratory: Expiratory wheezes, bibasilar crackles. Cardiovascular: Regular rate/rhythm, Normal S1 S2 Gastrointestinal: Normal bowel sounds, No tenderness Musculoskeletal: No tenderness Integumentary: No rashes Neurological: Normal speech, Normal affect. Diagnosis Septic shock Community-acquired pneumonia COPD with acute exacerbation. Hypertension Plan: Hypotension responded to sepsis bolus in the ED. Blood pressure has been stable. Continue IV Levaquin Chest physiotherapy Follow blood cultures Supportive measures-pain medications as needed, mucolytics. Bronchodilators and nebs for COPD. No steroid for now. Resume home medications for hypertension.
[2022-07-26] MEDS ORDERED: ALBUTEROL 2.5 MG/3 ML NEB SOL NEB PRN (15:00)
[2022-07-26] MEDS ORDERED: HYDROCODONE/APAP 5/325 MG TAB PO PRN (15:42)
[2022-07-26] MEDS: Levofloxacin 750mg IV 750 MG/150 ML BAG IV SCH (15:51)
[2022-07-26] MEDS: FAMOTIDINE 20 MG TAB PO SCH (17:15)
[2022-07-26] MEDS ORDERED: Levofloxacin500mg IV 500 MG/100 ML BAG IV SCH (19:30)
[2022-07-26] MEDS: methocarbamoL 750 MG TAB PO PRN (21:02)
[2022-07-26] MEDS: clonazePAM 0.5 MG TAB PO PRN (21:03)
[2022-07-26] MEDS: METFORMIN ER 500 MG TAB PO SCH (22:05)
[2022-07-27 03:54] LABS: Absolute Lymphocytes (CBC) 1.5 K/uL (0.7-4.9); Hematocrit 28.8 % (36.0-45.0); Lymphocytes % 9.6 % (15.3-44.8); MPV 6.8 fL (7.6-11.3); RBC Red Blood Cell Count 3.43 M/uL (3.86-4.86)
[2022-07-27 04:04] LABS: Potassium 3.2 mEq/L (3.5-5.1)
[2022-07-27] MEDS: VALSARTAN 160 MG TAB PO SCH (08:35)
[2022-07-27] MEDS: DULOXETINE 30 MG CAP PO SCH ×2 (08:35→20:40)
[2022-07-27] MEDS: ENOXAPARIN 40 MG/0.4 ML SQ SCH (08:35)
[2022-07-27] MEDS: MONTELUKAST 10 MG TAB PO SCH (08:36)
[2022-07-27] MEDS: atenoloL 25 MG TAB PO SCH (08:36)
[2022-07-27] MEDS: ATORVASTATIN 10 MG TAB PO SCH (08:36)
[2022-07-27] MEDS: Fluticasone/Umeclidin/Vilanter [Trelegy Ellipta 200-62.5-25] Blst.W.Dev IH SCH (08:41)
[2022-07-27] MEDS ORDERED: POTASSIUM CL SA 10 MEQ TAB PO ONE (09:00)
[2022-07-27] MEDS: FLUTICASONE 50MCG NASAL SPRAY NAS SCH ×2 (09:00→20:40)
[2022-07-27] MEDS: ACETAMINOPHEN 500 MG TAB PO PRN ×2 (12:08→18:42)
[2022-07-27] MEDS: methocarbamoL 750 MG TAB PO PRN ×2 (13:16→20:39)
--- NOTE | 2022-07-27 14:30 | P.PN ---
Subjective Date of Service: 07/27/22 Primary Care Provider: Ericka Chief Complaint: Pneumonia Patient reports feeling much better today. She is still coughing up bloodstained sputum occasionally. Physical Examination - Vital Signs Temperature: 98.2 F Blood Pressure: 134/68 Pulse: 76 Respirations: 16 Pulse Ox (%): 94 Assessment And Plan - Current Problems (Diagnosis) (1) Pneumonia Current Visit: Yes Status: Acute Qualifiers: Pneumonia type: due to unspecified organism Laterality: right Lung location: lower lobe of lung Qualified Code(s): J18.9 - Pneumonia, unspecified organism (2) COPD (chronic obstructive pulmonary disease) Current Visit: Yes Status: Chronic Qualifiers: COPD type: unspecified COPD Qualified Code(s): J44.9 - Chronic obstructive pulmonary disease, unspecified (3) Hypertension Current Visit: Yes Status: Chronic Qualifiers: Hypertension type: primary hypertension Qualified Code(s): I10 - Essential (primary) hypertension - Plan Physical Exam General: Alert, In no apparent distress. Neck: Supple, 2+ carotid pulse no bruit Respiratory: Expiratory wheezes, bibasilar crackles. Cardiovascular: Regular rate/rhythm, Normal S1 S2 Gastrointestinal: Normal bowel sounds, No tenderness Musculoskeletal: No tenderness Integumentary: No rashes Neurological: Normal speech, Normal affect. Diagnosis Septic shock Community-acquired pneumonia COPD with acute exacerbation. Hypertension Plan: Hypotension responded to sepsis bolus in the ED. Blood pressure has been stable. Patient is responding to treatment, leukocytosis is improving. Continue IV Levaquin Chest physiotherapy Blood cultures: no growth to date, sputum culture has been Supportive measures-pain medications as needed, mucolytics. Bronchodilators and nebs for COPD. No steroid for now. Continue home medications for hypertension.
[2022-07-27] MEDS ORDERED: IPRATROPIUM BROM 0.5MG/2.5ML NEB PRN (15:00)
[2022-07-27] MEDS ORDERED: ALBUTEROL 2.5 MG/3 ML NEB SOL NEB PRN (15:00)
[2022-07-27] MEDS: Levofloxacin 750mg IV 750 MG/150 ML BAG IV SCH (16:45)
[2022-07-27] MEDS: clonazePAM 0.5 MG TAB PO PRN (20:39)
[2022-07-27] MEDS: POLYETHYL GLY 3350 17 GM/DOSE PO SCH (20:40)
[2022-07-27] MEDS: FAMOTIDINE 20 MG TAB PO SCH (20:40)
[2022-07-27] MEDS: METFORMIN ER 500 MG TAB PO SCH (20:40)
[2022-07-27] MEDS: PREGABALIN 150 MG CAP PO SCH (20:40)
[2022-07-27] MEDS: BENZONATATE 100 MG CAP PO PRN (20:41)
[2022-07-28 02:40] LABS: Absolute Lymphocytes (CBC) 2.1 K/uL (0.7-4.9); Hematocrit 30.7 % (36.0-45.0); Lymphocytes % 14.1 % (15.3-44.8); MCV 83.9 fL (80-100); MPV 6.9 fL (7.6-11.3); RBC Red Blood Cell Count 3.66 M/uL (3.86-4.86)
[2022-07-28 02:51] LABS: Potassium 3.6 mEq/L (3.5-5.1)
[2022-07-28] MEDS: ACETAMINOPHEN 500 MG TAB PO PRN ×3 (03:11→20:34)
[2022-07-28] MEDS ORDERED: KETOROLAC 30 MG/ML INJ IV ONE (03:23)
[2022-07-28] MEDS ORDERED: POTASSIUM 25 MEQ EFFERV TAB PO ONE (08:24)
[2022-07-28] MEDS: POLYETHYL GLY 3350 17 GM/DOSE PO SCH ×2 (08:57→20:34)
[2022-07-28] MEDS: VALSARTAN 160 MG TAB PO SCH (08:58)
[2022-07-28] MEDS: MONTELUKAST 10 MG TAB PO SCH (08:58)
[2022-07-28] MEDS: ATORVASTATIN 10 MG TAB PO SCH (08:58)
[2022-07-28] MEDS: DULOXETINE 30 MG CAP PO SCH ×2 (08:59→20:33)
[2022-07-28] MEDS: atenoloL 25 MG TAB PO SCH (08:59)
[2022-07-28] MEDS: ENOXAPARIN 40 MG/0.4 ML SQ SCH (09:00)
[2022-07-28] MEDS: Fluticasone/Umeclidin/Vilanter [Trelegy Ellipta 200-62.5-25] Blst.W.Dev IH SCH (09:00)
[2022-07-28] MEDS: FLUTICASONE 50MCG NASAL SPRAY NAS SCH ×2 (09:00→20:35)
[2022-07-28] MEDS: BENZONATATE 100 MG CAP PO PRN ×2 (12:05→20:33)
[2022-07-28] MEDS ORDERED: ALBUTEROL 2.5 MG/3 ML NEB SOL NEB PRN (14:00)
[2022-07-28] MEDS ORDERED: IPRATROPIUM BROM 0.5MG/2.5ML NEB PRN (14:00)
[2022-07-28] MEDS: Levofloxacin 750mg IV 750 MG/150 ML BAG IV SCH (16:09)
--- NOTE | 2022-07-28 17:36 | P.PN ---
Subjective Date of Service: 07/28/22 Primary Care Provider: Ericka Chief Complaint: Pneumonia Patient reports progressive improvement in her shortness of breath. She states that she is more ambulatory but becomes short of breath easily. No fever. Physical Examination - Vital Signs Temperature: 97.3 F Blood Pressure: 158/74 Pulse: 65 Respirations: 14 Pulse Ox (%): 95 Assessment And Plan - Current Problems (Diagnosis) (1) Pneumonia Current Visit: Yes Status: Acute Qualifiers: Pneumonia type: due to unspecified organism Laterality: right Lung locati on: lower lobe of lung Qualified Code(s): J18.9 - Pneumonia, unspecified organism (2) COPD (chronic obstructive pulmonary disease) Current Visit: Yes Status: Chronic Qualifiers: COPD type: unspecified COPD Qualified Code(s): J44.9 - Chronic obstructive pulmonary disease, unspecified (3) Hypertension Current Visit: Yes Status: Chronic Qualifiers: Hypertension type: primary hypertension Qualified Code(s): I10 - Essential (primary) hypertension - Plan Physical Exam General: Alert, In no apparent distress. Neck: Supple, 2+ carotid pulse no bruit Respiratory: No wheezes, bibasilar crackles. Cardiovascular: Regular rate/rhythm, Normal S1 S2 Gastrointestinal: Normal bowel sounds, No tenderness Musculoskeletal: No tenderness Integumentary: No rashes Neurological: Normal speech, Normal affect. Diagnosis Septic shock Community-acquired pneumonia COPD with acute exacerbation. Hypertension Plan: Hypotension responded to sepsis bolus in the ED. Blood pressure has been stable. Patient is responding to treatment, leukocytosis is improving. Continue IV Levaquin Chest physiotherapy, increase activity as tolerated. Blood cultures: no growth to date. Supportive measures-pain medications as needed, mucolytics. Bronchodilators and nebs for COPD. No steroid for now. Wean off oxygen as tolerated.
[2022-07-28] MEDS: METFORMIN ER 500 MG TAB PO SCH (20:33)
[2022-07-28] MEDS: PREGABALIN 150 MG CAP PO SCH (20:33)
[2022-07-28] MEDS: FAMOTIDINE 20 MG TAB PO SCH (20:34)
[2022-07-28] MEDS: clonazePAM 0.5 MG TAB PO PRN (20:46)
[2022-07-29 03:36] LABS: Absolute Lymphocytes (CBC) 1.9 K/uL (0.7-4.9); Hematocrit 31.2 % (36.0-45.0); Lymphocytes % 18.9 % (15.3-44.8); MCV 84.2 fL (80-100); MPV 7.1 fL (7.6-11.3)
[2022-07-29 03:47] LABS: Potassium 3.5 mEq/L (3.5-5.1)
[2022-07-29] MEDS: ENOXAPARIN 40 MG/0.4 ML SQ SCH (08:29)
[2022-07-29] MEDS: atenoloL 25 MG TAB PO SCH (08:29)
[2022-07-29] MEDS: methocarbamoL 750 MG TAB PO PRN ×2 (08:30→20:58)
[2022-07-29] MEDS: ATORVASTATIN 10 MG TAB PO SCH (08:31)
[2022-07-29] MEDS: ACETAMINOPHEN 500 MG TAB PO PRN ×3 (08:31→20:57)
[2022-07-29] MEDS: BENZONATATE 100 MG CAP PO PRN (08:31)
[2022-07-29] MEDS: DULOXETINE 30 MG CAP PO SCH ×2 (08:31→20:51)
[2022-07-29] MEDS: MONTELUKAST 10 MG TAB PO SCH (08:31)
[2022-07-29] MEDS: VALSARTAN 160 MG TAB PO SCH (08:31)
[2022-07-29] MEDS: POLYETHYL GLY 3350 17 GM/DOSE PO SCH ×2 (08:32→20:52)
[2022-07-29] MEDS: FLUTICASONE 50MCG NASAL SPRAY NAS SCH ×2 (08:32→20:52)
[2022-07-29] MEDS ORDERED: POTASSIUM CL SA 10 MEQ TAB PO ONE (09:00)
[2022-07-29] MEDS: Fluticasone/Umeclidin/Vilanter [Trelegy Ellipta 200-62.5-25] Blst.W.Dev IH SCH (09:00)
--- NOTE | 2022-07-29 14:47 | P.CNS ---
Date of Consult: 07/29/22 Reason for Consult: pneumonia Primary Care Provider: Ericka Chief Complaint: Pneumonia History of Present Illness: Patient is a 61 yo female with a medical history significant for COPD hypertension, hyperlipidemia, Crohn's disease, GERD and fibromyalgia who presented to the ED for complaints of productive cough, shortness of breath, chills and generalized body aches. Patient reports cough x 2 weeks for which she was prescribed a Z-Alex with no improvement in symptoms. Chest XR obtained in ED revealing "patchy right basilar airspace opacities with possible trace effusion, concerning for pneumonia." WBC 21. Afebrile. Influenza A&B negative. Covid negative. She was started on Levaquin 07/26. Patient sitting in chair, breathing comfortably on 2 L nasal cannula. Not in distress. Alert and oriented x4. She reports productive cough that is wolf in color and occasionally red/pink-tinged. Pt also reports chest pain when coughing. Otherwise, states she feels much better than when she first came in to the hospital. She is tolerating levaquin. Denies diarrhea or abdominal pain. Allergies No Known Allergies Allergy (Verified 08/21/20 07:54) Home medications list reviewed: Yes Home Medications: Atorvastatin Calcium 1 tab PO DAILY 01/14/14 Celecoxib [Celebrex] 1 tab PO DAILY 01/14/14 Clonazepam 1 tab PO BEDTIME 01/14/14 Methocarbamol 1 tab PO QID PRN 01/14/14 Multivitamin [Multivitamins] 1 tab PO DAILY 01/14/14 [place]-3 Fatty Acids [Fish Oil] 1 tab PO DAILY 01/14/14 atenoloL [Atenolol] 1 tab PO DAILY 01/14/14 estradioL [Estradiol] 1 tab PO DAILY 01/14/14 Duloxetine [Cymbalta Dalayed Release Pellets] 60 mg PO BID 06/13/14 Vitamin B Complex [B Complex] 1 tab PO DAILY 07/23/14 Fluticasone [Flonase 50mcg Nasal [place]] 2 sprays NS BID 11/20/14 Cimetidine [Tagamet] 300 mg PO DAILY 07/25/22 Dextroamphetamine/Amphetamine [Adderall Xr 20 mg Capsule] 20 mg PO DAILY 07/25/22 Fluticasone/Umeclidin/Vilanter [Trelegy Ellipta 200-62.5-25] 1 each IH DAILY 07/25/22 Metformin HCl [Metformin HCl ER] 500 mg PO BEDTIME 07/25/22 Montelukast [Singulair] 10 mg PO DAILY 07/25/22 Pregabalin [Lyrica] 150 mg PO BEDTIME 07/25/22 Valsartan 320 mg PO DAILY 07/25/22 Famotidine [Pepcid] 20 mg PO BEDTIME 07/26/22 - Past Medical/Surgical History Diabetic: No -: Asthma -: Crohns -: Fibromyalgia -: Hyperlipidemia -: Hypertension -: Restless Leg Syndrome -: PERIPHERAL NEUROPATHY -: OSTEOARTHRITIS -: DEGENERATIVE DISC DISEASE -: HIGH CHOLESTEROL -: Appendectomy Psychosocial/ Personal History: Patient is . - Family History Mother Medical History: Heart disease Father Medical History: Heart disease, Lung disease, Diabetes - Social History Smoking Status: Never smoker Alcohol use: No CD- Drugs: No Caffeine use: Yes Place of Residence: Home Review of Systems 10-point ROS is otherwise unremarkable General: Weakness ENT: Unremarkable Respiratory: Cough, SOB with Excertion, Sputum (wolf in color) Cardiovascular: Unremarkable Gastrointestinal: Other (decreased appetite) Genitourinary: Unremarkable Integumentary: Unremarkable Neurological: Unremarkable Physical Examination Temp Pulse Resp BP Pulse Ox 98.1 F 68 18 149/80 H 0 L 07/29/22 08:00 07/29/22 11:50 07/29/22 08:00 07/29/22 11:50 07/29/22 11:50 General: Alert, In no apparent distress, Oriented x3 HEENT: Atraumatic, Normocephalic Neck: Supple, JVD not distended Respiratory: Normal air movement, Diminished (bilaterally R>L) Cardiovascular: No edema, Normal pulses Gastrointestinal: Normal bowel sounds, Soft and benign, Non-distended Musculoskeletal: No clubbing, No swelling Integumentary: No rashes, No breakdown Neurological: Normal speech, Normal tone, Normal affect Laboratory Data - Reviewed Microbiology Data - Blood culture 07/25: No growth to date - Sputum culture 07/26: Normal respiratory kermit Imagings Data: - Reviewed Conclusions/Impression: Problem List Community Acquired Pneumonia COPD with acute exacerbation Hypertension Crohn's Disease Hyperlipidemia Fibromyalgia GERD Restless Leg Syndrome Anemia Mild protein calorie malnutrition Pneumonia, Community Acquired COPD with acute exacerbation - Cough x 2 weeks prior to admission, completed Z-Alex course with no improvement in symptoms. - Chest XR 07/25: "patchy right basilar airspace opacities with possible trace effusion, concerning for pneumonia." - Sputum culture 07/26: Normal quantity of upper respiratory kermit - Productive cough with sputum described as wolf in color; Reports occasional red/pink-tinged sputum. - Afebrile, temp 98.1 F. No tachypnea or tachycardia noted. - Leukocytosis improving (WBC 21 on admission -> now 10.1 on 07/29) - On Levaquin since 07/26. Has been improving since admission. patient c/o SOB on exertion and remains on 2L NC resting. Recommendations - Continue Levaquin x 7 days duration (started 07/26). Switch to PO if tolerated. - Obtain O2 saturation on room air. Wean off supplemental oxygen as tolerated. - Continue supportive care and breathing treatments. Encourage incentive spirometry. - Nutritional support as needed - Monitor WBC and fever trends ID will follow up and monitor patient closely. Case discussed with Rebecca Joshua. Thank you for consult.
[2022-07-29] MEDS: Levofloxacin 750mg IV 750 MG/150 ML BAG IV SCH (15:31)
--- NOTE | 2022-07-29 16:19 | P.PN ---
Subjective Date of Service: 07/29/22 Primary Care Provider: Ericka Chief Complaint: Pneumonia Patient reports progressive improvement in her shortness of breath. She is still coughing significantly. No fever. Physical Examination - Vital Signs Temperature: 98.1 F Blood Pressure: 149/80 Pulse: 68 Respirations: 18 Pulse Ox (%): 0 Assessment And Plan - Current Problems (Diagnosis) (1) Pneumonia Current Visit: Yes Status: Acute Qualifiers: Pneumonia type: due to unspecified organism Laterality: right Lung location: lower lobe of lung Qualified Code(s): J18.9 - Pneumonia, unspecified organism (2) COPD (chronic obstructive pulmonary disease) Current Visit: Yes Status: Chronic Qualifiers: COPD type: unspecified COPD Qualified Code(s): J44.9 - Chronic obstructive pulmonary disease, unspecified (3) Hypertension Current Visit: Yes Status: Chronic Qualifiers: Hypertension type: primary hypertension Qualified Code(s): I10 - Essential (primary) hypertension - Plan Physical Exam General: Alert, In no apparent distress. Neck: Supple, 2+ carotid pulse no bruit Respiratory: No wheezes, bibasilar crackles. Cardiovascular: Regular rate/rhythm, Normal S1 S2 Gastrointestinal: Normal bowel sounds, No tenderness Musculoskeletal: No tenderness Integumentary: No rashes Neurological: Normal speech, Normal affect. Diagnosis Septic shock Community-acquired pneumonia COPD with acute exacerbation. Hypertension Plan: Status post IV normal saline bolus for septic shock. Blood pressure has been stable. Patient is responding to treatment, leukocytosis resolved. Continue IV Levaquin Chest physiotherapy, increase activity as tolerated. Blood cultures: no growth to date. Supportive measures-pain medications as needed, mucolytics, antitussives. Bronchodilators and nebs for COPD. Pulmonary consult. Wean oxygen as tolerated. Home oxygen evaluation.
[2022-07-29] MEDS: HYDROCODONE/CHLORPHEN 5 ML/OSYR PO PRN (16:39)
[2022-07-29] MEDS: PREGABALIN 150 MG CAP PO SCH (20:51)
[2022-07-29] MEDS: METFORMIN ER 500 MG TAB PO SCH (20:52)
[2022-07-29] MEDS: FAMOTIDINE 20 MG TAB PO SCH (20:58)
[2022-07-29] MEDS ORDERED: ACETAMIN/CAFFEINE/BUTALB TAB PO PRN (22:22)
[2022-07-29] MEDS ORDERED: ACETAMIN/CAFFEINE/BUTALB TAB PO ONE (22:53)
[2022-07-30] MEDS: HYDROCODONE/CHLORPHEN 5 ML/OSYR PO PRN ×2 (01:27→23:28)
[2022-07-30] MEDS: Fluticasone/Umeclidin/Vilanter [Trelegy Ellipta 200-62.5-25] Blst.W.Dev IH SCH (09:00)
[2022-07-30] MEDS: VALSARTAN 160 MG TAB PO SCH (09:03)
[2022-07-30] MEDS: POLYETHYL GLY 3350 17 GM/DOSE PO SCH ×2 (09:03→20:16)
[2022-07-30] MEDS: ENOXAPARIN 40 MG/0.4 ML SQ SCH (09:03)
[2022-07-30] MEDS: ATORVASTATIN 10 MG TAB PO SCH (09:04)
[2022-07-30] MEDS: MONTELUKAST 10 MG TAB PO SCH (09:04)
[2022-07-30] MEDS: DULOXETINE 30 MG CAP PO SCH ×2 (09:04→20:14)
[2022-07-30] MEDS: atenoloL 25 MG TAB PO SCH (09:04)
[2022-07-30] MEDS: FLUTICASONE 50MCG NASAL SPRAY NAS SCH ×2 (09:05→20:15)
--- NOTE | 2022-07-30 09:38 | P.CNS ---
Date of Consult: 07/30/22 Primary Care Provider: Ericka Chief Complaint: Pneumonia/hemoptysis History of Present Illness: Patient is 61 years of age has a history of asthma was taking trilogy at home 2 weeks ago patient developed sinus and chest infection was coughing up productive sputum. With Z-Alex that partially helped and then developed some hemoptysis on Monday planing of chest discomfort here in the hospital has a history of Crohn's disease on a biological agent multiple other medical problems has coughing up some dried blood right now Allergies No Known Allergies Allergy (Verified 08/21/20 07:54) Home Medications: Atorvastatin Calcium 1 tab PO DAILY 01/14/14 Celecoxib [Celebrex] 1 tab PO DAILY 01/14/14 Clonazepam 1 tab PO BEDTIME 01/14/14 Methocarbamol 1 tab PO QID PRN 01/14/14 Multivitamin [Multivitamins] 1 tab PO DAILY 01/14/14 [place]-3 Fatty Acids [Fish Oil] 1 tab PO DAILY 01/14/14 atenoloL [Atenolol] 1 tab PO DAILY 01/14/14 estradioL [Estradiol] 1 tab PO DAILY 01/14/14 Duloxetine [Cymbalta Dalayed Release Pellets] 60 mg PO BID 06/13/14 Vitamin B Complex [B Complex] 1 tab PO DAILY 07/23/14 Fluticasone [Flonase 50mcg Nasal [place]] 2 sprays NS BID 11/20/14 Cimetidine [Tagamet] 300 mg PO DAILY 07/25/22 Dextroamphetamine/Amphetamine [Adderall Xr 20 mg Capsule] 20 mg PO DAILY 07/25/22 Fluticasone/Umeclidin/Vilanter [Trelegy Ellipta 200-62.5-25] 1 each IH DAILY 07/25/22 Metformin HCl [Metformin HCl ER] 500 mg PO BEDTIME 07/25/22 Montelukast [Singulair] 10 mg PO DAILY 07/25/22 Pregabalin [Lyrica] 150 mg PO BEDTIME 07/25/22 Valsartan 320 mg PO DAILY 07/25/22 Famotidine [Pepcid] 20 mg PO BEDTIME 07/26/22 - Past Medical/Surgical History Diabetic: No -: Asthma -: Crohns -: Fibromyalgia -: Hyperlipidemia -: Hypertension -: Restless Leg Syndrome -: PERIPHERAL NEUROPATHY -: OSTEOARTHRITIS -: DEGENERATIVE DISC DISEASE -: HIGH CHOLESTEROL -: Appendectomy Psychosocial/ Personal History: Patient is . - Family History Mother Medical History: Heart disease Father Medical History: Heart disease, Lung disease, Diabetes - Social History Smoking Status: Never smoker Alcohol use: No CD- Drugs: No Caffeine use: Yes Place of Residence: Home Review of Systems 10-point ROS is otherwise unremarkable General: Weakness Respiratory: Cough, Shortness of Breath, Hemoptysis Physical Examination Temp Pulse Resp BP Pulse Ox 97.3 F 73 18 143/80 H 92 07/30/22 08:00 07/30/22 09:04 07/30/22 08:00 07/30/22 09:04 07/30/22 08:00 General: Alert, In no apparent distress, Oriented x3 HEENT: Atraumatic Neck: Supple Respiratory: Clear to auscultation bilaterally Cardiovascular: No edema, Regular rate/rhythm, Normal S1 S2 Gastrointestinal: Normal bowel sounds, Soft and benign Musculoskeletal: No clubbing, No swelling - Problems (1) Hemoptysis Current Visit: Yes Status: Acute Plan: Patient is 61 years of age with a history of asthma and Crohn's disease patient is on a biological agent takes Trelegy at home admitted with sinus and chest congestion some hemoptysis of ordered a CT scan of the chest White count has dec lined back to normal cultures are negative chemistry profile unremarkable vital signs stable hypoxic on room air chest x-ray some haziness on the right side possible pneumonia pleural effusion also add some prednisone changed to p.o. levofloxacin for now
[2022-07-30] MEDS: levoFLOXacin 750 MG TAB PO SCH (10:19)
[2022-07-30] MEDS: predniSONE 20 MG TAB PO SCH ×2 (10:19→20:14)
--- NOTE | 2022-07-30 11:21 | RAD REPORT ---
EXAM DESCRIPTION: CT - Thorax Wo Senthil - 07/30/2022 9:56 am CLINICAL HISTORY: Hemoptysis COMPARISON: Chest Single View dated 07/25/2022 TECHNIQUE: Axial thin cut CT images of the chest were obtained without IV contrast. Multiplanar refo rmats were generated and reviewed. All CT scans are performed using dose optimization technique as appropriate and may include automated exposure control or mA/KV adjustment according to patient size. FINDINGS: Multifocal alveolar opacities, most confluent in the lower lobes as well as scattered patc hy areas of opacification in the central right upper and middle lobes. In the dependent lower lobes b ilaterally, some of the opacities have linear/trachea morphology, which may relate to a component of atelectasis. No pleural thickening or pleural effusion. No pneumothorax. No abnormal mediastinal or hilar masses or lymphadenopathy seen. No significant aortic or pulmonary a rtery findings. Assessment is limited in the absence of IV contrast. 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 No chest wall mass or abnormal axillary lymphadenopathy. Evaluation of the solid abdominal structures reveals no suspicious findings. IMPRESSION: Bilateral patchy alveolar opacities, most abundant in the lower lobes especially on the right, appearance is most suggestive of multifocal pneumonia. Follow-up CT imaging and 1-3 months fol lowing resolution of any acute symptoms is recommended to exclude underlying suspicious nodules.
[2022-07-30] MEDS ORDERED: ACETAMINOPHEN 325 MG TABLET PO PRN (14:44)
[2022-07-30] MEDS: FAMOTIDINE 20 MG TAB PO SCH ×2 (15:17→20:15)
[2022-07-30] MEDS ORDERED: FLUCONAZOLE 100 MG TAB PO ONE (16:58)
--- NOTE | 2022-07-30 17:05 | P.PN ---
Subjective Date of Service: 07/30/22 Primary Care Provider: Ericka Chief Complaint: Pneumonia/hemoptysis Patient reports progressive improvement in her shortness of breath. No fever. She is complaining of genital yeast infection. She desaturated to 87% on room air. Physical Examination - Vital Signs Temperature: 97.0 F Blood Pressure: 176/92 Pulse: 70 Respirations: 18 Pulse Ox (%): 95 Assessment And Plan - Current Problems (Diagnosis) (1) Pneumonia Current Visit: Yes Status: Acute Qualifiers: Pneumonia type: due to unspecified organism Laterality: right Lung location: lower lobe of lung Qualified Code(s): J18.9 - Pneumonia, unspecified organism (2) COPD (chronic obstructive pulmonary disease) Current Visit: Yes Status: Chronic Qualifiers: COPD type: unspecified COPD Qualified Code(s): J44.9 - Chronic obstructive pulmonary disease, unspecified (3) Hypertension Current Visit: Yes Status: Chronic Qualifiers: Hypertension type: primary hypertension Qualified Code(s): I10 - Essential (primary) hypertension - Plan Physical Exam General: Alert, In no apparent distress. Neck: Supple, 2+ carotid pulse no bruit Respiratory: No wheezes, bibasilar crackles. Cardiovascular: Regular rate/rhythm, Normal S1 S2 Gastrointestinal: Normal bowel sounds, No tenderness Musculoskeletal: No tenderness Integumentary: No rashes Neurological: Normal speech, Normal affect. Diagnosis Septic shock Community-acquired pneumonia COPD with acute exacerbation. Hypertension Plan: Status post IV normal saline bolus for septic shock. Blood pressure has been stable. Patient is responding to treatment, leukocytosis resolved. Chest physiotherapy, increase activity as tolerated. Seen by pulmonary, IV Levaquin changed to oral Levaquin, started on p.o. prednisone Blood cultures: no growth to date. Supportive measures-pain medications as needed, mucolytics, antitussives. Bronchodilators and nebs for COPD. Patient desaturated to 87% on room air. She will qualify for home oxygen.
[2022-07-30] MEDS: methocarbamoL 750 MG TAB PO PRN (20:14)
[2022-07-30] MEDS: METFORMIN ER 500 MG TAB PO SCH (20:14)
[2022-07-30] MEDS: PREGABALIN 150 MG CAP PO SCH (20:14)
[2022-07-31 03:41] LABS: Potassium 4.5 mEq/L (3.5-5.1)
[2022-07-31] MEDS: levoFLOXacin 750 MG TAB PO SCH (08:37)
[2022-07-31] MEDS: FAMOTIDINE 20 MG TAB PO SCH ×2 (08:38→20:23)
[2022-07-31] MEDS: predniSONE 20 MG TAB PO SCH ×2 (08:38→20:23)
[2022-07-31] MEDS: DULOXETINE 30 MG CAP PO SCH ×2 (08:38→20:22)
[2022-07-31] MEDS: VALSARTAN 160 MG TAB PO SCH (08:38)
[2022-07-31] MEDS: ATORVASTATIN 10 MG TAB PO SCH (08:39)
[2022-07-31] MEDS: atenoloL 25 MG TAB PO SCH (08:39)
[2022-07-31] MEDS: MONTELUKAST 10 MG TAB PO SCH (08:39)
[2022-07-31] MEDS: POLYETHYL GLY 3350 17 GM/DOSE PO SCH ×2 (08:40→20:21)
[2022-07-31] MEDS: Fluticasone/Umeclidin/Vilanter [Trelegy Ellipta 200-62.5-25] Blst.W.Dev IH SCH (08:40)
[2022-07-31] MEDS: ENOXAPARIN 40 MG/0.4 ML SQ SCH (08:40)
[2022-07-31] MEDS: FLUTICASONE 50MCG NASAL SPRAY NAS SCH ×2 (08:40→20:23)
--- NOTE | 2022-07-31 10:31 | P.PN ---
Subjective Date of Service: 07/31/22 Primary Care Provider: Ericka Chief Complaint: Pneumonia/hemoptysis Subjective: Improving (Patient is doing better coughing and shortness of breath have improved minimal hemoptysis) Review of Systems General: Weakness Respiratory: Cough, Hemoptysis Physical Examination - Vital Signs Temperature: 97.8 F Blood Pressure: 143/72 Pulse: 67 Respirations: 16 Pulse Ox (%): 95 - Physical Exam General: Alert, Oriented x3 Cardiovascular: No edema, Normal S1 S2 - Studies Microbiology Data (last 24 hrs): 07/25/22 17:10 Blood - Blood Aerobic Blood Culture - Final No growth in 5 days. 07/25/22 17:10 Blood - Blood Anaerobic Blood Culture - Final No growth in 5 days. 07/25/22 18:00 Blood - Blood Aerobic Blood Culture - Final No growth in 5 days. 07/25/22 18:00 Blood - Blood Anaerobic Blood Culture - Final No growth in 5 days. Assessment And Plan - Current Problems (Diagnosis) (1) Hemoptysis Current Visit: Yes Status: Acute Plan: Patient is 61 years of age admitted with bilateral lower lobe pneumonia clinically improving White count is normal charge home on levofloxacin 750 mg daily for a week room air sats is 90 to 91% ambulate possible discharge chemistries reviewed Physician Review: Patient Assessed, Agree with Above Assessment and Plan
--- NOTE | 2022-07-31 13:10 | P.PN ---
Subjective Date of Service: 07/31/22 Primary Care Provider: Ericka Chief Complaint: Pneumonia/hemoptysis Patient reports no major changes from yesterday No fever. She is still coughing intermittently. Physical Examination - Vital Signs Temperature: 98.8 F Blood Pressure: 141/69 Pulse: 67 Respirations: 16 Pulse Ox (%): 96 - Studies Microbiology Data (last 24 hrs): 07/25/22 17:10 Blood - Blood Aerobic Blood Culture - Final No growth in 5 days. 07/25/22 17:10 Blood - Blood Anaerobic Blood Culture - Final No growth in 5 days. 07/25/22 18:00 Blood - Blood Aerobic Blood Culture - Final No growth in 5 days. 07/25/22 18:00 Blood - Blood Anaerobic Blood Culture - Final No growth in 5 days. Assessment And Plan - Current Problems (Diagnosis) (1) Pneumonia Current Visit: Yes Status: Acute Qualifiers: Pneumonia type: due to unspecified organism Laterality: right Lung location: lower lobe of lung Qualified Code(s): J18.9 - Pneumonia, unspecified organism (2) COPD (chronic obstructive pulmonary disease) Current Visit: Yes Status: Chronic Qualifiers: COPD type: unspecified COPD Qualified Code(s): J44.9 - Chronic obstructive pulmonary disease, unspecified (3) Hypertension Current Visit: Yes Status: Chronic Qualifiers: Hypertension type: primary hypertension Qualified Code(s): I10 - Essential (primary) hypertension - Plan Physical Exam General: Alert, In no apparent distress. Neck: Supple, 2+ carotid pulse no bruit Respiratory: No wheezes, bibasilar crackles. Cardiovascular: Regular rate/rhythm, Normal S1 S2 Gastrointestinal: Normal bowel sounds, No tenderness Musculoskeletal: No tenderness Integumentary: No rashes Neurological: Normal speech, Normal affect. Diagnosis Septic shock Community-acquired pneumonia COPD with acute exacerbation. Hypertension Plan: Status post IV normal saline bolus for septic shock. Blood pressure has been stable. Patient is responding to treatment, leukocytosis resolved. Chest physiotherapy, increase activity as tolerated. Seen by pulmonary, IV Levaquin changed to oral Levaquin, started on p.o. prednisone. Continue current medications. Blood cultures: no growth to date. Supportive measures-pain medications as needed, mucolytics, antitussives. Bronchodilators and nebs for COPD. Patient desaturated to 87% on room air. Social service is arranging for home oxygen.
[2022-07-31] MEDS: HYDROCODONE/CHLORPHEN 5 ML/OSYR PO PRN (13:39)
[2022-07-31] MEDS ORDERED: PROMETHAZINE-DM 5 ML OSYR PO ONE (19:49)
[2022-07-31] MEDS: methocarbamoL 750 MG TAB PO PRN (20:22)
[2022-07-31] MEDS: PREGABALIN 150 MG CAP PO SCH (20:22)
[2022-07-31] MEDS: METFORMIN ER 500 MG TAB PO SCH (20:22)
[2022-07-31] MEDS: clonazePAM 0.5 MG TAB PO PRN (20:22)
[2022-08-01 04:37] LABS: Magnesium 2.4 mg/dL (1.6-2.4); Phosphorus 3.9 mg/dL (2.5-4.9); Potassium 4.4 mEq/L (3.5-5.1)
[2022-08-01 08:20] VITALS: BP 175/86; TEMP 98
[2022-08-01 08:23] VITALS: O2SAT 94
[2022-08-01] MEDS: Fluticasone/Umeclidin/Vilanter [Trelegy Ellipta 200-62.5-25] Blst.W.Dev IH SCH (09:00)
--- NOTE | 2022-08-01 09:07 | P.DS ---
Admission Date: 07/25/22 Discharge Date: 08/01/22 Primary Care Provider: Ericka Disposition: ROUTINE DISCHARGE Discharge Condition: FAIR Reason for Admission: Pneumonia/hemoptysis - Problems (1) Pneumonia Current Visit: Yes Status: Acute Qualifiers: Pneumonia type: due to unspecified organism Laterality: right Lung location: lower lobe of lung Qualified Code(s): J18.9 - Pneumonia, unspecified organism (2) COPD (chronic obstructive pulmonary disease) Current Visit: Yes Status: Chronic Qualifiers: COPD type: unspecified COPD Qualified Code(s): J44.9 - Chronic obstructive pulmonary disease, unspecified (3) Hypertension Current Visit: Yes Status: Chronic Qualifiers: Hypertension type: primary hypertension Qualified Code(s): I10 - Essential (primary) hypertension Brief History of Present Illness: Ms. Ramsay is a 61 year old female with past medical history of asthma, hypertension, hyperlipidemia, crohns, and fibromyalgia who presented to the emergency department with complaints of productive cough x 2 weeks and new onset shortness of breath, chills and body aches. She states that she was not seen by her PCP but was prescribed a zpack for a "chest infection." BP was low upon arrival- 83/52. Her labs were significant for WBC 21, sodium 131, chloride 97, BUN 20, tbili 1.2. Lactate negative. Covid/flu negative. Chest xray showed "New patchy right basilar airspace opacities with possible trace effusion, concerning for pneumonia." She is saturating appropriately on room air. In the emergency department, she was treated with IV fluids, solumedrol, breathing treatments, and levaquin. Blood pressure improved after sepsis fluids bolus. Patient admitted for further management. Hospital Course: Diagnosis Septic shock Community-acquired pneumonia COPD with acute exacerbation. Hypertension Patient admitted to the medical floor, treated for sepsis with IV fluid, IV levaquin, placed on bronchodilators and nebs. Her blood pressure was stable, sepsis resolved. She had intermittent cough and wheeze Patient overall responded to treatment. Seen by pulmonary, IV Levaquin changed to oral Levaquin, started on p.o. prednisone. Blood cultures: no growth to date. She was also treated with supportive measures-pain medications as needed, mucolytics, antitussives. Patient desaturated to 87% on room air even after significant response to treatment and qualifies for home oxygen Home oxygen has been arranged. Patient is deemed clinically stable for discharge. Vital Signs/Physical Exam: Temp Pulse Resp BP Pulse Ox 98.0 F 63 16 175/86 H 96 08/01/22 08:00 08/01/22 08:00 08/01/22 08:00 08/01/22 08:00 08/01/22 08:00 General: Alert, In no apparent distress, Obese HEENT: Mucous membr. moist/pink Respiratory: Clear to auscultation bilaterally, Normal air movement Cardiovascular: No edema, Regular rate/rhythm, Normal S1 S2 Gastrointestinal: Normal bowel sounds, Soft and benign, Non-distended Musculoskeletal: No swelling Integumentary: No rashes Neurological: Normal strength at 5/5 x4 extr Laboratory Data at Discharge: WBC 10.10 thou/uL (4.3-10.9) 07/29/22 02:53 Hgb 10.2 g/dL (12.0-15.0) L 07/29/22 02:53 Hct 31.2 % (36.0-45.0) L 07/29/22 02:53 Plt Count 393 thou/uL (152-406) 07/29/22 02:53 PT 12.6 SECONDS (9.5-12.5) H 07/25/22 18:00 INR 1.15 07/25/22 18:00 APTT 34.0 SECONDS (24.3-36.9) 07/25/22 18:00 Sodium 137 mEq/L (136-145) 08/01/22 03:37 Potassium 4.4 mEq/L (3.5-5.1) 08/01/22 03:37 BUN 14 mg/dL (7-18) 08/01/22 03:37 Creatinine 0.55 mg/dL (0.55-1.02) 08/01/22 03:37 Glucose 175 mg/dL (74-106) H 08/01/22 03:37 Phosphorus 3.9 mg/dL (2.5-4.9) 08/01/22 03:37 Magnesium 2.4 mg/dL (1.6-2.4) 08/01/22 03:37 Total Bilirubin 1.2 mg/dL (0.2-1.0) H 07/25/22 18:00 AST 16 U/L (15-37) 07/25/22 18:00 ALT 25 U/L (13-56) 07/25/22 18:00 Alkaline Phosphatase 110 U/L (45-117) 07/25/22 18:00 Triglycerides 164 mg/dL (<150) H 07/26/22 06:47 Cholesterol 164 mg/dL (<200) 07/26/22 06:47 HDL Cholesterol 50 mg/dL (40-60) 07/26/22 06:47 Cholesterol/HDL Ratio 3.28 07/26/22 06:47 Home Medications: Atorvastatin Calcium 1 tab PO DAILY 01/14/14 Clonazepam 1 tab PO BEDTIME 01/14/14 Methocarbamol 1 tab PO QID PRN 01/14/14 Multivitamin [Multivitamins] 1 tab PO DAILY 01/14/14 [place]-3 Fatty Acids [Fish Oil] 1 tab PO DAILY 01/14/14 atenoloL [Atenolol] 1 tab PO DAILY 01/14/14 estradioL [Estradiol] 1 tab PO DAILY 01/14/14 Duloxetine [Cymbalta *] 60 mg PO BID 06/13/14 Vitamin B Complex [B Complex] 1 tab PO DAILY 07/23/14 Fluticasone [Flonase 50MCG Nasal [place]*] 2 sprays NS BID 11/20/14 Cimetidine [Tagamet] 300 mg PO DAILY 07/25/22 Dextroamphetamine/Amphetamine [Adderall Xr 20 mg Capsule] 20 mg PO DAILY 07/25/22 Fluticasone/Umeclidin/Vilanter [Trelegy Ellipta 200-62.5-25] 1 each IH DAILY 07/25/22 Metformin HCl [Metformin HCl ER] 500 mg PO BEDTIME 07/25/22 Montelukast [Singulair*] 10 mg PO DAILY 07/25/22 Pregabalin [Lyrica*] 150 mg PO BEDTIME 07/25/22 Valsartan 320 mg PO DAILY 07/25/22 Famotidine [Pepcid] 20 mg PO BEDTIME 07/26/22 Benzonatate [Tessalon Perle*] 200 mg PO TID PRN #30 cap 08/01/22 Guaif/Dm [Robitussin Dm] 10 ml PO Q6H PRN #118 ml 08/01/22 Guaifenesin [Mucinex] 600 mg PO BID #20 tab 08/01/22 levoFLOXacin [Levaquin*] 750 mg PO DAILY #4 tab 08/01/22 predniSONE [Deltasone*] 10 mg PO DAILY #30 tab 08/01/22 New Medications: predniSONE [Deltasone*] 10 mg PO DAILY #30 tab levoFLOXacin [Levaquin*] 750 mg PO DAILY #4 tab Guaifenesin [Mucinex] 600 mg PO BID #20 tab Guaif/Dm [Robitussin Dm] 10 ml PO Q6H PRN #118 ml PRN Reason: Cough Benzonatate [Tessalon Perle*] 200 mg PO TID PRN #30 cap PRN Reason: Cough Diet: ADA Activity: Ad janes Followup: Steven Banrett MD [ACTIVE - CAN ADMIT] - 1-2 Weeks Time spent managing pt's care (in minutes): 36
--- NOTE | 2022-08-01 09:11 | P.PN ---
Date of Service: 08/01/22 Chief Complaint: Pneumonia Subjective: No new changes. No acute events reported overnight. Denies any complaints at this time. A&Ox4. Improving. Afebrile. Current plan to d/c home with home O2 Physical Examination Temp Pulse Resp BP Pulse Ox 98.0 F 63 16 175/86 H 96 08/01/22 08:00 08/01/22 08:00 08/01/22 08:00 08/01/22 08:00 08/01/22 08:00 General: Alert, In no apparent distress, Oriented x3 HEENT: Atraumatic, Normocephalic Neck: Supple, JVD not distended Respiratory: Normal air movement, Diminished (bilaterally R>L) Cardiovascular: No edema, Normal pulses Gastrointestinal: Normal bowel sounds, Soft and benign, Non-distended Musculoskeletal: No clubbing, No swelling Integumentary: No rashes, No breakdown Neurological: Normal speech, Normal tone, Normal affect Studies Laboratory Data - Reviewed Microbiology Data - Blood culture 07/25: No growth to date - Sputum culture 07/26: Normal respiratory kermit Imagings Data: - Reviewed Medication List Reviewed: Yes Assessment and Plan Problem List Community Acquired Pneumonia COPD with acute exacerbation Hypertension Crohn's Disease Hyperlipidemia Fibromyalgia GERD Restless Leg Syndrome Anemia Mild protein calorie malnutrition Pneumonia, Community Acquired COPD with acute exacerbation - Cough x 2 weeks prior to admission, completed Z-Alex course with no improvement in symptoms. - Chest XR 07/25: "patchy right basilar airspace opacities with possible trace effusion, concerning for pneumonia." - Sputum culture 07/26: Normal quantity of upper respiratory kermit - Productive cough with sputum described as wolf in color; Reports occasional red/pink-tinged sputum. - CT Chest 07/30: "Bilateral patchy alveolar opacities, most abundant in the lower lobes especially on the right, appearance is most suggestive of multifocal pneumonia." - Afebrile - Leukocytosis improving (10.1 on 07/29) - On Levaquin since 07/26. Switched to PO on 07/30. - Pulmonology on case. - On Prednsione Recommendations - Continue Levaquin x 7 days duration (started 07/26). - Continue supportive care and breathing treatments. - Nutritional support as needed. Current plan for d/c home with home O2. ID will follow the patient as needed. Case discussed with Gilbert Joshua
[2022-08-01] MEDS: DULOXETINE 30 MG CAP PO SCH (09:22)
[2022-08-01] MEDS: ENOXAPARIN 40 MG/0.4 ML SQ SCH (09:22)
[2022-08-01] MEDS: FAMOTIDINE 20 MG TAB PO SCH (09:23)
[2022-08-01] MEDS: atenoloL 25 MG TAB PO SCH (09:23)
[2022-08-01] MEDS: predniSONE 20 MG TAB PO SCH (09:24)
[2022-08-01] MEDS: MONTELUKAST 10 MG TAB PO SCH (09:24)
[2022-08-01] MEDS: levoFLOXacin 750 MG TAB PO SCH (09:24)
[2022-08-01] MEDS: POLYETHYL GLY 3350 17 GM/DOSE PO SCH (09:24)
[2022-08-01] MEDS: ATORVASTATIN 10 MG TAB PO SCH (09:24)
[2022-08-01] MEDS: FLUTICASONE 50MCG NASAL SPRAY NAS SCH (09:25)
[2022-08-01] MEDS: VALSARTAN 160 MG TAB PO SCH (09:30)
== END 2022-08-01 10:44 | disposition home or self-care (01) | DRG 871 ==
LOC: ER 16:25 → ERHOLD 19:29 → 2ND 20:36
PROVIDERS: ADMIT Internal Medicine; ATTEND Internal Medicine
DX: A41.9 Sepsis, unspecified organism (principal); J18.9 Pneumonia, unspecified organism; R65.21 Severe sepsis with septic shock; J44.0 Chronic obstructive pulmonary disease with (acute) lower respiratory infection; K50.90 Crohn's disease, unspecified, without complications; Z68.41 Body mass index [BMI] 40.0-44.9, adult; J44.1 Chronic obstructive pulmonary disease with (acute) exacerbation; E44.1 Mild protein-calorie malnutrition; R04.2 Hemoptysis; I10 Essential (primary) hypertension; M79.7 Fibromyalgia; D64.9 Anemia, unspecified; E78.00 Pure hypercholesterolemia, unspecified; E66.9 Obesity, unspecified; G25.81 Restless legs syndrome; J45.909 Unspecified asthma, uncomplicated; Z90.49 Acquired absence of other specified parts of digestive tract; Z79.52 Long term (current) use of systemic steroids; Z79.84 Long term (current) use of oral hypoglycemic drugs; Z79.899 Other long term (current) drug therapy
CPT/HCPCS: 36415; 71045; 71250; 80048; 80053; 80061; 81003; 83605; 83735; 84100; 85025; 85610; 85730; 87040; 87070; 87205; 87804; 94010; 94640; 94760; 99285; J1650; J2405; J2930; J7030; J7512; J7613; J7644; U0003

== ENCOUNTER 2023-12-25 18:02 | Emergency (ER) | payer OTHER ==
--- OUTSIDE RECORDS SUMMARY | 2023-12-25 18:10 | XMS REPORT | Continuity of Care Document ---
Author Name Unknown Address [address] [facility] [address] [place] [address] [facility] thconnect Address [address] [facility] [place] [address] Care Team Providers Care Disk Grinder Name Role Phone Poonam Zhao Primary Care Physician [phone] Yani Jacobo Attending Clinician Unava ilable ELIDIA BERMAN Attending Clinician Unavailable 1, [facility] Attending Clinician Unavailable Elidia Berman MD Attending Clinician [phone] Elliott Morfin MD Attending Clinician [phone] Doctor Unassigned, [place] Attending Clinician U jacqueailCLARENCE Elmore Attending Clinician Unavailable CLARENCE CARMONA Attending Clinician Unavailable KELLEY LAIRD Attending Clinician UnavailELLIOTT Dumont Attending Clinician Unavailable Linda BLANK, Rodolfo Jimenez Attending Clinician Unavaila chito Morfin MD, Elliott Attending Clinician [phone], [facility] Attending Clinician Unavailable Elidia Berman MD Attending Clinician + [phone] Doctor Unassigned, [place] Attending Clinician [place] DUSTIN STANTON Attending Clinician April Elizabeth Mckenzie Attending Clinician [phone] LAUREN ASHBY Attending Clinician Unavailable NADINE DESIR Attending Clinician Unavailable Nadine Desir MD Attending Clinician [phone] ELIZABETH BURRELL Attending Clinician Unavailable Nurse, [facility] Attending Clinician Unavailable Briana Merritt MD Attending Clinician + [phone] BRIANA MERRITT Attending Clinician AVINASH Pollock Attending Clinician Unavailable Julian Barriga MD Attending Clinician [phone] Skyler David MD Attending Clinician [phone] Avinash Carty MD Attending Clinician + [phone] PEGGY ORDONEZ Attending Clinician Unavailable Pob, [facility] Attending Clinician Unavailabl e Call, [facility] Phone Attending Clinician Unavail able 1, [facility] Infusion Chair Attending Clinician Sofy bailon 2, [facility] In[facility] Chair Attending Clinician Sofy bailon [facility] Attending Clinician Unavailab Tamia Carmona Attending Clinician Un available Michelet BLANK, Renee Zhong Attending Clinician Unavailab le Only, Ang Db Test Attending Clinician UnavailOlvin Mckenzie Attending Clinician + [phone] OLVIN ROYAL Attending Clinician Unavailable 1, [facility] Infusion Nurse Attending Clinician ELLIOTT Pettit Admitting Clinician Unavailable Elliott Morfin MD Admitting Clinician + [phone] ELIZABETH BURRELL Admitting Clinician Unavailable JULIAN BARRIGA Admitting Clinician Unavailable PEGGY ORDONEZ Admitting Clinician Unavailable [facility] Admitting Clinician Unavailab BRIANA Billingsley Admitting Clinician Chelo Hines [facility] Admitting Clinician [phone] Tamia Restrepo Admitting Clinician Un available UNDEFINED Admitting Clinician Unavailable Payers Payer Name Policy Type Policy Number Effective Date Expirati on Date Source MEDICARE PART A \\T\\ B [id number] 1997 00:00:00 ICF [id number] 2023 00:00:00 2023 00:00:00 [place] [employer] [id number] 1997 00:00:00 Problems Condition Name Condition Details Condition Category Status Onset Date Resolution Date Last Treatment Date Treating Clinician Comments Source Cervical spondylosi s with radiculopa thy Cervical spondylosi s with radiculopa thy Disease Active 05-08 00:00: 00 [facility] Morbid obesity with body mass index of 40.0-49.9 Morbid obesity with body mass index of 40.0-49.9 Disease Active 2022-03 00:00: 00 [facility] Spinal stenosis of lumbar region without neurogenic claudicati on Spinal stenosis of lumbar region without neurogenic claudicati on Disease Active 2022-03 00:00: 00 [facility] Lumbar radiculopa thy Lumbar radiculopa thy Disease Active 2022-03 00:00: 00 [facility] Saddle anesthesia Saddle anesthesia Disease Active 2022-03 00:00: 00 [facility] No known active problems No known active problems Disease [facility] Allergies, Adverse Reactions, Alerts Allergy Name Allergy Type Status Severity Reaction(s) Onset Date Inactive Date Treating Clinician Comments Source MORPHINE DRUG INGREDI Active Low Unknown-Cmnt 2021-03 0 00:00: 00 [facility] Morphine Propensi ty to adverse reaction s to drug Active Unknown - See comments 2021-03 00:00: 00 "Does not work" [facility] morphine DA Active HI DOESNT WORK 8-10 00:00: 00 [facility] [place] No Known Allergie s DA Active U 7- 00:00: 00 [facility] milk FA Active SV 10-14 00:00: 00 [facility] milk FA Active SV STUFFY NOSE 10-14 00:00: 00 [facility] MILK DRUG INGREDI Active Other-Cmnt 06-03 00:00: 00 [facility] Milk Propensi ty to adverse reaction s Active Other - See comments 06-03 00:00: 00 Liquid milk.. Makes patient congested [facility] Social History Social Habit Start Date Stop Date Quantity Comments Source Gender identity [facility] Sexual orientation U [facility] History SDOH Alcohol Frequency [facility] History SDOH Alcohol Std Drinks [facility] History SDOH Alcohol Binge [facility] History of tobacco use Cigarette Smoker [facility] Tobacco use and exposure 2023-12-15 00:00:00 2023-12-15 00:00:00 Smokeless tobacco non-user [facility] Alcoholic beverage intake 2023-12-15 00:00:00 2023-12-15 00:00:00 0 /d [facility] Alcohol intake 2023-07-03 00:00:00 2023-07-03 00:00:00 0 /d [facility] History of Social function 2023-05-30 00:00:00 2023-05-30 00:00:[address] [facility] Exposure to SARS-CoV-2 (event) 2021-09-28 00:00:00 2021-10-08 10:54:[address] [facility] Alcohol Comment 2016-05-09 00:00:00 2016-05-09 00:00:[address] [facility] Sex assigned at 1960 00:00:00 1960 00:00:[address] [facility] Smoking Status Start Date Stop Date Source Ex-smoker 2023-12-15 00:00:00 2023-12-15 00:00:00 U [facility] Medications Ordered Medication Name Filled Medication Name Start Date Stop Date Current Medication? Ordering Clinician Indication Dosage Frequency Signature (SIG) Comments Components Source vedolizumab (ENTYVIO) 300 mg in NaCl 0.9% (NS) 250 mL IV infusion 12-14 20:30: 00 12-14 20:55 :00 No [id number] 300mg 300 mg, IV Infusion, ONCE, 1 dose, On Mon12/15/23 at 1530, Administer over 30 Minutes, 250 mL [facility] vedolizumab (ENTYVIO) 300 mg in NaCl 0.9% (NS) 250 mL IV infusion 06-28 15:45: 00 06-28 16:35 :00 No [id number] 300mg 300 mg, IV Infusion, ONCE, 1 dose, On Johanna 06/29/23 at 1045, Administer over 30 Minutes, 250 mL [facility] HYDROcodone -acetaminop hen (NORCO 5) 5-325 mg tablet 1 tablet 05-29 20:30: 00 05-29 21:13 :00 No 1{tbl} 1 tablet, Oral, ONCE, 1 dose, On Mon05/30/23 at 1430, Routine, PACU [facility] HYDROmorpho ne (DILAUDID) injection 0.2 mg 05-29 20:28: 12 Yes .2mg 0.2 mg, Slow IV Push, Q5MIN PRN, 10 doses, Starting on Mon05/30/23 at 1428, Until Discontinu ed, Routine, Pain (scale 7-10), PACU
Us e approved by (Faculty): PACU USE -ANESTHESI A SERVICE-HY DROMORPHON E INJECTIONS [facility] FENTanyl PF (SUBLIMAZE (PF)) injection 25 mcg 05-29 20:28: 12 Yes 25ug 25 mcg, Slow IV Push, Q5MIN PRN, 4 doses, Starting on Mon05/30/23 at 1428, Until Discontinu ed, Routine, Pain (scale 4-6), PACU [facility] proMETHazin e (PHENERGAN) 12.5 mg in NS 50 mL IV piggyback (CNR) 05-29 20:28: 12 Yes 12.5mg 12.5 mg, IV Piggyback, at 200 mL/hr Administer over 15 Minutes, PRN, 1 dose, Starting on Mon05/30/23 at 1428, Until Discontinu ed, Routine, Nausea and Vomiting (N/V), PACU [facility] vancomycin (VANCOCIN) 1 g in sodium chloride 0.9 % irrigation 05-29 19:42: 00 05-29 20:33 :06 No PRN, Starting on Mon05/30/23 at 1342, Until Mon05/30/23 at 1433, 1,000 mL, Intra-op [facility] thrombin topical solution 05-29 19:00: 00 05-29 20:33 :06 No PRN, Starting on Mon05/30/23 at 1300, Until Mon05/30/23 at 1433, Routine, Intra-op [facility] lidocaine-e pinephrine (XYLOCAINE WITH EPINEPHRINE ) 0.5 %-1:200,000 injection 05-29 18:00: 00 05-29 20:33 :06 No PRN, Starting on Mon05/30/23 at 1200, Until Mon05/30/23 at 1433, Routine, Intra-op [facility] amphetamine -dextroamph etamine 20 mg 24 hr capsule 05-29 17:31: 19 Yes 20mg Take 1 capsule by mouth in the morning. [facility] atenolol 25 mg tablet 05-29 17:31: 19 Yes 25mg Take 1 tablet by mouth in the morning. [facility] atorvastati n 10 mg tablet 05-29 17:31: 19 Yes 10mg Take 1 tablet by mouth at bedtime. [facility] celecoxib 200 mg capsule 05-29 17:31: 19 Yes 200mg Take 1 capsule by mouth in the morning. [facility] clonazePAM 0.5 mg tablet 05-29 17:31: 19 Yes .5mg Take 1 tablet by mouth every evening. [facility] DULoxetine 60 mg capsule 05-29 17:31: 19 Yes 60mg Take 1 capsule by mouth in the morning and 1 capsule in the evening. [facility] estradiol 1 mg tablet 05-29 17:31: 19 Yes 1mg Take 1 tablet by mouth in the morning. [facility] fluticasone propionate 50 mcg/actuati on nasal spray 05-29 17:31: 19 Yes 2{spray } Use 2 Sprays in each nostril in the morning. [facility] fluocinonid e 0.05 % ointment 05-29 17:31: 19 Yes 1{dose} Apply 1 Dose to area(s) 2 (two) times daily. [facility] hyoscyamine 0.125 mg tablet 05-29 17:31: 19 Yes .125mg Take 1 tablet by mouth every 6 (six) hours as needed. [facility] methocarbam ol 750 mg tablet 05-29 17:31: 19 Yes 750mg Take 1 tablet by mouth in the morning and 1 tablet at noon and 1 tablet in the evening. [facility] budesonide- formoterol (SYMBICORT) 160-4.5 mcg/actuati on inhaler 05-29 17:31: 19 Yes 1{puff} Inhale 1 Puff daily. [facility] valsartan-h ydrochlorot hiazide 320-25 mg per tablet 05-29 17:31: 19 Yes 1{tbl} Take 1 tablet by mouth in the morning. [facility] multivit with minerals/maritza tein (MULTIVITAM IN 50 PLUS ORAL) 05-29 17:31: 19 Yes 1{tbl} Take 1 tablet by mouth daily. [facility] coenzyme Q10 100 mg softgel 05-29 17:31: 19 Yes 100mg Take 1 capsule by mouth in the morning. [facility] Biotin 2,500 mcg Cap 05-29 17:31: 19 Yes 2500ug Take 2,500 mcg by mouth daily. [facility] acetaminoph en 650 mg CR tablet 05-29 17:31: 19 Yes 1300mg Take 2 tablets by mouth in the morning and 2 tablets in the evening. [facility] amphetamine -dextroamph etamine 20 mg 24 hr capsule 05-29 14:14: 02 Yes 20mg Take 1 capsule by mouth in the morning. [facility] atenolol 25 mg tablet 05-29 14:14: 02 Yes 25mg Take 1 tablet by mouth in the morning. [facility] atorvastati n 10 mg tablet 05-29 14:14: Yes 10mg Take 1 tablet by mouth at bedtime. [facility] celecoxib 200 mg capsule 05-29 14:14: Yes 200mg Take 1 capsule by mouth in the morning. [facility] clonazePAM 0.5 mg tablet 05-29 14:14: Yes .5mg Take 1 tablet by mouth every evening. [facility] DULoxetine 60 mg capsule 05-29 14:14: Yes 60mg Take 1 capsule by mouth in the morning and 1 capsule in the evening. [facility] estradiol 1 mg tablet 05-29 14:14: 02 Yes 1mg Take 1 tablet by mouth in the morning. [facility] fluticasone propionate 50 mcg/actuati on nasal spray 05-29 14:14: 02 Yes 2{spray } Use 2 Sprays in each nostril in the morning. [facility] fluocinonid e 0.05 % ointment 05-29 14:14: 02 Yes 1{dose} Apply 1 Dose to area(s) 2 (two) times daily. [facility] hyoscyamine 0.125 mg tablet 05-29 14:14: 02 Yes .125mg Take 1 tablet by mouth every 6 (six) hours as needed. [facility] methocarbam ol 750 mg tablet 05-29 14:14: 02 Yes 750mg Take 1 tablet by mouth in the morning and 1 tablet at noon and 1 tablet in the evening. [facility] budesonide- formoterol (SYMBICORT) 160-4.5 mcg/actuati on inhaler 05-29 14:14: 02 Yes 1{puff} Inhale 1 Puff daily. [facility] valsartan-h ydrochlorot hiazide 320-25 mg per tablet 05-29 14:14: 02 Yes 1{tbl} Take 1 tablet by mouth in the morning. [facility] multivit with minerals/maritza tein (MULTIVITAM IN 50 PLUS ORAL) 05-29 14:14: 02 Yes 1{tbl} Take 1 tablet by mouth daily. [facility] coenzyme Q10 100 mg softgel 05-29 14:14: 02 Yes 100mg Take 1 capsule by mouth in the morning. [facility] Biotin 2,500 mcg Cap 05-29 14:14: 02 Yes 2500ug Take 2,500 mcg by mouth daily. [facility] acetaminoph en 650 mg CR tablet 05-29 14:14: 02 Yes 1300mg Take 2 tablets by mouth in the morning and 2 tablets in the evening. [facility] docusate 100 mg capsule 05-29 00:00: 00 06-13 04:59 :00 No [id number] 100mg Take 1 capsule by mouth in the morning for 14 days. Indication s: opiate pain medication causing severe constipati on [facility] methocarbam oL 500 mg tablet 05-29 00:00: 00 06-13 04:59 :00 No [id number] 500mg Take 1 tablet by mouth 4 (four) times daily for 14 days. Indication s: a uncontroll ed muscle contractio n with pain [facility] HYDROcodone -acetaminop hen 5-325 mg tablet 05-29 00:00: 00 06-06 04:59 :00 No [id number] 1{tbl} Take 1 tablet by mouth every 4 (four) hours as needed for Pain (scale 4-6) or Pain (scale 7-10) for up to 7 days. Indication s: acute pain [facility] vedolizumab (ENTYVIO) 300 mg in NaCl 0.9% (NS) 250 mL IV infusion 05-04 18:45: 00 05-04 20:13 :00 No [id number] 300mg 300 mg, IV Infusion, ONCE, 1 dose, On Johanna 05/04/23 at 1245, Administer over 30 Minutes, 250 mL [facility] amphetamine -dextroamph etamine 20 mg 24 hr capsule 2022-03 10:53: 34 Yes 20mg Take 1 capsule by mouth in the morning. [facility] atenolol 25 mg tablet 2022-03 10:53: 34 Yes 25mg Take 1 tablet by mouth in the morning. [facility] atorvastati n 10 mg tablet 2022-03 10:53: 34 Yes 10mg Take 1 tablet by mouth at bedtime. [facility] DULoxetine 60 mg capsule 2022-03 10:53: 34 Yes 60mg Take 1 capsule by mouth in the morning and 1 capsule in the evening. [facility] fluticasone propionate 50 mcg/actuati on nasal spray 2022-03 10:53: 34 Yes 2{spray } Use 2 Sprays in each nostril in the morning. [facility] fluocinonid e 0.05 % ointment 2022-03 10:53: 34 Yes 1{dose} Apply 1 Dose to area(s) 2 (two) times daily. [facility] hyoscyamine 0.125 mg tablet 2022-03 10:53: 34 Yes .125mg Take 1 tablet by mouth every 6 (six) hours as needed. [facility] famotidine (PEPCID ORAL) 2022-03 10:53: 34 Yes Take by mouth. [facility] cyclobenzap rine 5 mg tablet 2022-03 00:00: 00 Yes [id number] 5mg Take 1 tablet by mouth in the morning and 1 tablet at noon and 1 tablet in the evening. [facility] vedolizumab (ENTYVIO) 300 mg in NaCl 0.9% (NS) 250 mL IV infusion 2022-03 18:00: 00 03-02 19:05 :00 No [id number] 300mg 300 mg, IV Infusion, ONCE, 1 dose, On Johanna 03/02/23 at 1200, Administer over 30 Minutes, 250 mL [facility] amphetamine -dextroamph etamine 20 mg 24 hr capsule 2022-03 13:27: 48 Yes 20mg Take 1 capsule by mouth in the morning. [facility] atenolol 25 mg tablet 2022-03 13:27: 48 Yes 25mg Take 25 mg by mouth daily. [facility] atorvastati n 10 mg tablet 2022-03 13:27: 48 Yes 10mg Take 1 tablet by mouth at bedtime. [facility] celecoxib 200 mg capsule 2022-03 13:27: 48 Yes 200mg Take 1 capsule by mouth in the morning. [facility] clonazePAM 0.5 mg tablet 2022-03 13:27: 48 Yes .5mg Take 1 tablet by mouth every evening. [facility] DULoxetine 60 mg capsule 2022-03 13:27: 48 Yes 60mg Take 1 capsule by mouth in the morning and 1 capsule in the evening. [facility] estradiol 1 mg tablet 2022-03 13:27: 48 Yes 1mg Take 1 tablet by mouth in the morning. [facility] fluticasone propionate 50 mcg/actuati on nasal spray 2022-03 13:27: 48 Yes 2{spray } Use 2 Sprays in each nostril in the morning. [facility] fluocinonid e 0.05 % ointment 2022-03 13:27: 48 Yes 1{dose} Apply 1 Dose to area(s) 2 (two) times daily. [facility] hyoscyamine 0.125 mg tablet 2022-03 13:27: 48 Yes .125mg Take 1 tablet by mouth every 6 (six) hours as needed. [facility] methocarbam ol 750 mg tablet 2022-03 13:27: 48 Yes 750mg Take 1 tablet by mouth in the morning and 1 tablet at noon and 1 tablet in the evening. [facility] budesonide- formoterol (SYMBICORT) 160-4.5 mcg/actuati on inhaler 2022-03 13:27: 48 Yes 1{puff} Inhale 1 Puff daily. [facility] valsartan-h ydrochlorot hiazide 320-25 mg per tablet 2022-03 13:27: 48 Yes 1{tbl} Take 1 tablet by mouth in the morning. [facility] multivit with minerals/maritza tein (MULTIVITAM IN 50 PLUS ORAL) 2022-03 13:27: 48 Yes 1{tbl} Take 1 tablet by mouth daily. [facility] coenzyme Q10 100 mg softgel 2022-03 13:27: 48 Yes 100mg Take 1 capsule by mouth in the morning. [facility] Biotin 2,500 mcg Cap 2022-03 13:27: 48 Yes 2500ug Take 2,500 mcg by mouth daily. [facility] acetaminoph en 650 mg CR tablet 2022-03 13:27: 48 Yes 1300mg Take 2 tablets by mouth in the morning and 2 tablets in the evening. [facility] rosuvastati n calcium (ROSUVASTAT IN ORAL) 2022-03 10:00: 35 02-26 00:00 :00 No Take by mouth. [facility] pregabalin (LYRICA) capsule 150 mg 2022-03 03:00: 00 Yes 150mg 150 mg, Oral, DAILY, First dose (after last modificati on) on 02/25/23 at 2100, Until Discontinu ed, Routine [facility] famotidine (PEPCID AC) tablet 20 mg 2022-03 03:00: 00 Yes 20mg 20 mg, Oral, QHS, First dose on 02/25/23 at 2100, Until Discontinu ed, Routine [facility] oxyCODONE 5 mg immediate release tablet 2022-03 00:00: 00 03-06 05:59 :00 No [id number] 5mg Take 1 tablet by mouth every 6 (six) hours as needed for Pain (scale 4-6) or Pain (scale 7-10) for up to 7 days. Indication s: acute pain, chronic pain [facility] montelukast (SINGULAIR) tablet 10 mg 2022-03 15:00: 00 Yes 10mg 10 mg, Oral, DAILY, First dose on 02/25/23 at 0900, Until Discontinu ed, Routine [facility] estradioL (ESTRACE) tablet 1 mg 2022-03 15:00: 00 Yes 1mg 1 mg, Oral, DAILY, First dose on 02/25/23 at 0900, Until Discontinu ed, Routine [facility] celecoxib (CELEBREX) capsule 200 mg 2022-03 15:00: 00 Yes 200mg 200 mg, Oral, DAILY, First dose on 02/25/23 at 0900, Until Discontinu ed, Routine [facility] atenoloL (TENORMIN) tablet 25 mg 2022-03 15:00: 00 Yes 25mg 25 mg, Oral, DAILY, First dose on 02/25/23 at 0900, Until Discontinu ed, Routine [facility] enoxaparin (LOVENOX) injection 40 mg 2022-03 15:00: 00 Yes 40mg 40 mg, Subcutaneo us, DAILY, First dose on 02/25/23 at 0900, Until Discontinu ed, Routine [facility] docusate (COLACE) capsule 100 mg 2022-03 15:00: 00 Yes 100mg 100 mg, Oral, DAILY, First dose on 02/25/23 at 0900, Until Discontinu ed, Routine [facility] atorvastati n (LIPITOR) tablet 10 mg 2022-03 03:00: 00 Yes 10mg 10 mg, Oral, QHS, First dose on Mon02/24/23 at 2100, Until Discontinu ed, Routine [facility] DULoxetine (CYMBALTA) capsule 60 mg 2022-03 02:00: 00 Yes 60mg 60 mg, Oral, BID, First dose on Mon02/24/23 at 1999, Until Discontinu ed, Routine [facility] ceFAZolin (ANCEF) injection 1,000 mg 2022-03 02:00: 00 03-02 01:59 :00 No 1000mg 1,000 mg, Intravenou s, Q8H ABX, 15 doses, First dose on Mon02/24/23 at 1999, Last dose on Mon03/01/23 at 1200
Re ason for Anti-Infec tive: Surgical Prophylaxi s
Surgi travis Prophylaxi s: Neurosurge ry
Dura tion of therapy: within 24 hours of surgery [facility] docusate 100 mg capsule 2022-03 00:00: 00 03-12 05:59 :00 No [id number] 100mg Take 1 capsule by mouth in the morning for 14 days. Indication s: opiate pain medication causing severe constipati on [facility] methocarbam oL 500 mg tablet 2022-03 00:00: 00 03-12 05:59 :00 No [id number] 500mg Take 1 tablet by mouth 4 (four) times daily for 14 days. Indication s: a uncontroll ed muscle contractio n with pain [facility] HYDROcodone -acetaminop hen 5-325 mg tablet 2022-03 00:00: 00 03-05 05:59 :00 No [id number] 1{tbl} Take 1 tablet by mouth every 4 (four) hours as needed for Pain (scale 4-6) or Pain (scale 7-10) for up to 7 days. Indication s: acute pain [facility] acetaminoph en ADULT (OFIRMEV) injection 1,000 mg 2022-03 00:00: 00 02-25 23:59 :00 No 1000mg 1,000 mg, IV Infusion, at 400 mL/hr Administer over 15 Minutes, Q6H, 4 doses, First dose on Mon02/24/23 at 1800, Last dose on Mon02/25/23 at 1200, Routine
Indicatio n: Strict NPO and unable to tolerate oral medication s [facility] metFORMIN (GLUCOPHAGE ) tablet 500 mg 2022-03 23:00: 00 Yes 500mg 500 mg, Oral, BID MEALS, First dose on Mon02/24/23 at 1700, Until Discontinu ed [facility] clonazePAM (KLONOPIN) tablet 0.5 mg 2022-03 23:00: 00 Yes .5mg 0.5 mg, Oral, QPM, First dose on Mon02/24/23 at 1700, Until Discontinu ed, Routine [facility] morpHINE 30 mg/30 mL (fixed dose) [employer]SMITTER CHIEF injection 2022-03 22:45: 00 02-25 01:58 :10 No Patient Bolus Dose: 1 mg
Lock out Interval: 6 Minutes
Basal Rate: 0 mg/hr
F our Hour Dose Limit: 32 mg
Intr avenous, 30 mL, CONTINUOUS , Starting on Mon02/24/23 at 1645, Until Mon02/24/23 at 1958 [facility] methocarbam oL (ROBAXIN) tablet 500 mg 2022-03 22:00: 00 Yes 500mg 500 mg, Oral, QID, First dose on Mon02/24/23 at 1600, Until Discontinu ed, Routine [facility] NaCl 0.9% (NS) IV infusion 1,000 mL 2022-03 21:45: 00 Yes 1000mL at 50 mL/hr, IV Infusion, CONTINUOUS , Starting on Mon02/24/23 at 1545, Until Discontinu ed, Routine [facility] lactated ringers IV infusion 500 mL 2022-03 21:45: 00 Yes 500mL at 75 mL/hr, 500 mL, IV Infusion, CONTINUOUS , Starting on Mon02/24/23 at 1545, Until Discontinu ed, Routine, PACU [facility] FENTanyl PF (SUBLIMAZE (PF)) injection 25 mcg 2022-03 21:43: 45 Yes 25ug 25 mcg, Slow IV Push, Q2HPRN, Starting on Mon02/24/23 at 1543, Until Discontinu ed, Routine, Pain (scale 7-10) [facility] naloxone (NARCAN) injection 0.4 mg 2022-03 21:40: 46 Yes .4mg 0.4 mg, Slow IV Push, PRN, Starting on Mon02/24/23 at 1540, Until Discontinu ed, Routine, Sedation/R espiratory Depression [facility] HYDROmorpho ne (DILAUDID) injection 0.2 mg 2022-03 21:37: 37 02-24 23:09 :00 No .2mg 0.2 mg, Slow IV Push, Q5MIN PRN, 10 doses, Starting on Mon02/24/23 at 1537, Until Discontinu ed, Routine, Pain (scale 7-10), PACU
Us e approved by (Faculty): PACU USE -ANESTHESI A SERVICE-HY DROMORPHON E INJECTIONS [facility] FENTanyl PF (SUBLIMAZE (PF)) injection 25 mcg 2022-03 21:37: 37 02-24 23:19 :00 No 25ug 25 mcg, Slow IV Push, Q5MIN PRN, 4 doses, Starting on Mon02/24/23 at 1537, Until Discontinu ed, Routine, Pain (scale 4-6), PACU [facility] polyethylen e glycol 3350 powder 17 g 2022-03 21:34: 16 Yes 17g 17 g, Oral, PRN - SEE INSTRUCTIO NS, Starting on Mon02/24/23 at 1534, Until Discontinu ed, Routine, Constipati on [facility] ondansetron (ZOFRAN (PF)) injection 4 mg 2022-03 21:34: 16 Yes 4mg 4 mg, Slow IV Push, Q6HPRN, Starting on Mon02/24/23 at 1534, Until Discontinu ed, Routine, Nausea and Vomiting (N/V) [facility] oxyCODONE immediate release tablet 10 mg 2022-03 21:34: 15 Yes 10mg 10 mg, Oral, Q4HPRN, Starting on Mon02/24/23 at 1534, Until Discontinu ed, Routine, Pain (scale 4-6)
Fa culty member approving Restricted medication : SNSNSURG [facility] bupivacaine (preserv free) (SENSORCAIN E MPF) 0.25 % (2.5 mg/mL) injection 2022-03 21:14: 00 02-24 22:04 :50 No PRN, Starting on Mon02/24/23 at 1514, Until Mon02/24/23 at 1604, Routine, Intra-op [facility] BUPivacaine liposome (PF) (EXPAREL (PF)) 1.3 % (13.3 mg/mL) injection 2022-03 21:12: 00 02-24 22:04 :50 No PRN, Starting on Mon02/24/23 at 1512, Until Mon02/24/23 at 1604, Routine, Intra-op [facility] methylPREDN ISolone acetate (DEPO-MEDRO L) injection 2022-03 21:11: 00 02-24 22:04 :50 No PRN, Starting on Mon02/24/23 at 1511, Until Mon02/24/23 at 1604, Routine, Intra-op [facility] vancomycin (VANCOCIN) 1 g in sodium chloride 0.9 % irrigation 2022-03 20:50: 00 02-24 22:04 :50 No PRN, Starting on Mon02/24/23 at 1450, Until Mon02/24/23 at 1604, 1,000 mL, Intra-op [facility] thrombin topical solution 2022-03 19:25: 00 02-24 22:04 :50 No PRN, Starting on Mon02/24/23 at 1325, Until Mon02/24/23 at 1604, Routine, Intra-op [facility] lidocaine-e pinephrine (XYLOCAINE WITH EPINEPHRINE ) 0.5 %-1:200,000 injection 2022-03 18:30: 00 02-24 22:04 :50 No PRN, Starting on Mon02/24/23 at 1230, Until Mon02/24/23 at 1604, Routine, Intra-op [facility] amphetamine -dextroamph etamine 20 mg 24 hr capsule 2022-03 10:09: 12 Yes 20mg Take 1 capsule by mouth in the morning. [facility] DULoxetine 60 mg capsule 2022-03 10:09: 12 Yes 60mg Take 1 capsule by mouth in the morning and 1 capsule in the evening. [facility] fluticasone propionate 50 mcg/actuati on nasal spray 2022-03 10:09: 12 Yes 2{spray } Use 2 Sprays in each nostril in the morning. [facility] atenolol 25 mg tablet 2022-03 09:27: 28 Yes 25mg Take 25 mg by mouth daily. [facility] atorvastati n 10 mg tablet 2022-03 09:27: 28 Yes 10mg Take 1 tablet by mouth at bedtime. [facility] celecoxib 200 mg capsule 2022-03 09:27: 28 Yes 200mg Take 1 capsule by mouth in the morning. [facility] clonazePAM 0.5 mg tablet 2022-03 09:27: 28 Yes .5mg Take 1 tablet by mouth every evening. [facility] estradiol 1 mg tablet 2022-03 09:27: 28 Yes 1mg Take 1 tablet by mouth in the morning. [facility] fluocinonid e 0.05 % ointment 2022-03 09:27: 28 Yes 1{dose} Apply 1 Dose to area(s) 2 (two) times daily. [facility] hyoscyamine 0.125 mg tablet 2022-03 09:27: 28 Yes .125mg Take 1 tablet by mouth every 6 (six) hours as needed. [facility] methocarbam ol 750 mg tablet 2022-03 09:27: 28 Yes 750mg Take 1 tablet by mouth in the morning and 1 tablet at noon and 1 tablet in the evening. [facility] budesonide- formoterol (SYMBICORT) 160-4.5 mcg/actuati on inhaler 2022-03 09:27: 28 Yes 1{puff} Inhale 1 Puff daily. [facility] valsartan-h ydrochlorot hiazide 320-25 mg per tablet 2022-03 09:27: 28 Yes 1{tbl} Take 1 tablet by mouth in the morning. [facility] multivit with minerals/maritza tein (MULTIVITAM IN 50 PLUS ORAL) 2022-03 09:27: 28 Yes 1{tbl} Take 1 tablet by mouth daily. [facility] coenzyme Q10 100 mg softgel 2022-03 09:27: 28 Yes 100mg Take 1 capsule by mouth in the morning. [facility] Biotin 2,500 mcg Cap 2022-03 09:27: 28 Yes 2500ug Take 2,500 mcg by mouth daily. [facility] acetaminoph en 650 mg CR tablet 2022-03 09:27: 28 Yes 1300mg Take 2 tablets by mouth in the morning and 2 tablets in the evening. [facility] atorvastati n 10 mg tablet 2022-03 08:18: 30 Yes 10mg Take 1 tablet by mouth at bedtime. [facility] fluticasone propionate 50 mcg/actuati on nasal spray 2022-03 08:18: 30 Yes 2{spray } Use 2 Sprays in each nostril in the morning. [facility] hyoscyamine 0.125 mg tablet 2022-03 08:18: 30 Yes .125mg Take 1 tablet by mouth every 6 (six) hours as needed. [facility] valsartan-h ydrochlorot hiazide 320-25 mg per tablet 2022-03 08:18: 30 Yes 1{tbl} Take 1 tablet by mouth in the morning. [facility] rosuvastati n calcium (ROSUVASTAT IN ORAL) 2022-03 08:18: 30 Yes Take by mouth. [facility] amphetamine -dextroamph etamine 20 mg 24 hr capsule 2022-03 11:20: 36 Yes 20mg Take 1 capsule by mouth in the morning. [facility] atorvastati n 10 mg tablet 2022-03 11:20: 36 Yes 10mg Take 1 tablet by mouth at bedtime. [facility] celecoxib 200 mg capsule 2022-03 11:20: 36 Yes 200mg Take 1 capsule by mouth in the morning. [facility] clonazePAM 0.5 mg tablet 2022-03 11:20: 36 Yes .5mg Take 1 tablet by mouth every evening. [facility] DULoxetine 60 mg capsule 2022-03 11:20: 36 Yes 60mg Take 1 capsule by mouth in the morning and 1 capsule in the evening. [facility] estradiol 1 mg tablet 2022-03 11:20: 36 Yes 1mg Take 1 tablet by mouth in the morning. [facility] hyoscyamine 0.125 mg tablet 2022-03 11:20: 36 Yes .125mg Take 1 tablet by mouth every 6 (six) hours as needed. [facility] methocarbam ol 750 mg tablet 2022-03 11:20: 36 Yes 750mg Take 1 tablet by mouth in the morning and 1 tablet at noon and 1 tablet in the evening. [facility] multivit with minerals/maritza tein (MULTIVITAM IN 50 PLUS ORAL) 2022-03 11:20: 36 Yes 1{tbl} Take 1 tablet by mouth daily. [facility] coenzyme Q10 100 mg softgel 2022-03 11:20: 36 Yes 100mg Take 1 capsule by mouth in the morning. [facility] Biotin 2,500 mcg Cap 2022-03 11:20: 36 Yes 2500ug Take 2,500 mcg by mouth daily. [facility] acetaminoph en 650 mg CR tablet 2022-03 11:20: 36 Yes 1300mg Take 2 tablets by mouth in the morning and 2 tablets in the evening. [facility] vedolizumab (ENTYVIO) 300 mg in NaCl 0.9% (NS) 250 mL IV infusion 12-09 15:45: 00 12-09 16:47 :00 No [id number] 300mg 300 mg, IV Infusion, ONCE, 1 dose, On Mon12/09/22 at 1045, Administer over 30 Minutes, 250 mL [facility] vedolizumab (ENTYVIO) 300 mg in NaCl 0.9% (NS) 250 mL IV infusion 10-11 15:30: 00 10-11 16:28 :00 No [id number] 300mg 300 mg, IV Infusion, ONCE, 1 dose, On Mon10/11/22 at 1030, Administer over 30 Minutes, 250 mL [facility] vedolizumab (ENTYVIO) 300 mg in NaCl 0.9% (NS) 250 mL IV infusion 05-31 15:30: 00 05-31 16:02 :00 No [id number] 300mg 300 mg, IV Infusion, ONCE, 1 dose, On Mon05/31/22 at 0930, Administer over 30 Minutes, 250 mL [facility] vedolizumab (ENTYVIO) 300 mg in NaCl 0.9% (NS) 250 mL IV infusion 04-14 15:00: 00 04-14 15:25 :00 No [id number] 300mg 300 mg, IV Infusion, ONCE, 1 dose, On Mon04/14/22 at 0900, Administer over 30 Minutes, 250 mL [facility] vedolizumab (ENTYVIO) 300 mg in NaCl 0.9% (NS) 250 mL IV infusion 2021-03 14:26: 00 02-08 15:48 :00 No [id number] 300mg 300 mg, IV Infusion, ONCE, 1 dose, On Mon02/08/22 at 0830, Administer over 30 Minutes, 250 mL [facility] water for irrigation irrigation solution 2021-03 19:36: 00 01-25 19:55 :51 No PRN, Starting on Mon01/25/22 at 1436, Until Mon01/25/22 at 1455, Routine, Intra-op [facility] simethicone (GAS RELIEF (SIMETHICON E)) 40 mg/0.6 mL drops 2021-03 19:36: 00 01-25 19:55 :51 No PRN, Starting on Mon01/25/22 at 1436, Until Mon01/25/22 at 1455, Routine, Intra-op [facility] lactated ringers IV infusion 1,000 mL 2021-03 18:15: 00 01-25 18:09 :00 No 1000mL at 42 mL/hr, 1,000 mL, IV Infusion, ONCE, 1 dose, On Mon01/25/22 at 1315, Routine, DSU Pre-op [facility] amphetamine -dextroamph etamine 20 mg 24 hr capsule 2021-03 15:43: 02 Yes 20mg Take 20 mg by mouth daily. [facility] atenolol 25 mg tablet 2021-03 15:43: 02 Yes 25mg Take 25 mg by mouth daily. [facility] atorvastati n 10 mg tablet 2021-03 15:43: 02 Yes 10mg Take 10 mg by mouth at bedtime. [facility] celecoxib 200 mg capsule 2021-03 15:43: 02 Yes 200mg Take 200 mg by mouth daily. [facility] clonazePAM 0.5 mg tablet 2021-03 15:43: 02 Yes .5mg Take 0.5 mg by mouth every evening. [facility] DULoxetine 60 mg capsule 2021-03 15:43: 02 Yes 60mg Take 60 mg by mouth 2 (two) times daily. [facility] estradiol 1 mg tablet 2021-03 15:43: 02 Yes 1mg Take 1 mg by mouth daily. [facility] fluticasone propionate 50 mcg/actuati on nasal spray 2021-03 15:43: 02 Yes 2{spray } Use 2 Sprays in each nostril daily. [facility] fluocinonid e 0.05 % ointment 2021-03 15:43: 02 Yes 1{dose} Apply 1 Dose to area(s) 2 (two) times daily. [facility] hyoscyamine 0.125 mg tablet 2021-03 15:43: 02 Yes .125mg Take 0.125 mg by mouth every 6 (six) hours as needed. [facility] methocarbam ol 750 mg tablet 2021-03 15:43: 02 Yes 750mg Take 750 mg by mouth 3 (three) times daily. [facility] budesonide- formoterol (SYMBICORT) 160-4.5 mcg/actuati on inhaler 2021-03 15:43: 02 Yes 1{puff} Inhale 1 Puff daily. [facility] valsartan-h ydrochlorot hiazide 320-25 mg per tablet 2021-03 15:43: 02 Yes 1{tbl} Take 1 tablet by mouth daily. [facility] multivit with minerals/maritza tein (MULTIVITAM IN 50 PLUS ORAL) 2021-03 15:43: 02 Yes 1{tbl} Take 1 tablet by mouth daily. [facility] coenzyme Q10 100 mg softgel 2021-03 15:43: 02 Yes 100mg Take 100 mg by mouth in the morning. [facility] Biotin 2,500 mcg Cap 2021-03 15:43: 02 Yes 2500ug Take 2,500 mcg by mouth daily. [facility] acetaminoph en 650 mg CR tablet 2021-03 15:43: 02 Yes 2{tbl} Take 2 tablets by mouth in the morning and 2 tablets in the evening. [facility] chlorphenir amine/pseud oephed (ALLERGY ORAL) 2021-03 16:26: 33 Yes 1{tbl} Take by mouth. [facility] coenzyme Q10 100 mg softgel 2021-03 16:26: 33 Yes 100mg Take 1 capsule by mouth in the morning. [facility] Biotin 2,500 mcg Cap 2021-03 16:26: 33 Yes 2500ug Take 2,500 mcg by mouth daily. [facility] acetaminoph en 650 mg CR tablet 2021-03 16:26: 33 Yes 2{tbl} Take 2 tablets by mouth in the morning and 2 tablets in the evening. [facility] amphetamine -dextroamph etamine 20 mg 24 hr capsule 2021-03 16:14: 10 Yes 20mg Take 20 mg by mouth daily. [facility] atenolol 25 mg tablet 2021-03 16:14: 10 Yes 25mg Take 25 mg by mouth daily. [facility] atorvastati n 10 mg tablet 2021-03 16:14: 10 Yes 10mg Take 10 mg by mouth at bedtime. [facility] celecoxib 200 mg capsule 2021-03 16:14: 10 Yes 200mg Take 200 mg by mouth daily. [facility] clonazePAM 0.5 mg tablet 2021-03 16:14: 10 Yes .5mg Take 0.5 mg by mouth every evening. [facility] DULoxetine 60 mg capsule 2021-03 16:14: 10 Yes 60mg Take 60 mg by mouth 2 (two) times daily. [facility] estradiol 1 mg tablet 2021-03 16:14: 10 Yes 1mg Take 1 mg by mouth daily. [facility] fluticasone propionate 50 mcg/actuati on nasal spray 2021-03 16:14: 10 Yes 2{spray } Use 2 Sprays in each nostril daily. [facility] fluocinonid e 0.05 % ointment 2021-03 16:14: 10 Yes 1{dose} Apply 1 Dose to area(s) 2 (two) times daily. [facility] hyoscyamine 0.125 mg tablet 2021-03 16:14: 10 Yes .125mg Take 0.125 mg by mouth every 6 (six) hours as needed. [facility] methocarbam ol 750 mg tablet 2021-03 16:14: 10 Yes 750mg Take 750 mg by mouth 3 (three) times daily. [facility] valsartan-h ydrochlorot hiazide 320-25 mg per tablet 2021-03 16:14: 10 Yes 1{tbl} Take 1 tablet by mouth daily. [facility] vedolizumab (ENTYVIO) 300 mg in NaCl 0.9% (NS) 250 mL IV infusion 12-14 15:15: 00 12-14 15:34 :00 No [id number] 300mg 300 mg, IV Infusion, ONCE, 1 dose, On Mon12/14/21 at 1015, Administer over 30 Minutes, 250 mL [facility] pregabalin 50 mg capsule 11-26 00:00: 00 Yes 100mg Take 2 capsules by mouth in the morning. [facility] metformin ER 500 mg 24 hr tablet 11-22 00:00: 00 Yes 500mg Take 1 tablet by mouth in the morning. [facility] vedolizumab (ENTYVIO) 300 mg in NaCl 0.9% (NS) 250 mL IV infusion 10-08 15:56: 00 10-08 17:02 :00 No [id number] 300mg 300 mg, IV Infusion, ONCE, 1 dose, On Mon10/08/21 at 1100, Administer over 30 Minutes, 250 mL [facility] vedolizumab (ENTYVIO) 300 mg in NaCl 0.9% (NS) 250 mL IV infusion 08-13 17:30: 00 08-13 17:29 :00 No [id number] 300mg 300 mg, IV Infusion, ONCE, 1 dose, On Mon08/13/21 at 1230, Administer over 30 Minutes, 250 mL [facility] DULoxetine 60 mg capsule 07-03 13:01: 23 Yes 60mg Take 1 capsule by mouth in the morning and 1 capsule in the evening. [facility] valsartan-h ydrochlorot hiazide 320-25 mg per tablet 07-03 13:01: 23 Yes 1{tbl} Take 1 tablet by mouth in the morning. [facility] atenolol 25 mg tablet 11-24 10:45: 10 Yes 25mg Take 1 tablet by mouth in the morning. [facility] estradiol 1 mg tablet 11-24 10:45: 10 Yes 1mg Take 1 tablet by mouth in the morning. [facility] amphetamine -dextroamph etamine 20 mg 24 hr capsule 2016-03 10:50: 24 Yes 20mg Take 1 capsule by mouth in the morning. [facility] atorvastati n 10 mg tablet 2016-03 10:50: 24 Yes 10mg Take 1 tablet by mouth at bedtime. [facility] celecoxib 200 mg capsule 2016-03 10:50: 24 Yes 200mg Take 1 capsule by mouth in the morning. [facility] clonazePAM 0.5 mg tablet 2016-03 10:50: 24 Yes .5mg Take 1 tablet by mouth every evening. [facility] fluticasone propionate 50 mcg/actuati on nasal spray 2016-03 10:50: 24 Yes 2{spray } Use 2 Sprays in each nostril in the morning. [facility] fluocinonid e 0.05 % ointment 2016-03 10:50: 24 Yes 1{dose} Apply 1 Dose to area(s) 2 (two) times daily. [facility] hyoscyamine 0.125 mg tablet 2016-03 10:50: 24 Yes .125mg Take 1 tablet by mouth every 6 (six) hours as needed. [facility] methocarbam ol 750 mg tablet 2016-03 10:50: 24 Yes 750mg Take 1 tablet by mouth in the morning and 1 tablet at noon and 1 tablet in the evening. [facility] budesonide- formoterol (SYMBICORT) 160-4.5 mcg/actuati on inhaler 2016-03 10:50: 24 Yes 1{puff} Inhale 1 Puff daily. [facility] montelukast 10 mg tablet 2008-03 00:00: 00 Yes 10mg Take 1 tablet by mouth in the morning. [facility] cimetidine (TAGAMET HB) 200 mg tablet 2008-03 00:00: 00 Yes 200mg Take 1 tablet by mouth in the morning. [facility] Immunizations Ordered Immunization Name Filled Immunization Name Date Status Comments Source SARS-COV-2 COVID-19 PFIZER VACCINE 2020-07-04 00:00:[address] [facility] SARS-COV-2 COVID-19 PFIZER VACCINE 2020-07-04 00:00:[address] [facility] SARS-COV-2 COVID-19 PFIZER VACCINE 2020-07-04 00:00:[address] [facility] SARS-COV-2 COVID-19 PFIZER VACCINE 2020-07-04 00:00:[address] [facility] SARS-COV-2 COVID-19 PFIZER VACCINE 2020-07-04 00:00:[address] [facility] SARS-COV-2 COVID-19 PFIZER VACCINE 2020-07-04 00:00:[address] [facility] SARS-COV-2 COVID-19 PFIZER VACCINE 2020-07-04 00:00:[address] [facility] SARS-COV-2 COVID-19 PFIZER VACCINE 2020-07-04 00:00:[address] [facility] SARS-COV-2 COVID-19 PFIZER VACCINE 2020-07-04 00:00:[address] [facility] SARS-COV-2 COVID-19 PFIZER VACCINE 2020-07-04 00:00:[address] [facility] SARS-COV-2 COVID-19 PFIZER VACCINE 2020-07-04 00:00:[address] [facility] SARS-COV-2 COVID-19 PFIZER VACCINE 2020-07-04 00:00:[address] [facility] SARS-COV-2 COVID-19 PFIZER VACCINE 2020-07-04 00:00:[address] [facility] SARS-COV-2 COVID-19 PFIZER VACCINE 2020-07-04 00:00:[address] [facility] SARS-COV-2 COVID-19 PFIZER VACCINE 2020-07-04 00:00:[address] [facility] SARS-COV-2 COVID-19 PFIZER VACCINE 2020-07-04 00:00:[address] [facility] SARS-COV-2 COVID-19 PFIZER VACCINE 2020-07-04 00:00:[address] [facility] SARS-COV-2 COVID-19 PFIZER VACCINE 2020-07-04 00:00:[address] [facility] SARS-COV-2 COVID-19 PFIZER VACCINE 2020-07-04 00:00:[address] [facility] SARS-COV-2 COVID-19 PFIZER VACCINE 2020-07-04 00:00:[address] [facility] SARS-COV-2 COVID-19 PFIZER VACCINE 2020-07-04 00:00:[address] [facility] SARS-COV-2 COVID-19 PFIZER VACCINE 2020-07-04 00:00:[address] [facility] SARS-COV-2 COVID-19 PFIZER VACCINE 2020-07-04 00:00:[address] [facility] SARS-COV-2 COVID-19 PFIZER VACCINE 2020-07-04 00:00:[address] [facility] SARS-COV-2 COVID-19 PFIZER VACCINE 2020-07-04 00:00:[address] [facility] SARS-COV-2 COVID-19 PFIZER VACCINE 2020-07-04 00:00:[address] [facility] SARS-COV-2 COVID-19 PFIZER VACCINE 2020-07-04 00:00:[address] [facility] SARS-COV-2 COVID-19 PFIZER VACCINE 2020-07-04 00:00:[address] [facility] SARS-COV-2 COVID-19 PFIZER VACCINE 2020-07-04 00:00:[address] [facility] SARS-COV-2 COVID-19 PFIZER VACCINE 2020-06-13 00:00:[address] [facility] SARS-COV-2 COVID-19 PFIZER VACCINE 2020-06-13 00:00:[address] [facility] SARS-COV-2 COVID-19 PFIZER VACCINE 2020-06-13 00:00:[address] [facility] SARS-COV-2 COVID-19 PFIZER VACCINE 2020-06-13 00:00:[address] [facility] SARS-COV-2 COVID-19 PFIZER VACCINE 2020-06-13 00:00:[address] [facility] SARS-COV-2 COVID-19 PFIZER VACCINE 2020-06-13 00:00:[address] [facility] SARS-COV-2 COVID-19 PFIZER VACCINE 2020-06-13 00:00:[address] [facility] SARS-COV-2 COVID-19 PFIZER VACCINE 2020-06-13 00:00:[address] [facility] SARS-COV-2 COVID-19 PFIZER VACCINE 2020-06-13 00:00:[address] [facility] SARS-COV-2 COVID-19 PFIZER VACCINE 2020-06-13 00:00:[address] [facility] SARS-COV-2 COVID-19 PFIZER VACCINE 2020-06-13 00:00:[address] [facility] SARS-COV-2 COVID-19 PFIZER VACCINE 2020-06-13 00:00:[address] [facility] SARS-COV-2 COVID-19 PFIZER VACCINE 2020-06-13 00:00:[address] [facility] SARS-COV-2 COVID-19 PFIZER VACCINE 2020-06-13 00:00:[address] [facility] SARS-COV-2 COVID-19 PFIZER VACCINE 2020-06-13 00:00:[address] [facility] SARS-COV-2 COVID-19 PFIZER VACCINE 2020-06-13 00:00:[address] [facility] SARS-COV-2 COVID-19 PFIZER VACCINE 2020-06-13 00:00:[address] [facility] SARS-COV-2 COVID-19 PFIZER VACCINE 2020-06-13 00:00:[address] [facility] SARS-COV-2 COVID-19 PFIZER VACCINE 2020-06-13 00:00:[address] [facility] SARS-COV-2 COVID-19 PFIZER VACCINE 2020-06-13 00:00:[address] [facility] SARS-COV-2 COVID-19 PFIZER VACCINE 2020-06-13 00:00:[address] [facility] SARS-COV-2 COVID-19 PFIZER VACCINE 2020-06-13 00:00:[address] [facility] SARS-COV-2 COVID-19 PFIZER VACCINE 2020-06-13 00:00:[address] [facility] SARS-COV-2 COVID-19 PFIZER VACCINE 2020-06-13 00:00:[address] [facility] SARS-COV-2 COVID-19 PFIZER VACCINE 2020-06-13 00:00:[address] [facility] SARS-COV-2 COVID-19 PFIZER VACCINE 2020-06-13 00:00:[address] [facility] SARS-COV-2 COVID-19 PFIZER VACCINE 2020-06-13 00:00:[address] [facility] SARS-COV-2 COVID-19 PFIZER VACCINE 2020-06-13 00:00:[address] [facility] SARS-COV-2 COVID-19 PFIZER VACCINE 2020-06-13 00:00:[address] [facility] SARS-COV-2 COVID-19 PFIZER VACCINE Unknown Completed [facility] SARS-COV-2 COVID-19 PFIZER VACCINE Unknown Completed [facility] SARS-COV-2 COVID-19 PFIZER VACCINE Unknown Completed [facility] SARS-COV-2 COVID-19 PFIZER VACCINE Unknown Completed [facility] SARS-COV-2 COVID-19 PFIZER VACCINE Unknown Completed [facility] SARS-COV-2 COVID-19 PFIZER VACCINE Unknown Completed [facility] SARS-COV-2 COVID-19 PFIZER VACCINE Unknown Completed [facility] SARS-COV-2 COVID-19 PFIZER VACCINE Unknown Completed [facility] SARS-COV-2 COVID-19 PFIZER VACCINE Unknown Completed [facility] SARS-COV-2 COVID-19 PFIZER VACCINE Unknown Completed [facility] SARS-COV-2 COVID-19 PFIZER VACCINE Unknown Completed [facility] SARS-COV-2 COVID-19 PFIZER VACCINE Unknown Completed [facility] SARS-COV-2 COVID-19 PFIZER VACCINE Unknown Completed [facility] SARS-COV-2 COVID-19 PFIZER VACCINE Unknown Completed [facility] SARS-COV-2 COVID-19 PFIZER VACCINE Unknown Completed [facility] SARS-COV-2 COVID-19 PFIZER VACCINE Unknown Completed [facility] SARS-COV-2 COVID-19 PFIZER VACCINE Unknown Completed [facility] SARS-COV-2 COVID-19 PFIZER VACCINE Unknown Completed [facility] SARS-COV-2 COVID-19 PFIZER VACCINE Unknown Completed [facility] SARS-COV-2 COVID-19 PFIZER VACCINE Unknown Completed [facility] SARS-COV-2 COVID-19 PFIZER VACCINE Unknown Completed [facility] SARS-COV-2 COVID-19 PFIZER VACCINE Unknown Completed [facility] [facility] SARS-COV-2 COVID-19 PFIZER VACCINE Unknown Completed [facility] SARS-COV-2 COVID-19 PFIZER VACCINE Unknown Completed [facility] SARS-COV-2 COVID-19 PFIZER VACCINE Unknown Completed [facility] SARS-COV-2 COVID-19 PFIZER VACCINE Unknown Completed [facility] SARS-COV-2 COVID-19 PFIZER VACCINE Unknown Completed [facility] SARS-COV-2 COVID-19 PFIZER VACCINE Unknown Completed [facility] SARS-COV-2 COVID-19 PFIZER VACCINE Unknown Completed [facility] SARS-COV-2 COVID-19 PFIZER VACCINE Unknown Completed [facility] SARS-COV-2 COVID-19 PFIZER VACCINE Unknown Completed [facility] SARS-COV-2 COVID-19 PFIZER VACCINE Unknown Completed [facility] SARS-COV-2 COVID-19 PFIZER VACCINE Unknown Completed [facility] SARS-COV-2 COVID-19 PFIZER VACCINE Unknown Completed [facility] SARS-COV-2 COVID-19 PFIZER VACCINE Unknown Completed [facility] SARS-COV-2 COVID-19 PFIZER VACCINE Unknown Completed [facility] SARS-COV-2 COVID-19 PFIZER VACCINE Unknown Completed [facility] SARS-COV-2 COVID-19 PFIZER VACCINE Unknown Completed [facility] SARS-COV-2 COVID-19 PFIZER VACCINE Unknown Completed [facility] SARS-COV-2 COVID-19 PFIZER VACCINE Unknown Completed [facility] SARS-COV-2 COVID-19 PFIZER VACCINE Unknown Completed [facility] SARS-COV-2 COVID-19 PFIZER VACCINE Unknown Completed [facility] SARS-COV-2 COVID-19 PFIZER VACCINE Unknown Completed [facility] SARS-COV-2 COVID-19 PFIZER VACCINE Unknown Completed [facility] SARS-COV-2 COVID-19 PFIZER VACCINE Unknown Completed [facility] SARS-COV-2 COVID-19 PFIZER VACCINE Unknown Completed [facility] SARS-COV-2 COVID-19 PFIZER VACCINE Unknown Completed [facility] SARS-COV-2 COVID-19 PFIZER VACCINE Unknown Completed [facility] SARS-COV-2 COVID-19 PFIZER VACCINE Unknown Completed [facility] SARS-COV-2 COVID-19 PFIZER VACCINE Unknown Completed [facility] SARS-COV-2 COVID-19 PFIZER VACCINE Unknown Completed [facility] SARS-COV-2 COVID-19 PFIZER VACCINE Unknown Completed [facility] SARS-COV-2 COVID-19 PFIZER VACCINE Unknown Completed [facility] SARS-COV-2 COVID-19 PFIZER VACCINE Unknown Completed [facility] SARS-COV-2 COVID-19 PFIZER VACCINE Unknown Completed [facility] SARS-COV-2 COVID-19 PFIZER VACCINE Unknown Completed [facility] SARS-COV-2 COVID-19 PFIZER VACCINE Unknown Completed [facility] SARS-COV-2 COVID-19 PFIZER VACCINE Unknown Completed [facility] SARS-COV-2 COVID-19 PFIZER VACCINE Unknown Completed [facility] SARS-COV-2 COVID-19 PFIZER VACCINE Unknown Completed [facility] SARS-COV-2 COVID-19 PFIZER VACCINE Unknown Completed [facility] SARS-COV-2 COVID-19 PFIZER VACCINE Unknown Completed [facility] SARS-COV-2 COVID-19 PFIZER VACCINE Unknown Completed [facility] SARS-COV-2 COVID-19 PFIZER VACCINE Unknown Completed [facility] SARS-COV-2 COVID-19 PFIZER VACCINE Unknown Completed [facility] SARS-COV-2 COVID-19 PFIZER VACCINE Unknown Completed [facility] SARS-COV-2 COVID-19 PFIZER VACCINE Unknown Completed [facility] SARS-COV-2 COVID-19 PFIZER VACCINE Unknown Completed [facility] SARS-COV-2 COVID-19 PFIZER VACCINE Unknown Completed [facility] SARS-COV-2 COVID-19 PFIZER VACCINE Unknown Completed [facility] SARS-COV-2 COVID-19 PFIZER VACCINE Unknown Completed [facility] SARS-COV-2 COVID-19 PFIZER VACCINE Unknown Completed [facility] SARS-COV-2 COVID-19 PFIZER VACCINE Unknown Completed [facility] SARS-COV-2 COVID-19 PFIZER VACCINE Unknown Completed [facility] SARS-COV-2 COVID-19 PFIZER VACCINE Unknown Completed [facility] SARS-COV-2 COVID-19 PFIZER VACCINE Unknown Completed [facility] SARS-COV-2 COVID-19 PFIZER VACCINE Unknown Completed [facility] SARS-COV-2 COVID-19 PFIZER VACCINE Unknown Completed [facility] SARS-COV-2 COVID-19 PFIZER VACCINE Unknown Completed [facility] SARS-COV-2 COVID-19 PFIZER VACCINE Unknown Completed [facility] SARS-COV-2 COVID-19 PFIZER VACCINE Unknown Completed [facility] SARS-COV-2 COVID-19 PFIZER VACCINE Unknown Completed [facility] SARS-COV-2 COVID-19 PFIZER VACCINE Unknown Completed [facility] SARS-COV-2 COVID-19 PFIZER VACCINE Unknown Completed [facility] SARS-COV-2 COVID-19 PFIZER VACCINE Unknown Completed [facility] SARS-COV-2 COVID-19 PFIZER VACCINE Unknown Completed [facility] SARS-COV-2 COVID-19 PFIZER VACCINE Unknown Completed [facility] SARS-COV-2 COVID-19 PFIZER VACCINE Unknown Completed [facility] SARS-COV-2 COVID-19 PFIZER VACCINE Unknown Completed [facility] SARS-COV-2 COVID-19 PFIZER VACCINE Unknown Completed [facility] SARS-COV-2 COVID-19 PFIZER VACCINE Unknown Completed [facility] SARS-COV-2 COVID-19 PFIZER VACCINE Unknown Completed [facility] SARS-COV-2 COVID-19 PFIZER VACCINE Unknown Completed [facility] SARS-COV-2 COVID-19 PFIZER VACCINE Unknown Completed [facility] SARS-COV-2 COVID-19 PFIZER VACCINE Unknown Completed [facility] SARS-COV-2 COVID-19 PFIZER VACCINE Unknown Completed [facility] SARS-COV-2 COVID-19 PFIZER VACCINE Unknown Completed [facility] SARS-COV-2 COVID-19 PFIZER VACCINE Unknown Completed [facility] SARS-COV-2 COVID-19 PFIZER VACCINE Unknown Completed [facility] SARS-COV-2 COVID-19 PFIZER VACCINE Unknown Completed [facility] SARS-COV-2 COVID-19 PFIZER VACCINE Unknown Completed [facility] SARS-COV-2 COVID-19 PFIZER VACCINE Unknown Completed [facility] SARS-COV-2 COVID-19 PFIZER VACCINE Unknown Completed [facility] SARS-COV-2 COVID-19 PFIZER VACCINE Unknown Completed [facility] SARS-COV-2 COVID-19 PFIZER VACCINE Unknown Completed [facility] SARS-COV-2 COVID-19 PFIZER VACCINE Unknown Completed [facility] SARS-COV-2 COVID-19 PFIZER VACCINE Unknown Completed [facility] SARS-COV-2 COVID-19 PFIZER VACCINE Unknown Completed [facility] SARS-COV-2 COVID-19 PFIZER VACCINE Unknown Completed [facility] SARS-COV-2 COVID-19 PFIZER VACCINE Unknown Completed [facility] SARS-COV-2 COVID-19 PFIZER VACCINE Unknown Completed [facility] SARS-COV-2 COVID-19 PFIZER VACCINE Unknown Completed [facility] SARS-COV-2 COVID-19 PFIZER VACCINE Unknown Completed [facility] SARS-COV-2 COVID-19 PFIZER VACCINE Unknown Completed [facility] SARS-COV-2 COVID-19 PFIZER VACCINE Unknown Completed [facility] SARS-COV-2 COVID-19 PFIZER VACCINE Unknown Completed [facility] SARS-COV-2 COVID-19 PFIZER VACCINE Unknown Completed [facility] SARS-COV-2 COVID-19 PFIZER VACCINE Unknown Completed [facility] SARS-COV-2 COVID-19 PFIZER VACCINE Unknown Completed [facility] Vital Signs Vital Name Observation Time Observation Value Comments S ource Systolic blood pressure 2023-12-15 19:16:00 122 mm[Hg] [place] [facility] Diastolic blood pressure 2023-12-15 19:16:00 70 mm[Hg] [facility] Heart rate 2023-12-15 19:16:00 75 /min [facility] Body temperature 2023-12-15 19:16:[address] [place] [facility] Respiratory rate 2023-12-15 19:16:00 18 /min [facility] Body height 2023-12-15 19:16:00 160 cm [facility] Body weight 2023-12-15 19:16:00 112.492 kg [facility] BMI 2023-12-15 19:16:00 43.93 kg/m2 [facility] Oxygen saturation in Arterial blood by Pulse oximetry 2023-12-15 19:16:00 97 /min [facility] Respiratory rate 2023-07-03 16:04:00 16 /min [facility] Body height 2023-07-03 16:04:00 160 cm [facility] Body weight 2023-07-03 16:04:00 115.214 kg [facility] BMI 2023-07-03 16:04:00 44.99 kg/m2 [facility] Systolic blood pressure 2023-06-29 15:00:00 121 mm[Hg] [facility] Diastolic blood pressure 2023-06-29 15:00:00 62 mm[Hg] [facility] Heart rate 2023-06-29 15:00:00 79 /min [facility] Body temperature 2023-06-29 15:00:[address] [place] [facility] Respiratory rate 2023-06-29 15:00:00 18 /min [facility] Body height 2023-06-29 15:00:00 160 cm [facility] Body weight 2023-06-29 15:00:00 115.214 kg [facility] BMI 2023-06-29 15:00:00 44.99 kg/m2 [facility] Oxygen saturation in Arterial blood by Pulse oximetry 2023-06-29 15:00:00 96 /min [facility] Systolic blood pressure 2023-05-30 22:45:00 120 mm[Hg] [facility] Diastolic blood pressure 2023-05-30 22:45:00 64 mm[Hg] [facility] Heart rate 2023-05-30 22:45:00 81 /min [facility] Oxygen saturation in Arterial blood by Pulse oximetry 2023-05-30 22:45:00 95 /min [facility] Body temperature 2023-05-30 22:30:[address] [place] [facility] Respiratory rate 2023-05-30 22:30:00 16 /min [facility] Body height 2023-05-30 15:24:00 160 cm [facility] Body weight 2023-05-30 15:24:00 116.8 kg [facility] BMI 2023-05-30 15:24:00 45.61 kg/m2 [facility] Systolic blood pressure 2023-05-30 20:30:00 131 mm[Hg] [facility] Diastolic blood pressure 2023-05-30 20:30:00 78 mm[Hg] [facility] Heart rate 2023-05-30 20:30:00 85 /min [facility] Body temperature 2023-05-30 20:30:[address] [place] [facility] Respiratory rate 2023-05-30 20:30:00 10 /min [facility] Oxygen saturation in Arterial blood by Pulse oximetry 2023-05-30 20:30:00 95 /min [facility] Body height 2023-05-30 15:24:00 160 cm [facility] Body weight 2023-05-30 15:24:00 116.8 kg [facility] BMI 2023-05-30 15:24:00 45.61 kg/m2 [facility] Respiratory rate 2023-05-08 17:55:00 16 /min [facility] Body height 2023-05-08 17:55:00 160 cm [facility] Body weight 2023-05-08 17:55:00 116.121 kg [facility] BMI 2023-05-08 17:55:00 45.35 kg/m2 [facility] Systolic blood pressure 2023-05-04 18:34:00 138 mm[Hg] [facility] Diastolic blood pressure 2023-05-04 18:34:00 76 mm[Hg] [facility] Heart rate 2023-05-04 18:34:00 77 /min [facility] Body temperature 2023-05-04 18:34:[address] [place] [facility] Respiratory rate 2023-05-04 18:34:00 16 /min [facility] Body height 2023-05-04 18:34:00 160 cm [facility] weight 2023-05-04 18:34:00 117.799 kg [facility] BMI 2023-05-04 18:34:00 46.00 kg/m2 [facility] Oxygen saturation in Arterial blood by Pulse oximetry 2023-05-04 18:34:00 92 /min [facility] Respiratory rate 2023-04-13 17:34:00 18 /min [facility] Body height 2023-04-13 17:34:00 160 cm [facility] Body weight 2023-04-13 17:34:00 112.946 kg [facility] BMI 2023-04-13 17:34:00 44.11 kg/m2 [facility] Respiratory rate 2023-03-13 16:53:00 13 /min [facility] Body height 2023-03-13 16:53:00 160 cm [facility] Body weight 2023-03-13 16:53:00 113.399 kg [facility] BMI 2023-03-13 16:53:00 44.29 kg/m2 [facility] Systolic blood pressure 2023-03-02 17:28:00 134 mm[Hg] [facility] Diastolic blood pressure 2023-03-02 17:28:00 79 mm[Hg] [facility] Heart rate 2023-03-02 17:28:00 67 /min [facility] Body temperature 2023-03-02 17:28:[address] [place] [facility] Respiratory rate 2023-03-02 17:28:00 18 /min [facility] Body height 2023-03-02 17:28:00 157.5 cm [facility] Body weight 2023-03-02 17:28:00 115.214 kg [facility] BMI 2023-03-02 17:28:00 46.46 kg/m2 [facility] Oxygen saturation in Arterial blood by Pulse oximetry 2023-03-02 17:28:00 97 /min [facility] Systolic blood pressure 2023-02-26 17:55:00 112 mm[Hg] [facility] Diastolic blood pressure 2023-02-26 17:55:00 54 mm[Hg] [facility] Heart rate 2023-02-26 17:55:00 74 /min [facility] Body temperature 2023-02-26 17:55:[address] [place] [facility] Respiratory rate 2023-02-26 17:55:00 18 /min [facility] Oxygen saturation in Arterial blood by Pulse oximetry 2023-02-26 17:55:00 93 /min [facility] Body height 2023-02-25 01:23:00 157.5 cm [facility] Body weight 2023-02-25 01:23:00 115.667 kg [facility] BMI 2023-02-25 01:23:00 46.64 kg/m2 [facility] Body height 2023-02-24 15:57:00 157.5 cm [facility] Body weight 2023-02-24 15:57:00 115.7 kg [facility] BMI 2023-02-24 15:57:00 46.64 kg/m2 [facility] Oxygen saturation in Arterial blood by Pulse oximetry 2023-02-24 15:57:00 97 /min [facility] Systolic blood pressure 2023-02-24 15:57:00 140 mm[Hg] [facility] Diastolic blood pressure 2023-02-24 15:57:00 79 mm[Hg] [facility] Heart rate 2023-02-24 15:57:00 67 /min [facility] Body temperature 2023-02-24 15:57:[address] [place] [facility] Respiratory rate 2023-02-24 15:57:00 20 /min [facility] Body height 2023-02-21 13:53:00 175.3 cm [facility] Body weight 2023-02-21 13:53:00 113.853 kg [facility] BMI 2023-02-21 13:53:00 37.07 kg/m2 [facility] Respiratory rate 2023-02-09 17:19:00 16 /min [facility] Body height 2023-02-09 17:19:00 175.3 cm [facility] Body weight 2023-02-09 17:19:00 113.853 kg [facility] BMI 2023-02-09 17:19:00 37.07 kg/m2 [facility] Systolic blood pressure 2023-01-20 21:11:00 153 mm[Hg] [facility] Diastolic blood pressure 2023-01-20 21:11:00 83 mm[Hg] [facility] Heart rate 2023-01-20 21:11:00 89 /min [facility] Respiratory rate 2023-01-20 21:11:00 18 /min [facility] Body height 2023-01-20 21:11:00 160 cm [facility] Body weight 2023-01-20 21:11:00 117.482 kg [facility] BMI 2023-01-20 21:11:00 45.88 kg/m2 [facility] Oxygen saturation in Arterial blood by Pulse oximetry 2023-01-20 21:11:00 96 /min [facility] Systolic blood pressure 2022-12-09 15:28:00 146 mm[Hg] [facility] Diastolic blood pressure 2022-12-09 15:28:00 84 mm[Hg] [facility] Heart rate 2022-12-09 15:28:00 80 [facility] Body temperature 2022-12-09 15:28:[address] [place] [facility] Respiratory rate 2022-12-09 15:28:00 18 /min [facility] Body height 2022-12-09 15:28:00 160 cm [facility] Body weight 2022-12-09 15:28:00 113.399 kg [facility] BMI 2022-12-09 15:28:00 44.29 kg/m2 [facility] Oxygen saturation in Arterial blood by Pulse oximetry 2022-12-09 15:28:00 96 /min [facility] Systolic blood pressure 2022-12-09 15:28:00 146 mm[Hg] [facility] Diastolic blood pressure 2022-12-09 15:28:00 84 mm[Hg] [facility] Heart rate 2022-12-09 15:28:00 80 /min [facility] Body temperature 2022-12-09 15:28:[address] [place] [facility] Respiratory rate 2022-12-09 15:28:00 18 /min [facility] Body height 2022-12-09 15:28:00 160 cm [facility] Body weight 2022-12-09 15:28:00 113.399 kg [facility] BMI 2022-12-09 15:28:00 44.29 kg/m2 [facility] Oxygen saturation in Arterial blood by Pulse oximetry 2022-12-09 15:28:00 96 /min [facility] Systolic blood pressure 2022-10-11 15:26:00 148 mm[Hg] [facility] Diastolic blood pressure 2022-10-11 15:26:00 70 mm[Hg] [facility] Heart rate 2022-10-11 15:26:00 82 /min [facility] Body temperature 2022-10-11 15:26:[address] [place] [facility] Respiratory rate 2022-10-11 15:26:00 17 /min [facility] Body height 2022-10-11 15:26:00 160 cm [facility] Body weight 2022-10-11 15:26:00 111.131 kg [facility] BMI 2022-10-11 15:26:00 43.40 kg/m2 [facility] Oxygen saturation in Arterial blood by Pulse oximetry 2022-10-11 15:26:00 97 /min [facility] Systolic blood pressure 2022-05-31 14:30:00 139 mm[Hg] [facility] Diastolic blood pressure 2022-05-31 14:30:00 81 mm[Hg] [facility] Heart rate 2022-05-31 14:30:00 78 /min [facility] Body temperature 2022-05-31 14:30:[address] [place] [facility] Respiratory rate 2022-05-31 14:30:00 18 /min [facility] Body height 2022-05-31 14:30:00 160 cm [facility] Body weight 2022-05-31 14:30:00 111.131 kg [facility] BMI 2022-05-31 14:30:00 43.40 kg/m2 [facility] Oxygen saturation in Arterial blood by Pulse oximetry 2022-05-31 14:30:00 98 /min [facility] Systolic blood pressure 2022-04-14 14:06:00 152 mm[Hg] [facility] Diastolic blood pressure 2022-04-14 14:06:00 77 mm[Hg] [facility] Heart rate 2022-04-14 14:06:00 69 /min [facility] Body temperature 2022-04-14 14:06:[address] [place] [facility] Respiratory rate 2022-04-14 14:06:00 16 /min [facility] Body weight 2022-04-14 14:06:00 108.863 kg [facility] BMI 2022-04-14 14:06:00 42.52 kg/m2 [facility] Oxygen saturation in Arterial blood by Pulse oximetry 2022-04-14 14:06:00 96 /min [facility] Systolic blood pressure 2022-02-08 14:24:00 145 mm[Hg] [facility] Diastolic blood pressure 2022-02-08 14:24:00 70 mm[Hg] [facility] Heart rate 2022-02-08 14:24:00 70 /min [facility] Body temperature 2022-02-08 14:24:[address] [place] [facility] Respiratory rate 2022-02-08 14:24:00 16 /min [facility] Oxygen saturation in Arterial blood by Pulse oximetry 2022-02-08 14:24:00 97 /min [facility] Heart rate 2022-01-25 20:24:00 74 /min [facility] Respiratory rate 2022-01-25 20:24:00 16 /min [facility] Oxygen saturation in Arterial blood by Pulse oximetry 2022-01-25 20:24:00 94 /min [facility] Systolic blood pressure 2022-01-25 20:23:00 118 mm[Hg] [facility] Diastolic blood pressure 2022-01-25 20:23:00 66 mm[Hg] [facility] Body temperature 2022-01-25 19:46:[address] [place] [facility] Body height 2022-01-13 18:30:00 160 cm [facility] Body weight 2022-01-13 18:30:00 108.9 kg [facility] BMI 2022-01-13 18:30:00 42.54 kg/m2 [facility] Systolic blood pressure 2022-01-25 19:46:00 129 mm[Hg] [facility] Diastolic blood pressure 2022-01-25 19:46:00 68 mm[Hg] [facility] Heart rate 2022-01-25 19:46:00 78 /min [facility] Body temperature 2022-01-25 19:46:[address] [place] [facility] Respiratory rate 2022-01-25 19:46:00 17 /min [facility] Oxygen saturation in Arterial blood by Pulse oximetry 2022-01-25 19:46:00 100 /min [facility] Body height 2022-01-13 18:30:00 160 cm [facility] Body weight 2022-01-13 18:30:00 108.9 kg [facility] BMI 2022-01-13 18:30:00 42.54 kg/m2 [facility] Systolic blood pressure 2021-12-14 14:25:00 133 mm[Hg] [facility] Diastolic blood pressure 2021-12-14 14:25:00 76 mm[Hg] [facility] Heart rate 2021-12-14 14:25:00 74 /min [facility] Body temperature 2021-12-14 14:25:[address] [place] [facility] [facility] Body weight 2021-12-14 14:25:00 108.863 kg [facility] BMI 2021-12-14 14:25:00 42.51 kg/m2 [facility] Oxygen saturation in Arterial blood by Pulse oximetry 2021-12-14 14:25:00 96 /min [facility] Systolic blood pressure 2021-10-08 15:53:00 161 mm[Hg] [facility] Diastolic blood pressure 2021-10-08 15:53:00 78 mm[Hg] [facility] Heart rate 2021-10-08 15:53:00 81 /min [facility] Body temperature 2021-10-08 15:53:00 36 [facility] Respiratory rate 2021-10-08 15:53:00 16 /min [facility] Body height 2021-10-08 15:53:00 160 cm [facility] Body weight 2021-10-08 15:53:00 108.863 kg [facility] BMI 2021-10-08 15:53:00 42.51 kg/m2 [facility] Oxygen saturation in Arterial blood by Pulse oximetry 2021-10-08 15:53:00 95 /min [facility] Systolic blood pressure 2021-10-08 15:53:00 161 mm[Hg] [facility] Diastolic blood pressure 2021-10-08 15:53:00 78 mm[Hg] [facility] Heart rate 2021-10-08 15:53:00 81 /min [facility] Body temperature 2021-10-08 15:53:[address] [place] [facility] Respiratory rate 2021-10-08 15:53:00 16 /min [facility] Body height 2021-10-08 15:53:00 160 cm [facility] Body weight 2021-10-08 15:53:00 108.863 kg [facility] BMI 2021-10-08 15:53:00 42.51 kg/m2 [facility] Oxygen saturation in Arterial blood by Pulse oximetry 2021-10-08 15:53:00 95 /min [facility] Systolic blood pressure 2021-08-13 16:22:00 155 mm[Hg] [facility] Diastolic blood pressure 2021-08-13 16:22:00 76 mm[Hg] [facility] Heart rate 2021-08-13 16:22:00 82 /min [facility] Body temperature 2021-08-13 16:22:[address] [place] [facility] Body height 2021-08-13 16:22:00 160 cm [facility] Body weight 2021-08-13 16:22:00 111.131 kg [facility] BMI 2021-08-13 16:22:00 43.40 kg/m2 [facility] Oxygen saturation in Arterial blood by Pulse oximetry 2021-08-13 16:22:00 98 /min [facility] Procedures Procedure Date / Time Performed Performing Clinician Source XR CERVICAL SPINE 1 2023-05-30 20:02:09 Shelbie [facility] XR CERVICAL SPINE 1 2023-05-30 20:02:09 Shelbie [facility] ANTERIOR CERVICAL FUSION 2023-05-30 17:10:00 Shelbie [facility] ANTERIOR CERVICAL FUSION 2023-05-30 17:10:00 Shelbie [facility] ANTERIOR CERVICAL FUSION 2023-05-30 17:10:00 Shelbie [facility] ANTERIOR CERVICAL FUSION 2023-05-30 17:10:00 Shelbie [facility] ANTERIOR CERVICAL FUSION 2023-05-30 17:10:00 Shelbie [facility] ANTERIOR CERVICAL FUSION 2023-05-30 17:10:00 [facility] INDIRECT ANTIGLOBULIN TEST 2023-05-30 15:47:[address] [facility] HB INDIRECT ANTIGLOBULIN TEST 2023-05-30 15:47:[address] [facility] ASSIGNMENT OF BENEFITS 2023-05-30 15:03:37 Doctor Unassigned, [place] [facility] MR CERVICAL SPINE WO CONTRAST 2023-04-19 19:20:[address] [facility] XR LUMBAR SPINE 2 VW 2023-02-26 15:27:[address] [facility] MAGNESIUM 2023-02-25 10:37:00 [facility] BASIC METABOLIC PANEL (NA, K , CL, CO2, GLUCOSE, BUN, CREATININE, CA) 2023-02-25 10:37:00 [facility] MAGNESIUM 2023-02-25 10:37:00 [facility] BASIC METABOLIC PANEL (NA, K , CL, CO2, GLUCOSE, BUN, CREATININE, CA) 2023-02-25 10:37:00 [facility] CBC WITH DIFF 2023-02-25 10:36:00 [facility] CBC WITH DIFF 2023-02-25 10:36:00 [facility] FL TIME OR (NON-REPORTABLE) 2023-02-24 21:09:21 Shelbie [facility] FL TIME OR (NON-REPORTABLE) 2023-02-24 21:09:21 [facility] FL TIME OR (NON-REPORTABLE) 2023-02-24 19:59:14 Shelbie [facility] FL TIME OR (NON-REPORTABLE) 2023-02-24 19:59:14 Shelbie [facility] XR LUMBAR SPINE 1 2023-02-24 18:43:34 Shelbie [facility] XR LUMBAR SPINE 1 2023-02-24 18:43:34 Shelbie [facility] POSTERIOR LUMBAR INTERBODY S CRISTINA FUSION 2023-02-24 17:43:00 Shelbie [facility] ABORH CONFIRMATION (LAB ONLY) 2023-02-24 17:23:[address] [facility] COVID-19 (ID NOW RAPID TESTING) 17:23:[address] [facility] ABORH CONFIRMATION (LAB ONLY) 2023-02-24 17:23:[address] [facility] COVID-19 (ID NOW RAPID TESTING) 17:23:[address] [facility] BASIC METABOLIC PANEL (NA, K , CL, CO2, GLUCOSE, BUN, CREATININE, CA) 2023-02-24 16:31:00 [facility] CBC WITH DIFF 2023-02-24 16:31:00 [facility] PROTHROMBIN TIME / INR 2023-02-24 16:31:00 [facility] ACTIVATED PARTIAL THRMPLAS ERIK 1 16:31:00 [facility] HB INDIRECT ANTIGLOBULIN TEST 2023-02-24 16:31:[address] [facility] ABORH INVESTIGATION 2023-02-24 16:31:[address] [facility] BASIC METABOLIC PANEL (NA, K , CL, CO2, GLUCOSE, BUN, CREATININE, CA) 2023-02-24 16:31:00 [facility] CBC WITH DIFF 2023-02-24 16:31:00 [facility] PROTHROMBIN TIME / INR 2023-02-24 16:31:00 [facility] ACTIVATED PARTIAL THRMPLAS ERIK 1 16:31:00 [facility] HB INDIRECT ANTIGLOBULIN TEST 2023-02-24 16:31:[address] [facility] ABORH INVESTIGATION 2023-02-24 16:31:[address] [facility] POCT GLUCOSE (AUTOMATED) 2023-02-24 15:50:[address] [facility] POCT GLUCOSE (AUTOMATED) 2023-02-24 15:50:[address] [facility] DAY SURGERY - [facility] 06:01:00 Doctor Unassigned, [place] [facility] ASSIGNMENT OF BENEFITS 2023-02-21 23:11:00 Doctor Unassigned, [place] [facility] MR LUMBAR SPINE WO CONTRAST 2023-02-01 16:50:[address] [facility] ASSIGNMENT OF BENEFITS 2023-01-20 20:59:38 Doctor Unassigned, [place] [facility] REFERRAL- REQUEST/RESPONSE 2022-09-20 05:01:00 Doctor Unassigned, [place] [facility] INFUSION THERAPY DOCUMENTS 2022-05-31 06:01:00 Doctor Unassigned, [place] [facility] PHYSICIAN ORDERS 2022-05-09 06:01:00 Doctor Unassigned, [place] [facility] INFUSION THERAPY DOCUMENTS 2022-04-14 06:01:00 Doctor Unassigned, [place] [facility] ESOPHAGOGASTRODUODENOSCOPY 2022-01-25 19:18:[address] [facility] EGD (ENDO) 2022-01-25 19:09:[address] [facility] EGD (ENDO) 2022-01-25 19:09:[address] [facility] POCT GLUCOSE (AUTOMATED) 2022-01-25 18:06:[address] [facility] POCT GLUCOSE (AUTOMATED) 2022-01-25 18:06:[address] [facility] US ABDOMEN LIMITED 2022-01-20 15:33:[address] [facility] EXTERNAL PROVIDER RECORDS 2021-12-20 05:01:00 Doctor Unassigned, [place] [facility] EXTERNAL PROVIDER RECORDS 2021-12-20 05:01:00 Doctor Unassigned, [place] [facility] [id number] 2019-10-17 00:00:00 [facility] [id number] 2019-10-17 00:00:00 [facility] Encounters Start Date/Time End Date/Time Encounter Type Admission Type Attending Clinicians Care Facility Care Department Encounter ID Source 2019-10-15 09:00:00 Inpatient Yani Jacobo [facility] DAYS [id number] 28 [facility] 2023-12-15 14:00:00 2023-12-15 16:11:12 Outpatient R ELIDIA BERMAN [facility] [id number] [facility] 2023-12-15 14:00:00 2023-12-15 16:11:12 Nurse Visit 1, Adc Pob Amb Infusion Room Elidia Berman 1, [facility] 1.2840.114 350.1.13.10 4.2.7.2.686 [id number] [facility] 2023-12-15 10:00:00 2023-12-15 10:00:00 Outpatient R [facility] [id number] [facility] 2023-11-07 00:00:00 2023-12-09 18:22:30 Patient Secure Msg Elliott Morfin [facility] 1.284.114 350.1.13.10 4.2.7.2.686 [id number] [facility] 2023-11-23 00:00:00 2023-11-24 08:15:55 Patient Secure Msg Doctor Unassigned, [place] Doctor Unassigned, [place] [facility] 1.20.114 350.1.13.10 4.2.7.2.686 [id number] [facility] 2023-11-13 00:00:00 2023-11-22 10:05:39 Patient Secure Msg Doctor Unassigned, Cec[place] Doctor Unassigned, Cecilton [facility] 1.2840.114 350.1.13.10 4.2.7.2.686 [id number] [facility] 2023-11-13 00:00:00 2023-11-13 14:09:14 Letter (Out) [facility] 1.840.114 350.1.13.10 4.2.7.2.686 [id number] [facility] 2023-09-07 11:45:00 2023-09-07 11:45:00 Outpatient Omero MORFIN [facility] [id number] [facility] 2023-08-15 00:00:00 2023-08-15 09:24:36 Case Management Rodolfo Mckeon [facility] 1.840.114 350.1.13.10 4.2.7.2.686 [id number] [facility] 2023-07-03 11:15:00 2023-07-03 12:16:53 Outpatient [facility] [id number] [facility] 2023-07-03 11:15:00 2023-07-03 12:16:53 Office Visit Shelbie [facility] OFFICE BUILDING 1..840.114 350.1.13.10 4.2.7.2.686 [id number] [facility] 2023-06-29 10:00:00 2023-06-29 11:44:17 Outpatient ELIDIA PATEL [facility] [id number] [facility] 2023-06-29 10:00:00 2023-06-29 11:44:17 Nurse Visit 2, Adc Pob Amb Infusion Room [facility] 1..840.114 350.1.13.10 4.2.7.2.686 [id number] [facility] 2023-06-19 00:00:00 2023-06-19 00:00:00 Patient Secure Msg Doctor Unassigned, Cecilton [facility] MED[facility] OFFICE BUILD[facility] 1.2.840.114 350.1.13.10 4.2.7.2.686 [id number] [facility] 2023-06-03 00:00:00 2023-06-03 00:00:[facility] 1.2.840.114 350.1.13.10 4.2.7.2.686 [id number] [facility] 2023-06-03 00:00:00 2023-06-03 00:00:00 Patient Secure g Elizabeth Burrell [facility] MED[facility] OFFICE BUILD[facility] 1.2.840.114 350.1.13.10 4.2.7.2.686 [id number] [facility] 2023-05-30 09:02:00 2023-05-30 17:00:00 [facility] [id number] 2023-05-30 09:02:00 2023-05-30 17:00:00 Hospital Encounter [facility] ([facility]) 1.2.840.114 350.1.13.10 4.2.7.2.686 [id number] [facility] 2023-05-30 11:03:00 2023-05-30 14:36:00 Surgery [facility] ([facility]) 1.2.840.114 350.1.13.10 4.2.7.2.686 [id number] [facility] 2023-05-30 00:00:00 2023-05-30 00:00:00 Orders Only Doctor Unassigned, Cecilton [facility] 1.2.840.114 350.1.13.10 4.2.7.2.686 [id number] [facility] 2023-05-17 08:00:00 2023-05-17 08:00:00 Outpatient R TRAVISJESSICALAUREN ALLEN [facility] [id number] [facility] 2023-05-08 11:45:00 2023-05-08 12:00:00 Office Visit Shelbie [facility] MEDICAL OFFICE BUILDING 1.2840.114 350.1.13.10 4.2.7.2.686 [id number] [facility] 2023-05-08 11:45:00 2023-05-08 11:45:00 Outpatient R [facility] [id number] [facility] 2023-05-08 00:00:00 2023-05-08 00:00:00 Prep For Surgery [facility] 1.2.840.114 350.1.13.10 4.2.7.2.686 [id number] [facility] 2023-05-08 00:00:00 2023-05-08 00:00:00 Prep For Surgery [facility] 1.2.840.114 350.1.13.10 4.2.7.2.686 [id number] [facility] 2023-05-08 00:00:00 2023-05-08 00:00:00 Prep For Surgery [facility] 1.2.840.114 350.1.13.10 4.2.7.2.686 [id number] [facility] 2023-05-04 12:00:00 2023-05-04 13:30:00 Nurse Visit 2, Adc Pob Amb Infusion Room [facility] 1.2840.114 350.1.13.10 4.2.7.2.686 [id number] [facility] 2023-05-04 12:00:00 2023-05-04 12:00:00 Outpatient R CHRIS ELIDIA [facility] [id number] [facility] 2023-04-20 12:00:00 2023-04-20 23:59:00 Outpatient R NADINE DESIR [facility] [id number] [facility] 2023-04-20 12:00:00 2023-04-20 23:59:00 Hospital Encounter Karlee [facility] MEDICAL OFFICE BUILDING 1.840.114 350.1.13.10 4.2.7.2.686 [id number] [facility] 2023-04-19 12:42:40 2023-04-19 23:59:00 Outpatient R INDRA ELIZABETH [facility] [id number] [facility] 2023-04-19 12:42:40 2023-04-19 23:59:00 Hospital Encounter Elizabeth Burrell [facility] 1.2.840.114 350.1.13.10 4.2.7.2.686 [id number] [facility] 2023-04-13 11:30:00 2023-04-13 13:58:11 Outpatient R SHELBIE ELLIOTT [facility] [id number] [facility] 2023-04-13 11:30:00 2023-04-13 13:58:11 Office Visit Shelbie [facility] MEDICAL OFFICE BUILDING 1.2.840.114 350.1.13.10 4.2.7.2.686 [id number] [facility] 2023-03-13 10:30:00 2023-03-13 10:45:00 [facility] 1.2.840.114 350.1.13.10 4.2.7.2.686 [id number] [facility] 2023-03-13 10:30:00 2023-03-13 10:30:00 Outpatient ELLIOTT GARY [facility] [id number] [facility] 2023-03-02 11:00:00 2023-03-02 12:30:00 Nurse Visit Nurse, Karishma Pob Amb Infusion Briana Bauman [facility] 1.84.114 350.1.13.10 4.2.7.2.686 [id number] [facility] 2023-03-02 11:00:00 2023-03-02 11:00:00 Outpatient BRIANA SANFORD [facility] [id number] [facility] 2023-02-24 09:26:00 2023-02-26 13:27:00 Outpatient Omero [facility] [id number] [facility] 2023-02-24 09:26:00 2023-02-26 13:27:00 Hospital Encounter Elliott [facility]fin, [facility] 1..114 350.1.13.10 4.2.7.2.686 [id number] [facility] 2023-02-24 16:30:00 2023-02-24 16:30:00 Outpatient PEGGY GODOY [facility] [id number] [facility] 2023-02-24 11:34:00 2023-02-24 15:41:00 Surgery Shelbie [facility] ([facility]) 1..114 350.1.13.10 4.2.7.2.686 [id number] [facility] 2023-02-24 00:00:00 2023-02-24 00:00:00 Orders Only Doctor Unassigned, Cecilton [facility] 1..114 350.1.13.10 4.2.7.2.686 [id number] [facility] 2023-02-24 00:00:00 2023-02-24 00:00:00 Telephone Briana Bauman [facility] 1.840.114 350.1.13.10 4.2.7.2.686 [id number] [facility] 2023-02-23 10:00:00 2023-02-23 10:00:00 Outpatient R [facility] [id number] [facility] 2023-02-21 17:00:00 2023-02-21 17:15:00 Superintendent Of Generation Visit Pob, Adc Lab Main Briana Bauman [facility] 1.840.114 350.1.13.10 4.2.7.2.686 [id number] [facility] 2023-02-21 17:00:00 2023-02-21 17:00:00 Outpatient R BRIANA BAUMAN [facility] [id number] [facility] 2023-02-21 08:15:00 2023-02-21 08:20:00 Pre-Anesth esia Evaluation Call, [facility] Apa Phone [facility] ([facility]) ..114 350.1.13.10 4.2.7.2.686 [id number] [facility] 2023-02-21 00:00:00 2023-02-21 00:00:00 Orders Only Doctor Unassigned, Cecilton [facility] ..114 350.1.13.10 4.2.7.2.686 [id number] [facility] 2023-02-21 00:00:00 2023-02-21 00:00:00 Telephone Elidia Berman [facility] 1.284.114 350.1.13.10 4.2.7.2.686 [id number] [facility] 2023-02-09 10:45:00 2023-02-09 14:24:08 [facility] [id number] [facility] 2023-02-09 10:45:00 2023-02-09 14:24:08 Office Visit Shelbie [facility] MEDICAL OFFICE BUILDING 1.2.840.114 350.1.13.10 4.2.7.2.686 [id number] [facility] 2023-02-09 00:00:00 2023-02-09 00:00:00 Prep For Surgery Shelbie [facility] MEDICAL OFFICE BUILDING 1.2.840.114 350.1.13.10 4.2.7.2.686 [id number] [facility] 2023-02-06 00:00:00 2023-02-06 00:00:00 Telephone [facility] 1.2.840.114 350.1.13.10 4.2.7.2.686 [id number] [facility] 2023-02-03 09:00:00 2023-02-03 09:00:00 Outpatient R ELIDIA BERMAN [facility] [id number] [facility] 2023-02-01 09:48:05 2023-02-01 23:59:00 Outpatient R [facility] [id number] [facility] 2023-02-01 09:45:00 2023-02-01 23:59:00 Hospital Encounter Ordonez [facility] 1.2.840.114 350.1.13.10 4.2.7.2.686 [id number] [facility] 2023-01-20 16:00:00 2023-01-20 16:42:09 Outpatient R PEGGY ORDONEZ [facility] [id number] [facility] 2023-01-20 16:00:00 2023-01-20 16:42:09 Office Visit Peggy Ordonze [facility] 1.2.840.114 350.1.13.10 4.2.7.2.686 [id number] [facility] 2023-01-20 00:00:00 2023-01-20 00:00:00 Orders Only Doctor Unassigned, Cecilton [facility] 1.2.840.114 350.1.13.10 4.2.7.2.686 [id number] [facility] 2022-12-09 09:00:00 2022-12-09 15:55:30 Outpatient R ELIDIA BERMAN [facility] [id number] [facility] 2022-12-09 09:00:00 2022-12-09 15:55:30 Nurse Visit 2, Adc Pob Amb Infusion Room Elidia Berman [facility] 1.2.840.114 350.1.13.10 4.2.7.2.686 [id number] [facility] 2022-10-11 10:00:00 2022-10-11 11:00:00 Nurse Visit 1, [facility] 1..840.114 350.1.13.10 4.2.7.2.686 [id number] [facility] 2022-10-11 10:00:00 2022-10-11 10:00:00 Outpatient R ELIDIA BERMAN [facility] [id number] [facility] 2022-09-20 00:00:00 2022-09-20 00:00:00 Orders Only Doctor Unassigned, Cecilton [facility] 1.2.840.114 350.1.13.10 4.2.7.2.686 [id number] [facility] 2022-05-31 08:00:00 2022-05-31 10:30:00 Nurse Visit 2, Adc Infusion Chair Briana Bauman [facility] 1.2.840.114 350.1.13.10 4.2.7.2.686 [id number] [facility] 2022-05-31 08:00:00 2022-05-31 08:00:00 Outpatient R BRIANA BAUMAN [facility] [id number] [facility] 2022-05-31 00:00:00 2022-05-31 00:00:00 Orders Only Doctor Unassigned, Cecilton [facility] 1.2840.114 350.1.13.10 4.2.7.2.686 [id number] [facility] 2022-05-20 10:00:00 2022-05-20 10:00:00 Outpatient R BRIANA BAUMAN [facility] [id number] [facility] 2022-05-09 00:00:00 2022-05-09 00:00:00 Orders Only Doctor Unassigned, Cecilton [facility] 1.2.840.114 350.1.13.10 4.2.7.2.686 [id number] [facility] 2022-04-14 07:30:00 2022-04-14 10:00:00 Nurse Visit 2, Adc Infusion Chair Briana Bauman [facility] 1.2.840.114 350.1.13.10 4.2.7.2.686 [id number] [facility] 2022-04-14 07:30:00 2022-04-14 07:30:00 Outpatient R BRIANA BAUMAN [facility] [id number] [facility] 2022-04-14 00:00:00 2022-04-14 00:00:00 Orders Only Doctor Unassigned, Cecilton [facility] 1..840.114 350.1.13.10 4.2.7.2.686 [id number] [facility] 2022-04-08 00:00:00 2022-04-08 00:00:00 Outpatient [facility] PRIV [id number] [facility] 2022-04-05 08:00:00 2022-04-05 08:00:00 Outpatient BRIANA SANFORD [facility] [id number] [facility] 2022-02-08 08:00:00 2022-02-08 10:30:00 Nurse Visit 2, Adc Infusion Chair Briana Bauman [facility] 1..840.114 350.1.13.10 4.2.7.2.686 [id number] [facility] 2022-02-08 08:00:00 2022-02-08 08:00:00 Outpatient R BRIANA BAUMAN [facility] [id number] [facility] 2022-01-25 12:54:00 2022-01-25 15:35:00 Outpatient R BRIANA BAUMAN [facility] [id number] [facility] 2022-01-25 12:54:00 2022-01-25 15:35:00 Hospital Encounter Briana Bauman [facility] 1..840.114 350.1.13.10 4.2.7.2.686 [id number] [facility] 2022-01-25 14:09:00 2022-01-25 14:46:00 Surgery Briana Bauman [facility] 1.2.840.114 350.1.13.10 4.2.7.2.686 [id number] [facility] 2022-01-20 10:03:11 2022-01-20 23:59:00 Outpatient R BRIANA BAUMAN [facility] [id number] [facility] 2022-01-20 09:30:00 2022-01-20 23:59:00 Hospital Encounter Keeleyjhonyyue suresh Briana Gallagher [facility] 1..840.114 350.1.13.10 4.2.7.2.686 [id number] [facility] 2022-01-19 00:00:00 2022-01-19 00:00:00 Outpatient R BRIANA BAUMAN [facility] [id number] [facility] 2022-01-12 00:00:00 2022-01-12 00:00:00 Outpatient R BRIANA BAUMAN [facility] [id number] [facility] 2022-01-01 00:00:00 2022-01-01 00:00:00 Outpatient R BRIANA BAUMAN [facility] [id number] [facility] 2021-12-14 09:00:00 2021-12-14 11:30:00 Nurse Visit 2, Adc Infusion Chair Briana Bauman [facility] 1..840.114 350.1.13.10 4.2.7.2.686 [id number] [facility] 2021-12-14 09:00:00 2021-12-14 09:00:00 Outpatient R BRIANA BAUMAN [facility] [id number] [facility] 2021-12-10 09:00:00 2021-12-10 09:00:00 Outpatient R BRIANA BAUMAN [facility] [id number] [facility] 2021-12-03 10:00:00 2021-12-03 10:00:00 Outpatient R ASHWIN Suresh DINALIZBETH [facility] [id number] [facility] 2021-11-04 06:11:00 2021-11-04 06:11:00 Outpatient Tamia Duran HCAPM HCAPM [id number] [facility] [place], [facility] 2021-11-04 06:11:00 2021-11-04 06:11:00 Outpatient Tamia Duran HCAPM DAYS [id number] [facility] [place] 2021-10-08 10:00:00 2021-10-08 12:00:00 Nurse Visit 1, Adc Infusion Chair Briana Bauman [facility] 1.2.840.114 350.1.13.10 4.2.7.2.686 [id number] [id number] [facility] 2021-10-08 10:00:00 2021-10-08 10:00:00 Outpatient R MARLIHELENYUE Suresh DINASHRADDHAOmero [facility] [id number] [facility] 2021-10-08 10:00:00 2021-10-08 10:00:00 Outpatient R KEELEYBAIRONHELENYUE Suresh DINASHRADDHAOmero [facility] [id number] [facility] 2021-09-24 10:30:00 2021-09-24 10:30:00 Outpatient R KEELEYBAIRONHELENYUE Suresh DINASHRADDHAOmero [facility] [id number] [facility] 2021-08-13 11:00:00 2021-08-13 13:00:00 Nurse Visit 1, Adc Infusion Chair Briana Bauman [facility] 1.2.840.114 350.1.13.10 4.2.7.2.686 [id number] [facility] 2021-08-13 11:00:00 2021-08-13 11:00:00 Outpatient R BRIANA BAUMAN [facility] [id number] [facility] 2021-07-30 10:30:00 2021-07-30 10:30:00 Outpatient R BRIANA BAUMAN [facility] [id number] [facility] 2021-07-09 00:00:00 2021-07-09 00:00:00 Letter (Out) Renee Tafoya [facility] 1.114 350.1.13.10 4.2.7.2.686 [id number] [facility] 2021-07-08 11:30:00 2021-07-08 11:45:00 Laboratory Only Only, Ang Db Test Olvin Royal [facility] 1.114 350.1.13.10 4.2.7.2.686 [id number] [facility] 2021-07-08 11:30:00 2021-07-08 11:30:00 Outpatient Omero OLVIN ROYAL [facility] [id number] [facility] 2021-06-18 09:00:00 2021-06-18 09:30:00 Nurse Visit 1, Adc Infusion Chair Briana Bauamn [facility] 1..114 350.1.13.10 4.2.7.2.686 [id number] [id number] [facility] 2021-06-18 09:00:00 2021-06-18 09:00:00 Outpatient R BRIANA BAUMAN [facility] [id number] [facility] 2021-06-08 00:00:00 2021-06-08 00:00:00 Orders Only Doctor Unassigned, Cecilton [facility] 1.114 350.1.13.10 4.2.7.2.686 [id number] [facility] 2021-06-04 10:30:00 2021-06-04 10:30:00 Outpatient R BRIAAN BAUMAN [facility] [id number] [facility] 2021-06-03 11:00:00 2021-06-03 11:00:00 Outpatient R BRIANA BAUMAN [facility] [id number] [facility] 2021-04-09 10:30:00 2021-04-09 12:30:00 Nurse Visit 1, Adc Infusion Briana Cotton [facility] 1..840.114 350.1.13.10 4.2.7.2.686 [id number] [id number] [facility] 2021-04-09 10:30:00 2021-04-09 10:30:00 Outpatient R BRIANA BAUMAN [facility] [id number] [facility] 2021-02-12 10:39:30 2021-02-12 12:39:30 Nurse Visit 1, Adc Infusion Briana Cotton [facility] 1.840.114 350.1.13.10 4.2.7.2.686 [id number] [facility] 2021-02-12 10:30:00 2021-02-12 10:30:00 Outpatient R BRIANA BAUMAN [facility] [id number] [facility] 2021-02-12 00:00:00 2021-02-12 00:00:00 Orders Only Doctor Unassigned, Cecilton [facility] 1.840.114 350.1.13.10 4.2.7.2.686 [id number] [facility] 2020-12-18 10:40:27 2020-12-18 12:40:27 Nurse Visit 1, Adc Infusion Briana Cotton [facility] 1.2.840.114 350.1.13.10 4.2.7.2.686 [id number] [id number] [facility] 2020-12-18 10:30:00 2020-12-18 10:30:00 Outpatient R BRIANA BAUMAN [facility] [id number] [facility] 2020-12-18 00:00:00 2020-12-18 00:00:00 Orders Only Doctor Unassigned, Cecilton [facility] 1.2.840.114 350.1.13.10 4.2.7.2.686 [id number] [facility] 2020-12-04 10:30:00 2020-12-04 10:30:00 Outpatient R BRIANA BAUMAN [facility] [id number] [facility] 2020-10-23 10:49:58 2020-10-23 12:49:58 Nurse Visit 1, Adc Infusion Nurse Briana Bauman [facility] 1.2.840.114 350.1.13.10 4.2.7.2.686 [id number] [facility] 2020-10-23 10:30:00 2020-10-23 10:30:00 Outpatient R BRIANA BAUMAN [facility] [id number] [facility] 2020-10-09 10:30:00 2020-10-09 10:30:00 Outpatient R [facility] [id number] [facility] 2020-10-01 13:52:39 2020-10-01 23:59:00 Hospital Encounter Briana Bauman [facility] 1.2.840.114 350.1.13.10 4.2.7.2.686 [id number] [facility] 2020-10-01 00:00:00 2020-10-01 00:00:00 Outpatient R BRIANA BAUMAN [facility] [id number] [facility] 2020-10-01 00:00:00 2020-10-01 00:00:00 Patient Secure Msg Doctor Unassigned, Cecilton [facility] 1.20.114 350.1.13.10 4.2.7.2.686 [id number] [facility] 2020-08-28 10:20:20 2020-08-28 12:20:20 Nurse Visit 1, Adc Infusion Nurse Briana Bauman [facility] 1..114 350.1.13.10 4.2.7.2.686 [id number] [facility] 2020-08-28 10:00:00 2020-08-28 10:00:00 [facility] [id number] 2020-08-28 10:00:00 2020-08-28 10:00:00 Outpatient R BRIANA BAUMAN [facility] [id number] [facility] 2020-08-28 00:00:00 2020-08-28 00:00:00 Orders Only Doctor Unassigned, Cecilton [facility] 1.20.114 350.1.13.10 4.2.7.2.686 [id number] [facility] 2020-08-14 10:30:00 2020-08-14 10:30:00 Outpatient R [facility] [id number] [facility] 2020-07-17 11:02:23 2020-07-17 13:02:23 Nurse Visit 1, Adc Infusion Chair Briana Bauman [facility] 1.840.114 350.1.13.10 4.2.7.2.686 [id number] [id number] [facility] 2020-07-17 10:30:00 2020-07-17 10:30:00 Outpatient R [facility] [id number] [facility] 2020-07-10 00:00:00 2020-07-10 00:00:00 Orders Only Doctor Unassigned, Cecilton [facility] 1.2840.114 350.1.13.10 4.2.7.2.686 [id number] [id number] [facility] 2020-07-04 16:20:00 2020-07-04 16:20:00 Outpatient [facility] [id number] [facility] 2020-07-03 11:12:13 2020-07-03 13:12:13 Nurse Visit 1, Adc Infusion Chair Briana Bauman [facility] 1.2840.114 350.1.13.10 4.2.7.2.686 [id number] [facility] 2020-07-03 11:00:00 2020-07-03 11:00:00 Outpatient R BRIANA BAUMAN [facility] [id number] [facility] 2020-06-23 00:00:00 2020-06-23 00:00:00 Orders Only Doctor Unassigned, Cecilton [facility] 1.2840.114 350.1.13.10 4.2.7.2.686 [id number] [id number] [facility] 2020-06-13 16:20:00 2020-06-13 16:20:00 Outpatient [facility] [id number] [facility] 2020-05-08 10:22:40 2020-05-08 12:22:40 Nurse Visit 1, Adc Infusion Chair Briana Bauman [facility] 1.2840.114 350.1.13.10 4.2.7.2.686 [id number] [facility] 2020-05-08 10:00:00 2020-05-08 10:00:00 Outpatient R BRIANA BAUMAN [facility] [id number] [facility] 2020-05-08 00:00:00 2020-05-08 00:00:00 Orders Only Doctor Unassigned, Cecilton [facility] 1.2840.114 350.1.13.10 4.2.7.2.686 [id number] [facility] 2020-05-01 10:00:00 2020-05-01 10:00:00 Outpatient R BRIANA BAUMAN [facility] [id number] [facility] 2020-04-28 00:00:00 2020-04-28 00:00:00 Orders Only Doctor Unassigned, Cecilton [facility] 1.2840.114 350.1.13.10 4.2.7.2.686 [id number] [facility] 2020-03-06 10:18:01 2020-03-06 13:00:35 [facility] Visit 1[facility].114 350.1.13.10 4.2.7.2.686 [id number] [facility] 2020-03-06 10:00:00 2020-03-06 10:00:00 Outpatient R BRIANA BAUMAN [facility] [id number] [facility] 2020-01-10 10:00:00 2020-01-10 10:00:00 Outpatient R BRIANA BAUMAN [facility] [id number] [facility] 2020-01-07 10:19:32 2020-01-07 12:19:32 Nurse Visit 1, Adc Infusion Chair Briana Bauman [facility] 1.284.114 350.1.13.10 4.2.7.2.686 [id number] [facility] 2020-01-07 10:00:00 2020-01-07 10:00:00 Outpatient R BRIANA BAUMAN [facility] [id number] [facility] 2020-01-07 00:00:00 2020-01-07 00:00:00 Orders Only Doctor Unassigned, Cecilton [facility] 1.2840.114 350.1.13.10 4.2.7.2.686 [id number] [facility] 2019-11-15 10:00:00 2019-11-15 10:00:00 Outpatient R BRIANA BAUMAN [facility] [id number] [facility] 2019-11-12 11:18:05 2019-11-12 13:18:05 Nurse Visit 1, Adc Infusion Chair Briana Bauman [facility] 1.2.840.114 350.1.13.10 4.2.7.2.686 [id number] [facility] 2019-11-12 11:00:00 2019-11-12 11:00:00 Outpatient R BRIANA BAUMAN [facility] [id number] [facility] 2019-11-12 00:00:00 2019-11-12 00:00:00 Orders Only Doctor Unassigned, Cecilton [facility] 1.2840.114 350.1.13.10 4.2.7.2.686 [id number] [id number] [facility] 2019-10-08 00:00:00 2019-10-08 00:00:00 Orders Only Doctor Unassigned, Cecilton [facility] 1.2840.114 350.1.13.10 4.2.7.2.686 [id number] 2019-10-08 00:00:00 2019-10-08 00:00:00 Orders Only Doctor Unassigned, Cecilton [facility] 1.2.840.114 350.1.13.10 4.2.7.2.686 [id number] [facility] 2019-09-20 10:24:26 2019-09-20 10:54:26 Nurse Visit 1, Adc Infusion Chair 1, Adc Infusion Nurse [facility] 1.2.840.114 350.1.13.10 4.2.7.2.686 [id number] 2019-09-20 10:24:26 2019-09-20 10:54:26 Nurse Visit 1, Adc Infusion Chair 1, Adc Infusion Nurse Briana Bauman [facility] 1.2840.114 350.1.13.10 4.2.7.2.686 [id number] [facility] 2019-09-20 10:00:00 2019-09-20 10:00:00 Outpatient R BRIANA BAUMAN [facility] [id number] [facility] 2019-08-27 11:40:40 2019-08-27 23:59:00 Outpatient BRIANA SANFORD [facility] [id number] [facility] 2019-08-02 09:53:10 2019-08-02 10:23:10 Nurse Visit 2, Adc Infusion Chair 1, Adc Infusion Nurse [facility] 1.2840.114 350.1.13.10 4.2.7.2.686 [id number] 2019-08-02 09:53:10 2019-08-02 10:23:10 Nurse Visit 2, Adc Infusion Chair 1, Adc Infusion Nurse Briana Bauman [facility] 1.2.840.114 350.1.13.10 4.2.7.2.686 [id number] [id number] [facility] 2019-08-02 10:00:00 2019-08-02 10:00:00 Outpatient Omero Suresh BRIANA [facility] [id number] [facility] 2019-08-02 00:00:00 2019-08-02 00:00:00 Orders Only Doctor Unassigned, Cecilton [facility] 1.2.840.114 350.1.13.10 4.2.7.2.686 [id number] 2019-08-02 00:00:00 2019-08-02 00:00:00 Orders Only Doctor Unassigned, Cecilton [facility] 1.2.840.114 350.1.13.10 4.2.7.2.686 [id number] [facility] 2019-07-30 10:00:00 2019-07-30 10:00:00 Outpatient BRIANA SANFORD [facility] [id number] [facility] 2019-07-26 10:00:00 2019-07-26 10:00:00 Outpatient BRIANA SANFORD [facility] [id number] [facility] 2019-05-31 10:33:46 2019-05-31 11:03:46 Nurse Visit 1, Adc Infusion Chair 1, Adc Infusion Nurse [facility] 1.2.840.114 350.1.13.10 4.2.7.2.686 [id number] 2019-05-31 10:33:46 2019-05-31 11:03:46 Nurse Visit 1, Adc Infusion Chair 1, Adc Infusion Nurse Briana Bauman [facility] 1.2.840.114 350.1.13.10 4.2.7.2.686 [id number] [facility] 2019-05-31 10:00:00 2019-05-31 10:00:00 Outpatient BRIANA SANFORD [facility] [id number] [facility] 2019-04-12 10:21:57 2019-04-12 10:51:57 Nurse Visit 2, Adc Infusion Chair 1, Adc Infusion Nurse [facility] 1.2.840.114 350.1.13.10 4.2.7.2.686 [id number] 2019-04-12 10:21:57 2019-04-12 10:51:57 Nurse Visit 2, Adc Infusion Chair 1, Adc Infusion Nurse Briana Bauman [facility] 1.2.840.114 350.1.13.10 4.2.7.2.686 [id number] [facility] 2019-04-12 10:00:00 2019-04-12 10:00:00 Outpatient R BRIANA BAUMAN [facility] [id number] [facility] 2019-04-12 00:00:00 2019-04-12 00:00:00 Orders Only Doctor Unassigned, Cecilton [facility] 1.2.840.114 350.1.13.10 4.2.7.2.686 [id number] [id number] 2019-04-12 00:00:00 2019-04-12 00:00:00 Orders Only Doctor Unassigned, Cecilton [facility] 1.2.840.114 350.1.13.10 4.2.7.2.686 [id number] [facility] 2018-12-14 10:15:46 2018-12-14 10:45:46 Nurse Visit 1, Adc Infusion Chair 1, Adc Infusion Nurse [facility] 1.2.840.114 350.1.13.10 4.2.7.2.686 [id number] 2018-12-14 10:15:46 2018-12-14 10:45:46 Nurse Visit 1, Adc Infusion Chair 1, Adc Infusion Nurse Briana Bauman [facility] 1.2.840.114 350.1.13.10 4.2.7.2.686 [id number] [facility] 2018-12-14 10:00:00 2018-12-14 10:00:00 Outpatient R BRIANA BAUMAN [facility] [id number] [facility] 2018-12-14 00:00:00 2018-12-14 00:00:00 Orders Only Doctor Unassigned, Cecilton [facility] 1.2.840.114 350.1.13.10 4.2.7.2.686 [id number] [facility] 2018-12-14 00:00:00 2018-12-14 00:00:00 Orders Only Doctor Unassigned, Cecilton [facility] 1.2.840.114 350.1.13.10 4.2.7.2.686 [id number] Results Test Description Test Time Test Comments Results Result Comments Source XR CERVICAL SPINE 1 20:02:17 These images do not require a Radiology diagnostic report. [facility] XR CERVICAL SPINE 1 20:02:17 These images do not require a Radiology diagnostic report. [facility] MR CERVICAL SPINE WO CONTRAST 20:08:23 MR CERVICAL SPINE WO CONTRAST HISTORY: Neck pain, chronic, degenerative changes on xray , preoperativeMRI. She reports her longstanding neck pain is worsening, as is her BUEradiculopathy and subjective weakness. COMPARISON: None. TECHNIQUE: TECHNIQUE: multiplanar multisequence MRI of of the cervicalspine was performed without IV contrast. FINDINGS: Straightening of the cervical curvature. The vertebral bodies are normal inheight and in normal alignment. The cervical cord is normal in caliber anddemonstrates normal signal intensity. C2/C3: No significant spinal canal stenosis or neural foraminal narrowing. C3/C4: Uncovertebral hypertrophy and facet arthropathy results in mildright neural foraminal narrowing. No significant spinal canal stenosis orleft neural foraminal narrowing. C4/C5: Uncovertebral hypertrophy and facet arthropathy results in mild leftneural foraminal narrowing. No significant spinal canal stenosis or rightneural foraminal narrowing. C5/C6: Uncovertebral hypertrophy, facet arthropathy and disc osteophytecomplex result in moderate to severe bilateral neural foraminal narrowingand mild spinal canal stenosis. C6/C7: Diffuse disc bulge with posterior disc protrusion and uncovertebralhypertrophy result in mild to moderate spinal canal stenosis and moderatebilateral neural foraminal narrowing, right more than left. C7/T1: No significant spinal canal stenosis or neural foraminal narrowing. [facility] (Lab Only)2023-02-24 17:51:00* Test Item Value Reference Range Interpretation Comme nts ABO & RH (test code = 20) A Negative [facility] INVESTIGATION [id number] 17:48:04 * Test Item Value Reference Range Interpretation Comme nts ABO & RH (test code = 20) A Negative Performed at [facility] Laboratory Services - [facility] Blood [address] [place], [place] [id number] Free: [phone] No. [id number] [facility] INVESTIGATION [id number] 17:48:04 * Test Item Value Reference Range Interpretation Comme nts ABO & RH (test code = 20) A Negative Performed at [facility] Laboratory Services - [facility] Blood [address] [place] [address]Zsyh Free: [phone] No. [id number] [facility] (NA, K, CL, CO2, GLUCOSE, BUN, CREATININE, CA)2023-02-24 17:21:37* Test Item Value Reference Range Interpretation Comme nts NA (test code = 1091801785) 138 mmol/L 135-145 K (test code = 5668422274) 4.2 mmol/L 3.5-5.0 CL (test code = 6515900812) 105 mmol/L 98-108 CO2 TOTAL (test code = 0100784613) 29 mmol/L 23-31 AGAP (test code = 3823710363) 4 2-16 BUN (test code = 6796388136) 21 mg/dL 7-23 GLUCOSE (test code = 0017101975) 127 mg/dL 70-110 H CREATININE (test code = 8761349059) 0.43 mg/dL 0.50-1.04 L CALCIUM (test code = 1704609600) 8.6 mg/dL 8.6-10.6 eGFR (test code = 61773-2) 111.5 mL/min/1.73m2 CKD-EPI eGFR (2020). Assuming creatinine has been stable day-to-day for at least three months, the eGFR indicates Category G1 (>= 90 mL/min/1.73 m2) Lab Interpretation (test code = 82148-0) [facility] (NA, K, CL, CO2, GLUCOSE, BUN, CREATININE, CA)2023-02-24 17:21:37* Test Item Value Reference Range Interpretation Comme [facility] NA (test code = 9812408737) 138 mmol/L 135-145 K (test code = 9714486737) 4.2 mmol/L 3.5-5.0 CL (test code = 1696212597) 105 mmol/L 98-108 CO2 TOTAL (test code = 4533222652) 29 mmol/L 23-31 AGAP (test code = 9667014795) 4 2-16 BUN (test code = 2688109737) 21 mg/dL 7-23 GLUCOSE (test code = 0771281323) 127 mg/dL 70-110 H CREATININE (test code = 3633685293) 0.43 mg/dL 0.50-1.04 L CALCIUM (test code = 2650832280) 8.6 mg/dL 8.6-10.6 eGFR (test code = 82407-4) 111.5 mL/min/1.73m2 CKD-EPI eGFR (2020). Assuming creatinine has been stable day-to-day for at least three months, the eGFR indicates Category G1 (>= 90 mL/min/1.73 m2) Lab Interpretation (test code = 42457-3) Abnormal [facility] [id number] 17:05:17* Test Item Value Reference Range Interpretation Comme [facility] APTT Patient (test code = 3173-2) 34 See_Comment [Automated messa ge] The system which generated this result transmitted reference range: 26 - 36 Seconds. The reference range was not used to interpret this result as normal/abnormal. Lab Interpretation (test code = 75722-2) Normal [facility] Hospital[facility]th[facility] Time / [id number] 17:05:17* Test Item Value Reference Range Interpretation Comme nts PROTIME PATIENT (test code = 5964-2) 10.9 See_Comment [Automated messa ge] The system which generated this result transmitted reference range: 10.1 - 12.6 Seconds. The reference range was not used to interpret this result as normal/abnormal. INR (test code = 6301-6) 1.0 Normal INR <1.1; Warfarin Therapeutic range 2.0 to 3.0 or 2.5 to 3.5, depending upon the indications. Lab Interpretation (test code = 61879-5) Normal [facility] [id number] 17:05:17* Test Item Value Reference Range Interpretation Comme [facility] APTT Patient (test code = 3173-2) 34 See_Comment [Automated messa ge] The system which generated this result transmitted reference range: 26 - 36 Seconds. The reference range was not used to interpret this result as normal/abnormal. Lab Interpretation (test code = 84883-8) Normal [facility] Time / [id number] 17:05:17* Test Item Value Reference Range Interpretation Comme [facility] PROTIME PATIENT (test code = 5964-2) 10.9 See_Comment [Automated messa ge] The system which generated this result transmitted reference range: 10.1 - 12.6 Seconds. The reference range was not used to interpret this result as normal/abnormal. INR (test code = 6301-6) 1.0 Normal INR <1.1; Warfarin Therapeutic range 2.0 to 3.0 or 2.5 to 3.5, depending upon the indications. Lab Interpretation (test code = 25041-2) Normal [facility] WITH [id number] 16:57:16* Test Item Value Reference Range Interpretation Comme [facility] WBC (test code = 6690-2) 8.54 See_Comment [Automated messa ge] The system which generated this result transmitted reference range: 4.30 - 11.10 10*3/?L. The reference range was not used to interpret this result as normal/abnormal. RBC (test code = 789-8) 4.08 See_Comment [Automated messa ge] The system which generated this result transmitted reference range: 3.93 - 5.25 10*6/?L. The reference range was not used to interpret this result as normal/abnormal. HGB (test code = 718-7) 11.5 g/dL 11.6-15.0 L HCT (test code = 4544-3) 35.9 % 35.7-45.2 MCV (test code = 787-2) 88.0 fL 80.6-95.5 MCH (test code = 785-6) 28.2 pg 25.9-32.8 MCHC (test code = 786-4) 32.0 g/dL 31.6-35.1 RDW-SD (test code = 28802-4) 47.8 fL 39.0-49.9 RDW-CV (test code = 788-0) 14.9 % 12.0-15.5 PLT (test code = 777-3) 261 See_Comment [Automated [employer]] The system which generated this result transmitted reference range: 166 - 358 10*3/?L. The reference range was not used to interpret this result as normal/abnormal. MPV (test code = 24918-5) 9.1 fL 9.5-12.9 L NRBC/100 WBC (test code = 3880863328) 0.0 See_Comment [Automated [employer] ssage] The system which generated this result transmitted reference range: 0.0 - 10.0 /100 WBCs. The reference range was not used to interpret this result as normal/abnormal. NRBC x10^3 (test code = 9587773643) See_Comment [Automated [employer]] The system which generated this result transmitted reference range: 10*3/?L. The reference range was not used to interpret this result as normal/abnormal. GRAN MAT (NEUT) % (test code = 770-8) 71.9 % IMM GRAN % (test code = 6228618372) 0.10 % LYMPH % (test code = 736-9) 16.6 % MONO % (test code = 5905-5) 8.5 % EOS % (test code = 713-8) 2.5 % BASO % (test code = 706-2) 0.4 % GRAN MAT x10^3(ANC) (test code = 0520887903) 6.14 10*3/uL 1.88-7.09 IMM GRAN x10^3 (test code = [id number]) 0.00-0.06 LYMPH x10^3 (test code = 731-0) 1.42 10*3/uL 1.32-3.29 MONO x10^3 (test code = 742-7) 0.73 10*3/uL 0.33-0.92 EOS x10^3 (test code = 711-2) 0.21 10*3/uL 0.03-0.39 BASO x10^3 (test code = 704-7) 0.03 10*3/uL 0.01-0.07 Lab Interpretation (test code = 82255-9) Abnormal [facility] WITH [id number] 16:57:16* Test Item Value Reference Range Interpretation Comme nts WBC (test code = 6690-2) 8.54 See_Comment [[employer]] The system which generated this result transmitted reference range: 4.30 - 11.10 10*3/?L. The reference range was not used to interpret this result as normal/abnormal. RBC (test code = 789-8) 4.08 See_Comment [[employer]] The system which generated this result transmitted reference range: 3.93 - 5.25 10*6/?L. The reference range was not used to interpret this result as normal/abnormal. HGB (test code = 718-7) 11.5 g/dL 11.6-15.0 L HCT (test code = 4544-3) 35.9 % 35.7-45.2 MCV (test code = 787-2) 88.0 fL 80.6-95.5 MCH (test code = 785-6) 28.2 pg 25.9-32.8 MCHC (test code = 786-4) 32.0 g/dL 31.6-35.1 RDW-SD (test code = 43130-8) 47.8 fL 39.0-49.9 RDW-CV (test code = 788-0) 14.9 % 12.0-15.5 PLT (test code = 777-3) 261 See_Comment [Automated [employer]] The system which generated this result transmitted reference range: 166 - 358 10*3/?L. The reference range was not used to interpret this result as normal/abnormal. MPV (test code = 75697-0) 9.1 fL 9.5-12.9 L NRBC/100 WBC (test code = 4330856275) 0.0 See_Comment [Automated me ssage] The system which generated this result transmitted reference range: 0.0 - 10.0 /100 WBCs. The reference range was not used to interpret this result as normal/abnormal. NRBC x10^3 (test code = 2457897336) See_Comment [Automated messa ge] The system which generated this result transmitted reference range: 10*3/?L. The reference range was not used to interpret this result as normal/abnormal. GRAN MAT (NEUT) % (test code = 770-8) 71.9 % IMM GRAN % (test code = 9643996019) 0.10 % LYMPH % (test code = 736-9) 16.6 % MONO % (test code = 5905-5) 8.5 % EOS % (test code = 713-8) 2.5 % BASO % (test code = 706-2) 0.4 % GRAN MAT x10^3(ANC) (test code = 4898391401) 6.14 10*3/uL 1.88-7.09 IMM GRAN x10^3 (test code = 5136271778) 0.00-0.06 LYMPH x10^3 (test code = 731-0) 1.42 10*3/uL 1.32-3.29 MONO x10^3 (test code = 742-7) 0.73 10*3/uL 0.33-0.92 EOS x10^3 (test code = 711-2) 0.21 10*3/uL 0.03-0.39 BASO x10^3 (test code = 704-7) 0.03 10*3/uL 0.01-0.07 Lab Interpretation (test code = 66584-2) [facility] [id number] 16:55:00* Test Item Value Reference Range Interpretation Comme nts IAT (test code = 1185) Negative [facility] [id number] 16:55:00* Test Item Value Reference Range Interpretation Comme nts IAT (test code = 1185) Negative [facility] GLUCOSE (AUTOMATED)2023-02-24 15:52:47* Test Item Value Reference Range Interpretation Comme nts POCT GLU (test code = 6434435102) 146 mg/dL 70-110 H 1234 Lab Interpretation (test cod e = 22871-5) Abnormal [facility] GLUCOSE (AUTOMATED)2023-02-24 15:52:47* Test Item Value Reference Range Interpretation Comme nts POCT GLU (test code = 5164438048) 146 mg/dL 70-110 H 1234 Lab Interpretation (test cod e = 85426-6) Abnormal [facility] GLUCOSE (AUTOMATED)2022-01-25 18:08:14* Test Item Value Reference Range Interpretation Comme nts POCT GLU (test code = 8835586021) 120 mg/dL 70-110 H Lab Interpretation (test cod e = 21578-0) Abnormal [facility] GLUCOSE (AUTOMATED)2022-01-25 18:08:14* Test Item Value Reference Range Interpretation Comme nts POCT GLU (test code = 8522181954) 120 mg/dL 70-110 H Lab Interpretation (test cod e = 00755-4) [facility]normal [facility] [id number] 08:34:00* Test Item Value Reference Range Interpretation Comme nts GLUCOSE BEDSIDE TESTING (kayla t code = GLUBED) 134 mg/dL 70-110 H PROTHROMBIN [id number] 14:55:00* Test Item Value Reference Range Interpretation Comme nts PT PATIENT (test code = PTP) 10.6 SECONDS 9.3-12.9 N INTERNATIONAL NORMAL RATIO (test code = INR) 0.93 INR Unit 0.8-1.2 N TARGET INR BY INDICATION Indication INR1. Prophylaxis of venous thrombosis 2.0 - 3.0 (orthopedic surgery), Prophylaxis of venous thrombosis (other than high-risk surgery), Treatment of Deep Vein Thrombosis/Pulmonary Embolism, Prevention of systemic embolism - Tissue heart valves, Acute Myocardial Infarction (to prevent systemic embolism), Valvular heart disease, Acute Myocardial Infarction (to prevent systemic embolism), Valvular heart disease, Atrial Fibrillation, Bileaflet mechanical valve in aortic position.2. Mechanical prosthetic valves (high risk), 2.5 - 3.5 Presence of Lupus Anticoagulant or Antiphospholipid Antibodies, Prevention of systemic embolism - Acute Myocardial Infarction (to prevent recurrent infarct). THROMBOPLASTIN TIME [id number] 14:55:00* Test Item Value Reference Range Interpretation Comme [facility] THROMBOPLASTIN TIME PARTIAL (test code = PTT) 36.5 SECONDS 26-35 H BASIC METABOLIC [id number] 12:52:00* Test Item Value Reference Range Interpretation Comme nts SODIUM (test code = NA) 137 mmol/L 134-147 N POTASSIUM (test code = K) 4.0 mmol/L 3.4-5.0 N CHLORIDE (test code = CL) 102 mmol/L 100-108 N CARBON DIOXIDE (test code = CO2) 31 mmol/L 21-32 N ANION GAP (test code = GAP) 4.0 GAP calc 4.0-15.0 N GLUCOSE (test code = GLU) 107 MG/DL 70-110 N BLOOD UREA NITROGEN (test code = BUN) 19 MG/DL 7-18 H GLOMERULAR FILTRATION RATE (test code = GFR) >=60 max estimate estGFR >60 CREATININE (test code = CREAT) 0.5 MG/DL 0.6-1.0 L CALCIUM (test code = CA) 9.1 MG/DL 8.5-10.1 N COVID 19 INHOUSE [id number] 12:50:00* Test Item Value Reference Range Interpretation Comme [facility] COVID 19 INHOUSE AG (test code = ARKYT90UUKI) NEGATIVE Negative Per chemical blender , negative results should be treated aspresumptive and, if inconsistent with clinical signs andsymptoms or necessary for patient management, should betested with an alternative molecular assay. Negative resultsdo not preclude SARS-CoV-2 infection and should not be usedas the sole basis for patient management decisions. Negative results should be considered in the context of apatient's recent exposures, history, presence of clinicalsigns and symptoms consistent with COVID-19. URINALYSIS [id number] 12:45:00* Test Item Value Reference Range Interpretation Comme nts UA GLUCOSE DIPSTICK (test code = DGLUU) NEGATIVE mg/dL NEG UA BILIRUBIN DIPSTICK (test code = BILU) NEGATIVE mg/dL NEG UA KETONE DIPSTICK (test code = KETU) TRACE mg/dL NEG UA SPECIFIC GRAVITY (test code = SGU) 1.025 SG 1.005-1.030 UA BLOOD DIPSTICK (test code = BELIA) NEGATIVE mg/DL NEG UA PH DIPSTICK (test code = MELISSA) 5.5 pH UNITS 5.0-7.0 UA PROTEIN DIPSTICK (test code = PROU) NEGATIVE mg/dL NEG UA UROBILINIOGEN DIPSTICK (test code = URO) 0.2 mg/dL <2.0 UA NITRITE DIPSTICK (test code = SHAI) NEGATIVE SCREEN NEG UA LEUKOCYTE ESTERASE DIPSTICK (test code = LEUU) NEGATIVE Leuk/mcL NEGATIVE Urine Specimen Type: Clean CatchUR HCG [id number] 12:45:00* Test Item Value Reference Range Interpretation Comme nts UR HCG QUAL (test code = HCGQLU) NEGATIVE NEGATIVE Urine Specimen Type: Clean Catch- XR CHEST 1 [id number] 12:41:00 [facility] 1960 Sex: F Name:CRISTAL MUNIZ [facility] : 1960 Age/S: 60 / F [id number] Unit #: [id number] Loc:[place] [address] Phys: Elio Cavazos MD Acct: [id number] Dis Date: Status[place] [facility] #: [phone] Exam Date: 11/03/2021 1233 FAX #: Reason: PREOP EXAMS: CPT: [id number] XR CHEST 1 V 01519 Fluoro Time: DAP (Gy m2): Air Kerma (mGy): EXAM: CHEST ONE VIEW INDICATION: PREOP LOCATION: B2 COMPARISON: October 15, 2019 TECHNIQUE: AP view of the chest FINDINGS: The heart size is normal. The lungs are clear bilaterally. The pulmonary vasculature is normal. No pneumothorax or pleural effusion is identified. The osseous structures are normal. IMPRESSION: No acute cardiopulmonary process. at 1241 Reported and signed by: Keyona Wan M.D. CC: Tamia Restrepo MD; Elio Cavazos MD PAGE 1 Signed Report Name[facility] 1960 Age/S: 60 / F [id number] Unit #: [id number] Loc: [place] [address] Phys: Elio Cavazos MD Acct: [id number] Dis Date: Status: PRE SDC PHONE #: [phone] Exam Date: 0 11/03/2021 1237 FAX #: Reason: PREOP EXAMS: CPT: [id number] XR CHEST 1 V 45412 Fluoro Time: DAP (Gym2): Air Kerma (mGy): <Continued> Technologist: Nava English, RT(R) Trnscb Date/Time: 11/03/2021 (1241) t16 Orig Print D/T: S: 11/03/2021 (1584) PAGE 2 Signed ReportCBC W/AUTO [id number] 12:38:00* Test Item Value Reference Range Interpretation Comme nts WHITE BLOOD CELL (test code = WBC) 7.7 K/mm3 3.5-11.0 N RED BLOOD CELL (test code = RBC) 4.54 M/mm3 4.70-6.10 L HEMOGLOBIN (test code = HGB) 12.7 G/DL 10.4-14.9 N HEMATOCRIT (test code = HCT) 39.9 % 31.5-44.1 N MEAN CELL VOLUME (test code = MCV) 87.9 Fl 84.5-98.6 N MEAN CELL HGB (test code = MCH) 28.0 pg 27.0-34.2 N MEAN CELL HGB CONCETRATION (test code = MCHC) 31.8 G/DL 31.5-34.0 N RED CELL DISTRIBUTION WIDTH (test code = RDW) 14.3 SD 11.5-14.5 N PLATELET COUNT (test code = PLT) 297 K/mm3 150-450 N MEAN PLATELET VOLUME (test c ode = MPV) 9.00 fL 7.0-10.5 N NEUTROPHIL % (test code = NT%) 66.4 % 40-76 N IMMATURE GRANULOCYTE % (test code = IG%) 0.3 % 0.0-5.0 N LYMPHOCYTE % (test code = LY%) 23.1 % 20.5-51.1 N MONOCYTE % (test code = MO%) 7.8 % 1.7-9.3 N EOSINOPHIL % (test code = EO%) 2.1 % 0.0-6.0 N BASOPHIL % (test code = BA%) 0.3 % 0.0-2.0 N NUCLEATED RBC % (test code = NRBC%) 0.0 /100WBC% 0.0-1.0 N NEUTROPHIL # (test code = NT#) 5.1 K/mm3 1.8-7.6 N IMMATURE GRANULOCYTE # (test code = IG#) 0.02 x10 3/uL 0.00-0.03 N LYMPHOCYTE # (test code = LY#) 1.8 K/mm3 0.6-3.2 N MONOCYTE # (test code = MO#) 0.6 K/mm3 0.3-1.1 N EOSINOPHIL # (test code = EO#) 0.2 K/mm3 0.0-0.4 N BASOPHIL # (test code = BA#) 0.0 K/mm3 0.0-0.1 N NUCLEATED RBC # (test code = NRBC#) 0.0 K/mm3 0.0-0.1 N MANUAL DIFF REQUIRED (test c ode = MDIFF) NO DIFF/SCN CRITERIA SURGICAL [id number] 21:57:00 RUN DATE: 10/21/19 [facility] *LIVE* PAGE 1 RUN TIME: 2156 Specimen Inquiry RUN USER: INTERFACE ------- -----PATIENT: CRISTAL MUNIZ LOC: [facility] U #: [id number] AGE/SX: 58/F [place]OM[place] [facility] RE10/17/19REG DR: Yani Jacobo : [birth year] BED: 1 DIS: 10/19/19 STATUS: DIS IN TLOC: SPEC #: [id number] RECD: 10/18/19 STATUS: NANCY REQ #: [id number] ARNOLD: 10/18/[address]: Yani Jacobo MD ENTERED: 10/21/19 SP TYPE: SURG SPEC OTHR DR: Marc Flynn MD, Luigi MD Undefined ProviderORDERED: GROSS AND MICRO CODES: [id number] - COLON, NOS COPIES TO: Marc Flynn MD [address] [place] [address] Murtaza Hernandez MD [address] [place] [address] Undefined Provider Yani Jacobo MD [address] [place] [address] [address] [place] [address] [email or web address] PROCEDURES: GROSS AND MICRO (Incomplete) TISSUES: 1. [...] surrounding adipose has CONTINUED ON NEXT PAGE RUN DATE: 10/21/19 [facility] *LIVE* PAGE 2 RUN TIME: 2156 Specimen Inquiry RUN USER: INTERFACE --- ---------SPEC #: [id number] PATIENT: CRISTAL MUNIZ #[id number] (Continued) GROSS AND MICROSCOPIC (Continued) some dense fibrosis, there are fibrous adhesions present. There is an additional 4 x 2.2 x 2 cm portion of intestinein the container with edson on either side. [...] tip and is otherwise unremarkable. Sections of the small intestine show flattening of the villi with [...] stricture REVIEWED BY: REBA Signed SIGNATURE ON FILE Salome Veloz DO 10/21/19 2157 END OF REPORT CBC W/AUTO [id number] 08:27:00* Test Item Value Reference Range Interpretation Comme nts WHITE BLOOD CELL (test code = WBC) 9.66 x10 3/uL 4.5-11.0 N RED BLOOD CELL (test code = RBC) 3.53 x10 6/uL 3.54-5.02 L HEMOGLOBIN (test code = HGB) 10.2 g/dL 11.0-15.0 L HEMATOCRIT (test code = HCT) 33.7 % 33.0-45.0 N MEAN CELL VOLUME (test code = MCV) 95.5 fL 81.0-99.0 N MEAN CELL HGB (test code = MCH) 28.9 pg 27.0-33.0 N MEAN CELL HGB CONCETRATION (test code = MCHC) 30.3 g/dL 33.0-37.0 L RED CELL DISTRIBUTION WIDTH CV (test code = RDW) 14.8 % 11.5-14.5 H RED CELL DISTRIBUTION WIDTH SD (test code = RDW-SD) 51.7 fL 37.0-54.0 N PLATELET COUNT (test code = PLT) 275 x10 3/uL 150-400 N MEAN PLATELET VOLUME (test c ode = MPV) 9.5 fL 7.0-9.0 H NEUTROPHIL % (test code = NT%) 61.9 % 56.0-77.0 N IMMATURE GRANULOCYTE % (test code = IG%) 0.3 % 0.0-2.0 N LYMPHOCYTE % (test code = LY%) 26.4 % 14.0-32.0 N MONOCYTE % (test code = MO%) 9.0 % 4.8-9.0 N EOSINOPHIL % (test code = EO%) 2.1 % 0.3-3.7 N BASOPHIL % (test code = BA%) 0.3 % 0.0-2.0 N NUCLEATED RBC % (test code = NRBC%) 0.0 % 0-0 N NEUTROPHIL # (test code = NT#) 5.98 x10 3/uL 2.0-7.6 N IMMATURE GRANULOCYTE # (test code = IG#) 0.03 x10 3/uL 0.00-0.03 N LYMPHOCYTE # (test code = LY#) 2.55 x10 3/uL 1.0-3.8 N MONOCYTE # (test code = MO#) 0.87 x10 3/uL 0.1-0.8 H EOSINOPHIL # (test code = EO#) 0.20 x10 3/uL 0.0-0.2 N BASOPHIL # (test code = BA#) 0.03 x10 3/uL 0.0-0.2 N NUCLEATED RBC # (test code = NRBC#) 0.00 x10 3/uL 0.0-0.1 N MANUAL DIFF REQUIRED (test c ode = MDIFF) NO BASIC METABOLIC [id number] 08:19:00* Test Item Value Reference Range Interpretation Comme nts SODIUM (test code = NA) 142 mEq/L 134-147 N POTASSIUM (test code = K) 3.1 mEq/L 3.4-5.0 L CHLORIDE (test code = CL) 106 mEq/L 100-108 N CARBON DIOXIDE (test code = CO2) 31 mEq/L 21-33 N ANION GAP (test code = GAP) 8 0-20 N GLUCOSE (test code = GLU) 103 mg/dL 70-110 N BLOOD UREA NITROGEN (test code = BUN) 8 mg/dL 7-18 N GLOMERULAR FILTRATION RATE (test code = GFR) 127.6 90-95 H Units of measure = ml/min/1.73 m2 CREATININE (test code = CREAT) 0.5 mg/dL 0.6-1.3 L CALCIUM (test code = CA) 8.7 mg/dL 8.0-10.5 N CBC W/AUTO [id number] 08:38:00* Test Item Value Reference Range Interpretation Comme nts WHITE BLOOD CELL (test code = WBC) 13.61 x10 3/uL 4.5-11.0 H RED BLOOD CELL (test code = RBC) 3.74 x10 6/uL 3.54-5.02 N HEMOGLOBIN (test code = HGB) 11.0 g/dL 11.0-15.0 N HEMATOCRIT (test code = HCT) 35.0 % 33.0-45.0 N MEAN CELL VOLUME (test code = MCV) 93.6 fL 81.0-99.0 MEAN CELL HGB (test code = MCH) 29.4 pg 27.0-33.0 N MEAN CELL HGB CONCETRATION (test code = MCHC) 31.4 g/dL 33.0-37.0 L RED CELL DISTRIBUTION WIDTH CV (test code = RDW) 14.3 % 11.5-14.5 N RED CELL DISTRIBUTION WIDTH SD (test code = RDW-SD) 49.4 fL 37.0-54.0 N PLATELET COUNT (test code = PLT) 339 x10 3/uL 150-400 N MEAN PLATELET VOLUME (test code = MPV) 9.5 fL 7.0-9.0 H NEUTROPHIL % (test code = NT%) 80.5 % 56.0-77.0 H IMMATURE GRANULOCYTE % (test code = IG%) 0.6 % 0.0-2.0 N LYMPHOCYTE % (test code = LY%) 9.8 % 14.0-32.0 L MONOCYTE % (test code = MO%) 9.0 % 4.8-9.0 N EOSINOPHIL % (test code = EO%) 0.0 % 0.3-3.7 L BASOPHIL % (test code = BA%) 0.1 % 0.0-2.0 N NUCLEATED RBC % (test code = NRBC%) 0.0 % 0-0 N NEUTROPHIL # (test code = NT#) 10.96 x10 3/uL 2.0-7.6 H IMMATURE GRANULOCYTE # (test code = IG#) 0.08 x10 3/uL 0.00-0.03 H LYMPHOCYTE # (test code = LY#) 1.33 x10 3/uL 1.0-3.8 N MONOCYTE # (test code = MO#) 1.23 x10 3/uL 0.1-0.8 H EOSINOPHIL # (test code = EO#) 0.00 x10 3/uL 0.0-0.2 N BASOPHIL # (test code = BA#) 0.01 x10 3/uL 0.0-0.2 N NUCLEATED RBC # (test code = NRBC#) 0.00 x10 3/uL 0.0-0.1 N MANUAL DIFF REQUIRED (test code = MDIFF) NO BASIC METABOLIC [id number] 07:18:00* Test Item Value Reference Range Interpretation Comme nts SODIUM (test code = NA) 138 mEq/L 134-147 N POTASSIUM (test code = K) 3.5 mEq/L 3.4-5.0 CHLORIDE (test code = CL) 102 mEq/L 100-108 N CARBON DIOXIDE (test code = CO2) 29 mEq/L 21-33 N ANION GAP (test code = GAP) 11 0-20 N GLUCOSE (test code = GLU) 134 mg/dL 70-110 H BLOOD UREA NITROGEN (test code = BUN) 8 mg/dL 7-18 GLOMERULAR FILTRATION RATE (test code = GFR) 86.6 90-95 L Units of measure = ml/min/1.73 m2 CREATININE (test code = CREAT) 0.7 mg/dL 0.6-1.3 N CALCIUM (test code = CA) 8.5 mg/dL 8.0-10.5 N [id number] 07:18:00* Test Item Value Reference Range Interpretation Comme nts PHOSPHOROUS (test code = PHOS) 2.5 MG/DL 2.5-4.9 N [id number] 07:18:00* Test Item Value Reference Range Interpretation Comme nts MAGNESIUM (test code = MAG) 2.40 mg/dL 1.8-2.4 N CALCIUM [id number] 07:18:00* Test Item Value Reference Range Interpretation Comme nts CALCIUM IONIZED (test code = GLO) 1.04 MMOL/L 1.12-1.32 L BASIC METABOLIC [id number] 07:05:00* Test Item Value Reference Range Interpretation Comme nts SODIUM (test code = NA) mEq/L 134-147 POTASSIUM (test code = K) mEq/L 3.4-5.0 CHLORIDE (test code = CL) mEq/L 100-108 CARBON DIOXIDE (test code = CO2) mEq/L 21-33 ANION GAP (test code = GAP) 0-20 GLUCOSE (test code = GLU) mg/dL 70-110 BLOOD UREA NITROGEN (test code = BUN) mg/dL 7-18 GLOMERULAR FILTRATION RATE ( test code = GFR) 90-95 CREATININE (test code = CREAT) mg/dL 0.6-1.3 CALCIUM (test code = CA) mg/dL 8.0-10.5 [id number] 07:05:00* Test Item Value Reference Range Interpretation Comme nts PHOSPHOROUS (test code = PHOS) MG/DL 2.5-4.9 [id number] 07:05:00* Test Item Value Reference Range Interpretation Comme nts MAGNESIUM (test code = MAG) mg/dL 1.8-2.4 CALCIUM [id number] 07:05:00* Test Item Value Reference Range Interpretation Comme nts CALCIUM IONIZED (test code = GLO) 1.04 MMOL/L 1.12-1.32 L BASIC METABOLIC [id number] 08:12:00* Test Item Value Reference Range Interpretation Comme nts SODIUM (test code = NA) 137 mEq/L 134-147 N POTASSIUM (test code = K) 4.9 mEq/L 3.4-5.0 SPECIMEN 2+ HEMOLYZED.Results known to be adversely affected by hemolysis are: Potassium Magnesium LDH Phosphorus CHLORIDE (test code = CL) 100 mEq/L 100-108 N CARBON DIOXIDE (test code = CO2) 30 mEq/L 21-33 N ANION GAP (test code = GAP) 12 0-20 N GLUCOSE (test code = GLU) 170 mg/dL 70-110 H BLOOD UREA NITROGEN (test code = BUN) 11 mg/dL 7-18 GLOMERULAR FILTRATION RATE (test code = GFR) 86.6 90-95 L Units of measure = ml/min/1.73 m2 CREATININE (test code = CREAT) 0.7 mg/dL 0.6-1.3 CALCIUM (test code = CA) 9.1 mg/dL 8.0-10.5 N BASIC METABOLIC [id number] 08:06:00* Test Item Value Reference Range Interpretation Comme nts SODIUM (test code = NA) 137 mEq/L 134-147 N POTASSIUM (test code = K) 4.9 mEq/L 3.4-5.0 SPECIMEN 2+ HEMOLYZED.Results known to be adversely affected by hemolysis are: Potassium Magnesium LDH Phosphorus CHLORIDE (test code = CL) 100 mEq/L 100-108 N CARBON DIOXIDE (test code = CO2) 30 mEq/L 21-33 N ANION GAP (test code = GAP) 12 0-20 N GLUCOSE (test code = GLU) 170 mg/dL 70-110 H BLOOD UREA NITROGEN (test code = BUN) 11 mg/dL 7-18 GLOMERULAR FILTRATION RATE (test code = GFR) 90-95 CREATININE (test code = CREAT) mg/dL 0.6-1.3 CALCIUM (test code = CA) 9.1 mg/dL 8.0-10.5 N COVID 19 Asymptomatic IH [id number] 11:48:00* Test Item Value Reference Range Interpretation Comme nts COVID 19 Asymptomatic IH AG (test code = COVNONPUIAG) Negative Negative A negative resul t is presumptive and should be confirmedwith an FDA authorized molecular assay, if necessary forpatient management.A positive result does not rule out co-infections withother pathogens.This test detects both viable (live) and non-viable,SARS-CoV, and SARS-CoV-2. Test performance depends on theamount of virus (antigen) in the sample.This test has not been FDA cleared or approved; the test hasbeen authorized by FDA under an Emergency Use Authorization(EUA) for use by laboratories certified under the CLIA thatmeet the requirements to perform moderate, high or waivedcomplexity tests. BASIC METABOLIC [id number] 10:45:00* Test Item Value Reference Range Interpretation Comme nts SODIUM (test code = NA) 138 mEq/L 134-147 N POTASSIUM (test code = K) 3.5 mEq/L 3.4-5.0 N CHLORIDE (test code = CL) 101 mEq/L 100-108 N CARBON DIOXIDE (test code = CO2) 29 mEq/L 21-33 N ANION GAP (test code = GAP) 12 0-20 N GLUCOSE (test code = GLU) 135 mg/dL 70-110 H BLOOD UREA NITROGEN (test code = BUN) 18 mg/dL 7-18 N GLOMERULAR FILTRATION RATE (test code = GFR) 127.6 90-95 H Units of measure = ml/min/1.73 m2 CREATININE (test code = CREAT) 0.5 mg/dL 0.6-1.3 L CALCIUM (test code = CA) 9.4 mg/dL 8.0-10.5 N BASIC METABOLIC [id number] 10:44:00* Test Item Value Reference Range Interpretation Comme nts SODIUM (test code = NA) 138 mEq/L 134-147 N POTASSIUM (test code = K) 3.5 mEq/L 3.4-5.0 N CHLORIDE (test code = CL) 101 mEq/L 100-108 N CARBON DIOXIDE (test code = CO2) 29 mEq/L 21-33 N ANION GAP (test code = GAP) 12 0-20 N GLUCOSE (test code = GLU) 135 mg/dL 70-110 H BLOOD UREA NITROGEN (test co de = BUN) 18 mg/dL 7-18 N GLOMERULAR FILTRATION RATE ( test code = GFR) 90-95 CREATININE (test code = CREAT) mg/dL 0.6-1.3 CALCIUM (test code = CA) 9.4 mg/dL 8.0-10.5 N PROTHROMBIN [id number] 10:26:00* Test Item Value Reference Range [facility]ation [facility] (test code = PTP) 10.4 SECONDS 9.3-12.9 N INTERNATIONAL NORMAL RATIO (test code = INR) 1.0 0.8-1.2 N TARGET INR BY INDICATION Indication INR1. Prophylaxis of venous thrombosis 2.0 - 3.0 (orthopedic surgery), Prophylaxis of venous thrombosis (other than high-risk surgery), Treatment of Deep Vein Thrombosis/Pulmonary Embolism, Prevention of systemic embolism - Tissue heart valves, Acute Myocardial Infarction (to prevent systemic embolism), Valvular heart disease, Atrial Fibrillation, Bileaflet mechanical valve in aortic position.2. Mechanical prosthetic valves (high risk), 2.5 - 3.5 Presence of Lupus Anticoagulant or Antiphospholipid Antibodies, Prevention of systemic embolism - Acute Myocardial Infarction (to prevent recurrent infarct). THROMBOPLASTIN TIME [id number] 10:26:00* Test Item Value Reference Range Interpretation [facility] THROMBOPLASTIN TIME PARTIAL (test code = PTT) 37.3 Seconds 25.0-39.5 N Therapeutic Rang e: 50.4 - 88.3 Seconds Effective 07/10/2018 CBC W/AUTO [id number] 10:05:00* Test Item Value Reference Range Interpretation [facility] WHITE BLOOD CELL (test code = WBC) 9.00 x10 3/uL 4.5-11.0 N RED BLOOD CELL (test code = RBC) 4.39 x10 6/uL 3.54-5.02 N HEMOGLOBIN (test code = HGB) 12.7 g/dL 11.0-15.0 N HEMATOCRIT (test code = HCT) 39.7 % 33.0-45.0 N MEAN CELL VOLUME (test code = MCV) 90.4 fL 81.0-99.0 N MEAN CELL HGB (test code = MCH) 28.9 pg 27.0-33.0 N MEAN CELL HGB CONCETRATION (test code = MCHC) 32.0 g/dL 33.0-37.0 L RED CELL DISTRIBUTION WIDTH CV (test code = RDW) 14.0 % 11.5-14.5 N RED CELL DISTRIBUTION WIDTH SD (test code = RDW-SD) 46.2 fL 37.0-54.0 N PLATELET COUNT (test code = PLT) 327 x10 3/uL 150-400 N MEAN PLATELET VOLUME (test c ode = MPV) 9.0 fL 7.0-9.0 N NEUTROPHIL % (test code = NT%) 53.8 % 56.0-77.0 L IMMATURE GRANULOCYTE % (test code = IG%) 0.8 % 0.0-2.0 N LYMPHOCYTE % (test code = LY%) 31.1 % 14.0-32.0 N MONOCYTE % (test code = MO%) 11.2 % 4.8-9.0 H EOSINOPHIL % (test code = EO%) 2.8 % 0.3-3.7 N BASOPHIL % (test code = BA%) 0.3 % 0.0-2.0 N NUCLEATED RBC % (test code = NRBC%) 0.0 % 0-0 N NEUTROPHIL # (test code = NT#) 4.84 x10 3/uL 2.0-7.6 N IMMATURE GRANULOCYTE # (test code = IG#) 0.07 x10 3/uL 0.00-0.03 H LYMPHOCYTE # (test code = LY#) 2.80 x10 3/uL 1.0-3.8 N MONOCYTE # (test code = MO#) 1.01 x10 3/uL 0.1-0.8 H EOSINOPHIL # (test code = EO#) 0.25 x10 3/uL 0.0-0.2 H BASOPHIL # (test code = BA#) 0.03 x10 3/uL 0.0-0.2 N NUCLEATED RBC # (test code = NRBC#) 0.00 x10 3/uL 0.0-0.1 N MANUAL DIFF REQUIRED (test c ode = MDIFF) NO - XR CHEST 2 [id number] 09:49:00FAX: [place] [facility] [phone] [place]: St: PRE Name: CRISTAL MUNIZ [facility] Wilmer Moy : 1960 Age/S: 58/F [address] [place] [address] Unit #: [id number] [place]: [place] [address] Phys: Yani Jacobo MD Acct: [id number] Dis Date: Status: PRE IN PHONE #: [phone] Exam Date: 10/15/2019 0942FAX #: [phone] Reason: PRE-OP COLECTOMY EXAMS: CPT CODE: [id number] XR CHEST 2 V [id number] XR CHEST2 VIEWS HISTORY: PRE-OP COLECTOMY COMPARISON: None. FINDINGS: The lungs are clear. The heart and vascular markings are normal. No pleural abnormality. The bones are intact. IMPRESSION: No active process. at 0949 Reported and signed by: Mckinley Carlson M.D. CC: Yani Jacobo MD Technologist: RT Heather(R) Trnscrd Date/Time/By: 10/15/2019 (0949) : By: [email or web address] Orig Print D/T: S: 10/15/2019 (0983) PAGE 1 Signed Report History and Physical Notes Date/Time Note Provider Source 2023-05-30 10:47:14 Neurosurgery Pre Operative History and Physical Note Date of Service: 05-30-23 Cristal Muniz is a 62 year old female was interviewed and examined today in the DSU/holding area/operating room before induction of anesthesia. There have been no significant interval changes in the history or physical exam. See full H&P, copied below for completeness, for more details. Risks, benefits and alternatives to the procedure were reviewed with the patient again today, and pt voiced understanding of the condition present as well as the planned procedure(s) without questions and wishes to proceed. Informed consent was obtained. Diagnosis: Cervical stenosis with radiculopathy Planned procedure: C5-7 ACDF [facility] 05/08/23 HPI: 62 F, s/p lumbar fusion and doing very well from low back perspective, but now w/ neck pain and BUE radicular pain and some early myelopathy symptoms, primarily in lateral arm and shoulder. Doesn't always go past the elbow but she also has some peripheral neuropathy that may be masking this some. MRI C-spine shows severe degen C5-6 and C6-7 with moderate-severe canal and foraminal stenosis associated. Has done years of PT and chiropractic and medical management that have not given lasting relief. Past Medical History: Diagnosis Date ADHD (attention deficit hyperactivity disorder) Asthma COPD (chronic obstructive pulmonary disease) Crohn disease Diverticulosis Fibromyalgia Gastritis High cholesterol Hyperlipidemia Hypertension IBS (irritable bowel syndrome) Post-operative nausea and vomiting Restless leg syndrome Sinusitis Awake, alert, oriented PERRL, EOMI FS, TM Strength 5/5 in BUE and BLE Sensation Intact No drift A/P: 62 F with neck pain and BLE radiculopathy. C5-7 degen on MRI w/ associated stenosis. Offered C5-7 ACDF. I counseled the patient on all risks, benefits and alternatives of the procedure. Risks include bleeding, infection, numbness, weakness, paralysis, CSF leak, hoarseness, dysphagia and other. F STEWARD/STEWARDESS Associated attestation - Elliott Morfin MD - 05/30/2023 11:02 AM CHIEF STEWARD/STEWARDESS Faculty Addendum: I personally evaluated and examined the patient and agree with the note by Dr. Borden with no changes. Elliott Morfin MD [facility] Neurosurgery NS-NEUROLOGICAL SURGERY [facility] [place] Notes Date/Time Note Provider Source 2023-11-22 10:03:16 The PT order was placed and faxed at this time. T [facility] 2023-11-21 14:55:54 Cristal Muniz is a 63 year old female Megha calling from [facility] requesting a referral for PT for the pt back. States the other referral that was sent is for her neck Delfina.[phone] Fax:[phone] Priya Ledezma Gwen [facility] 2023-07-04 09:35:52 I received this message yesterday, patient sent message 2 weeks ago and was routed to wrong pool - patient was seen in clinic by Dr. Morfin yesterday. Sierra Rodriguez RN [facility] 2023-06-05 08:26:06 Encounter completed by transportation job titles provider. Sierra Rodriguez RN [facility] 2023-06-03 14:57:26 Copied from [facility] #[id number]. Topic: Clinical - Medical Advice >> Jun 03, 2023 2:55 PM Patient Stator Winder wrote: Cristal Muniz is a 62 year old female Daughter called and stated that patient was coughing up wolf mucus and wheezing Resident contacted at 3:07pm and connected. F STEWARD/STEWARDESS Tiki Givens [facility] 2023-05-30 12:09:00 BRIEF NEUROSURGERY OPERATIVE NOTE Date of Surgery: 05/30/2023 Faculty: Elliott Morfin MD Resident(s): Sudheer Brooke MD Anesthesia Type: General Pre-operative diagnosis: cervical myelopathy Post-operative diagnosis: same Procedures: ACDF C5-7 Findings: see op note Complications: none Estimated blood loss: 20mL Specimens: * No specimens in log * Implants: Implant Name Type Inv. Item Serial No. Blood Bank Laboratory Technician Lot No. LRB No. Used Action dbm plus 1cc NA [employer] [id number] Implanted Colonial ACDF TPS Spacer 12 x 14 N/A [employer] [id number] Implanted Colonial ACDF TPS Spacer 12x14 N/A [employer] [id number] Implanted Resonate Plate N/A [employer] N/A 1 Implanted 16 mm Fixedscrew N/A [employer] N/A 1 Implanted SCREW BONE RESONATE 16MM SELF DRILL VARIBLE ANGLE 4.2MM #[id number] - SN/A Spine SCREW BONE RESONATE 16MM SELF DRILL VARIBLE ANGLE 4.2MM #[id number] N/A [employer] N/A 3 Implanted 14 mm reserve screw N/A [employer] N/A 2 Implanted Drains: none Patient was extubated and transferred to the PACU without complication in stable condition. Plan: Discharge F/u Dr. Morfin 4-6 weeks Sudheer Brooke Neuorsurgery Resident F STEWARD/STEWARDESS [facility] 2023-05-29 12:29:19 Surgery date: 05/30/2023 Location: [facility]. Address: [address] [place] [address]. You will check in on the 3rd floor. Arrival time: 0900 AM No solid food, no milk/dairy products, no candy or gum after midnight prior to your surgery. You may have clear liquids until: 0700 am Examples of clear liquids include water, apple juice, Gatorade, sprite or Jello (without fruit)- No red, blue, or purple colors with any of these liquids. Please bring your picture ID and insurance card to check in. Leave all jewelry and valuables at home. You are allowed to have up to two adult visitors (age 1818 years old and up) in the preop and recovery areas. If you must bring anyone under the age of 1818 years old, an additional adult must be present to wait with them in the lobby. If you wear contact lenses, please wear glasses on your day of surgery. For pediatric patients: a legal guardian must be present with patient as consents will need to be signed prior to surgery. If you have any questions, please call Day Surgery [facility] at [phone] from 5 am to 5 pm. F STEWARD/STEWARDESS Linnette Almeida RN [facility] 2021-11-04 11:15:00 [facility] ([facility] Brief Op Note REPORT#:[id number] REPORT STATUS: Signed DATE:11/04/21 TIME:1115 PATIENT: CRISTAL MUNIZ UNIT #: [id number] ROOM/BED: : 62 AGE: 60 SEX: F ATTEND: Tamia Restrepo MD ADM AUTHOR: Tamia Restrepo MD * ALL edits or amendments must be made on the electronic/computer document * Op/Inv Proc Note - Brief Pre-procedure diagnosis: rectocele( post wall stage2-3 defect), perineocele, ? vault prolapse Post-procedure diagnosis: same as pre procedure dx, vault prolapse, stage 3 post wall defect, enterocele, perineocele Procedures performed: Rt SSLF colpopexy, post wall, enterocele, perineocele repairs, cystoscopy Primary Surgeon: christopher Co Op(s): salome Anesthesia: general anesthesia Findings: pop q as dictated, ant apical defect as well, so, colpopexy performed Complications: none Estimated blood loss in ml's: 100 Specimens removed/altered: none Drain(s): Hutson Catheter Placed Urine output: 500 Approach: vaginal Wound class: clean-contaminated Disposition: plan to D/C home Counts: Sponge count: correct Instrument count: correct Needle count: correct Dictation number: [id number] at 1118 RPT #: [id number] END OF REPORT [facility] 2021-11-04 11:14:00 [id number] [facility] [address] [place] [address] PATIENT NAME: CRISTAL MUNIZ ADMIT DATE: 11/04/21 ACCOUNT NO: [id number] ROOM NO: AGE: 60 REPORT TYPE: OPERATIVE REPORT SEX: F ADMITTING PHYSICIAN: ATTENDING PHYSICIAN: Tamia Restrepo MD OPERATION DATE: 11/04/2021 PREOPERATIVE DIAGNOSES: Stage II rectocele, possible wall prolapse, perineocele. POSTOPERATIVE DIAGNOSES: Rectocele Stage III (posterior wall defect, perineocele, wall prolapse, and posterior enterocele). PROCEDURES PERFORMED: 1. Right sacrospinous ligament fixation colpopexy. 2. Posterior enterocele and posterior wall repairs. 3. Perineocele repair and cystoscopy. SURGEON: Tamia Restrepo MD GUITAR REPAIR TECHNICIAN: Salome, he is a medical office assistant instructor, unsure of the last name. ESTIMATED BLOOD LOSS: 100 mL. URINE OUTPUT: 500 mL. SPECIMENS: No specimens. COMPLICATIONS: No complications. DRAINS: Hutson catheter and vaginal packing. ANESTHESIA: General. CONDITION: Stable. FINDINGS: POP-Q; -1, -2, -5, 5.5, 10, 8, +1, +2, and A. INDICATIONS: The patient has symptomatic posterior wall defect with bowel symptoms and fecal urgency and inability to completely evacuate her bowels. She was completely evaluated and consented and medical clearance was obtained and she was brought to the OR. She understood all the benefits, risks, and alternatives for this procedure including pelvic floor, physical therapy, bowel consistency management and also understands that it is not a complete care for fecal urgency. She may need further evaluation after the prolapse is repaired and once the distal evacuation problems have resolved. PATIENT NAME: CRISTAL MUNIZ PROCEDURE IN DETAIL: She was consented and taken back to OR. Two grams of Ancef were given. SCDs were placed. A timeout was done after the patient was placed in dorsal lithotomy position under general anesthesia. Lower abdomen, vulva, vagina, and perineum prepped and draped in sterile fashion. Hutson was placed to drain the bladder. POP-Q was done. Then, procedure was started. SCDs were also started prior to the procedure. Once the posterior wall was evaluated with a rectovaginal exam as well with perineocele and the distal defect, the fascial defect from separation of the posterior wall, rectovaginal septum from the perineal body due to the absence of it was recognized. The posterior enterocele was also palpated and understood that there is more anterior apical defect as well. So a colpopexy was appropriate due to the wall weakness. After injecting dilute vasopressin at least 50 mL in the posterior wall along with the perineum, the procedure was started. An inverted triangular skin incision was made on the perineum. The skin was dissected. The perineum was dissected laterally in order for me to be able to reach to the remnants of the perineal body, the deep transverse peronei, and all the structures. Dissected superiorly, identified the lower one-third of the posterior vaginal wall. This was picked up and an upright triangular incision was made here, both bases of these triangles were touching so that the whole vaginal epithelium was able to be excised along with the perineal skin. Once this was denuded, the rectovaginal septum and the underlying contents were and dissected away from the overlying vaginal epithelium superiorly, laterally exposing the lateral aspects of the hymen and levators much more laterally. Superiorly, dissection was performed to take down the enterocele, preserving as much fascia as possible. Apically, there seemed to be intact rectovaginal septum. Once the enterocele was completely dissected free, then right pararectal space was entered and ischial spine was palpated and the sacrospinous ligament cleaned up well to be exposed for the sutures. Capio device was taken, 0 Prolene and the PDS sutures were taken, the medial most which was in the mid ligament, PDS suture was placed and the Prolene suture placed between that and the ischial spine about at least a centimeter away from the spine, medial and posterior to the spine. These sutures were both held on clamps. Then at the apex, the remnants of uterosacral ligament over the top of the apical part of the vagina were picked up and the PDS suture was passed through the vaginal epithelium and this connective tissue and then the Prolene was carefully placed without going through the vaginal epithelium into the remnant of the uterosacral. Then, the PDS suture passed on to the opposite side in the area of the uterosacral as well and these were held on clamps. Posterior enterocele was repaired on the top after opening the fascia with a 3-0 Monocryl pursestring suture. Then, the fascial defect on the top that was in the center was closed with the help of PDS. PATIENT NAME: CRISTAL MUNIZ Then, attention was directed to with perineocele repair. Three layers of sutures were placed starting at the level of the hymen, pulling the lateral structures together with Allis clamps and placing sutures from side to side. These were all interrupted four 2-0 Vicryl sutures in 1 layer and then the second layer another 4 were placed. This brought the perineal body together and for the perineum to be reconstructed. Then, the distal rectovaginal septum was sutured laterally from the left side in the midline to the right side and this restored the continuity of the connective tissue with the newly reconstructed perineal body. Once this was done, then 2-0 Vicryl was placed on the vaginal epithelium for closure starting at the apex of this incision. Then, after 3 sutures, I went ahead and tied down the sacrospinous sutures. The colpopexy was done and had a good lift. Continuous running closure was performed to the level of the hymen. No trimming was performed any further here. A 3-0 Vicryl was used to close the perineum in a subcutaneous and subcuticular fashion. A rectal exam was performed. There was a good-sized perineal body at this time and the distal defect was well corrected apically as well. No evidence of any sutures through the rectum at the sacrospinous ____. After gloves were changed, cystoscopy was performed removing the Hutson, strong jets of urine from both ureteral orifices were seen. No evidence of any trauma to the bladder. Bladder was drained. Vaginal packing was placed. Instrument, needle, and sponge counts x3 were correct at the end of case. The patient was recovered from anesthesia and taken to PACU in stable condition. She will follow up with me in 24 hours tomorrow for a voiding trial. She has been given instructions to remove her Hutson and vaginal packing at 10:00 a.m. tomorrow and then office appointment at 1 for voiding trials. Dictated By: Tamia Restrepo MD WT: OP:LJACKI/LALO/IZABELLA Conf#: [id number]/DID#: [id number] Authenticated and Edited by Tamia Restrepo MD On 11/11/21 8:29:40 AM at 0831 PATIENT NAME: CRISTAL MUNIZ [facility] 2021-11-03 11:07:00 [id number] [place] [address] PATIENT NAME: CRISTAL MUNIZ ADMIT DATE: 11/04/21 ACCOUNT NO: [id number] ROOM NO: AGE: 60 REPORT TYPE: eELECTROCARDIOGRAM SEX: F ADMITTING PHYSICIAN: ATTENDING PHYSICIAN: Tamia Restrepo MD Order: [id number] Test Reason : PREOP Test Date/Time Stamp: MonNov 03 2021 11:07:24 Blood Pressure : / mmHG Vent. Rate : 088 BPM Atrial Rate : 088 BPM P-R Int : 156 ms QRS Dur : 090 ms QT Int : 374 ms P-R-T Axes : 056 -08 020 degrees QTc Int : 452 ms Normal sinus rhythm Possible Left atrial enlargement Cannot rule out Anterior infarct , age undetermined Abnormal ECG When compared with ECG of 15-OCT-2019 09:42, No significant change was found Confirmed by Don Penny ([id number]) on 11/09/2021 8:08:10 AM Referred By: Tamia Restrepo Confirmed by:Don Penny at 0808 PATIENT NAME: CRISTAL MUNIZ [facility] 2019-10-19 19:32:00 [id number] [address] PATIENT NAME: CRISTAL MUNIZ ADMIT DATE: 10/17/19 ACCOUNT NO: [id number] ROOM NO: G.545 AGE: 58 REPORT TYPE: OPERATIVE REPORT SEX: F ADMITTING PHYSICIAN:Yani Jacobo MD ATTENDING PHYSICIAN:Yani Jacobo MD OPERATION DATE: 10/17/2019 PREOPERATIVE DIAGNOSES: Crohn's disease of the terminal ileum and ileocecal valve with stricture formation. POSTOPERATIVE DIAGNOSES: Crohn's disease of the terminal ileum and ileocecal valve with stricture formation and mesenteric abscess formation. PROCEDURES: Robotic single incision right colectomy with extensive adhesiolysis and resection of right colon and terminal ileum with primary anastomosis, injection of ICG for monitoring of gastrointestinal vascular supply. SURGEON: Yani Jacobo MD GUITAR REPAIR TECHNICIAN: Nisha Guajardo. ANESTHESIA: General. INTRAVENOUS FLUIDS: 1300 mL. URINE OUTPUT: 300 mL. ESTIMATED BLOOD LOSS: 100 mL. SPECIMEN: Terminal ileum with mesentery and mesenteric colon. FINDINGS: Extensive phlegmonous adhesions secondary to Crohn's disease of the terminal ileum of the last 10 cm involving the ileocolic vascular pedicle with severe adhesion formation to the proximal transverse colon, epiploica and mesentery with abscess formation originating from the side of the terminal ileal mesentery, terminal ileal severe stenosis with some stricture at the level of the ileocecal valve. Normal-appearing right colon. DISPOSITION: Tolerated the procedure well, extubated in the operating room and transferred to postanesthesia care unit in stable hemodynamic condition. COUNTS: Needle, sponge and instrument count correct x2. INDICATIONS FOR THE PROCEDURE: The patient is a 58-year-old woman who presents with a history of Crohn's disease and formation of the terminal ileal stricture at 6 to 8 cm proximal to the ileocecal valve involving the valve as per fur dyer service. The patient was having chronic right lower quadrant tenderness secondary to the risk of impending obstruction and perforation of the PATIENT NAME: CRISTAL MUNIZ intestine related to Crohn's disease despite medical management. She was offered resection with formation of primary anastomosis. The procedure was also necessery in order to avoid progression of the disease and worsening obstruction with a need for formation of end ileostomy. She understands her condition, the operative procedure plan; the risk and benefit ratio, and the potential risks for complications including, but not limited to pain, bleeding, infection, damage to surrounding organs and structures, anastomotic leak, anastomotic stricture, incisional hernia, need for further procedures and surgeries, and perioperative cardiopulmonary risks. Informed consent was obtained. All questions were answered to her satisfaction. PROCEDURE IN DETAIL: The patient was brought to the operating room and placed on the table in supine position. General endotracheal anesthesia was induced successfully. Subsequently, the abdomen was prepped and draped in the usual standard sterile fashion. SCDs were placed on bilateral lower extremities. A Hutson was inserted to gravity in sterile technique and IV antibiotics were given preoperatively. We made an incision measuring about 10 cm via the umbilicus and carried the dissection via the adipose tissue via the linea alba and into the abdomen and a single port GelPOINT applied and through this, an 8-mm AirSeal port and a 12 and two 8-mm robotic assisting ports and two 10 mm applied assisting ports. We performed diagnostic laparoscopy and identified dense adhesions of the omentum and also involving the ileocecal vascular mesentery pedicle and transverse colon mesentery and subsequently we docked the da Abbe Xi system and targeted to the right lower quadrant without difficulty and there was no other pathology. We used bowel graspers and energy sealing device and we ran all small intestine from the ligament of Treitz to the ileocecal valve and identified no other stricture formation or acute Crohn's disease or other pathology into the abdomen. The colon also appeared to be normal. At the level of the terminal ileum, approximately 10 cm proximal to the ileocecal valve, it appeared to have significant mesenteric inflammation with creeping fat and phlegmonous adhesions of the mesentery at the level of the mid ileocolic vascular pedicle to the proximal and transverse colon mesentery and colonic epiploica. We used energy sealing device and dissected the transverse colon adhesions from the ileocecal vascular and terminal ileal mesentery and encountered a small abscess formation approximately 5 mL, which was suctioned and draining was contained. It appeared that there was a stenosis or stricture with inflammation of the terminal ileum with ileocolic vascular pedicle of the right colon. There was no evidence of intestinal perforation at the site. We subsequently mobilized the cecum and right colon as well as the hepatic flexure by dividing the hepatocolic ligament in a hemostatic fashion. We mobilized the terminal ileum off the retroperitoneal attachments and care was taken to identify and protect the right ureter and the right gonadal vessels. We identified the origin of the ileocolic vascular pedicle and made a window proximally and distally and clearly identified and protected the second and third portions of the duodenum. We hemostatically divided with energy sealing device the terminal ileum, the ileocolic vascular pedicle with energy sealing device in a hemostatic fashion and carried the division of the terminal ileum immediately proximal to the side of the phlegmon and a normal- appearing terminal ileal mesentery and elected the point of proximal division 10 cm proximal to the ileocecal valve and normal-appearing terminal ileum. We also divided the mesentery of the right colon at the level of the mid ascending colon and elective point of distal division. We used 3 mL of ICG and flushed with 10 mL of normal saline and under robotic Firefly camera, identified excellent vascular supply in the proximal and PATIENT NAME: CRISTAL MUNIZ distal division sites, which were marked and pictures were taken and placed in the chart subsequently, the pneumoperitoneum, which was a 10 mmHg and through the entire procedure was evacuated and subsequently we undocked the da Abbe Xi system and extracted the specimen via the wound protector. We used a 75 VADIM blue linear stapler, Ethicon cutter, staple line and divided the colon at the distal ascending colon level and the terminal ileum at the premarked site and submitted the specimen to pathology for permanent sections. We then performed an antimesenteric idat-ll-spbc functional end-to-end anastomosis with another load of the same stapler and used 2 loads for approximation of the anastomotic staple line, which appeared to be healthy, viable and intact under no tension and no torsion, which was inspected from inside. There was no evidence of bleeding or fecal spillage. We entered the viability of the anastomosis and instilled one vial of Evicel over the staple lines, the mesenteric defect and was introduced back into the abdomen and covered with the rest of small intestine and the terminal ileum. We placed a single sheet of Seprafilm underneath the midline fascial edges and removed the wound protector and subsequently we used #1 PDS in a running fashion and approximated the midline fascial edges, irrigated the wound with saline, approximated the skin edges with subcutaneous 2-0 PDS in an interrupted fashion and the procedure was completed. Sterile dressing was applied. Dictated By: Yani Jacobo MD WT: OP:JADON/HELEN/IZABELLA Conf#: [id number]/DID#: [id number] Authenticated and Edited by aYni Jacobo MD On 10/24/19 8:14:44 AM at 0816 PATIENT NAME: CRISTAL MUNIZ [facility] 2019-10-19 10:02:00 [facility] Hospitalist Progress Note REPORT#:[id number] REPORT STATUS: Signed DATE:10/19/19 TIME: 1002 PATIENT: CRISTAL MUNIZ UNIT #: [id number] ROOM/BED: [place] [address] : 62 AGE: 58 SEX: F ATTEND: Yani Jacobo MD ADM AUTHOR: Ryan Weston SIGNAL TIMER * ALL edits or amendments must be made on the electronic/computer document * Subjective Chief Complaint: S/P Right Robotic Colectomy. She is doing better. Tolerating diet. Pain is controlled with meds. No CP, fever, chills. No N/V/D. BP and HR stable. Review of Systems Constitutional: Reports: fatigue, generalized weakness. Respiratory: Denies: JARVIS (dyspnea on exertion), pleurisy, pneumonia, productive cough (sputum ). Cardiovascular: Denies: chest pain, parox nocturnal dyspnea. GI: Reports: abdominal pain. Denies: dysphagia, melena. : Denies: dysuria, frequency, nocturia, pelvic pain, urgency. Musculoskeletal: Denies: extremity pain, joint pain, joint swelling, lumbar pain. Heme: Denies: bleeding, bruising. Neuro: Denies: dizziness, gait problem, lightheaded, seizure. Objective General VS/I O: Vital Signs: Date Time Temp Pulse Resp B/P B/P Pulse O2 O2 Flow FiO2 Mean Ox Delivery Rate 10/18 0727 36.9 93 14 139/75 96.2 96 10/18 0323 37.2 87 14 122/72 88.4 93 10/17 2324 36.7 84 14 115/71 85.4 92 10/17 1929 37.0 82 15 120/71 87.4 93 10/17 1708 37.4 84 12 109/68 81.4 96 10/17 1107 36.8 77 12 97/61 73 95 Room air 24 hour I O ending at 0700: 10/18 0700 10/17 1900 Intake Total 400 Output Total Balance 400 Intake, Oral 400 Number 0 Bowel Movements Number Voids 3 Patient Weight Weight (lb): 252 Weight (oz): 3.34 Weight (kg): 114.400 Medications: Active Meds + DC'd Last 24 Hrs Budesonide 0.5 MG RTQ12H PRN INH Celecoxib 200 MG Q12H PO Enoxaparin Sodium 40 MG Q12HR SUBQ Famotidine 20 MG DAILY 1700 PO (CAN) Famotidine 20 MG DAILY 1700 PO Albuterol Sulfate 2.5 MG RTQ12H PRN NEB Lidocaine 1 PATCH DAILY TOPICAL Atenolol 25 MG DAILY PO Duloxetine HCl 60 MG DAILY PO Enoxaparin Sodium 40 MG DAILY SUBQ (DC) Hydrocodone Bitart/Acetaminophen 1 TAB Q4H PRN PRN PO Hydromorphone HCl 0.5 MG Q6H PRN PRN IV Clonazepam 0.5 MG BEDTIME PO Gabapentin 300 MG BEDTIME PO Ketorolac Tromethamine 15 MG Q6HR IV (DC) Fluticasone Propionate 1 SPRAY DAILY NASAL (CKD) Montelukast Sodium 10 MG DAILY PO Valsartan 320 MG DAILY PO Ondansetron HCl 4 MG Q6H PRN PRN IV Sodium Chloride 250 ML ASDIR PRN IV Alvimopan 12 MG BID PO Physical Exam General appearance: alert, awake, oriented Head/Eyes: atraumatic, normocephalic, PERRLA Neck: full range of motion, supple/no meningismus, no bruit/NL carotids Cardiovascular: normal capillary refill, normal heart sounds, regular rate rhythm Respiratory: aerating well, clear to auscultation, symmetric expansion Abdomen: normal bowel sounds, soft Genitourinary: no bladder distention, no flank pain Extremities: no clubbing, no cyanosis Musculoskeletal: no muscle spasm Neuro/SCRAP SORTER: alert, oriented X 3, CNII-XII intact Skin: dry, intact Results Findings/Data: Laboratory Tests 10/18 329 Chemistry Sodium (134 - 147 mEq/L) 142 Potassium (3.4 - 5.0 mEq/L) 3.1 L Chloride (100 - 108 mEq/L) 106 Carbon Dioxide (21 - 33 mEq/L) 31 Anion Gap (0 - 20) 8 BUN (7 - 18 mg/dL) 8 Creatinine (0.6 - 1.3 mg/dL) 0.5 L Glomerular Filtr Rate (90 - 95) 127.6 H Glucose (70 - 110 mg/dL) 103 Calcium (8.0 - 10.5 mg/dL) 8.7 Laboratory Tests 10/18 329 Hematology WBC (4.5 - 11.0 x10 3/uL) 9.66 RBC (3.54 - 5.02 x10 6/uL) 3.53 L Hgb (11.0 - 15.0 g/dL) 10.2 L Hct (33.0 - 45.0 %) 33.7 MCV (81.0 - 99.0 fL) 95.5 MCH (27.0 - 33.0 pg) 28.9 MCHC (33.0 - 37.0 g/dL) 30.3 L RDW (11.5 - 14.5 %) 14.8 H Plt Count (150 - 400 x10 3/uL) 275 MPV (7.0 - 9.0 fL) 9.5 H Neut % (Auto) (56.0 - 77.0 %) 61.9 Lymph % (Auto) (14.0 - 32.0 %) 26.4 [place] % (Auto) (4.8 - 9.0 %) 9.0 Eos % (Auto) (0.3 - 3.7 %) 2.1 Baso % (Auto) (0.0 - 2.0 %) 0.3 Neut # (Auto) (2.0 - 7.6 x10 3/uL) 5.98 Lymph # (Auto) (1.0 - 3.8 x10 3/uL) 2.55 [place] # (Auto) (0.1 - 0.8 x10 3/uL) 0.87 H Eos # (Auto) (0.0 - 0.2 x10 3/uL) 0.20 Baso # (Auto) (0.0 - 0.2 x10 3/uL) 0.03 Abs Immat Gran (auto) (0.00 - 0.03 x10 3/uL) 0.03 Add Manual Diff NO Immature Gran % (0.0 - 2.0 %) 0.3 Nucleated RBC % (0 - 0 %) 0.0 Nucleated RBCs # (Man) (0.0 - 0.1 x10 3/uL) 0.00 Results: labs reviewed, vital signs stable, current med profile rev'd Treatment Prophylaxis Treatment Prophylaxis Oxygen: room air Diagnosis, Assessment Plan Hospital course to date: ASSESSMENT: - Crohn's disease, abdominal pain, status post right robotic colectomy. - Severe abdominal pain, status post surgery. - Hypokalemia- K low. - History of gastroesophageal reflux disease. - History of hypertension. - History of asthma. - History of morbid obesity. - History of fibromyalgia. - Possible sleep apnea. PLAN: Floor. Post op care per surgery. Pain meds. Antiemetics. Diet as per surgery. Continue home meds. IV fluid. Follow labs and replace as needed. SCD for DVT prophylaxis. PT, OT. Monitor. Code status: full code Plan discussed with: patient, admitting physician, consultants, nurse at 1003 RPT #:[id number] END OF REPORT [facility] 2019-10-19 10:02:00 [facility] ([facility] Hospitalist Progress Note REPORT#:[id number] REPORT STATUS: Signed DATE:10/19/19 TIME: 1002 PATIENT: CRISTAL MUNIZ UNIT #: [id number] ROOM/BED: [place] [address] : [birth year] AGE: 58 SEX: F ATTEND: Yani Jacobo MD ADM AUTHOR: Ryan Weston SIGNAL TIMER * ALL edits or amendments must be made on the electronic/computer document * Ryan Weston 10/19/19 1002: Subjective Chief Complaint: S/P Right Robotic Colectomy. She is doing better. Tolerating diet. Pain is controlled with meds. No CP, fever, chills. No N/V/D. BP and HR stable. Review of Systems Constitutional: Reports: fatigue, generalized weakness. Respiratory: Denies: JARVIS (dyspnea on exertion), pleurisy, pneumonia, productive cough (sputum ). Cardiovascular: Denies: chest pain, parox nocturnal dyspnea. GI: Reports: abdominal pain. Denies: dysphagia, melena. : Denies: dysuria, frequency, nocturia, pelvic pain, urgency. Musculoskeletal: Denies: extremity pain, joint pain, joint swelling, lumbar pain. Heme: Denies: bleeding, bruising. Neuro: Denies: dizziness, gait problem, lightheaded, seizure. Objective General VS/I O: Vital Signs: Date Time Temp Pulse Resp B/P B/P Pulse O2 O2 Flow FiO2 Mean Ox Delivery Rate 10/18 0727 36.9 93 14 139/75 96.2 96 10/18 0323 37.2 87 14 122/72 88.4 93 10/17 2324 36.7 84 14 115/71 85.4 92 10/17 1929 37.0 82 15 120/71 87.4 93 10/17 1708 37.4 84 12 109/68 81.4 96 10/17 1107 36.8 77 12 97/61 73 95 Room air 24 hour I O ending at 0700: 10/18 0700 10/17 1900 Intake Total 400 Output Total Balance 400 Intake, Oral 400 Number 0 Bowel Movements Number Voids 3 Patient Weight Weight (lb): 252 Weight (oz): 3.34 Weight (kg): 114.400 Medications: Active Meds + DC'd Last 24 Hrs Budesonide 0.5 MG RTQ12H PRN INH Celecoxib 200 MG Q12H PO Enoxaparin Sodium 40 MG Q12HR SUBQ Famotidine 20 MG DAILY 1700 PO (CAN) Famotidine 20 MG DAILY 1700 PO Albuterol Sulfate 2.5 MG RTQ12H PRN NEB Lidocaine 1 PATCH DAILY TOPICAL Atenolol 25 MG DAILY PO Duloxetine HCl 60 MG DAILY PO Enoxaparin Sodium 40 MG DAILY SUBQ (DC) Hydrocodone Bitart/Acetaminophen 1 TAB Q4H PRN PRN PO Hydromorphone HCl 0.5 MG Q6H PRN PRN IV Clonazepam 0.5 MG BEDTIME PO Gabapentin 300 MG BEDTIME PO Ketorolac Tromethamine 15 MG Q6HR IV (DC) Fluticasone Propionate 1 SPRAY DAILY NASAL (CKD) Montelukast Sodium 10 MG DAILY PO Valsartan 320 MG DAILY PO Ondansetron HCl 4 MG Q6H PRN PRN IV Sodium Chloride 250 ML ASDIR PRN IV Alvimopan 12 MG BID PO Physical Exam General appearance: alert, awake, oriented Head/Eyes: atraumatic, normocephalic, PERRLA Neck: full range of motion, supple/no meningismus, no bruit/NL carotids Cardiovascular: normal capillary refill, normal heart sounds, regular rate rhythm Respiratory: aerating well, clear to auscultation, symmetric expansion Abdomen: normal bowel sounds, soft Genitourinary: no bladder distention, no flank pain Extremities: no clubbing, no cyanosis Musculoskeletal: no muscle spasm Neuro/SCRAP SORTER: alert, oriented X 3, CNII-XII intact Skin: dry, intact Results Findings/Data: Laboratory Tests 10/18 329 Chemistry Sodium (134 - 147 mEq/L) 142 Potassium (3.4 - 5.0 mEq/L) 3.1 L Chloride (100 - 108 mEq/L) 106 Carbon Dioxide (21 - 33 mEq/L) 31 Anion Gap (0 - 20) 8 BUN (7 - 18 mg/dL) 8 Creatinine (0.6 - 1.3 mg/dL) 0.5 L Glomerular Filtr Rate (90 - 95) 127.6 H Glucose (70 - 110 mg/dL) 103 Calcium (8.0 - 10.5 mg/dL) 8.7 Laboratory Tests 10/18 329 Hematology WBC (4.5 - 11.0 x10 3/uL) 9.66 RBC (3.54 - 5.02 x10 6/uL) 3.53 L Hgb (11.0 - 15.0 g/dL) 10.2 L Hct (33.0 - 45.0 %) 33.7 MCV (81.0 - 99.0 fL) 95.5 MCH (27.0 - 33.0 pg) 28.9 MCHC (33.0 - 37.0 g/dL) 30.3 L RDW (11.5 - 14.5 %) 14.8 H Plt Count (150 - 400 x10 3/uL) 275 MPV (7.0 - 9.0 fL) 9.5 H Neut % (Auto) (56.0 - 77.0 %) 61.9 Lymph % (Auto) (14.0 - 32.0 %) 26.4 [place] % (Auto) (4.8 - 9.0 %) 9.0 Eos % (Auto) (0.3 - 3.7 %) 2.1 Baso % (Auto) (0.0 - 2.0 %) 0.3 Neut # (Auto) (2.0 - 7.6 x10 3/uL) 5.98 Lymph # (Auto) (1.0 - 3.8 x10 3/uL) 2.55 [place] # (Auto) (0.1 - 0.8 x10 3/uL) 0.87 H Eos # (Auto) (0.0 - 0.2 x10 3/uL) 0.20 Baso # (Auto) (0.0 - 0.2 x10 3/uL) 0.03 Abs Immat Gran (auto) (0.00 - 0.03 x10 3/uL) 0.03 Add Manual Diff NO Immature Gran % (0.0 - 2.0 %) 0.3 Nucleated RBC % (0 - 0 %) 0.0 Nucleated RBCs # (Man) (0.0 - 0.1 x10 3/uL) 0.00 Results: labs reviewed, vital signs stable, current med profile rev'd Treatment Prophylaxis Treatment Prophylaxis Oxygen: room air Diagnosis, Assessment Plan Hospital course to date: ASSESSMENT: - Crohn's disease, abdominal pain, status post right robotic colectomy. - Severe abdominal pain, status post surgery. - Hypokalemia- K low. - History of gastroesophageal reflux disease. - History of hypertension. - History of asthma. - History of morbid obesity. - History of fibromyalgia. - Possible sleep apnea. PLAN: Floor. Post op care per surgery. Pain meds. Antiemetics. Diet as per surgery. Continue home meds. IV fluid. Follow labs and replace as needed. SCD for DVT prophylaxis. PT, OT. Monitor. Code status: full code Plan discussed with: patient, admitting physician, consultants, nurse Murtaza Hernandez 10/20/19 2351: Attestations Physician Attestation Reviewed findings plan: Reviewed the findings and plan as documented by SIGNAL TIMER as above reviewed pt seen and examined mckayla RN at 1003 RPT #:[id number] END OF REPORT [facility] 2019-10-19 10:02:00 [facility] ([facility]) Hospitalist Progress Note REPORT#:[id number] REPORT STATUS: Signed DATE:10/19/19 TIME: 1002 PATIENT: CRISTAL MUNIZ UNIT #: [id number] [place]OM[place]ED: [facility] [place] : 64 AGE: 58 SEX: F ATTEND: Yani Jacobo MD ADM AUTHOR: Ryan Weston SIGNAL TIMER * ALL edits or amendments must be made on the electronic/computer document * Ryan Weston 10/19/19 1002: Subjective Chief Complaint: S/P Right Robotic Colectomy. She is doing better. Tolerating diet. Pain is controlled with meds. No CP, fever, chills. No N/V/D. BP and HR stable. Review of Systems Constitutional: Reports: fatigue, generalized weakness. Respiratory: Denies: JARVIS (dyspnea on exertion), pleurisy, pneumonia, productive cough (sputum ). Cardiovascular: Denies: chest pain, parox nocturnal dyspnea. GI: Reports: abdominal pain. Denies: dysphagia, melena. : Denies: dysuria, frequency, nocturia, pelvic pain, urgency. Musculoskeletal: Denies: extremity pain, joint pain, joint swelling, lumbar pain. Heme: Denies: bleeding, bruising. Neuro: Denies: dizziness, gait problem, lightheaded, seizure. Objective General VS/I O: Vital Signs: Date Time Temp Pulse Resp B/P B/P Pulse O2 O2 Flow FiO2 Mean Ox Delivery Rate 10/18 0727 36.9 93 14 139/75 96.2 96 10/18 0323 37.2 87 14 122/72 88.4 93 10/17 2324 36.7 84 14 115/71 85.4 92 10/17 1929 37.0 82 15 120/71 87.4 93 10/17 1708 37.4 84 12 109/68 81.4 96 10/17 1107 36.8 77 12 97/61 73 95 Room air 24 hour I O ending at 0700: 10/18 0700 10/17 1900 Intake Total 400 Output Total Balance 400 Intake, Oral 400 Number 0 Bowel Movements Number Voids 3 Patient Weight Weight (lb): 252 Weight (oz): 3.34 Weight (kg): 114.400 Medications: Active Meds + DC'd Last 24 Hrs Budesonide 0.5 MG RTQ12H PRN INH Celecoxib 200 MG Q12H PO Enoxaparin Sodium 40 MG Q12HR SUBQ Famotidine 20 MG DAILY 1700 PO (CAN) Famotidine 20 MG DAILY 1700 PO Albuterol Sulfate 2.5 MG RTQ12H PRN NEB Lidocaine 1 PATCH DAILY TOPICAL Atenolol 25 MG DAILY PO Duloxetine HCl 60 MG DAILY PO Enoxaparin Sodium 40 MG DAILY SUBQ (DC) Hydrocodone Bitart/Acetaminophen 1 TAB Q4H PRN PRN PO Hydromorphone HCl 0.5 MG Q6H PRN PRN IV Clonazepam 0.5 MG BEDTIME PO Gabapentin 300 MG BEDTIME PO Ketorolac Tromethamine 15 MG Q6HR IV (DC) Fluticasone Propionate 1 SPRAY DAILY NASAL (CKD) Montelukast Sodium 10 MG DAILY PO Valsartan 320 MG DAILY PO Ondansetron HCl 4 MG Q6H PRN PRN IV Sodium Chloride 250 ML ASDIR PRN IV Alvimopan 12 MG BID PO Physical Exam General appearance: alert, awake, oriented Head/Eyes: atraumatic, normocephalic, PERRLA Neck: full range of motion, supple/no meningismus, no bruit/NL carotids Cardiovascular: normal capillary refill, normal heart sounds, regular rate rhythm Respiratory: aerating well, clear to auscultation, symmetric expansion Abdomen: normal bowel sounds, soft Genitourinary: no bladder distention, no flank pain Extremities: no clubbing, no cyanosis Musculoskeletal: no muscle spasm Neuro/SCRAP SORTER: alert, oriented X 3, CNII-XII intact Skin: dry, intact Results Findings/Data: Laboratory Tests 10/18 033 Chemistry Sodium (134 - 147 mEq/L) 142 Potassium (3.4 - 5.0 mEq/L) 3.1 L Chloride (100 - 108 mEq/L) 106 Carbon Dioxide (21 - 33 mEq/L) 31 Anion Gap (0 - 20) 8 BUN (7 - 18 mg/dL) 8 Creatinine (0.6 - 1.3 mg/dL) 0.5 L Glomerular Filtr Rate (90 - 95) 127.6 H Glucose (70 - 110 mg/dL) 103 Calcium (8.0 - 10.5 mg/dL) 8.7 Laboratory Tests 10/18 033 Hematology WBC (4.5 - 11.0 x10 3/uL) 9.66 RBC (3.54 - 5.02 x10 6/uL) 3.53 L Hgb (11.0 - 15.0 g/dL) 10.2 L Hct (33.0 - 45.0 %) 33.7 MCV (81.0 - 99.0 fL) 95.5 MCH (27.0 - 33.0 pg) 28.9 MCHC (33.0 - 37.0 g/dL) 30.3 L RDW (11.5 - 14.5 %) 14.8 H Plt Count (150 - 400 x10 3/uL) 275 MPV (7.0 - 9.0 fL) 9.5 H Neut % (Auto) (56.0 - 77.0 %) 61.9 Lymph % (Auto) (14.0 - 32.0 %) 26.4 [place] % (Auto) (4.8 - 9.0 %) 9.0 Eos % (Auto) (0.3 - 3.7 %) 2.1 Baso % (Auto) (0.0 - 2.0 %) 0.3 Neut # (Auto) (2.0 - 7.6 x10 3/uL) 5.98 Lymph # (Auto) (1.0 - 3.8 x10 3/uL) 2.55 [place] # (Auto) (0.1 - 0.8 x10 3/uL) 0.87 H Eos # (Auto) (0.0 - 0.2 x10 3/uL) 0.20 Baso # (Auto) (0.0 - 0.2 x10 3/uL) 0.03 Abs Immat Gran (auto) (0.00 - 0.03 x10 3/uL) 0.03 Add Manual Diff NO Immature Gran % (0.0 - 2.0 %) 0.3 Nucleated RBC % (0 - 0 %) 0.0 Nucleated RBCs # (Man) (0.0 - 0.1 x10 3/uL) 0.00 Results: labs reviewed, vital signs stable, current med profile rev'd Treatment Prophylaxis Treatment Prophylaxis Oxygen: room air Diagnosis, Assessment Plan Hospital course to date: ASSESSMENT: - Crohn's disease, abdominal pain, status post right robotic colectomy. - Severe abdominal pain, status post surgery. - Hypokalemia- K low. - History of gastroesophageal reflux disease. - History of hypertension. - History of asthma. - History of morbid obesity. - History of fibromyalgia. - Possible sleep apnea. PLAN: Floor. Post op care per surgery. Pain meds. Antiemetics. Diet as per surgery. Continue home meds. IV fluid. Follow labs and replace as needed. SCD for DVT prophylaxis. PT, OT. Monitor. Code status: full code Plan discussed with: patient, admitting physician, consultants, nurse Murtaza Hernandez 10/20/19 2351: Attestations Physician Attestation Reviewed findings plan: Reviewed the findings and plan as documented by SIGNAL TIMER as above reviewed pt seen and examined mckayla RN at 1003 at 9998 RPT #:[id number] END OF REPORT [facility] 2019-10-19 08:31:00 [facility] ([facility]) Discharge Summary REPORT#:[id number] REPORT STATUS: Signed DATE:10/19/19 TIME: 830 PATIENT: CRISTAL MUNIZ UNIT #: [id number] ROOM/BED: [place] [address] : 64 AGE: 58 SEX: F ATTEND: Yani Jacobo MD ADM AUTHOR: Nisha Guajardo * ALL edits or amendments must be made on the electronic/computer document * PCP PCP Discharge to: home General Information Discharge date: 10/19/19 Hospital course: The patient is a 58 yo female who was admitted for postop care after surgery as noted on the operative report. The patient was extubated postoperatively, transferred to PACU, and to the floor. By the day of discharge she was tolerating her diet. Passed flatus and had a BM. Pain controlled. Pathology results at next follow up visit. Med Rec Med Rec Discharge meds: Continue taking these medications: inFLIXimab (REMICADE) 100 MG VIAL 0 MILLIGRAM INTRAVENOUS Q42D AMPHETAMINE/DEXTROAMPHETAMINE SALTS (ADDERALL) 20 MG TAB 20 MILLIGRAM ORAL DAILY. DULoxetine DR (CYMBALTA) 60 MG CAP.DR 60 MILLIGRAM ORAL DAILY. VALSARTAN/HCTZ (DIOVAN HCT 320/25 MG) 320 MG-25 MG TAB 1 TABLET ORAL DAILY. ATENOLOL (TENORMIN) 25 MG TAB 25 MILLIGRAM ORAL DAILY. FLUTICASONE PROPIONATE (FLONASE 50 MCG/ACT NASAL) 50 MCG/ACTUATION SPRAY 1 SPRAY NASAL DAILY. MONTELUKAST (SINGULAIR) 10 MG TAB 10 MILLIGRAM ORAL DAILY. CELECOXIB (CeleBREX) 200 MG CAP 200 MILLIGRAM ORAL DAILY. ATORVASTATIN (LIPITOR) 10 MG TAB 10 MILLIGRAM ORAL DAILY. clonazePAM (KlonoPIN) 0.5 MG TAB 0.5 MILLIGRAM ORAL BEDTIME. ESTRADIOL (ESTRACE) 1 MG TAB 1 MILLIGRAM ORAL DAILY. METHOCARBAMOL (ROBAXIN) 750 MG TAB 750 MILLIGRAM ORAL AT BEDTIME NEEDED. as needed for SPASMS CIMETIDINE (TAGAMET) 200 MG TAB 150 MILLIGRAM ORAL TWICE DAILY. BUDESONIDE/FORMOTEROL (SYMBICORT 160/4.5 MCG/ACT 10.2GM) 160 MCG-4.5 MCG/ ACTUATION INHALER 2 PUFF INHALATION RT - TWICE DAILY. as needed for SHORTNESS OF BREATH Discharge Instructions Diet: regular at 1344 RPT #:[id number] END OF REPORT [facility] 2019-10-19 08:31:00 [facility] ([facility]) Discharge Summary REPORT#:[id number] REPORT STATUS: Signed DATE:10/19/19 TIME: 830 PATIENT: CRISTAL MUNIZ UNIT #: [id number] ROOM/BED: [place] [address] : [birth year] AGE: 58 SEX: F ATTEND: Yani Jacobo MD ADM AUTHOR: Nisha Guajardo * ALL edits or amendments must be made on the electronic/computer document * PCP PCP Discharge to: home General Information Discharge date: 10/19/19 Hospital course: The patient is a 58 yo female who was admitted for postop care after surgery as noted on the operative report. The patient was extubated postoperatively, transferred to PACU, and to the floor. By the day of discharge she was tolerating her diet. Passed flatus and had a BM. Pain controlled. Pathology results at next follow up visit. Med Rec Med Rec Discharge meds: Continue taking these medications: inFLIXimab (REMICADE) 100 MG VIAL 0 MILLIGRAM INTRAVENOUS Q42D AMPHETAMINE/DEXTROAMPHETAMINE SALTS (ADDERALL) 20 MG TAB 20 MILLIGRAM ORAL DAILY. DULoxetine DR (CYMBALTA) 60 MG CAP.DR 60 MILLIGRAM ORAL DAILY. VALSARTAN/HCTZ (DIOVAN HCT 320/25 MG) 320 MG-25 MG TAB 1 TABLET ORAL DAILY. ATENOLOL (TENORMIN) 25 MG TAB 25 MILLIGRAM ORAL DAILY. FLUTICASONE PROPIONATE (FLONASE 50 MCG/ACT NASAL) 50 MCG/ACTUATION SPRAY 1 SPRAY NASAL DAILY. MONTELUKAST (SINGULAIR) 10 MG TAB 10 MILLIGRAM ORAL DAILY. CELECOXIB (CeleBREX) 200 MG CAP 200 MILLIGRAM ORAL DAILY. ATORVASTATIN (LIPITOR) 10 MG TAB 10 MILLIGRAM ORAL DAILY. clonazePAM (KlonoPIN) 0.5 MG TAB 0.5 MILLIGRAM ORAL BEDTIME. ESTRADIOL (ESTRACE) 1 MG TAB 1 MILLIGRAM ORAL DAILY. METHOCARBAMOL (ROBAXIN) 750 MG TAB 750 MILLIGRAM ORAL AT BEDTIME NEEDED. as needed for SPASMS CIMETIDINE (TAGAMET) 200 MG TAB 150 MILLIGRAM ORAL TWICE DAILY. BUDESONIDE/FORMOTEROL (SYMBICORT 160/4.5 MCG/ACT 10.2GM) 160 MCG-4.5 MCG/ ACTUATION INHALER 2 PUFF INHALATION RT - TWICE DAILY. as needed for SHORTNESS OF BREATH Discharge Instructions Diet: regular at 1344 at 0803 RPT #:[id number] END OF REPORT [facility] 2019-10-19 07:35:00 [facility] ([facility]) Colorectal Surgery Prog Note REPORT#:[id number] REPORT STATUS: Signed DATE:10/19/19 TIME: 734 PATIENT: CRISTAL MUNIZ UNIT #: [id number] ROOM/BED: [place] [address] : 64 AGE: 58 SEX: F ATTEND: Yani Jacobo MD ADM AUTHOR: Nisha Guajardo * ALL edits or amendments must be made on the electronic/computer document * Subjective HPI: No acute events overnight Tolerating her diet Passed flatus and had a BM Ambulating Pain controlled Denies n/v Objective General VS/I O: Last Documented: Result Date Time Pulse Ox 96 10/18 726 B/P 139/75 10/18 726 B/P Mean 96.2 10/18 726 Temp 36.9 10/18 726 Pulse 93 10/18 726 Resp 10/18 O2 Delivery Room air 10/17 1107 O2 Flow Rate 2.729112 10/17 0800 24 hour I O ending at 0700: 10/18 0700 10/17 1900 Intake Total 400 Output Total Balance 400 Intake, Oral 400 Number 0 Bowel Movements Number Voids 3 Patient Weight Weight (lb): 252 Weight (oz): 3.34 Weight (kg): 114.400 Physical Exam General appearance: alert, awake, oriented Wound/incision: Site condition: incision intact, wound clean dry Abdomen: soft, no distention, no guarding, no hernia Diagnosis, Assessment Plan Hospital course to date: ok to wy home with follow up in our clinic in two weeks for postop evaluation and staple removal at 0830 RPT #:[id number] END OF REPORT [facility] 2019-10-19 07:35:00 [facility] ([facility]) Colorectal Surgery Prog Note REPORT#:[id number] REPORT STATUS: Signed DATE:10/19/19 TIME: 734 PATIENT: CRISTAL MUNIZ UNIT #: [id number] ROOM/BED: [place] [address] : 64 AGE: 58 SEX: F ATTEND: Yani Jacobo MD ADM AUTHOR: Nisha Guajardo * ALL edits or amendments must be made on the electronic/computer document * Subjective HPI: No acute events overnight Tolerating her diet Passed flatus and had a BM Ambulating Pain controlled Denies n/v Objective General VS/I O: Last Documented: Result Date Time Pulse Ox 96 10/18 726 B/P 139/75 10/18 726 B/P Mean 96.2 10/18 726 Temp 36.9 10/18 726 Pulse 93 10/18 726 Resp 14 07/25 0727 O2 Delivery Room air 10/17 1107 O2 Flow Rate 2.568598 10/17 0800 24 hour I O ending at 0700: 10/18 0700 10/17 1900 Intake Total 400 Output Total Balance 400 Intake, Oral 400 Number 0 Bowel Movements Number Voids 3 Patient Weight Weight (lb): 252 Weight (oz): 3.34 Weight (kg): 114.400 Physical Exam General appearance: alert, awake, oriented Wound/incision: Site condition: incision intact, wound clean dry Abdomen: soft, no distention, no guarding, no hernia Diagnosis, Assessment Plan Hospital course to date: ok to wy home with follow up in our clinic in two weeks for postop evaluation and staple removal at 0830 at 0803 RPT #:[id number] END OF REPORT [facility] 2019-10-18 15:05:00 [facility]) Colorectal Surgery Prog Note REPORT#:[id number] REPORT STATUS: Signed DATE:10/18/19 TIME: 1505 PATIENT: CRISTAL MUNIZ UNIT #: [id number] ROOM/BED: [place] [address] : 64 AGE: 58 SEX: F ATTEND: Yani Jacobo MD ADM AUTHOR: Nisha Guajardo * ALL edits or amendments must be made on the electronic/computer document * Subjective HPI: No acute events overnight Passed flatus Denies n/v Tolerating diet Ambulating Pain controlled Objective General VS/I O: Last Documented: Result Date Time Pulse Ox 95 10/17 1107 B/P 97/61 10/17 1107 B/P Mean 73 10/17 1107 O2 Delivery Room air 10/17 1107 Temp 36.8 10/17 1107 Pulse 77 10/17 1107 Resp 12 10/17 1107 O2 Flow Rate 2.896668 10/17 0800 24 hour I O ending at 0700: 10/17 0700 10/16 1900 Intake Total Output Total 500 Balance -500 Output, Urine 500 Patient Weight Weight (lb): 252 Weight (oz): 3.34 Weight (kg): 114.400 Physical Exam General appearance: alert, awake, oriented Wound/incision: Site condition: incision intact, wound clean dry Abdomen: soft, no distention, no guarding, no hernia Diagnosis, Assessment Plan Hospital course to date: Advance diet as tolerated Ambulate Await return of GI function VTE prophylaxis at 1506 RPT #:[id number] END OF REPORT [facility] 2019-10-18 15:05:00 [facility] ([facility]) Colorectal Surgery Prog Note REPORT#:[id number] REPORT STATUS: Signed DATE:10/18/19 TIME: 1505 PATIENT: CRISTAL MUNIZ UNIT #: [id number] ROOM/BED: [place] [address] : 64 AGE: 58 SEX: F ATTEND: Yani Jacobo MD ADM AUTHOR: Nisha Guajardo * ALL edits or amendments must be made on the electronic/computer document * See Addendum Subjective HPI: No acute events overnight Passed flatus Denies n/v Tolerating diet Ambulating Pain controlled Objective General VS/I O: Last Documented: Result Date Time Pulse Ox 95 10/17 1107 B/P 97/61 10/17 1107 B/P Mean 73 10/17 1107 O2 Delivery Room air 10/17 1107 Temp 36.8 10/17 1107 Pulse 77 10/17 1107 Resp 12 10/17 1107 O2 Flow Rate 2.124743 10/17 0800 24 hour I O ending at 0700: 10/17 0700 10/16 1900 Intake Total Output Total 500 Balance -500 Output, Urine 500 Patient Weight Weight (lb): 252 Weight (oz): 3.34 Weight (kg): 114.400 Physical Exam General appearance: alert, awake, oriented Wound/incision: Site condition: incision intact, wound clean dry Abdomen: soft, no distention, no guarding, no hernia Diagnosis, Assessment Plan Hospital course to date: Advance diet as tolerated Ambulate Await return of GI function VTE prophylaxis at 1506 Addendum 1: 10/19/19 0735 by Nisha Guajardo The patient's leukocytosis is expected and is likely transient postoperative leukocytosis. She is afebrile, and there is no evidence of infection at this time. at 0736 RPT #:[id number] END OF REPORT [facility] 2019-10-18 15:05:00 [facility] ([facility]) Colorectal Surgery Prog Note REPORT#:[id number] REPORT STATUS: Signed DATE:10/18/19 TIME: 150 PATIENT: CRISTAL MUNIZ UNIT #: [id number] ROOM/BED: [place] [address] : [birth year] AGE: 58 SEX: F ATTEND: Yani Jacobo MD ADM AUTHOR: Nisha Guajardo * ALL edits or amendments must be made on the electronic/computer document * See Addendum Subjective HPI: No acute events overnight Passed flatus Denies n/v Tolerating diet Ambulating Pain controlled Objective General VS/I O: Last Documented: Result Date Time Pulse Ox 95 10/17 1107 B/P 97/61 10/17 1107 B/P Mean 73 10/17 1107 O2 Delivery Room air 10/17 1107 Temp 36.8 10/17 1107 Pulse 77 10/17 1107 Resp 12 10/17 1107 O2 Flow Rate 2.387956 10/17 0800 24 hour I O ending at 0700: 10/17 0700 10/16 1900 Intake Total Output Total 500 Balance -500 Output, Urine 500 Patient Weight Weight (lb): 252 Weight (oz): 3.34 Weight (kg): 114.400 Physical Exam General appearance: alert, awake, oriented Wound/incision: Site condition: incision intact, wound clean dry Abdomen: soft, no distention, no guarding, no hernia Diagnosis, Assessment Plan Hospital course to date: Advance diet as tolerated Ambulate Await return of GI function VTE prophylaxis at 1506 at 0803 Addendum 1: 10/19/19 0735 by Nisha Guajardo The patient's leukocytosis is expected and is likely transient postoperative leukocytosis. She is afebrile, and there is no evidence of infection at this time. at 0736 [facility] #:[id number] END OF REPORT [facility] 2019-10-18 11:22:00 [facility] ([facility]) Pain Management Progress Note REPORT#:[id number] REPORT STATUS: Signed DATE:10/18/19 TIME: 1122 PATIENT: CRISTAL MUNIZ UNIT #: [id number] ROOM/BED: [place] [address] : 64 AGE: 58 SEX: F ATTEND: Yani Jacobo MD ADM AUTHOR: Marc Flynn MD * ALL edits or amendments must be made on the electronic/computer document * Subjective Chief Complaint: HPI:Ms. Muniz is 58 years old female patient with significant past medical history of asthma, hypertension, Crohn's disease, fibromyalgia who admitted to the hospital because of the severe abdominal pain due to Crohn's disease, patient also complaining of chronic severe neck and back pain, generalized body pain. Patient admitted to the hospital for robotic right colectomy, patient had the surgery successfully without An immediate complication. Pain history: abdomenal pain around the inicisional area, Pain referred to his upper abdomen and flanks area, pain is sharp cutting Pain the pain aggravated by movement coughing sneezing and moderately relieved by nothing, patient has chronic pain affecting Her neck, upper mid and lower thoracic area. Home pain medication: 1.Cymbalta 60 mg daily 2.tramadol 50 mg every 4 hours 3.[id number] mg every 6-8 hours as needed 4.Gabapentin 300 mg daily at bedtime 5.Clonazepam 0.5 mg daily at bedtime 10/18/2019 Patient state the pain is much better than yesterday, now complaining of moderate pain on the spinous process upper mid thoracic area and lower cervical area, able to sit up in the bed no other complaints Review of Systems Free Text ROS Notes Free Text ROS Notes: review was conducted and was negative except for what's noted in the HPI and Medical History. The following systems were reviewed: Constitutional, cardiovascular, respiratory, gastrointestinal, genitourinary, musculoskeletal, neurologic, psychiatric, endocrinological, hematological. Objective General VS/I O: Vital Signs Date Temp Pulse Resp B/P B/P Mean Pulse Ox FiO2 10/16-10/17 36.8-37.0 77-95 12-20 97-139/61-75 73-94.9 91-96 Last Documented: Result Date Time Pulse Ox 95 10/17 1107 B/P 97/61 10/17 1107 B/P Mean 73 10/17 1107 O2 Delivery Room air 10/17 1107 Temp 36.8 10/17 1107 Pulse 77 10/17 1107 Resp 12 10/17 1107 O2 Flow Rate 2.889026 10/17 0800 24 hour I O ending at 0700: 10/17 0700 10/16 1900 Intake Total Output Total 500 Balance -500 Output, Urine 500 Patient Weight Weight (lb): 252 Weight (oz): 3.34 Weight (kg): 114.400 Medications: Active Meds + DC'd Last 24 Hrs Celecoxib 200 MG Q12H PO Enoxaparin Sodium 40 MG Q12HR SUBQ Famotidine 20 MG DAILY 1700 PO (PEND) Lidocaine 1 PATCH DAILY TOPICAL Atenolol 25 MG DAILY PO Duloxetine HCl 60 MG DAILY PO Enoxaparin Sodium 40 MG DAILY SUBQ (DC) Hydrocodone Bitart/Acetaminophen 1 TAB Q4H PRN PRN PO Hydromorphone HCl 0.5 MG Q6H PRN PRN IV Clonazepam 0.5 MG BEDTIME PO Gabapentin 300 MG BEDTIME PO Acetaminophen 1,000 MG Q6HR PO (DC) Ketorolac Tromethamine 15 MG Q6HR IV (DC) Fluticasone Propionate 1 SPRAY DAILY NASAL (CKD) Montelukast Sodium 10 MG DAILY PO Valsartan 320 MG DAILY PO Budesonide 2 PUFF RTBID PRN INH (PEND) Ondansetron HCl 4 MG Q6H PRN PRN IV Sodium Chloride 1,000 ML .Q10H IV (DC) Sodium Chloride 250 ML ASDIR PRN IV Alvimopan 12 MG BID PO Physical Exam General appearance: alert, awake, oriented, no acute distress, pleasant, conversational, mental status normal, no respiratory distress Neck: full range of motion, non-tender Cardiovascular: regular rate rhythm Respiratory: clear to auscultation (Daily) Abdomen: soft, Tender to palpation, superficial and deep, Incision Dry clean and intact Spine Cervical: muscle tenderness Thoracic: muscle tenderness Diagnosis, Assessment Plan Free text A P: Ms. Muniz is 58 years old female patient with significant past medical history of asthma, hypertension, Crohn's disease, fibromyalgia who admitted to the hospital because of the severe abdominal pain due to Crohn's disease, patient also complaining of chronic severe neck and back pain, generalized body pain. Patient admitted to the hospital for robotic right colectomy, patient had the surgery successfully without An immediate complication. Pain history: abdomenal pain around the inicisional area, Pain referred to his upper abdomen and flanks area, pain is sharp cutting Pain the pain aggravated by movement coughing sneezing and moderately relieved by nothing, patient has chronic pain affecting Her neck, upper mid and lower thoracic area. Home pain medication: 1.Cymbalta 60 mg daily 2.tramadol 50 mg every 4 hours 3.[id number] mg every 6-8 hours as needed 4.Gabapentin 300 mg daily at bedtime 5.Clonazepam 0.5 mg daily at bedtime 10/17/2019 Patient with acute severe pain incisional area Status post robotic right colectomy Postop day #1 Aggressively manage acute pain with narcotics try to avoid NSAIDs, avoid heavy sedation, Continue current neuropathic pain medication for fibromyalgia management and anxiety 10/18/2019 Postop day #2 Pain much better controlled, still complaining of some pain on her thoracic and lower neck pain due to positioning, incisional pain is much better, continue current pain medication Assessment: 1. Acute pain syndrome Due to Surgery status post robotic right hemicolectomy 2. Chronic pain syndrome 3. Painful peripheral diabetic neuropathy 4. Anxiety 5.Insomnia 6.Fibromyalgia Acute pain syndrome due to Robotic Right colectomy: Manageable 1. Hydrocodone 0.5 mg every 4 hours as needed for severe pain 2. Hydrocodone 5/325 mg every 4 hours as needed for moderate pain 3. Celebrex 200 mg by mouth every 12 hours Fibromyalgia: Controlled 1. Gabapentin 300 mg daily at bedtime 2. Duloxetine 60 mg daily Anxiety Manageable 1. Klonopin 0.5 mg daily at bedtime Back pain, mid thoracic upper thoracic and cervical just on the spinous process most probably due to positioning 1. Lidocaine patch 5% to be applied on the affected area daily Goal: Daily pain control to improve function and/or quality of life ([x]) Postop pain control ([x]) Pain control with PT/OT ([x]) Pain control until condition naturally resolves ([x]) Inpatient pain control ([x]) Improved sleep cycle ([x]) all narcotics medications will be adjusted according to the patient's medical condition during the hospital stay -Monitor for S/E such as AMS, Lethargy/sedation, changes in respiratory function -Continue with current medication regimen -Continue BP parameters -APS( Acute Pain services) will continue to follow I personally reviewed all diagnostic images/lab records during the course of admission Risk versus benefit of opiate medications: All risk and benefit were reviewed with the patient and family members, risk not limited to respiratory depression, accidental overdose, risk of fall, altered mental status, constipation, dependency, addiction, withdrawn, sudden . Plan discussed with: The pain plan of care has been discussed with the patient and the nursing staff. Patient is in agreement with the following plan of care and wishes to proceed. Questions and concerns have been answered to the patient' s satisfaction. Patient has verbalized understanding. Thank you Murtaza An for allowing us to participate in your patient' s care at 1314 RPT #:[id number] END OF REPORT [facility] 2019-10-18 10:39:00 [facility] Progress Note REPORT#:[id number] REPORT STATUS: Signed DATE:10/18/19 TIME: 1039 PATIENT: CRISTAL MUNIZ UNIT #: [id number] [place] [facility] [place] [place] AGE: 58 SEX: F ATTEND: Yani Jacobo MD ADM AUTHOR: Jose Mcduffie [facility] * ALL edits or amendments must be made on the electronic/computer document * Pharmacy Note Weight: Actual weight (kg): 114.4 (BMI 44.7) Labs: Laboratory Tests: 10/17 10/16 0430 0700 Chemistry BUN (7 - 18 mg/dL) 8 11 Creatinine (0.6 - 1.3 mg/dL) 0.7 0.7 Treatment plan: change regimen Rationale: Increased lovenox 40mg SQ q24h to 40mg SQ q12h for BMI >40 and estCrCl >30ml/min per protocol at 1039 RPT #:[id number] END OF REPORT [facility] 2019-10-18 08:15:00 [facility] Hospitalist Progress Note REPORT#:[id number] REPORT STATUS: Signed DATE:10/18/19 TIME: 814 PATIENT: CRISTAL MUNIZ UNIT #: [id number] ROOM/BED: [place] [address] : 64 AGE: 58 SEX: F ATTEND: Yani Jacobo MD ADM AUTHOR: Ryan Weston NP * ALL edits or amendments must be made on the electronic/computer document * Subjective Chief Complaint: S/P Right Robotic Colectomy. She says that her back pain and abdominal pain is better then yesterday, She is still having mild pain. She is c/o indigestion. Breathing is stable. Not passing gas yet. NO N/V/D/ BP and HR stable. Review of Systems Constitutional: Reports: fatigue, generalized weakness. Respiratory: Denies: JARVIS (dyspnea on exertion), pleurisy, pneumonia, productive cough (sputum ). Cardiovascular: Denies: chest pain, parox nocturnal dyspnea. GI: Reports: abdominal pain. Denies: dysphagia, melena. : Denies: dysuria, frequency, nocturia, pelvic pain, urgency. Musculoskeletal: Denies: extremity pain, joint pain, joint swelling, lumbar pain. Heme: Denies: bleeding, bruising. Neuro: Denies: dizziness, gait problem, lightheaded, seizure. Objective General VS/I O: Vital Signs: Date Time Temp Pulse Resp B/P B/P Pulse O2 O2 Flow FiO2 Mean Ox Delivery Rate 10/17 05 36.8 79 20 139/73 94.9 95 10/17 0000 36.8 82 20 120/64 82 95 10/16 2000 Nasal 2.568801 cannula 10/16 2000 37.0 80 20 117/66 83 96 10/16 1629 94 110/75 86.7 91 10/16 1530 90 106/72 83.3 91 10/16 1429 95 110/68 81.7 92 10/16 1207 Nasal 2.966079 cannula 10/16 1200 84 12 112/69 83.2 96 10/16 1159 36.4 88 112/69 83.2 95 10/16 1145 78 12 117/66 93 Nasal 2.433062 cannula 10/16 1140 82 16 119/67 97 10/16 1135 81 15 118/62 96 10/16 1130 80 18 114/64 97 10/16 1125 81 15 124/70 98 10/16 1120 73 11 111/64 87 10/16 1115 78 12 116/65 96 10/16 1110 79 16 122/70 97 10/16 1105 82 15 121/69 96 Nasal 3.674122 cannula 10/16 1100 83 17 122/68 93 10/16 1055 86 26 126/69 96 10/16 1050 85 14 129/72 98 10/16 1045 83 14 137/72 93 Simple 7.533502 mask 10/16 1040 82 11 131/74 96 Simple mask 10/16 1038 Simple 7.739003 mask 10/16 1035 36.4 92 20 126/72 90 Simple 8.268613 mask 24 hour I O ending at 0700: 10/17 0700 10/16 1900 Intake Total Output Total 500 Balance -500 Output, Urine 500 Patient Weight Weight (lb): 252 Weight (oz): 3.34 Weight (kg): 114.400 Medications: Active Meds + DC'd Last 24 Hrs Celecoxib 200 MG Q12H PO Atenolol 25 MG DAILY PO Duloxetine HCl 60 MG DAILY PO Enoxaparin Sodium 40 MG DAILY SUBQ Hydrocodone Bitart/Acetaminophen 1 TAB Q4H PRN PRN PO (PEND) Hydromorphone HCl 0.5 MG Q6H PRN PRN IV Clonazepam 0.5 MG BEDTIME PO Gabapentin 300 MG BEDTIME PO Acetaminophen 1,000 MG Q6HR PO Ketorolac Tromethamine 15 MG Q6HR IV Fluticasone Propionate 1 SPRAY DAILY NASAL (CKD) Montelukast Sodium 10 MG DAILY PO Valsartan 320 MG DAILY PO Budesonide 2 PUFF RTBID PRN INH (PEND) Fentanyl Citrate 100 MCG PACU Q10MIN PRN PRN IV (DC) Fentanyl Citrate 50 MCG PACU Q10MIN PRN PRN IV (DC) Hydralazine HCl 2 MG PACU Q10MIN PRN PRN IV (DC) Hydrocodone Bitart/Acetaminophen 1 TAB PACU ONCE PO (DC) Hydromorphone HCl 1 MG PACU Q10MIN PRN PRN IV (DC) Hydromorphone HCl 0.5 MG PACU Q5MIN PRN PRN IV (DC) Insulin Human Lispro 0 PACU ONCE PRN SUBQ (DC) Labetalol HCl 5 MG PACU Q10MIN PRN PRN IV (DC) Lactated Ringer's 1,000 ML .Q24H IV (DC) Meperidine HCl 12.5 MG PACU ONCE PRN IV (DC) Morphine Sulfate 2 MG PACU Q10MIN PRN PRN IV (DC) Ondansetron HCl 4 MG PACU ONCE PRN IV (DC) Ropivacaine 150 MG ASDIR PRN LOCAL (DC) Tramadol HCl 50 MG PACU ONCE PO (DC) Fentanyl Citrate 0 .STK-MED ONE .ROUTE (DC) Ondansetron HCl 4 MG PACU ONCE ONE IV (DC) Ondansetron HCl 4 MG Q6H PRN PRN IV Sodium Chloride 1,000 ML .Q10H IV (DC) Sodium Chloride 250 ML ASDIR PRN IV Alvimopan 12 MG BID PO Celecoxib 200 MG PREOP ONCALL PO (DC) Gabapentin 200 MG PREOP ONCALL PO (DC) Cefoxitin Sodium 2 GM Q6H IV (DC) Sodium Chloride 20 ML ASDIR IV (DC) Acetaminophen 1,000 MG PREOP ONCALL PO (DC) Lactated Ringer's 1,000 ML PREOP ONCALL IV (DC) Lidocaine HCl 2 ML PREOP ONCALL LOCAL (DC) Lidocaine HCl 2 ML PREOP ONCALL LOCAL (DC) Sodium Chloride 500 ML PREOP ONCALL IV (DC) Sodium Chloride 500 ML PREOP ONCALL IV (DC) Sodium Chloride 1,000 ML PREOP ONCALL IV (DC) Sodium Chloride 5 ML ASDIR PRN IV (DC) Sodium Chloride 10 ML ASDIR PRN IV (DC) Sodium Chloride 250 ML ASDIR PRN IV (DC) Physical Exam General appearance: alert, awake, oriented Head/Eyes: atraumatic, normocephalic, PERRLA Neck: full range of motion, supple/no meningismus, no bruit/NL carotids Cardiovascular: normal capillary refill, normal heart sounds, regular rate rhythm Respiratory: aerating well, clear to auscultation, symmetric expansion Abdomen: normal bowel sounds, soft Genitourinary: no bladder distention, no flank pain Extremities: no clubbing, no cyanosis Musculoskeletal: no muscle spasm Neuro/SCRAP SORTER: alert, oriented X 3, CNII-XII intact Skin: dry, intact Results Findings/Data: Laboratory Tests 10/17 0430 Chemistry Sodium (134 - 147 mEq/L) 138 Potassium (3.4 - 5.0 mEq/L) 3.5 Chloride (100 - 108 mEq/L) 102 Carbon Dioxide (21 - 33 mEq/L) 29 Anion Gap (0 - 20) 11 BUN (7 - 18 mg/dL) 8 Creatinine (0.6 - 1.3 mg/dL) 0.7 Glomerular Filtr Rate (90 - 95) 86.6 L Glucose (70 - 110 mg/dL) 134 H Calcium (8.0 - 10.5 mg/dL) 8.5 Ionized Calcium Van (1.12 - 1.32 MMOL/L) 1.04 L Phosphorus (2.5 - 4.9 MG/DL) 2.5 Magnesium (1.8 - 2.4 mg/dL) 2.40 Results: labs reviewed, vital signs stable, current med profile rev'd Treatment Prophylaxis Treatment Prophylaxis Oxygen: room air Diagnosis, Assessment Plan Hospital course to date: ASSESSMENT: - Crohn's disease, abdominal pain, status post right robotic colectomy. - Severe abdominal pain, status post surgery. - History of gastroesophageal reflux disease. - History of hypertension. - History of asthma. - History of morbid obesity. - History of fibromyalgia. - Possible sleep apnea. PLAN: Floor. Post op care per surgery. Pain meds. Antiemetics. Diet as per surgery. Continue home meds. IV fluid. Follow labs and replace as needed. SCD for DVT prophylaxis. PT, OT. Monitor. Code status: full code Plan discussed with: patient, admitting physician, consultants, nurse at 0818 RPT #:[id number] END OF REPORT [facility] 2019-10-18 08:15:00 [facility] ([facility]) Hospitalist Progress Note REPORT#:[id number] REPORT STATUS: Signed DATE:10/18/19 TIME: 814 PATIENT: CRISTAL MUNIZ UNIT #: [id number] ROOM/BED: [place] [address] : 64 AGE: 58 SEX: F ATTEND: Yani Jacobo MD ADM AUTHOR: Ryan Weston NP * ALL edits or amendments must be made on the electronic/computer document * Ryan Weston 10/18/19 0815: Subjective Chief Complaint: S/P Right Robotic Colectomy. She says that her back pain and abdominal pain is better then yesterday, She is still having mild pain. She is c/o indigestion. Breathing is stable. Not passing gas yet. NO N/V/D/ BP and HR stable. Review of Systems Constitutional: Reports: fatigue, generalized weakness. Respiratory: Denies: JARVIS (dyspnea on exertion), pleurisy, pneumonia, productive cough (sputum ). Cardiovascular: Denies: chest pain, parox nocturnal dyspnea. GI: Reports: abdominal pain. Denies: dysphagia, melena. : Denies: dysuria, frequency, nocturia, pelvic pain, urgency. Musculoskeletal: Denies: extremity pain, joint pain, joint swelling, lumbar pain. Heme: Denies: bleeding, bruising. Neuro: Denies: dizziness, gait problem, lightheaded, seizure. Objective General VS/I O: Vital Signs: Date Time Temp Pulse Resp B/P B/P Pulse O2 O2 Flow FiO2 Mean Ox Delivery Rate 10/17 0523 36.8 79 20 139/73 94.9 95 10/17 0000 36.8 82 20 120/64 82 95 10/16 2000 Nasal 2.011167 cannula 10/17 1999 37.0 80 20 117/66 83 96 10/16 1629 94 110/75 86.7 91 10/16 1530 90 106/72 83.3 91 10/16 1429 95 110/68 81.7 92 10/16 1207 Nasal 2.049118 cannula 10/16 1200 84 12 112/69 83.2 96 10/16 1159 36.4 88 112/69 83.2 95 10/16 1145 78 12 117/66 93 Nasal 2.805938 cannula 10/16 1140 82 16 119/67 97 10/16 1135 81 15 118/62 96 10/16 1130 80 18 114/64 97 10/16 1125 81 15 124/70 98 10/16 1120 73 11 111/64 87 10/16 1115 78 12 116/65 96 10/16 1110 79 16 122/70 97 10/16 1105 82 15 121/69 96 Nasal 3.399665 cannula 10/16 1100 83 17 122/68 93 10/16 1055 86 26 126/69 96 10/16 1050 85 14 129/72 98 10/16 1045 83 14 137/72 93 Simple 7.044234 mask 10/16 1040 82 11 131/74 96 Simple mask 10/16 1038 Simple 7.223954 mask 10/16 1035 36.4 92 20 126/72 90 Simple 8.816973 mask 24 hour I O ending at 0700: 10/17 0700 10/16 1900 Intake Total Output Total 500 Balance -500 Output, Urine 500 Patient Weight Weight (lb): 252 Weight (oz): 3.34 Weight (kg): 114.400 Medications: Active Meds + DC'd Last 24 Hrs Celecoxib 200 MG Q12H PO Atenolol 25 MG DAILY PO Duloxetine HCl 60 MG DAILY PO Enoxaparin Sodium 40 MG DAILY SUBQ Hydrocodone Bitart/Acetaminophen 1 TAB Q4H PRN PRN PO (PEND) Hydromorphone HCl 0.5 MG Q6H PRN PRN IV Clonazepam 0.5 MG BEDTIME PO Gabapentin 300 MG BEDTIME PO Acetaminophen 1,000 MG Q6HR PO Ketorolac Tromethamine 15 MG Q6HR IV Fluticasone Propionate 1 SPRAY DAILY NASAL (CKD) Montelukast Sodium 10 MG DAILY PO Valsartan 320 MG DAILY PO Budesonide 2 PUFF RTBID PRN INH (PEND) Fentanyl Citrate 100 MCG PACU Q10MIN PRN PRN IV (DC) Fentanyl Citrate 50 MCG PACU Q10MIN PRN PRN IV (DC) Hydralazine HCl 2 MG PACU Q10MIN PRN PRN IV (DC) Hydrocodone Bitart/Acetaminophen 1 TAB PACU ONCE PO (DC) Hydromorphone HCl 1 MG PACU Q10MIN PRN PRN IV (DC) Hydromorphone HCl 0.5 MG PACU Q5MIN PRN PRN IV (DC) Insulin Human Lispro 0 PACU ONCE PRN SUBQ (DC) Labetalol HCl 5 MG PACU Q10MIN PRN PRN IV (DC) Lactated Ringer's 1,000 ML .Q24H IV (DC) Meperidine HCl 12.5 MG PACU ONCE PRN IV (DC) Morphine Sulfate 2 MG PACU Q10MIN PRN PRN IV (DC) Ondansetron HCl 4 MG PACU ONCE PRN IV (DC) Ropivacaine 150 MG ASDIR PRN LOCAL (DC) Tramadol HCl 50 MG PACU ONCE PO (DC) Fentanyl Citrate 0 .STK-MED ONE .ROUTE (DC) Ondansetron HCl 4 MG PACU ONCE ONE IV (DC) Ondansetron HCl 4 MG Q6H PRN PRN IV Sodium Chloride 1,000 ML .Q10H IV (DC) Sodium Chloride 250 ML ASDIR PRN IV Alvimopan 12 MG BID PO Celecoxib 200 MG PREOP ONCALL PO (DC) Gabapentin 200 MG PREOP ONCALL PO (DC) Cefoxitin Sodium 2 GM Q6H IV (DC) Sodium Chloride 20 ML ASDIR IV (DC) Acetaminophen 1,000 MG PREOP ONCALL PO (DC) Lactated Ringer's 1,000 ML PREOP ONCALL IV (DC) Lidocaine HCl 2 ML PREOP ONCALL LOCAL (DC) Lidocaine HCl 2 ML PREOP ONCALL LOCAL (DC) Sodium Chloride 500 ML PREOP ONCALL IV (DC) Sodium Chloride 500 ML PREOP ONCALL IV (DC) Sodium Chloride 1,000 ML PREOP ONCALL IV (DC) Sodium Chloride 5 ML ASDIR PRN IV (DC) Sodium Chloride 10 ML ASDIR PRN IV (DC) Sodium Chloride 250 ML ASDIR PRN IV (DC) Physical Exam General appearance: alert, awake, oriented Head/Eyes: atraumatic, normocephalic, PERRLA Neck: full range of motion, supple/no meningismus, no bruit/NL carotids Cardiovascular: normal capillary refill, normal heart sounds, regular rate rhythm Respiratory: aerating well, clear to auscultation, symmetric expansion Abdomen: normal bowel sounds, soft Genitourinary: no bladder distention, no flank pain Extremities: no clubbing, no cyanosis Musculoskeletal: no muscle spasm Neuro/SCRAP SORTER: alert, oriented X 3, CNII-XII intact Skin: dry, intact Results Findings/Data: Laboratory Tests 10/17 0430 Chemistry Sodium (134 - 147 mEq/L) 138 Potassium (3.4 - 5.0 mEq/L) 3.5 Chloride (100 - 108 mEq/L) 102 Carbon Dioxide (21 - 33 mEq/L) 29 Anion Gap (0 - 20) 11 BUN (7 - 18 mg/dL) 8 Creatinine (0.6 - 1.3 mg/dL) 0.7 Glomerular Filtr Rate (90 - 95) 86.6 L Glucose (70 - 110 mg/dL) 134 H Calcium (8.0 - 10.5 mg/dL) 8.5 Ionized Calcium Van (1.12 - 1.32 MMOL/L) 1.04 L Phosphorus (2.5 - 4.9 MG/DL) 2.5 Magnesium (1.8 - 2.4 mg/dL) 2.40 Results: labs reviewed, vital signs stable, current med profile rev'd Treatment Prophylaxis Treatment Prophylaxis Oxygen: room air Diagnosis, Assessment Plan Hospital course to date: ASSESSMENT: - Crohn's disease, abdominal pain, status post right robotic colectomy. - Severe abdominal pain, status post surgery. - History of gastroesophageal reflux disease. - History of hypertension. - History of asthma. - History of morbid obesity. - History of fibromyalgia. - Possible sleep apnea. PLAN: Floor. Post op care per surgery. Pain meds. Antiemetics. Diet as per surgery. Continue home meds. IV fluid. Follow labs and replace as needed. SCD for DVT prophylaxis. PT, OT. Monitor. Code status: full code Plan discussed with: patient, admitting physician, consultants, Murtaza Wang 10/21/19 0008: Attestations Physician Attestation Reviewed findings plan: Reviewed the findings and plan as documented by SIGNAL TIMER as above reviewed pt seen and examined dw RN at 0818 RPT #:[id number] END OF REPORT [facility] 2019-10-18 08:15:00 [facility] ([facility] Hospitalist Progress Note REPORT#:[id number] REPORT STATUS: Signed DATE:10/18/19 TIME: 0815 PATIENT: CRISTAL MUNIZ UNIT #: [id number] ROOM/BED: [place] [address] : 64 AGE: 58 SEX: F ATTEND: Yani Jacobo MD ADM AUTHOR: Ryan Weston NP * ALL edits or amendments must be made on the electronic/computer document * Ryan Weston 10/18/19 0815: Subjective Chief Complaint: S/P Right Robotic Colectomy. She says that her back pain and abdominal pain is better then yesterday, She is still having mild pain. She is c/o indigestion. Breathing is stable. Not passing gas yet. NO N/V/D/ BP and HR stable. Review of Systems Constitutional: Reports: fatigue, generalized weakness. Respiratory: Denies: JARVIS (dyspnea on exertion), pleurisy, pneumonia, productive cough (sputum ). Cardiovascular: Denies: chest pain, parox nocturnal dyspnea. GI: Reports: abdominal pain. Denies: dysphagia, melena. : Denies: dysuria, frequency, nocturia, pelvic pain, urgency. Musculoskeletal: Denies: extremity pain, joint pain, joint swelling, lumbar pain. Heme: Denies: bleeding, bruising. Neuro: Denies: dizziness, gait problem, lightheaded, seizure. Objective General VS/I O: Vital Signs: Date Time Temp Pulse Resp B/P B/P Pulse O2 O2 Flow FiO2 Mean Ox Delivery Rate 10/17 0523 36.8 79 20 139/73 94.9 95 10/17 0000 36.8 82 20 120/64 82 95 10/16 2000 Nasal 2.359620 cannula 10/17 1999 37.0 80 20 117/66 83 96 10/16 1629 94 110/75 86.7 91 10/16 1530 90 106/72 83.3 91 10/16 1429 95 110/68 81.7 92 10/16 1207 Nasal 2.561878 cannula 10/16 1200 84 12 112/69 83.2 96 10/16 1159 36.4 88 112/69 83.2 95 10/16 1145 78 12 117/66 93 Nasal 2.553924 cannula 10/16 1140 82 16 119/67 97 10/16 1135 81 15 118/62 96 10/16 1130 80 18 114/64 97 10/16 1125 81 15 124/70 98 10/16 1120 73 11 111/64 87 10/16 1115 78 12 116/65 96 10/16 1110 79 16 122/70 97 10/16 1105 82 15 121/69 96 Nasal [id number] cannula 10/16 1100 83 17 122/68 93 10/16 1055 86 26 126/69 96 10/16 1050 85 14 129/72 98 10/16 1045 83 14 137/72 93 Simple [id number] mask 10/16 1040 82 11 131/74 96 Simple mask 10/16 1038 Simple [id number] mask 10/16 1035 36.4 92 20 126/72 90 Simple [id number] mask 24 hour I O ending at 0700: 10/17 0700 10/16 1900 Intake Total Output Total 500 Balance -500 Output, Urine 500 Patient Weight Weight (lb): 252 Weight (oz): 3.34 Weight (kg): 114.400 Medications: Active Meds + DC'd Last 24 Hrs Celecoxib 200 MG Q12H PO Atenolol 25 MG DAILY PO Duloxetine HCl 60 MG DAILY PO Enoxaparin Sodium 40 MG DAILY SUBQ Hydrocodone Bitart/Acetaminophen 1 TAB Q4H PRN PRN PO (PEND) Hydromorphone HCl 0.5 MG Q6H PRN PRN IV Clonazepam 0.5 MG BEDTIME PO Gabapentin 300 MG BEDTIME PO Acetaminophen 1,000 MG Q6HR PO Ketorolac Tromethamine 15 MG Q6HR IV Fluticasone Propionate 1 SPRAY DAILY NASAL (CKD) Montelukast Sodium 10 MG DAILY PO Valsartan 320 MG DAILY PO Budesonide 2 PUFF RTBID PRN INH (PEND) Fentanyl Citrate 100 MCG PACU Q10MIN PRN PRN IV (DC) Fentanyl Citrate 50 MCG PACU Q10MIN PRN PRN IV (DC) Hydralazine HCl 2 MG PACU Q10MIN PRN PRN IV (DC) Hydrocodone Bitart/Acetaminophen 1 TAB PACU ONCE PO (DC) Hydromorphone HCl 1 MG PACU Q10MIN PRN PRN IV (DC) Hydromorphone HCl 0.5 MG PACU Q5MIN PRN PRN IV (DC) Insulin Human Lispro 0 PACU ONCE PRN SUBQ (DC) Labetalol HCl 5 MG PACU Q10MIN PRN PRN IV (DC) Lactated Ringer's 1,000 ML .Q24H IV (DC) Meperidine HCl 12.5 MG PACU ONCE PRN IV (DC) Morphine Sulfate 2 MG PACU Q10MIN PRN PRN IV (DC) Ondansetron HCl 4 MG PACU ONCE PRN IV (DC) Ropivacaine 150 MG ASDIR PRN LOCAL (DC) Tramadol HCl 50 MG PACU ONCE PO (DC) Fentanyl Citrate 0 .STK-MED ONE .ROUTE (DC) Ondansetron HCl 4 MG PACU ONCE ONE IV (DC) Ondansetron HCl 4 MG Q6H PRN PRN IV Sodium Chloride 1,000 ML .Q10H IV (DC) Sodium Chloride 250 ML ASDIR PRN IV Alvimopan 12 MG BID PO Celecoxib 200 MG PREOP ONCALL PO (DC) Gabapentin 200 MG PREOP ONCALL PO (DC) Cefoxitin Sodium 2 GM Q6H IV (DC) Sodium Chloride 20 ML ASDIR IV (DC) Acetaminophen 1,000 MG PREOP ONCALL PO (DC) Lactated Ringer's 1,000 ML PREOP ONCALL IV (DC) Lidocaine HCl 2 ML PREOP ONCALL LOCAL (DC) Lidocaine HCl 2 ML PREOP ONCALL LOCAL (DC) Sodium Chloride 500 ML PREOP ONCALL IV (DC) Sodium Chloride 500 ML PREOP ONCALL IV (DC) Sodium Chloride 1,000 ML PREOP ONCALL IV (DC) Sodium Chloride 5 ML ASDIR PRN IV (DC) Sodium Chloride 10 ML ASDIR PRN IV (DC) Sodium Chloride 250 ML ASDIR PRN IV (DC) Physical Exam General appearance: alert, awake, oriented Head/Eyes: atraumatic, normocephalic, PERRLA Neck: full range of motion, supple/no meningismus, no bruit/NL carotids Cardiovascular: normal capillary refill, normal heart sounds, regular rate rhythm Respiratory: aerating well, clear to auscultation, symmetric expansion Abdomen: normal bowel sounds, soft Genitourinary: no bladder distention, no flank pain Extremities: no clubbing, no cyanosis Musculoskeletal: no muscle spasm Neuro/SCRAP SORTER: alert, oriented X 3, CNII-XII intact Skin: dry, intact Results Findings/Data: Laboratory Tests 10/17 0430 Chemistry Sodium (134 - 147 mEq/L) 138 Potassium (3.4 - 5.0 mEq/L) 3.5 Chloride (100 - 108 mEq/L) 102 Carbon Dioxide (21 - 33 mEq/L) 29 Anion Gap (0 - 20) 11 BUN (7 - 18 mg/dL) 8 Creatinine (0.6 - 1.3 mg/dL) 0.7 Glomerular Filtr Rate (90 - 95) 86.6 L Glucose (70 - 110 mg/dL) 134 H Calcium (8.0 - 10.5 mg/dL) 8.5 Ionized Calcium Van (1.12 - 1.32 MMOL/L) 1.04 L Phosphorus (2.5 - 4.9 MG/DL) 2.5 Magnesium (1.8 - 2.4 mg/dL) 2.40 Results: labs reviewed, vital signs stable, current med profile rev'd Treatment Prophylaxis Treatment Prophylaxis Oxygen: room air Diagnosis, Assessment Plan Hospital course to date: ASSESSMENT: - Crohn's disease, abdominal pain, status post right robotic colectomy. - Severe abdominal pain, status post surgery. - History of gastroesophageal reflux disease. - History of hypertension. - History of asthma. - History of morbid obesity. - History of fibromyalgia. - Possible sleep apnea. PLAN: Floor. Post op care per surgery. Pain meds. Antiemetics. Diet as per surgery. Continue home meds. IV fluid. Follow labs and replace as needed. SCD for DVT prophylaxis. PT, OT. Monitor. Code status: full code Plan discussed with: patient, admitting physician, consultants, nurse Murtaza Hernandez 10/21/19 0008: Attestations Physician Attestation Reviewed findings plan: Reviewed the findings and plan as documented by SIGNAL TIMER as above reviewed pt seen and examined mckayla RN at 0818 at 0019 [facility] #:[id number] END OF REPORT [facility] 2019-10-17 23:45:00 [facility] ([facility]) Pain Management Consult Note REPORT#:[id number] REPORT STATUS: Signed DATE:10/17/19 TIME: 2344 PATIENT: CRISTAL MUNIZ UNIT #: [id number] ROOM/BED: [place] [id number] : [birth year] AGE: 58 SEX: F ATTEND: Yani Jacobo MD ADM AUTHOR: Marc Flynn MD * ALL edits or amendments must be made on the electronic/computer document * History of Present Illness Primary Care Physician: Murtaza An MD HPI: Requesting Clinician: Murtaza An MD Reason for consult: Acute abdominal pain for evaluation and management Chief complaint:Abdominal pain HPI:Ms. Muniz is 58 years old female patient with significant past medical history of asthma, hypertension, Crohn's disease, fibromyalgia who admitted to the hospital because of the severe abdominal pain due to Crohn's disease, patient also complaining of chronic severe neck and back pain, generalized body pain. Patient admitted to the hospital for robotic right colectomy, patient had the surgery successfully without An immediate complication. Pain history: abdomenal pain around the inicisional area, Pain referred to his upper abdomen and flanks area, pain is sharp cutting Pain the pain aggravated by movement coughing sneezing and moderately relieved by nothing, patient has chronic pain affecting Her neck, upper mid and lower thoracic area. Home pain medication: 1.Cymbalta 60 mg daily 2.tramadol 50 mg every 4 hours 3.Ovsyprle319 mg every 6-8 hours as needed 4.Gabapentin 300 mg daily at bedtime 5.Clonazepam 0.5 mg daily at bedtime Review of Systems Additional notes: review was conducted and was negative except for what's noted in the HPI and Medical History. The following systems were reviewed: Constitutional, cardiovascular, respiratory, gastrointestinal, genitourinary, musculoskeletal, neurologic, psychiatric, endocrinological, hematological. History Past History Medications: Home Medications: Medication Dose/Rte/Freq Days Qty Entered Last Max Daily Dose Reviewed inFLIXimab (REMICADE) 0 MG IV Q42D 10/15/19 10/17/19 Strength: 100 MG VIAL 1011 0619 20 MG PO DAILY 10/15/19 10/17/19 AMPHETAMINE/DEXTROAMPHETAM INE SALTS 1012 0619 (ADDERALL) Strength: [address] (CYMBALTA) 60 MG PO DAILY 10/15/19 10/17/19 Strength: 60 MG CAP.DR 1012 0619 VALSARTAN/HCTZ 1 TAB PO DAILY 10/15/19 10/17/19 (DIOVAN HCT 320/25 MG) 1012 0619 Strength: 320 MG-25 MG TAB ATENOLOL (TENORMIN) 25 MG PO DAILY 10/15/19 10/17/19 Strength: 25 MG TAB 1013 0619 FLUTICASONE PROPIONATE 1 SPRAY NASAL DAILY 10/15/19 10/17/19 (FLONASE 50 MCG/ACT 1013 0619 NASAL) Strength: 50 MCG/ACTUATION SPRAY MONTELUKAST (SINGULAIR) 10 MG PO DAILY 10/15/19 10/17/19 Strength: 10 MG TAB 1013 0619 CELECOXIB (CeleBREX) 200 MG PO DAILY 10/15/19 10/17/19 Strength: 200 MG CAP 1013 0619 ATORVASTATIN (LIPITOR) 10 MG PO DAILY 10/15/19 10/17/19 Strength: 10 MG TAB 1014 0619 clonazePAM (KlonoPIN) 0.5 MG PO BEDTIME 10/15/19 10/17/19 Strength: 0.5 MG TAB 1014 0619 ESTRADIOL (ESTRACE) 1 MG PO DAILY 10/15/19 10/17/19 Strength: 1 MG TAB 1014 0619 METHOCARBAMOL 750 MG PO 10/15/19 10/17/19 (ROBAXIN) BEDTIME PRN PRN 1015 0619 Strength: 750 MG TAB SPASMS CIMETIDINE (TAGAMET) 150 MG PO BID 10/15/19 10/17/19 Strength: 200 MG TAB 1016 0619 BUDESONIDE/FORMOTEROL 2 PUFF INH 10/15/19 10/17/19 (SYMBICORT 160/4.5 RTBID PRN 1016 0619 MCG/ACT 10.2GM) SHORTNESS OF Strength: 160 MCG-4.5 BREATH MCG/ACTUATION INHALER Current Hospital Medications: Anti-Infective Agents Sig/Manuela Start time Last Medication Dose Route Stop Time Status Admin Cefoxitin Sodium 0 .STK-MED ONE 10/16 0605 DC (MEFOXIN 2GM VIAL) IV Cefoxitin Sodium 2 GM Q6H 10/16 0600 DC (MEFOXIN) IV 10/17 0001 Blood Formation,Coagulation Sig/Manuela Start time Last Medication Dose Route Stop Time Status Admin Enoxaparin Sodium 40 MG DAILY 10/17 0900 AC (lovENOX) SUBQ 11/16 0859 Cardiovascular Drugs Sig/Manuela Start time Last Medication Dose Route Stop Time Status Admin Atenolol 25 MG DAILY 10/17 0900 AC (TENORMIN) PO 11/16 0859 Valsartan 320 MG DAILY 10/16 1100 AC (DIOVAN 160MG TAB) PO 11/15 1059 Hydralazine HCl 2 MG PACU Q10MIN PRN PRN 10/16 1045 DC (APRESOLINE) IV 10/16 1839 Labetalol HCl 5 MG PACU Q10MIN PRN PRN 10/16 1045 DC (LABETALOL HCL) IV 10/16 1839 Lidocaine HCl 2 ML PREOP ONCALL 10/14 1045 DC (LIDOCAINE HCL/PF) LOCAL 11/13 2359 Lidocaine HCl 2 ML PREOP ONCALL 10/14 1045 DC (LIDOCAINE HCL/PF) LOCAL 11/13 2359 Central Nervous System Agents Sig/Manuela Start time Last Medication Dose Route Stop Time Status Admin Celecoxib 200 MG Q12H 10/17 2100 AC (CeleBREX) PO 10/24 09 Duloxetine HCl 60 MG DAILY 10/17 0900 AC (CYMBALTA) PO 11/16 0859 Clonazepam 0.5 MG BEDTIME 10/16 2100 AC 10/16 (KlonoPIN) PO 11/15 2058 213 Gabapentin 300 MG BEDTIME 10/16 2100 AC 10/16 (NEURONTIN) PO 10/20 2100 213 Acetaminophen 1,000 MG Q6HR 10/16 1200 AC 10/16 (TYLENOL EXTRA PO 11/15 1159 2327 STRENGTH) Ketorolac 15 MG Q6HR 10/16 1200 AC 10/16 Tromethamine IV 10/17 1026 2328 (TORADOL) Fentanyl Citrate 100 MCG PACU Q10MIN PRN PRN 10/16 1045 DC 10/16 (SUBLIMAZE) IV 10/16 1839 1127 Fentanyl Citrate 50 MCG PACU Q10MIN PRN PRN 10/16 1045 DC (SUBLIMAZE) IV 10/16 183 Hydrocodone Bitart/ 1 TAB PACU ONCE 10/16 1045 DC Acetaminophen PO 10/16 1838 (NORCO 5/325) Hydromorphone HCl 1 MG PACU Q10MIN PRN PRN 10/16 1045 DC 10/16 (DILAUDID) IV 10/16 183 1102 Hydromorphone HCl 0.5 MG PACU Q5MIN PRN PRN 10/16 1045 DC 10/16 (DILAUDID) IV 10/16 183 1146 Meperidine HCl 12.5 MG PACU ONCE PRN 10/16 1045 DC (DEMEROL) IV 10/16 183 Morphine Sulfate 2 MG PACU Q10MIN PRN PRN 10/16 1045 DC (morphine SULFATE) IV 10/16 183 Tramadol HCl 50 MG PACU ONCE 10/16 1045 DC (ULTRAM) PO 10/16 1838 Fentanyl Citrate 0 .STK-MED ONE 10/16 1042 DC (SUBLIMAZE) .ROUTE Celecoxib 200 MG PREOP ONCALL 10/16 0630 DC 10/16 (CeleBREX) PO 10/16 2358 0627 Gabapentin 200 MG PREOP ONCALL 10/16 0630 DC 10/16 (NEURONTIN) PO 10/16 2358 0627 Acetaminophen 0 .STK-MED ONE 10/16 0604 DC (TYLENOL EXTRA .ROUTE STRENGTH) Celecoxib 0 .STK-MED ONE 10/16 0604 DC (CeleBREX) .ROUTE Gabapentin 0 .STK-MED ONE 10/16 0604 DC (NEURONTIN) .ROUTE Acetaminophen 1,000 MG PREOP ONCALL 10/14 1045 DC 10/16 (TYLENOL EXTRA PO 11/13 2358 0628 STRENGTH) Diagnostic Agents Sig/Manuela Start time Last Medication Dose Route Stop Time Status Admin Indocyanine Green 0 .STK-MED ONE 10/16 0656 DC (IC GREEN 25MG VIAL) IV Electrolytic, Caloric, And Megan Sig/Manuela Start time Last Medication Dose Route Stop Time Status Admin Lactated Ringer's 1,000 ML .Q24H 10/16 1045 DC (LACTATED RINGERS) IV 10/16 1839 Sodium Chloride 1,000 ML .Q10H 10/16 1030 AC 10/16 (SODIUM CHLORIDE IV 10/17 0600 1437 0.9%) Sodium Chloride 250 ML ASDIR PRN 10/16 1030 AC (SODIUM CHLORIDE IV 11/15 1029 0.9%) Sodium Chloride 20 ML ASDIR 10/16 0600 DC (SODIUM CHLORIDE) IV 11/15 0559 Lactated Ringer's 1,000 ML PREOP ONCALL 10/14 1045 DC 10/16 (LACTATED RINGERS) IV 11/13 2359 0628 Sodium Chloride 500 ML PREOP ONCALL 10/14 1045 DC (SODIUM CHLORIDE IV 11/13 2359 0.9%) Sodium Chloride 500 ML PREOP ONCALL 10/14 1045 DC (SODIUM CHLORIDE IV 11/13 2359 0.9%) Sodium Chloride 1,000 ML PREOP ONCALL 10/14 1045 DC (SODIUM CHLORIDE IV 11/13 2359 0.9%) Sodium Chloride 5 ML ASDIR PRN 10/14 1045 DC (SODIUM CHLORIDE) IV 11/13 1044 Sodium Chloride 10 ML ASDIR PRN 10/14 1045 DC (SODIUM CHLORIDE) IV 11/13 1044 Sodium Chloride 250 ML ASDIR PRN 10/14 1045 DC (SODIUM CHLORIDE IV 11/13 1044 0.9%) Eye, Ear, Nose And Throat (Een Sig/Manuela Start time Last Medication Dose Route Stop Time Status Admin Fluticasone 1 SPRAY DAILY 10/16 1100 CKD Propionate NASAL 11/15 1059 (Flonase Nasal [place]) Gastrointestinal Drugs Sig/Manuela Start time Last Medication Dose Route Stop Time Status Admin Ondansetron HCl 4 MG PACU ONCE PRN 10/16 1045 DC (ZOFRAN) IV 10/16 1839 Ondansetron HCl 4 MG PACU ONCE ONE 10/16 1030 DC (ZOFRAN) IV 10/16 1031 Ondansetron HCl 4 MG Q6H PRN PRN 10/16 1030 AC 10/16 (ZOFRAN) IV 11/15 1029 1706 Alvimopan 12 MG BID 10/16 0900 AC 10/16 (ENTEREG) PO 10/23 0859 2130 Alvimopan 0 .STK-MED ONE 10/16 0604 DC 10/16 (ENTEREG) PO 0628 Hormones And Synthetic Substit Sig/Manuela Start time Last Medication Dose Route Stop Time Status Admin Budesonide 2 PUFF RTBID PRN 10/16 1045 PEND (SYMBICORT 160/4.5 INH 11/15 1044 MCG INHALER) Insulin Human Lispro 0 PACU ONCE PRN 10/16 1045 DC (HUMALOG) SUBQ 10/16 1839 Local Anesthetics (Parenteral) Sig/Manuela Start time Last Medication Dose Route Stop Time Status Admin Ropivacaine 150 MG ASDIR PRN 10/16 1045 DC (NAROPIN 0.5% 150 MG/ LOCAL 10/16 2359 30mL) Respiratory Tract Agents Sig/Manuela Start time Last Medication Dose Route Stop Time Status Admin Montelukast Sodium 10 MG DAILY 10/16 1100 AC 10/16 (SINGULAIR) PO 11/15 1059 1433 Allergies: Coded Allergies: No Known Allergies (10/17/19) Objective Physical Exam VS/I O: Last Documented: Result Date Time Pulse Ox 91 10/16 1629 B/P 110/75 10/16 1629 B/P Mean 86.7 10/16 1629 Pulse 94 10/16 1629 O2 Delivery Nasal cannula 10/16 1207 O2 Flow Rate 2.274470 10/16 1207 Resp 12 10/16 1200 Temp 36.4 10/16 1159 Patient Weight Weight (lb): 252 Weight (oz): 3.34 Weight (kg): 114.400 Results Findings/data: Laboratory Tests: 10/16 0700 Chemistry Sodium (134 - 147 mEq/L) 137 Potassium (3.4 - 5.0 mEq/L) 4.9 Chloride (100 - 108 mEq/L) 100 Carbon Dioxide (21 - 33 mEq/L) 30 Anion Gap (0 - 20) 12 BUN (7 - 18 mg/dL) 11 Creatinine (0.6 - 1.3 mg/dL) 0.7 Glomerular Filtr Rate (90 - 95) 86.6 L Glucose (70 - 110 mg/dL) 170 H Calcium (8.0 - 10.5 mg/dL) 9.1 Recent Impressions: RADIOLOGY - XR CHEST 2 V 10/14 0942 Report Impression - Status: SIGNED Entered: 10/15/201946 IMPRESSION: No active process. Impression By: [email or web address] - Mckinley Aldo, M.D. Diagnosis, Assessment Plan Free text A P: Ms. Muniz is 58 years old female patient with significant past medical history of asthma, hypertension, Crohn's disease, fibromyalgia who admitted to the hospital because of the severe abdominal pain due to Crohn's disease, patient also complaining of chronic severe neck and back pain, generalized body pain. Patient admitted to the hospital for robotic right colectomy, patient had the surgery successfully without An immediate complication. Pain history: abdomenal pain around the inicisional area, Pain referred to his upper abdomen and flanks area, pain is sharp cutting Pain the pain aggravated by movement coughing sneezing and moderately relieved by nothing, patient has chronic pain affecting Her neck, upper mid and lower thoracic area. Home pain medication: 1.Cymbalta 60 mg daily 2.tramadol 50 mg every 4 hours 3.Thxpcipx260 mg every 6-8 hours as needed 4.Gabapentin 300 mg daily at bedtime 5.Clonazepam 0.5 mg daily at bedtime 10/17/2019 Patient with acute severe pain incisional area Status post robotic right colectomy Postop day #1 Aggressively manage acute pain with narcotics try to avoid NSAIDs, avoid heavy sedation, Continue current neuropathic pain medication for fibromyalgia management and anxiety Assessment: 1. Acute pain syndrome Due to Surgery status post robotic right hemicolectomy 2. Chronic pain syndrome 3. Painful peripheral diabetic neuropathy 4. Anxiety 5.Insomnia 6.Fibromyalgia Acute pain syndrome due to Robotic Right colectomy: Manageable 1. Hydrocodone 0.5 mg every 4 hours as needed for severe pain 2. Hydrocodone 5/325 mg every 4 hours as needed for moderate pain 3. Celebrex 200 mg by mouth every 12 hours Fibromyalgia: Controlled 1. Gabapentin 300 mg daily at bedtime 2. Duloxetine 60 mg daily Anxiety Manageable 1. Klonopin 0.5 mg daily at bedtime Goal: Daily pain control to improve function and/or quality of life ([x]) Postop pain control ([x]) Pain control with PT/OT ([x]) Pain control until condition naturally resolves ([x]) Inpatient pain control ([x]) Improved sleep cycle ([x]) all narcotics medications will be adjusted according to the patient's medical condition during the hospital stay -Monitor for S/E such as AMS, Lethargy/sedation, changes in respiratory function -Continue with current medication regimen -Continue BP parameters -APS( Acute Pain services) will continue to follow I personally reviewed all diagnostic images/lab records during the course of admission Risk versus benefit of opiate medications: All risk and benefit were reviewed with the patient and family members, risk not limited to respiratory depression, accidental overdose, risk of fall, altered mental status, constipation, dependency, addiction, withdrawn, sudden . Plan discussed with: The pain plan of care has been discussed with the patient and the nursing staff. Patient is in agreement with the following plan of care and wishes to proceed. Questions and concerns have been answered to the patient' s satisfaction. Patient has verbalized understanding. Thank you Murtaza An for allowing us to participate in your patient' s care at 1308 RPT #:[id number] END OF REPORT [facility] 2019-10-17 23:45:00 [facility] ([facility]) Pain Management Consult Note REPORT#:[id number] REPORT STATUS: Signed DATE:10/17/19 TIME: 2344 PATIENT: CRISTAL MUNIZ UNIT #: [id number] ROOM/BED: [place] [address] : 64 AGE: 58 SEX: F ATTEND: Yani Jacobo MD ADM AUTHOR: Marc Flynn MD * ALL edits or amendments must be made on the electronic/computer document * See Addendum History of Present Illness Primary Care Physician: Murtaza An MD HPI: Requesting Clinician: Murtaza An MD Reason for consult: Acute abdominal pain for evaluation and management Chief complaint:Abdominal pain HPI:Ms. Muniz is 58 years old female patient with significant past medical history of asthma, hypertension, Crohn's disease, fibromyalgia who admitted to the hospital because of the severe abdominal pain due to Crohn's disease, patient also complaining of chronic severe neck and back pain, generalized body pain. Patient admitted to the hospital for robotic right colectomy, patient had the surgery successfully without An immediate complication. Pain history: abdomenal pain around the inicisional area, Pain referred to his upper abdomen and flanks area, pain is sharp cutting Pain the pain aggravated by movement coughing sneezing and moderately relieved by nothing, patient has chronic pain affecting Her neck, upper mid and lower thoracic area. Home pain medication: 1.Cymbalta 60 mg daily 2.tramadol 50 mg every 4 hours 3.Lpzlejoq212 mg every 6-8 hours as needed 4.Gabapentin 300 mg daily at bedtime 5.Clonazepam 0.5 mg daily at bedtime Review of Systems Additional notes: review was conducted and was negative except for what's noted in the HPI and Medical History. The following systems were reviewed: Constitutional, cardiovascular, respiratory, gastrointestinal, genitourinary, musculoskeletal, neurologic, psychiatric, endocrinological, hematological. History Past History Medications: Home Medications: Medication Dose/Rte/Freq Days Qty Entered Last Max Daily Dose Reviewed inFLIXimab (REMICADE) 0 MG IV Q42D 10/15/19 10/17/19 Strength: 100 MG VIAL 1011 0619 20 MG PO DAILY 10/15/19 10/17/19 AMPHETAMINE/DEXTROAMPHETAM INE SALTS 2 0619 (ADDERALL) Strength: [address] (CYMBALTA) 60 MG PO DAILY 10/15/19 10/17/19 Strength: 60 MG CAP.DR 1012 0619 VALSARTAN/HCTZ 1 TAB PO DAILY 10/15/19 10/17/19 (DIOVAN HCT 320/25 MG) 1012 0619 Strength: 320 MG-25 MG TAB ATENOLOL (TENORMIN) 25 MG PO DAILY 10/15/19 10/17/19 Strength: 25 MG TAB 1013 0619 FLUTICASONE PROPIONATE 1 SPRAY NASAL DAILY 10/15/19 10/17/19 (FLONASE 50 MCG/ACT 1013 0619 NASAL) Strength: 50 MCG/ACTUATION SPRAY MONTELUKAST (SINGULAIR) 10 MG PO DAILY 10/15/19 10/17/19 Strength: 10 MG TAB 1013 0619 CELECOXIB (CeleBREX) 200 MG PO DAILY 10/15/19 10/17/19 Strength: 200 MG CAP 1013 0619 ATORVASTATIN (LIPITOR) 10 MG PO DAILY 10/15/19 10/17/19 Strength: 10 MG TAB 1014 0619 clonazePAM (KlonoPIN) 0.5 MG PO BEDTIME 10/15/19 10/17/19 Strength: 0.5 MG TAB 1014 0619 ESTRADIOL (ESTRACE) 1 MG PO DAILY 10/15/19 10/17/19 Strength: 1 MG TAB 1014 19 METHOCARBAMOL 750 MG PO 10/15/19 10/17/19 (ROBAXIN) BEDTIME PRN PRN 1015 0619 Strength: 750 MG TAB SPASMS CIMETIDINE (TAGAMET) 150 MG PO BID 10/15/19 10/17/19 Strength: 200 MG TAB 1016 0619 BUDESONIDE/FORMOTEROL 2 PUFF INH 10/15/19 10/17/19 (SYMBICORT 160/4.5 RTBID PRN 1016 0619 MCG/ACT 10.2GM) SHORTNESS OF Strength: 160 MCG-4.5 BREATH MCG/ACTUATION INHALER Current Hospital Medications: Anti-Infective Agents Sig/Manuela Start time Last Medication Dose Route Stop Time Status Admin Cefoxitin Sodium 0 .STK-MED ONE 10/16 0605 DC (MEFOXIN 2GM VIAL) IV Cefoxitin Sodium 2 GM Q6H 10/16 06 DC (MEFOXIN) IV 10/17 0001 Blood Formation,Coagulation Sig/Manuela Start time Last Medication Dose Route Stop Time Status Admin Enoxaparin Sodium 40 MG DAILY 10/17 0900 AC (lovENOX) SUBQ 11/16 0859 Cardiovascular Drugs Sig/Manuela Start time Last Medication Dose Route Stop Time Status Admin Atenolol 25 MG DAILY 10/17 0900 AC (TENORMIN) PO 11/16 0859 Valsartan 320 MG DAILY 10/16 1100 AC (DIOVAN 160MG TAB) PO 11/15 1059 Hydralazine HCl 2 MG PACU Q10MIN PRN PRN 10/16 1045 DC (APRESOLINE) IV 10/16 1839 Labetalol HCl 5 MG PACU Q10MIN PRN PRN 10/16 1045 DC (LABETALOL HCL) IV 10/16 1839 Lidocaine HCl 2 ML PREOP ONCALL 10/14 1045 DC (LIDOCAINE HCL/PF) LOCAL 11/13 2359 Lidocaine HCl 2 ML PREOP ONCALL 10/14 1045 DC (LIDOCAINE HCL/PF) LOCAL 11/13 2359 Central Nervous System Agents Sig/Manuela Start time Last Medication Dose Route Stop Time Status Admin Celecoxib 200 MG Q12H 10/17 2100 AC (CeleBREX) PO 10/24 0901 Duloxetine HCl 60 MG DAILY 10/17 0900 AC (CYMBALTA) PO 11/16 0859 Clonazepam 0.5 MG BEDTIME 10/16 2100 AC 10/16 (KlonoPIN) PO 11/15 Gabapentin 300 MG BEDTIME 10/16 2100 AC 10/16 (NEURONTIN) PO 10/20 Acetaminophen 1,000 MG Q6HR 10/16 1200 AC 10/16 (TYLENOL EXTRA PO 11/15 1159 2327 STRENGTH) Ketorolac 15 MG Q6HR 10/16 1200 AC 10/16 Tromethamine IV 10/17 1026 2328 (TORADOL) Fentanyl Citrate 100 MCG PACU Q10MIN PRN PRN 10/16 1045 DC 10/16 (SUBLIMAZE) IV 10/16 183 1127 Fentanyl Citrate 50 MCG PACU Q10MIN PRN PRN 10/16 1045 DC (SUBLIMAZE) IV 10/16 1839 Hydrocodone Bitart/ 1 TAB PACU ONCE 10/16 1045 DC Acetaminophen PO 10/16 1839 (NORCO 5/325) Hydromorphone HCl 1 MG PACU Q10MIN PRN PRN 10/16 1045 DC 10/16 (DILAUDID) IV 10/16 1839 1102 Hydromorphone HCl 0.5 MG PACU Q5MIN PRN PRN 10/16 1045 DC 10/16 (DILAUDID) IV 10/16 1839 1146 Meperidine HCl 12.5 MG PACU ONCE PRN 10/16 1045 DC (DEMEROL) IV 10/16 183 Morphine Sulfate 2 MG PACU Q10MIN PRN PRN 10/16 1045 DC (morphine SULFATE) IV 10/16 1839 Tramadol HCl 50 MG PACU ONCE 10/16 1045 DC (ULTRAM) PO 10/16 183 Fentanyl Citrate 0 .STK-MED ONE 10/16 1042 DC (SUBLIMAZE) .ROUTE Celecoxib 200 MG PREOP ONCALL 10/16 0630 DC 10/16 (CeleBREX) PO 10/16 2358 06 Gabapentin 200 MG PREOP ONCALL 10/16 0630 DC 10/16 (NEURONTIN) PO 10/16 2358 06 Acetaminophen 0 .STK-MED ONE 10/16 0604 DC (TYLENOL EXTRA .ROUTE STRENGTH) Celecoxib 0 .STK-MED ONE 10/16 0604 DC (CeleBREX) .ROUTE Gabapentin 0 .STK-MED ONE 10/16 0604 DC (NEURONTIN) .ROUTE Acetaminophen 1,000 MG PREOP ONCALL 10/14 1045 DC 10/16 (TYLENOL EXTRA PO 11/13 2359 0628 STRENGTH) Diagnostic Agents Sig/Manuela Start time Last Medication Dose Route Stop Time Status Admin Indocyanine Green 0 .STK-MED ONE 10/16 0656 DC (IC GREEN 25MG VIAL) IV Electrolytic, Caloric, And Megan Sig/Manuela Start time Last Medication Dose Route Stop Time Status Admin Lactated Ringer's 1,000 ML .Q24H 10/16 1045 DC (LACTATED RINGERS) IV 10/16 1839 Sodium Chloride 1,000 ML .Q10H 10/16 1030 AC 10/16 (SODIUM CHLORIDE IV 10/17 0600 1437 0.9%) Sodium Chloride 250 ML ASDIR PRN 10/16 1030 AC (SODIUM CHLORIDE IV 11/15 1029 0.9%) Sodium Chloride 20 ML ASDIR 10/16 0600 DC (SODIUM CHLORIDE) IV 11/15 0559 Lactated Ringer's 1,000 ML PREOP ONCALL 10/14 1045 DC 10/16 (LACTATED RINGERS) IV 11/13 2358 0628 Sodium Chloride 500 ML PREOP ONCALL 10/14 1045 DC (SODIUM CHLORIDE IV 11/13 2359 0.9%) Sodium Chloride 500 ML PREOP ONCALL 10/14 1045 DC (SODIUM CHLORIDE IV 11/13 2359 0.9%) Sodium Chloride 1,000 ML PREOP ONCALL 10/14 1045 DC (SODIUM CHLORIDE IV 11/13 2359 0.9%) Sodium Chloride 5 ML ASDIR PRN 10/14 1045 DC (SODIUM CHLORIDE) IV 11/13 1044 Sodium Chloride 10 ML ASDIR PRN 10/14 1045 DC (SODIUM CHLORIDE) IV 11/13 1044 Sodium Chloride 250 ML ASDIR PRN 10/14 1045 DC (SODIUM CHLORIDE IV 11/13 1044 0.9%) Eye, Ear, Nose And Throat (Een Sig/Manuela Start time Last Medication Dose Route Stop Time Status Admin Fluticasone 1 SPRAY DAILY 10/16 1100 CKD Propionate NASAL 11/15 1059 (Flonase Nasal [place]) Gastrointestinal Drugs Sig/Manuela Start time Last Medication Dose Route Stop Time Status Admin Ondansetron HCl 4 MG PACU ONCE PRN 10/16 1045 DC (ZOFRAN) IV 10/16 1839 Ondansetron HCl 4 MG PACU ONCE ONE 10/16 1030 DC (ZOFRAN) IV 10/16 1031 Ondansetron HCl 4 MG Q6H PRN PRN 10/16 1030 AC 10/16 (ZOFRAN) IV 11/15 1029 1706 Alvimopan 12 MG BID 10/16 0900 AC 10/16 (ENTEREG) PO 10/23 0859 2130 Alvimopan 0 .STK-MED ONE 10/16 0604 DC 10/16 (ENTEREG) PO 0628 Hormones And Synthetic Substit Sig/Manuela Start time Last Medication Dose Route Stop Time Status Admin Budesonide 2 PUFF RTBID PRN 10/16 1045 PEND (SYMBICORT 160/4.5 INH 11/15 1044 MCG INHALER) Insulin Human Lispro 0 PACU ONCE PRN 10/16 1045 DC (HUMALOG) SUBQ 10/16 1839 Local Anesthetics (Parenteral) Sig/Manuela Start time Last Medication Dose Route Stop Time Status Admin Ropivacaine 150 MG ASDIR PRN 10/16 1045 DC (NAROPIN 0.5% 150 MG/ LOCAL 10/16 2359 30mL) Respiratory Tract Agents Sig/Manuela Start time Last Medication Dose Route Stop Time Status Admin Montelukast Sodium 10 MG DAILY 10/16 1100 AC 10/16 (SINGULAIR) PO 11/15 1059 1433 Allergies: Coded Allergies: No Known Allergies (10/17/19) Objective Physical Exam VS/I O: Last Documented: Result Date Time Pulse Ox 91 10/16 1629 B/P 110/75 10/16 1629 B/P Mean 86.7 10/16 1629 Pulse 94 10/16 1629 O2 Delivery Nasal cannula 10/16 1207 O2 Flow Rate 2.421938 10/16 1207 Resp 12 10/16 1200 Temp 36.4 10/16 1159 Patient Weight Weight (lb): 252 Weight (oz): 3.34 Weight (kg): 114.400 Results Findings/data: Laboratory Tests: 10/16 0700 Chemistry Sodium (134 - 147 mEq/L) 137 Potassium (3.4 - 5.0 mEq/L) 4.9 Chloride (100 - 108 mEq/L) 100 Carbon Dioxide (21 - 33 mEq/L) 30 Anion Gap (0 - 20) 12 BUN (7 - 18 mg/dL) 11 Creatinine (0.6 - 1.3 mg/dL) 0.7 Glomerular Filtr Rate (90 - 95) 86.6 L Glucose (70 - 110 mg/dL) 170 H Calcium (8.0 - 10.5 mg/dL) 9.1 Recent Impressions: RADIOLOGY - XR CHEST 2 V 10/14 0842 Report Impression - Status: SIGNED Entered: 10/15/201952 IMPRESSION: No active process. Impression By: [email or web address] - Mckinley Carlson M.D. Diagnosis, Assessment Plan Free text A P: Ms. Muniz is 58 years old female patient with significant past medical history of asthma, hypertension, Crohn's disease, fibromyalgia who admitted to the hospital because of the severe abdominal pain due to Crohn's disease, patient also complaining of chronic severe neck and back pain, generalized body pain. Patient admitted to the hospital for robotic right colectomy, patient had the surgery successfully without An immediate complication. Pain history: abdomenal pain around the inicisional area, Pain referred to his upper abdomen and flanks area, pain is sharp cutting Pain the pain aggravated by movement coughing sneezing and moderately relieved by nothing, patient has chronic pain affecting Her neck, upper mid and lower thoracic area. Home pain medication: 1.Cymbalta 60 mg daily 2.tramadol 50 mg every 4 hours 3.[id number] mg every 6-8 hours as needed 4.Gabapentin 300 mg daily at bedtime 5.Clonazepam 0.5 mg daily at bedtime 10/17/2019 Patient with acute severe pain incisional area Status post robotic right colectomy Postop day #1 Aggressively manage acute pain with narcotics try to avoid NSAIDs, avoid heavy sedation, Continue current neuropathic pain medication for fibromyalgia management and anxiety Assessment: 1. Acute pain syndrome Due to Surgery status post robotic right hemicolectomy 2. Chronic pain syndrome 3. Painful peripheral diabetic neuropathy 4. Anxiety 5.Insomnia 6.Fibromyalgia Acute pain syndrome due to Robotic Right colectomy: Manageable 1. Hydrocodone 0.5 mg every 4 hours as needed for severe pain 2. Hydrocodone 5/325 mg every 4 hours as needed for moderate pain 3. Celebrex 200 mg by mouth every 12 hours Fibromyalgia: Controlled 1. Gabapentin 300 mg daily at bedtime 2. Duloxetine 60 mg daily Anxiety Manageable 1. Klonopin 0.5 mg daily at bedtime Goal: Daily pain control to improve function and/or quality of life ([x]) Postop pain control ([x]) Pain control with PT/OT ([x]) Pain control until condition naturally resolves ([x]) Inpatient pain control ([x]) Improved sleep cycle ([x]) all narcotics medications will be adjusted according to the patient's medical condition during the hospital stay -Monitor for S/E such as AMS, Lethargy/sedation, changes in respiratory function -Continue with current medication regimen -Continue BP parameters -APS( Acute Pain services) will continue to follow I personally reviewed all diagnostic images/lab records during the course of admission Risk versus benefit of opiate medications: All risk and benefit were reviewed with the patient and family members, risk not limited to respiratory depression, accidental overdose, risk of fall, altered mental status, constipation, dependency, addiction, withdrawn, sudden . Plan discussed with: The pain plan of care has been discussed with the patient and the nursing staff. Patient is in agreement with the following plan of care and wishes to proceed. Questions and concerns have been answered to the patient' s satisfaction. Patient has verbalized understanding. Thank you Murtaza An for allowing us to participate in your patient' s care at 1308 Addendum 1: 10/18/19 1315 by Marc Flynn MD Physical Exam General appearance: alert, awake, oriented, no acute distress, pleasant, conversational, mental status normal, no respiratory distress Neck: full range of motion, non-tender Cardiovascular: regular rate rhythm Respiratory: clear to auscultation Abdomen: soft, Tender to palpation, superficial and deep, Incision was covered by dressing mild tension blood , Rest of the dressing dry Spine Cervical: muscle tenderness Thoracic: muscle tenderness at 1316 RPT #:[id number] END OF REPORT [facility] 2019-10-17 11:20:00 [id number] [address] PATIENT NAME: CRISTAL MUNIZ ADMIT DATE: 10/17/19 ACCOUNT NO: [id number] ROOM NO: G.545 AGE: 58 REPORT TYPE: CONSULTATION REPORT SEX: F ADMITTING PHYSICIAN:Yani Jacobo MD ATTENDING PHYSICIAN:Yani Jacobo MD CONSULTATION DATE: CONSULTING PHYSICIAN: Murtaza Hernandez MD CHIEF COMPLAINT: Medical management, status post right robotic colectomy. REQUESTING PHYSICIAN: Yani Jacobo MD HISTORY OF PRESENT ILLNESS: This is a 58-year-old female with a past medical history of GERD, hypertension, asthma, morbid obesity, endometriosis, Crohn's disease, fibromyalgia, cervical disk issue and possible sleep apnea, came to the hospital for elective procedure. The patient had Crohn's disease and she was having severe abdominal pain and constipation for several days. The patient was brought to the hospital for elective procedure. She underwent robotic right colectomy this morning and we were consulted for the management of the postoperative care. Currently, the patient is in the postoperative care unit and she is in severe pain at this time. Her pain level is 8/10 at this time. She denies any nausea or vomiting. ALLERGIES: NO KNOWN ALLERGIES. PAST MEDICAL HISTORY: Hypertension, hyperlipidemia, GERD, endometriosis, asthma, morbid obesity, possible sleep apnea, fibromyalgia, and Crohn's disease. PAST SURGICAL HISTORY: Thumb surgery, left shoulder surgery, hysterectomy, right radial and ulnar nerve procedure and cervical disk repair. FAMILY HISTORY: Noncontributory to illness. SOCIAL HISTORY: No smoking or use of illicit drug. MEDICATIONS: Per MAR, reviewed and reconciled. REVIEW OF SYSTEMS: All 14-point systems reviewed. Pertinent positives and negatives are listed in HPI as above, otherwise negative. PHYSICAL EXAMINATION: GENERAL: The patient is awake, following command, in severe pain. VITAL SIGNS: Blood pressure is 121/69, pulse is 78, temperature is 36.4, and oxygen saturation 93% on 4 L nasal cannula, and respiratory rate is 18. HEENT: Normocephalic and atraumatic. NECK: Supple. No JVD. CARDIOVASCULAR: Regular rhythm, S1 and S2 present. PATIENT NAME: CRISTAL MUNIZ RESPIRATORY: The patient is on 2 L nasal cannula. No signs of wheezing or crackle. GASTROINTESTINAL: Hypoactive bowel sounds. Abdominal incision site looks fine, no signs of any bleeding or hematoma. GENITOURINARY: No signs of hematuria. MUSCULOSKELETAL: No signs of clubbing or cyanosis. ENDOCRINE: Stable. PSYCHIATRIC: Stable. LABORATORY AND DIAGNOSTIC DATA: WBC 9, RBC 4.39, hemoglobin 12.7, hematocrit 39.7, and platelets 327. Chemistry; sodium is 137, potassium 4.9, chloride 100, carbon dioxide 30, anion gap is 12, BUN is 11, creatinine is 0.7, glucose is 170, calcium is 9.1. Coagulation study; INR 1.0, PTT 37.3, PT 10.4. Serology, COVID-19 PCR is negative. IMAGING STUDY: Chest x-ray is negative for any acute abnormality. ASSESSMENT: 1. Crohn's disease, abdominal pain, status post right robotic colectomy. 2. Severe abdominal pain, status post surgery. 3. History of gastroesophageal reflux disease. 4. History of hypertension. 5. History of asthma. 6. History of morbid obesity. 7. History of fibromyalgia. 8. Possible sleep apnea. PLAN: 1. Admit to the floor. 2. Continue pain medication. 3. Antiemetics. 4. IV fluid. 5. Diet as tolerated. 6. Postop care per Dr. Jacobo. 7. We will consult the pain management. 8. Follow labs and replace as needed. 9. SCD for DVT prophylaxis. 10. PT, OT. 11. Monitor. After assessment, we discussed the plan with the patient at the bedside and answered all her questions and concerns. I would like to thank Dr. Jacobo to allow us to participate in the care. Dictated By: Ryan Weston NP for Murtaza Hernandez MD WT: CON:JADON/MAXINE/IZABELLA Conf#: [id number]/DID#: [id number] PATIENT NAME: CRISTAL MUNIZ Authenticated by Ryan Weston On 10/17/2019 05:13:39 PM Authenticated by Murtaza Hernandez MD On 10/23/2019 01:19:11 PM at 1319 at 1319 PATIENT NAME: CRISTAL MUNIZ [facility] 2019-10-17 10:56:00 [facility] ([facility]) Clinical Note REPORT#:[id number] REPORT STATUS: Signed DATE:10/17/19 TIME: 1055 PATIENT: CRISTAL MUNIZ UNIT #: [id number] ROOM/BED: [place] [id number] : [birth year] AGE: 58 SEX: F ATTEND: Yani Jacobo MD ADM AUTHOR: Ryan Weston SIGNAL TIMER * ALL edits or amendments must be made on the electronic/computer document * Clinical Note Note: Medical consult # [id number] at 1121 RPT #:[id number] END OF REPORT [facility] 2019-10-17 10:56:00 [facility] ([facility]) Clinical Note REPORT#:[id number] REPORT STATUS: Signed DATE:10/17/19 TIME: 1055 PATIENT: CRISTAL MUNIZ UNIT #: [id number] ROOM/BED: [place] [address] : [birth year] AGE: 58 SEX: F ATTEND: Yani Jacobo MD ADM AUTHOR: Ryan Weston NP * ALL edits or amendments must be made on the electronic/computer document * Ryan Weston 10/17/19 1056: Clinical Note Note: Medical consult # [id number] Murtaza Hernandez 10/21/19 0028: Clinical Note Note: Reviewed the findings and plan as documented by SIGNAL TIMER as above reviewed pt seen and examined dw RN at 1121 RPT #:[id number] END OF REPORT [facility] 2019-10-17 10:56:00 [facility] ([facility]) Clinical Note REPORT#:[id number] REPORT STATUS: Signed DATE:10/17/19 TIME: 1056 PATIENT: CRISTAL MUNIZ UNIT #: [id number] ROOM/BED: [place] [address] : [birth year] AGE: 58 SEX: F ATTEND: Yani Jacobo MD ADM AUTHOR: Ryan Weston SIGNAL TIMER * ALL edits or amendments must be made on the electronic/computer document * Ryan Weston 10/17/19 1056: Clinical Note Note: Medical consult # [id number] Murtaza Hernandez 10/21/19 0028: Clinical Note Note: Reviewed the findings and plan as documented by SIGNAL TIMER as above reviewed pt seen and examined dw RN at 1121 at 0034 RPT #:[id number] END OF REPORT [facility] 2019-10-15 09:42:00 [id number] [place] [address] PATIENT NAME: CRISTAL MUNIZ ADMIT DATE: ACCOUNT NO: [id number] ROOM NO: AGE: 58 REPORT TYPE: eELECTROCARDIOGRAM REPORT SEX: F ADMITTING PHYSICIAN:Yani Jacobo MD ATTENDING PHYSICIAN:Yani Jacobo MD Order: [id number] Test Reason : PREOP Test Date/Time Stamp: MonOct 15 2019 09:42:08 Blood Pressure : / mmHG Vent. Rate : 075 BPM Atrial Rate : 075 BPM P-R Int : 178 ms QRS Dur : 094 ms QT Int : 392 ms P-R-T Axes : 072 025 039 degrees QTc Int : 437 ms Normal sinus rhythm Normal ECG PRE_OP Confirmed by LISSETH JAIME MD ([id number]) on 10/15/2019 2:22:54 PM Referred By: Yani Jacobo Confirmed by:LISSETH JAIME MD at 1423 PATIENT NAME: CRISTAL MUNIZ [facility]
[2023-12-25 20:35] LABS: Albumin 3.9 g/dL (3.4-5.0); Albumin/Globulin Ratio 1.1 (1.1-1.8); Anion Gap 6.6 mEq/L (5.0-15.0); Bilirubin Total 0.4 mg/dL (0.2-1.0); Globulin 3.7 g/dL (2.3-3.5); Potassium 3.6 mEq/L (3.5-5.1); Protein, Total 7.6 g/dL (6.4-8.2)
[2023-12-25 20:36] LABS: Magnesium 2.1 mg/dL (1.6-2.4); NT PRO-BNP 24 pg/mL (<125)
[2023-12-25 20:40] LABS: Troponin High Sensitivity < 3.0 pg/mL (<58.9)
[2023-12-25 20:41] LABS: Absolute Eosinophils 0.3 K/uL (0-0.5); Absolute Lymphocytes (CBC) 2.2 K/uL (0.7-4.9); Absolute Monocytes 0.9 K/uL (0.1-1.3); Absolute Neutrophil 6.6 K/uL (1.8-8.0); Basophils % 0.4 % (0-1.3); Hematocrit 36.6 % (36.0-45.0); Hemoglobin 12.1 g/dL (12.0-15.0); Lymphocytes % 21.8 % (15.3-44.8); MCH 27.1 pg (27.0-35.0); MCHC 33.1 g/dL (32.0-36.0); Monocytes % 8.9 % (3.3-12.3); Neutrophils % 65.9 % (41.7-73.7); Platelets 387 thou/uL (152-406); RBC Red Blood Cell Count 4.47 M/uL (3.86-4.86); Red Cell Distribution Width 15.4 % (12.1-15.2)
--- NOTE | 2023-12-25 21:29 | RAD REPORT ---
Procedure: Chest Single View History: Shortness of breath Comparison: July 2023 The lungs appear clear of acute infiltrate. No significant pleural effusion noted. The heart is borderline enlarged IMPRESSION: No acute abnormality is displayed.
--- NOTE | 2023-12-25 21:53 | RAD REPORT ---
EXAMINATION: CT ABDOMEN AND PELVIS WITH CONTRAST CLINICAL INDICATION: Abdominal pain/left upper quadrant pain TECHNIQUE: CT abdomen and pelvis was performed, after the administration of 100 cc Isovue-300.. Sagit rossy and coronal reconstructions were obtained. One or more of the following dose reduction techniques were used: Automated exposure control, adjustment of the mA and/or kV according to patien t size, and/or iterative reconstruction. Unless otherwise specified, incidental findings do not require dedicated imaging follow-up. [id number]. Oral contrast was not given which limits evaluation of b owel and appendix. COMPARISON: 2019 FINDINGS: Mild fatty liver. Liver is moderately enlarged. The spleen, pancreas, adrenals and kidneys unremarkable There is no evidence of diverticulitis. Postsurgical changes involve the colon. Hysterectomy. No adnexal mass. Post surgical changes involve the spine Small ventral hernia : IMPRESSION: Mild hepatomegaly with mild fatty infiltration
[2023-12-25] MEDS ORDERED: ACETAMINOPHEN 500 MG TAB ONE (23:01)
[2023-12-25 23:08] LABS: Specific Gravity 1.005 (1.005-1.030); Urine Bilirubin NEGATIVE (Negative); Urine Blood Negative (Negative); Urine Clarity Clear (Clear); Urine Color Light-Yellow (Yellow); Urine Glucose NEGATIVE (Negative); Urine Ketones NEGATIVE (Negative); Urine Microscopic Reflex YN NO UMIC; Urine Nitrite NEGATIVE (Negative); Urine Protein NEGATIVE (Negative); Urine Urobilinogen Normal (Normal); Urine pH 6.5 (5.0-7.0)
--- NOTE | 2023-12-25 23:15 | EDPHYS ---
Physician Documentation [facility] Name: Cristal Ramsay Age: 63 yrs Sex: Female : 1960 Arrival Date: 12/25/2023 Time: 18:02 Bed 7 Private MD: ED Physician Jose Mercado HPI: 12/24 19:15 This 63 yrs old Female presents to ER via Ambulatory with complaints of Abdominal Pain. cp 19:15 The patient presents with abdominal pain in the left upper quadrant, abdominal cp distention. Historical: - Allergies: 18:30 Morphine; iw 18:30 capsaicin; iw - PMHx: 18:30 Fibromyalgia; ADD/ADHD; COPD; High Cholesterol; Hypertension; restless leg syndrome; iw Crohn's; - PSHx: 18:30 Appendectomy; iw 18:31 back; iw 18:31 cervical fusion; iw - Immunization history:: Adult Immunizations up to date. - Infectious Disease History:: Denies. - Social history:: Smoking status: Patient denies any tobacco usage or history of. ROS: 19:20 Constitutional: Negative for body aches, chills, fever, poor PO intake, cp 19:20 Eyes: Negative for injury, pain, redness, and discharge, cp 19:20 Neck: Positive for pain at rest, Negative for injury or acute deformity, 19:20 Cardiovascular: Negative for chest pain, edema, palpitations, 19:20 Respiratory: Positive for shortness of breath, on exertion. 19:20 Back: Positive for pain at rest, pain with movement, of the left scapular area and right scapular area, Negative for injury or acute deformity, Exam: 18:33 ECG was reviewed by the Attending Physician. cp 19:30 Constitutional: The patient appears in no acute distress, alert, awake, cp non-diaphoretic, non-toxic, well developed, well nourished, obese, uncomfortable, 19:30 Head/Face: Normocephalic, atraumatic. cp 19:30 Eyes: Periorbital structures: appear normal, Conjunctiva: normal, no exudate, no injection, Sclera: no appreciated abnormality, Lids and lashes: appear normal, bilaterally, 19:30 ENT: External ear(s): are unremarkable, Nose: is normal, Mouth: Lips: moist, Oral mucosa: moist, Posterior pharynx: Airway: no evidence of obstruction, patent, 19:30 Neck: ROM/movement: Meningeal signs: are not present, nuchal rigidity, is not appreciated, 19:30 Chest/axilla: Inspection: normal, 19:30 Cardiovascular: Rate: normal, Rhythm: regular, Edema: is not appreciated, JVD: is not appreciated, 19:30 Respiratory: the patient does not display signs of respiratory distress, Respirations: labored breathing, that is mild, Breath sounds: decreased breath sounds, are not appreciated, wheezing: is not appreciated, 19:30 Abdomen/GI: Inspection: obese Bowel sounds: active, all quadrants, Palpation: soft, in all quadrants, moderate abdominal tenderness, in the left upper quadrant, rebound tenderness, is not appreciated, involuntary guarding, is not appreciated, 19:30 Back: pain, that is very mild, of the left scapular area and right scapular area, ROM is normal, Vital Signs: 18:22 BP 124 / 64; Pulse 78; Resp 16; Temp 98.1; Pulse Ox 95% on R/A; Weight 111.13 kg; iw Height 5 ft. 3 in. ; Pain 6/10; 20:10 BP 137 / 67; Pulse 67; Resp 17 S; Pulse Ox 97% on R/A; lg3 21:17 BP 132 / 72; Pulse 73; Resp 18; Temp 98.1; Pulse Ox 98% ; Pain 5/10; bm8 22:21 BP 138 / 74; Pulse 71; Resp 17 S; Pulse Ox 98% on R/A; lg3 23:29 BP 131 / 69; Pulse 66; Resp 17 S; Temp 97.6(O); Pulse Ox 97% on R/A; lg3 18:22 Body Mass Index 43.40 (111.13 kg, 160.02 cm) iw 18:22 Pain Scale: Adult iw 21:17 Pain Scale: Adult bm8 [place] Coma Score: 21:17 Eye Response: spontaneous(4). Motor Response: obeys commands(6). Verbal Response: bm8 oriented(5). Total: 15. MDM: 18:47 Patient medically screened. cp 12/24 19:11 Order name: CBC with Diff; Complete Time: 21:03 cp 12/24 19:11 Order name: CMP; Complete Time: 21:03 cp 12/24 19:11 Order name: Lipase; Complete Time: 21:03 cp 12/24 19:11 Order name: Urinalysis w/ reflexes; Complete Time: 23:10 cp 12/24 19:29 Order name: Magnesium; Complete Time: 21:03 cp 12/24 19:29 Order name: NT PRO-BNP; Complete Time: 21:03 cp 12/24 19:29 Order name: Troponin HS; Complete Time: 21:03 cp 12/24 19:29 Order name: XRAY Chest (1 view); Complete Time: 21:56 cp 12/24 19:29 Order name: CT Abd/Pelvis - IV Contrast Only; Complete Time: 21:56 cp 12/24 19:11 Order name: IV Saline Lock; Complete Time: 20:09 cp 12/24 19:11 Order name: Labs collected and sent; Complete Time: 20:09 cp 12/24 19:29 Order name: Cardiac monitoring; Complete Time: 20:09 cp 12/24 19:29 Order name: EKG - Nurse/Tech; Complete Time: 20:09 cp 12/24 19:29 Order name: O2 Per Protocol; Complete Time: 20:09 cp 12/24 19:29 Order name: O2 Sat Monitoring; Complete Time: 20:09 cp EC:33 Rate is 73 beats/min. Rhythm is regular. [place] interval is normal. QRS interval is normal. cp QT interval is normal. T waves are Inverted in leads aVR, V2. Interpreted by me. Reviewed by me. Administered Medications: 23:04 Drug: Acetaminophen PO 1000 mg PO once Route: PO; lg3 23:30 Follow up: Response: No adverse reaction lg3 Disposition: 12/25 00:46 Co-signature as Attending Physician, Jose Mercado MD. rt 00:47 I reviewed the patient's care provided by Advanced Practice Provider \T\ agree w/ the rt diagnosis \T\ care plan. I personally saw the pt \T\ performed a substantive portion of the visit, incldng all aspects of the (History/Exam/Medical Decision Making). PA/ROTARY ENGINE ASSEMBLER's history reviewed, patient interviewed, and examined. My personal exam of patient reveals: No focal areas of tenderness Patient with left upper quadrant pain pain, negative workup, instructed to follow-up with GI as an outpatient.. Disposition Summary: 12/25/23 23:15 Discharge Ordered Notes: Location: Home rt Problem: new rt Symptoms: have improved rt Condition: Stable rt Diagnosis - Abdominal pain, unspecified rt Followup: rt - With: Isaiah Acevedo MD - When: 2 - 3 days - Reason: Discharge Instructions: - Discharge Summary Sheet rt - Abdominal Pain, Adult rt Forms: - Medication Reconciliation Form rt - Antibiotic Education rt - Prescription Opioid Use rt - Patient Portal Instructions rt - Leadership Thank You Letter rt Signatures: Dispatcher [employer] Jaimie Garcia, RN RN iw Sharad Sutton PA PA Kimber Xavier RN RN lg3 Jose Mercado MD MD rt Corrections: (The following items were deleted from the chart) 12/24 19:30 19:30 Abdomen Pelvis W Con+CT.RAD.BRZ ordered. TRAVISHI BOB
--- NOTE | 2023-12-25 23:15 | ER ---
Nurse's Notes [facility] Name: Cristal Ramsay Age: 63 yrs Sex: Female : 1960 Arrival Date: 12/25/2023 Time: 18:02 Bed 7 Private MD: Diagnosis: Abdominal pain, unspecified Presentation: 12/24 18:22 Chief complaint: Patient states: LUQ pain, then had sudden pain in my back above my iw ribs and then pain behind my right shoulder blade, felt nauseous. Coronavirus screen: At this time, the client does not indicate any symptoms associated with coronavirus-19. Ebola Screen: No symptoms or risks identified at this time. Initial Sepsis Screen: Does the patient meet any 2 criteria? No. Patient's initial sepsis screen is negative. Does the patient have a suspected source of infection? No. Patient's initial sepsis screen is negative. Risk Assessment: Do you want to hurt yourself or someone else? Patient reports no desire to harm self or others. 18:22 Method Of Arrival: Ambulatory iw 18:22 Acuity: HARLEEN 3 iw 18:30 Onset of symptoms was December 25, 2023. iw Historical: - Allergies: 18:30 Morphine; iw 18:30 capsaicin; iw - PMHx: 18:30 Fibromyalgia; ADD/ADHD; COPD; High Cholesterol; Hypertension; restless leg syndrome; iw Crohn's; - PSHx: 18:30 Appendectomy; iw 18:31 back; iw 18:31 cervical fusion; iw - Immunization history:: Adult Immunizations up to date. - Infectious Disease History:: Denies. - Social history:: Smoking status: Patient denies any tobacco usage or history of. Screenin:07 [facility] ED Fall Risk Assessment (Adult) History of falling in the last 3 months, lg3 including since admission No falls in past 3 months (0 pts) Confusion or Disorientation No (0 pts) Intoxicated or Sedated No (0 pts) Impaired Gait No (0 pts) Mobility Assist Device Used No (0 pt) Altered Elimination Yes (1 pt) Score/Fall Risk Level 0 - 2 = Low Risk Oriented to surroundings, Maintained a safe environment, Educated pt \T\ family on fall prevention, incl call for assistance when getting out of bed, Assessed \T\ reinforced patient's understanding of fall precautions. Abuse screen: Denies threats or abuse. Denies injuries from another. Nutritional screening: No deficits noted. Tuberculosis screening: No symptoms or risk factors identified. Assessment: 20:07 General: Appears in no apparent distress. comfortable, Behavior is calm, cooperative. lg3 Pain: Complains of pain in right scapular area and left scapular area. Neuro: No deficits noted. Rizo Agitation-Sedation Scale (RASS): 0 - Alert and Calm Level of Consciousness is awake, alert, obeys commands, Oriented to person, place, time, situation. Cardiovascular: No deficits noted. Denies chest pain, shortness of breath, Capillary refill < 3 seconds Clubbing of nail beds is absent JVD is absent Patient's skin is warm and dry. Respiratory: No deficits noted. Airway is patent Respiratory effort is even, unlabored, Respiratory pattern is regular, symmetrical. GI: No deficits noted. Abdomen is round non-distended, obese, Reports upper abdominal pain. : No deficits noted. No signs and/or symptoms were reported regarding the genitourinary system. EENT: No deficits noted. No signs and/or symptoms were reported regarding the EENT system. Derm: No deficits noted. No signs and/or symptoms reported regarding the dermatologic system. Skin is intact, is healthy with good turgor, Skin is dry, Skin is normal, Skin temperature is warm. Musculoskeletal: No deficits noted. Circulation, motion, and sensation intact. Range of motion: intact in all extremities. 21:17 Reassessment: Patient appears in no apparent distress at this time. Patient and/or bm8 family updated on plan of care and expected duration. Pain level reassessed. Patient is alert, oriented x 3, equal unlabored respirations, skin warm/dry/pink. General: Appears in no apparent distress. comfortable, Behavior is calm, cooperative, appropriate for age. Pain: Complains of pain in abdomen Pain currently is 5 out of 10 on a pain scale. Neuro: No deficits noted. Level of Consciousness is awake, alert, obeys commands, Oriented to person, place, time, situation, Appropriate for age. Cardiovascular: Denies chest pain, shortness of breath, Heart tones S1 S2 present Capillary refill < 3 seconds Clubbing of nail beds is absent JVD is absent Patient's skin is warm and dry. Respiratory: Airway is patent Respiratory effort is even, unlabored, Respiratory pattern is regular, symmetrical. GI: Abdomen is round non-distended, obese, Reports upper abdominal pain, Pain is 5 out of 10 on a pain scale. : No signs and/or symptoms were reported regarding the genitourinary system. EENT: No signs and/or symptoms were reported regarding the EENT system. Derm: No signs and/or symptoms reported regarding the dermatologic system. Musculoskeletal: No signs and/or symptoms reported regarding the musculoskeletal system. 23:29 Reassessment: Patient appears in no apparent distress at this time. No changes from lg3 previously documented assessment. Patient and/or family updated on plan of care and expected duration. Pain level reassessed. Patient is alert, oriented x 3, equal unlabored respirations, skin warm/dry/pink. Vital Signs: 18:22 BP 124 / 64; Pulse 78; Resp 16; Temp 98.1; Pulse Ox 95% on R/A; Weight 111.13 kg; iw Height 5 ft. 3 in. ; Pain 6/10; 20:10 BP 137 / 67; Pulse 67; Resp 17 S; Pulse Ox 97% on R/A; lg3 21:17 BP 132 / 72; Pulse 73; Resp 18; Temp 98.1; Pulse Ox 98% ; Pain 5/10; bm8 22:21 BP 138 / 74; Pulse 71; Resp 17 S; Pulse Ox 98% on R/A; lg3 23:29 BP 131 / 69; Pulse 66; Resp 17 S; Temp 97.6(O); Pulse Ox 97% on R/A; lg3 18:22 Body Mass Index 43.40 (111.13 kg, 160.02 cm) iw 18:22 Pain Scale: Adult iw 21:17 Pain Scale: Adult bm8 [place] Coma Score: 21:17 Eye Response: spontaneous(4). Motor Response: obeys commands(6). Verbal Response: bm8 oriented(5). Total: 15. ED Course: 18:03 Patient arrived in ED. ra3 18:16 Sharad Sutton PA is PHCP. cp 18:16 Gary Bender MD is Attending Physician. cp 18:30 Triage completed. iw 18:31 Arm band placed on. iw 20:07 Kimber Caban RN is Primary Nurse. lg3 20:07 Patient has correct armband on for positive identification. Placed in gown. Bed in low lg3 position. Call light in reach. Side rails up X 1. Client placed on continuous cardiac and pulse oximetry monitoring. NIBP monitoring applied. athletic monitor on. Door closed. Noise minimized. Warm blanket given. Pillow given. Family accompanied patient. 20:07 Inserted saline lock: 20 gauge in right antecubital area, using aseptic technique. lg3 Blood collected. Patient maintains SpO2 saturation greater than 95% on room air. 20:09 Magnesium Sent. lg3 20:09 NT PRO-BNP Sent. lg3 20:09 Troponin HS Sent. lg3 20:09 CBC with Diff Sent. lg3 20:09 CMP Sent. lg3 20:09 Lipase Sent. lg3 20:13 XRAY Chest (1 view) In Process Unspecified. EDMS 20:33 Attending Physician role handed off by Gary Bender MD rt 20:33 Jose Mercado MD is Attending Physician. rt 20:58 CT Abd/Pelvis - IV Contrast Only In Process Unspecified. EDMS 21:17 No provider procedures requiring assistance completed. bm8 23:15 Isaiah Acevedo MD is Referral Physician. rt 23:29 IV discontinued, intact, bleeding controlled, No redness/swelling at site. Pressure lg3 dressing applied. Administered Medications: 23:04 Drug: Acetaminophen PO 1000 mg PO once Route: PO; lg3 23:30 Follow up: Response: No adverse reaction lg3 Medication: 21:17 VIS not applicable for this client. bm8 Outcome: 23:15 Discharge ordered by MD. rt 23:29 Discharged to home ambulatory, lg3 23:29 Condition: stable 23:29 Discharge instructions given to patient, Instructed on discharge instructions, follow up and referral plans. Demonstrated understanding of instructions, follow-up care, 23:30 Patient left the ED. lg3 Signatures: Dispatcher [employer] Jaimie Garcia, RN RN iw Sharad Sutton PA PA cp Able, Lacie RN RN lg3 Jose Mercado MD MD rt Sandra Adair ra3 Tone Anders RN RN bm8 Corrections: (The following items were deleted from the chart) 18:30 18:22 BP 124 / 64; Pulse 78bpm; Resp 16bpm; Pulse Ox 95% RA; Temp 98.1F; iw iw
[2023-12-25 23:47] VITALS: BP 131/69; TEMP 97.6; O2SAT 97
--- NOTE | 2023-12-27 13:02 | EKG ---
Test Date: 2023-12-25 Test Time: 18:28:46 Career Coordinator: ISELA MEASUREMENT RESULTS: Intervals: Rate: 73 GA: 162 QRSD: 88 QT: 418 QTc: 460 [place]: P: 68 GA: 162 QRS: -2 T: 38 INTERPRETIVE STATEMENTS: Normal sinus rhythm Normal ECG Compared to ECG 08/21/2020 06:55:31 No significant changes Electronically Signed On 12-27-23 12:56:15 CDT by Mariano Greenberg
== END 2023-12-25 23:30 | disposition home or self-care (01) ==
LOC: ER 18:02
DX: R10.12 Left upper quadrant pain (principal); I10 Essential (primary) hypertension; E78.00 Pure hypercholesterolemia, unspecified; J44.9 Chronic obstructive pulmonary disease, unspecified
CPT/HCPCS: 93005; 85025; 36415; 83735; 81003; 84484; 83690; 80053; 83880; 74177; 71045; 99284; Q9967

== ENCOUNTER 2024-11-21 09:53 | Emergency (ER) | payer OTHER ==
--- OUTSIDE RECORDS SUMMARY | 2024-11-21 10:06 | XMS REPORT | Continuity of Care Document ---
Author Name Unknown Address [address] [facility] [place] [address] [facility] Address [address] [facility] [place] [address] Care Team Providers Care Services Executive Name Role Phone Poonam Zhao Primary Care Physician [phone] Yani Jacobo Attending Clinician Unava katie Benoit MD, Devin Attending Clinician [phone] BUDDY BENOIT Attending Clinician Unavailabl e 2, [facility] Attending Clinician Unavailable Elidia Berman MD Attending Clinician [phone] ELIDIA BERMAN Attending Clinician Unavailable Doctor Unassigned, [place] Attending Clinician U Buddy Anders MD Attending Clinician [phone] Briana Merritt MD Attending Clinician + [phone], [facility] Attending Clinician Unavailable Elliott Morfin MD Attending Clinician [phone] CLARENCE CARMONA Attending Clinician Unavailable CLARENCE CARMONA Attending Clinician Unavailable KELLEY LAIRD Attending Clinician UnavailELLIOTT Dumont Attending Clinician Unavailable Rodolfo Mckeon RN Attending Clinician Unavaila chito Morfin MD, Elliott Attending Clinician [phone], [facility] Attending Clinician Unavailable Elidia Berman MD Attending Clinician + [phone] Doctor Unassigned, [place] Attending Clinician U DUSTIN Montez Attending Clinician April Elizabeth Mckenzie Attending Clinician [phone] LAUREN ASHBY Attending Clinician Unavailable NADINE DESIR Attending Clinician Unavailable Nadine Desir MD Attending Clinician [phone] ELIZABETH BURRELL Attending Clinician Unavailable Nurse, [facility] Attending Clinician Unavailable Briana Merritt MD Attending Clinician + [phone] BRIANA MERRITT Attending Clinician AVINASH Pollock Attending Clinician Unavailable Julian Barriga MD Attending Clinician [phone] Skyler David MD Attending Clinician [phone] Avinash Carty MD Attending Clinician [phone] PEGGY ORDONEZ Attending Clinician Unavailable Pob, [facility] Main Attending Clinician Unavailabl e Call, Clc Apa Phone Attending Clinician Unavail able 1, [facility] Infusion Chair Attending Clinician Sofy bailon 2, [facility] Infusion Chair Attending Clinician Tamia Valdovinos Attending Clinician Un available Renee Tafoya RN Attending Clinician Unavailab le Only, Ang Db Test Attending Clinician UnavailOlvin Mckenzie Attending Clinician [phone] OLVIN ROYAL Attending Clinician Unavailable 1, [facility] Infusion Nurse Attending Clinician BUDDY Nguyen Admitting Clinician UnavailELLIOTT Dumont Admitting Clinician Unavailable Elliott Morfin MD Admitting Clinician ELIZABETH BURRELL Admitting Clinician Unavailable JULIAN BARRIGA Admitting Clinician Unavailable PEGGY ORDONEZ Admitting Clinician Unavailable BRIANA MERRITT Admitting Clinician Briana Hines MD Admitting Clinician [phone] Tamia Restrepo Admitting Clinician Un available UNDEFINED Admitting Clinician Unavailable Payers Payer Name Policy Type Policy Number Effective Date Expirati on Date Source Problems Condition Name Condition Details Condition Category Status Onset Date Resolution Date Last Treatment Date Treating Clinician Comments Source Cervical spondylosi s with radiculopa thy Cervical spondylosi s with radiculopa thy Disease Active 05-08 00:00: 00 [facility] Morbid obesity with body mass index of 40.0-49.9 Morbid obesity with body mass index of 40.0-49.9 Disease Active 2022-03 00:00: 00 [facility] Spinal stenosis of lumbar region without neurogenic claudicati on Spinal stenosis of lumbar region without neurogenic claudicati on Disease Active 2022-03 00:00: 00 [facility] Lumbar radiculopa thy Lumbar radiculopa thy Disease Active 2022-03 00:00: 00 [facility] Saddle anesthesia Saddle anesthesia Disease Active 2022-03 00:00: 00 [facility] Saddle anesthesia Saddle anesthesia Disease Active 2022-03 00:00: 00 [facility] No known active problems No known active problems Disease [facility] Allergies, Adverse Reactions, Alerts Allergy Name Allergy Type Status Severity Reaction(s) Onset Date Inactive Date Treating Clinician Comments Source MORPHINE DRUG INGREDI Active Low Unknown-Cmnt 2021-03 00:00: 00 [facility] Morphine Propensi ty to adverse reaction s to drug Active Unknown - See comments 2021-03 0 00:00: 00 "Does not work" [facility] morphine DA Active [place] DOESNT WORK 8-10 00:00: 00 [facility] No Known Allergie s DA Active U 10-16 00:00: 00 [facility] milk FA Active SV 10-14 00:00: 00 [facility] milk FA Active [place] STUFFY NOSE 10-14 00:00: 00 [facility] MILK DRUG INGREDI Active Other-Cmnt 3 00:00: 00 [facility] Milk Propensi ty to adverse reaction s Active Other - See comments 06-03 00:00: 00 Liquid milk.. Makes patient congested [facility] Social History Social Habit Start Date Stop Date Quantity Comments Source Gender identity [facility] Sexual orientation U [facility] ASSERTION Not [facility] History SDOH Alcohol Frequency [facility] History SDOH Alcohol Std Drinks [facility] History SDOH Alcohol Binge [facility] History of tobacco use Cigarette Smoker [facility] Tobacco use and exposure 2023-12-15 00:00:00 2023-12-15 00:00:00 Smokeless tobacco non-user [facility] Alcoholic beverage intake 2023-12-15 00:00:00 2023-12-15 00:00:00 0 /d [facility] Alcohol intake 2023-07-03 00:00:00 2023-07-03 00:00:00 0 /d [facility] History of Social function 2023-05-30 00:00:00 2023-05-30 00:00:00 [facility] Exposure to SARS-CoV-2 (event) 2021-09-28 00:00:00 2021-10-08 10:54:00 Not sure [facility] Alcohol Comment 2016-05-09 00:00:00 2016-05-09 00:00:00 Social Drinker [facility] Sex assigned at 1960 00:00:00 1960 00:00:00 [facility] Smoking Status Start Date Stop Date Source Ex-smoker 2023-12-15 00:00:00 2023-12-15 [facility]00[facility]ations Ordered Medication Name Filled Medication Name Start Date Stop Date Current Medication? Ordering Clinician Indication Dosage Frequency Signature (SIG) Comments Components Source vedolizumab (ENTYVIO) 300 mg in NaCl 0.9% (NS) 250 mL IV infusion vedolizumab (ENTYVIO) 300 mg in NaCl 0.9% (NS) 250 mL IV infusion 05-31 20:45: 00 05-31 21:30 :00 No [id number] 300mg 300 mg, IV Infusion, ONCE, 1 dose, On Mon05/31/24 at 1445, Administer over 30 Minutes, 250 mL [facility] [place] [facility] vedolizumab (ENTYVIO) 300 mg in NaCl 0.9% (NS) 250 mL IV infusion 04-05 21:00: 00 04-05 21:45 :00 No [id number] 300mg 300 mg, IV Infusion, ONCE, 1 dose, On Mon04/05/24 at 1500, Administer over 30 Minutes, 250 mL [facility] [place] [facility] vedolizumab (ENTYVIO) 300 mg in NaCl 0.9% (NS) 250 mL IV infusion 2023-03 16:15: 00 02-12 17:05 :00 No [id number] 300mg 300 mg, IV Infusion, ONCE, 1 dose, On Mon02/13/24 at 1015, Administer over 30 Minutes, 250 mL [facility] [place] [facility] vedolizumab (ENTYVIO) 300 mg in NaCl 0.9% (NS) 250 mL IV infusion 12-14 20:30: 00 12-14 20:55 :00 No [id number] 300mg 300 mg, IV Infusion, ONCE, 1 dose, On Mon12/15/23 at 1530, Administer over 30 Minutes, 250 mL [facility] [place] [facility] vedolizumab (ENTYVIO) 300 mg in NaCl 0.9% (NS) 250 mL IV infusion 06-28 15:45: 00 06-28 16:35 :00 No [id number] 300mg 300 mg, IV Infusion, ONCE, 1 dose, On Mon06/29/23 at 1045, Administer over 30 Minutes, 250 mL [facility] HYDROcodone -acetaminop hen (NORCO 5) 5-325 mg tablet 1 tablet 05-29 20:30: 00 05-29 21:13 :00 No 1{tbl} 1 tablet, Oral, ONCE, 1 dose, On Mon05/30/23 at 1430, Routine, PACU [facility] HYDROmorpho ne (DILAUDID) injection 0.2 mg 05-29 20:28: 12 Yes .2mg 0.2 mg, Slow IV Push, Q5MIN PRN, 10 doses, Starting on Mon05/30/23 at 1428, Until Discontinu ed, Routine, Pain (scale 7-10), PACU
Us e approved by (Faculty): PACU USE -ANESTHESI A SERVICE-HY DROMORPHON E INJECTIONS [facility] FENTanyl PF (SUBLIMAZE (PF)) injection 25 mcg 05-29 20:28: 12 Yes 25ug 25 mcg, Slow IV Push, Q5MIN PRN, 4 doses, Starting on Mon05/30/23 at 1428, Until Discontinu ed, Routine, Pain (scale 4-6), PACU [facility] proMETHazin e (PHENERGAN) 12.5 mg in NS 50 mL IV piggyback (CNR) 05-29 20:28: 12 Yes 12.5mg 12.5 mg, IV Piggyback, at 200 mL/hr Administer over 15 Minutes, PRN, 1 dose, Starting on Mon05/30/23 at 1428, Until Discontinu ed, Routine, Nausea and Vomiting (N/V), PACU [facility] vancomycin (VANCOCIN) 1 g in sodium chloride 0.9 % irrigation 05-29 19:42: 00 05-29 20:33 :06 No PRN, Starting on Mon05/30/23 at 1342, Until Mon05/30/23 at 1433, 1,000 mL, Intra-op [facility] thrombin topical solution 05-29 19:00: 00 05-29 20:33 :06 No PRN, Starting on Mon05/30/23 at 1300, Until Mon05/30/23 at 1433, Routine, Intra-op [facility] lidocaine-e pinephrine (XYLOCAINE WITH EPINEPHRINE ) 0.5 %-1:200,000 injection 05-29 18:00: 00 05-29 20:33 :06 No PRN, Starting on Mon05/30/23 at 1200, Until Mon05/30/23 at 1433, Routine, Intra-op [facility] amphetamine -dextroamph etamine 20 mg 24 hr capsule 05-29 17:31: 19 Yes 20mg Take 1 capsule by mouth in the morning. [facility] atenolol 25 mg tablet 05-29 17:31: 19 Yes 25mg Take 1 tablet by mouth in the morning. [facility] atorvastati n 10 mg tablet 05-29 17:31: 19 Yes 10mg Take 1 tablet by mouth at bedtime. [facility] celecoxib 200 mg capsule 05-29 17:31: 19 Yes 200mg Take 1 capsule by mouth in the morning. [facility] clonazePAM 0.5 mg tablet 05-29 17:31: 19 Yes .5mg Take 1 tablet by mouth every evening. [facility] DULoxetine 60 mg capsule 05-29 17:31: 19 Yes 60mg Take 1 capsule by mouth in the morning and 1 capsule in the evening. [facility] estradiol 1 mg tablet 05-29 17:31: 19 Yes 1mg Take 1 tablet by mouth in the morning. [facility] fluticasone propionate 50 mcg/actuati on nasal spray 05-29 17:31: 19 Yes 2{spray } Use 2 Sprays in each nostril in the morning. [facility] fluocinonid e 0.05 % ointment 05-29 17:31: 19 Yes 1{dose} Apply 1 Dose to area(s) 2 (two) times daily. [facility] hyoscyamine 0.125 mg tablet 05-29 17:31: 19 Yes .125mg Take 1 tablet by mouth every 6 (six) hours as needed. [facility] methocarbam ol 750 mg tablet 05-29 17:31: 19 Yes 750mg Take 1 tablet by mouth in the morning and 1 tablet at noon and 1 tablet in the evening. [facility] budesonide- formoterol (SYMBICORT) 160-4.5 mcg/actuati on inhaler 05-29 17:31: 19 Yes 1{puff} Inhale 1 Puff daily. [facility] valsartan-h ydrochlorot hiazide 320-25 mg per tablet 05-29 17:31: 19 Yes 1{tbl} Take 1 tablet by mouth in the morning. [facility] multivit with minerals/maritza tein (MULTIVITAM IN 50 PLUS ORAL) 05-29 17:31: 19 Yes 1{tbl} Take 1 tablet by mouth daily. [facility] coenzyme Q10 100 mg softgel 05-29 17:31: 19 Yes 100mg Take 1 capsule by mouth in the morning. [facility] Biotin 2,500 mcg Cap 05-29 17:31: 19 Yes 2500ug Take 2,500 mcg by mouth daily. [facility] acetaminoph en 650 mg CR tablet 05-29 17:31: 19 Yes 1300mg Take 2 tablets by mouth in the morning and 2 tablets in the evening. [facility] amphetamine -dextroamph etamine 20 mg 24 hr capsule 05-29 14:14: 02 Yes 20mg Take 1 capsule by mouth in the morning. [facility] atenolol 25 mg tablet 05-29 14:14: 02 Yes 25mg Take 1 tablet by mouth in the morning. [facility] atorvastati n 10 mg tablet 05-29 14:14: 02 Yes 10mg Take 1 tablet by mouth at bedtime. [facility] celecoxib 200 mg capsule 05-29 14:14: 02 Yes 200mg Take 1 capsule by mouth in the morning. [facility] clonazePAM 0.5 mg tablet 05-29 14:14: 02 Yes .5mg Take 1 tablet by mouth every evening. [facility] DULoxetine 60 mg capsule 05-29 14:14: 02 Yes 60mg Take 1 capsule by mouth in the morning and 1 capsule in the evening. [facility] estradiol 1 mg tablet 05-29 14:14: 02 Yes 1mg Take 1 tablet by mouth in the morning. [facility] fluticasone propionate 50 mcg/actuati on nasal spray 05-29 14:14: 02 Yes 2{spray } Use 2 Sprays in each nostril in the morning. [facility] fluocinonid e 0.05 % ointment 05-29 14:14: 02 Yes 1{dose} Apply 1 Dose to area(s) 2 (two) times daily. [facility] hyoscyamine 0.125 mg tablet 05-29 14:14: 02 Yes .125mg Take 1 tablet by mouth every 6 (six) hours as needed. [facility] methocarbam ol 750 mg tablet 05-29 14:14: 02 Yes 750mg Take 1 tablet by mouth in the morning and 1 tablet at noon and 1 tablet in the evening. [facility] budesonide- formoterol (SYMBICORT) 160-4.5 mcg/actuati on inhaler 05-29 14:14: 02 Yes 1{puff} Inhale 1 Puff daily. [facility] valsartan-h ydrochlorot hiazide 320-25 mg per tablet 05-29 14:14: 02 Yes 1{tbl} Take 1 tablet by mouth in the morning. [facility] multivit with minerals/maritza tein (MULTIVITAM IN 50 PLUS ORAL) 05-29 14:14: 02 Yes 1{tbl} Take 1 tablet by mouth daily. [facility] coenzyme Q10 100 mg softgel 05-29 14:14: Yes 100mg Take 1 capsule by mouth in the morning. [facility] Biotin 2,500 mcg Cap 05-29 14:14: Yes 2500ug Take 2,500 mcg by mouth daily. [facility] acetaminoph en 650 mg CR tablet 05-29 14:14: 02 Yes 1300mg Take 2 tablets by mouth in the morning and 2 tablets in the evening. [facility] docusate 100 mg capsule 05-29 00:00: 06-13 04:59 :00 No [id number] 100mg Take 1 capsule by mouth in the morning for 14 days. Indication s: opiate pain medication causing severe constipati on [facility] methocarbam oL 500 mg tablet 05-29 00:00: 00 06-13 04:59 :00 No [id number] 500mg Take 1 tablet by mouth 4 (four) times daily for 14 days. Indication s: a uncontroll ed muscle contractio n with pain [facility] HYDROcodone -acetaminop hen 5-325 mg tablet 05-29 00:00: 00 06-06 04:59 :00 No [id number] 1{tbl} Take 1 tablet by mouth every 4 (four) hours as needed for Pain (scale 4-6) or Pain (scale 7-10) for up to 7 days. Indication s: acute pain [facility] vedolizumab (ENTYVIO) 300 mg in NaCl 0.9% (NS) 250 mL IV infusion 05-04 18:45: 00 05-04 20:13 :00 No [id number] 300mg 300 mg, IV Infusion, ONCE, 1 dose, On Johanna 05/04/23 at 1245, Administer over 30 Minutes, 250 mL [facility] amphetamine -dextroamph etamine 20 mg 24 hr capsule 2022-03 10:53: 34 Yes 20mg Take 1 capsule by mouth in the morning. [facility] atenolol 25 mg tablet 2022-03 10:53: 34 Yes 25mg Take 1 tablet by mouth in the morning. [facility] atorvastati n 10 mg tablet 2022-03 10:53: 34 Yes 10mg Take 1 tablet by mouth at bedtime. [facility] DULoxetine 60 mg capsule 2022-03 10:53: 34 Yes 60mg Take 1 capsule by mouth in the morning and 1 capsule in the evening. [facility] fluticasone propionate 50 mcg/actuati on nasal spray 2022-03 10:53: 34 Yes 2{spray } Use 2 Sprays in each nostril in the morning. [facility] fluocinonid e 0.05 % ointment 2022-03 10:53: 34 Yes 1{dose} Apply 1 Dose to area(s) 2 (two) times daily. [facility] hyoscyamine 0.125 mg tablet 2022-03 10:53: 34 Yes .125mg Take 1 tablet by mouth every 6 (six) hours as needed. [facility] famotidine (PEPCID ORAL) 2022-03 10:53: 34 Yes Take by mouth. [facility] cyclobenzap rine 5 mg tablet 2022-03 00:00: 00 Yes [id number] 5mg Take 1 tablet by mouth in the morning and 1 tablet at noon and 1 tablet in the evening. [facility] vedolizumab (ENTYVIO) 300 mg in NaCl 0.9% (NS) 250 mL IV infusion 2022-03 18:00: 00 03-02 19:05 :00 No [id number] 300mg 300 mg, IV Infusion, ONCE, 1 dose, On Johanna 03/02/23 at 1200, Administer over 30 Minutes, 250 mL [facility] amphetamine -dextroamph etamine 20 mg 24 hr capsule 2022-03 13:27: 48 Yes 20mg Take 1 capsule by mouth in the morning. [facility] atenolol 25 mg tablet 2022-03 13:27: 48 Yes 25mg Take 25 mg by mouth daily. [facility] atorvastati n 10 mg tablet 2022-03 13:27: 48 Yes 10mg Take 1 tablet by mouth at bedtime. [facility] celecoxib 200 mg capsule 2022-03 13:27: 48 Yes 200mg Take 1 capsule by mouth in the morning. [facility] clonazePAM 0.5 mg tablet 2022-03 13:27: 48 Yes .5mg Take 1 tablet by mouth every evening. [facility] DULoxetine 60 mg capsule 2022-03 13:27: 48 Yes 60mg Take 1 capsule by mouth in the morning and 1 capsule in the evening. [facility] estradiol 1 mg tablet 2022-03 13:27: 48 Yes 1mg Take 1 tablet by mouth in the morning. [facility] fluticasone propionate 50 mcg/actuati on nasal spray 2022-03 13:27: 48 Yes 2{spray } Use 2 Sprays in each nostril in the morning. [facility] fluocinonid e 0.05 % ointment 2022-03 13:27: 48 Yes 1{dose} Apply 1 Dose to area(s) 2 (two) times daily. [facility] hyoscyamine 0.125 mg tablet 2022-03 13:27: 48 Yes .125mg Take 1 tablet by mouth every 6 (six) hours as needed. [facility] methocarbam ol 750 mg tablet 2022-03 13:27: 48 Yes 750mg Take 1 tablet by mouth in the morning and 1 tablet at noon and 1 tablet in the evening. [facility] budesonide- formoterol (SYMBICORT) 160-4.5 mcg/actuati on inhaler 2022-03 13:27: 48 Yes 1{puff} Inhale 1 Puff daily. [facility] valsartan-h ydrochlorot hiazide 320-25 mg per tablet 2022-03 13:27: 48 Yes 1{tbl} Take 1 tablet by mouth in the morning. [facility] multivit with minerals/maritza tein (MULTIVITAM IN 50 PLUS ORAL) 2022-03 13:27: 48 Yes 1{tbl} Take 1 tablet by mouth daily. [facility] coenzyme Q10 100 mg softgel 2022-03 13:27: 48 Yes 100mg Take 1 capsule by mouth in the morning. [facility] Biotin 2,500 mcg Cap 2022-03 13:27: 48 Yes 2500ug Take 2,500 mcg by mouth daily. [facility] acetaminoph en 650 mg CR tablet 2022-03 13:27: 48 Yes 1300mg Take 2 tablets by mouth in the morning and 2 tablets in the evening. [facility] rosuvastati n calcium (ROSUVASTAT IN ORAL) 2022-03 10:00: 35 02-26 00:00 :00 No Take by mouth. [facility] pregabalin (LYRICA) capsule 150 mg 2022-03 03:00: 00 Yes 150mg 150 mg, Oral, DAILY, First dose (after last modificati on) on 02/25/23 at 2100, Until Discontinu ed, Routine [facility] famotidine (PEPCID AC) tablet 20 mg 2022-03 03:00: 00 Yes 20mg 20 mg, Oral, QHS, First dose on 02/25/23 at 2100, Until Discontinu ed, Routine [facility] oxyCODONE 5 mg immediate release tablet 2022-03 00:00: 00 03-06 05:59 :00 No [id number] 5mg Take 1 tablet by mouth every 6 (six) hours as needed for Pain (scale 4-6) or Pain (scale 7-10) for up to 7 days. Indication s: acute pain, chronic pain [facility] montelukast (SINGULAIR) tablet 10 mg 2022-03 15:00: 00 Yes 10mg 10 mg, Oral, DAILY, First dose on 02/25/23 at 0900, Until Discontinu ed, Routine [facility] estradioL (ESTRACE) tablet 1 mg 2022-03 15:00: 00 Yes 1mg 1 mg, Oral, DAILY, First dose on 02/25/23 at 0900, Until Discontinu ed, Routine [facility] celecoxib (CELEBREX) capsule 200 mg 2022-03 15:00: 00 Yes 200mg 200 mg, Oral, DAILY, First dose on 02/25/23 at 0900, Until Discontinu ed, Routine [facility] atenoloL (TENORMIN) tablet 25 mg 2022-03 15:00: 00 Yes 25mg 25 mg, Oral, DAILY, First dose on 02/25/23 at 0900, Until Discontinu ed, Routine [facility] enoxaparin (LOVENOX) injection 40 mg 2022-03 15:00: 00 Yes 40mg 40 mg, Subcutaneo us, DAILY, First dose on 02/25/23 at 0900, Until Discontinu ed, Routine [facility] docusate (COLACE) capsule 100 mg 2022-03 15:00: 00 Yes 100mg 100 mg, Oral, DAILY, First dose on 02/25/23 at 0900, Until Discontinu ed, Routine [facility] atorvastati n (LIPITOR) tablet 10 mg 2022-03 03:00: 00 Yes 10mg 10 mg, Oral, QHS, First dose on Mon02/24/23 at 2100, Until Discontinu ed, Routine [facility] DULoxetine (CYMBALTA) capsule 60 mg 2022-03 02:00: 00 Yes 60mg 60 mg, Oral, BID, First dose on Mon02/24/23 at 2000, Until Discontinu ed, Routine [facility] ceFAZolin (ANCEF) injection 1,000 mg 2022-03 02:00: 00 03-02 01:59 :00 No 1000mg 1,000 mg, Intravenou s, Q8H ABX, 15 doses, First dose on Mon02/24/23 at 2000, Last dose on Mon03/01/23 at 1200
Re ason for Anti-Infec tive: Surgical Prophylaxi s
Surgi travis Prophylaxi s: Neurosurge ry
Dura tion of therapy: within 24 hours of surgery [facility] docusate 100 mg capsule 2022-03 00:00: 00 03-12 05:59 :00 No [id number] 100mg Take 1 capsule by mouth in the morning for 14 days. Indication s: opiate pain medication causing severe constipati on [facility] methocarbam oL 500 mg tablet 2022-03 00:00: 00 03-12 05:59 :00 No [id number] 500mg Take 1 tablet by mouth 4 (four) times daily for 14 days. Indication s: a uncontroll ed muscle contractio n with pain [facility] HYDROcodone -acetaminop hen 5-325 mg tablet 2022-03 00:00: 00 03-05 05:59 :00 No [id number] 1{tbl} Take 1 tablet by mouth every 4 (four) hours as needed for Pain (scale 4-6) or Pain (scale 7-10) for up to 7 days. Indication s: acute pain [facility] acetaminoph en ADULT (OFIRMEV) injection 1,000 mg 2022-03 00:00: 00 02-25 23:59 :00 No 1000mg 1,000 mg, IV Infusion, at 400 mL/hr Administer over 15 Minutes, Q6H, 4 doses, First dose on Mon02/24/23 at 1800, Last dose on Mon02/25/23 at 1200, Routine
Indicatio n: Strict NPO and unable to tolerate oral medication s [facility] metFORMIN (GLUCOPHAGE ) tablet 500 mg 2022-03 23:00: 00 Yes 500mg 500 mg, Oral, BID MEALS, First dose on Mon02/24/23 at 1700, Until Discontinu ed [facility] clonazePAM (KLONOPIN) tablet 0.5 mg 2022-03 23:00: 00 Yes .5mg 0.5 mg, Oral, QPM, First dose on Mon02/24/23 at 1700, Until Discontinu ed, Routine [facility] morpHINE 30 mg/30 mL (fixed dose) PLUGMAN injection 2022-03:45: 00 02-25 01:58 :10 No Patient Bolus Dose: 1 mg
Lock out Interval: 6 Minutes
Basal Rate: 0 mg/hr
F our Hour Dose Limit: 32 mg
Intr avenous, 30 mL, CONTINUOUS , Starting on Mon02/24/23 at 1645, Until Mon02/24/23 at 1958 [facility] methocarbam oL (ROBAXIN) tablet 500 mg 2022-03 22:00: 00 Yes 500mg 500 mg, Oral, QID, First dose on Mon02/24/23 at 1600, Until Discontinu ed, Routine [facility] NaCl 0.9% (NS) IV infusion 1,000 mL 2022-03 21:45: 00 Yes 1000mL at 50 mL/hr, IV Infusion, CONTINUOUS , Starting on Mon02/24/23 at 1545, Until Discontinu ed, Routine [facility] [place] [facility] lactated ringers IV infusion 500 mL 2022-03 21:45: 00 Yes 500mL at 75 mL/hr, 500 mL, IV Infusion, CONTINUOUS , Starting on Mon02/24/23 at 1545, Until Discontinu ed, Routine, PACU [facility] FENTanyl PF (SUBLIMAZE (PF)) injection 25 mcg 2022-03 21:43: 45 Yes 25ug 25 mcg, Slow IV Push, Q2HPRN, Starting on Mon02/24/23 at 1543, Until Discontinu ed, Routine, Pain (scale 7-10) [facility] naloxone (NARCAN) injection 0.4 mg 2022-03 21:40: 46 Yes .4mg 0.4 mg, Slow IV Push, PRN, Starting on Mon02/24/23 at 1540, Until Discontinu ed, Routine, Sedation/R espiratory Depression [facility] HYDROmorpho ne (DILAUDID) injection 0.2 mg 2022-03 21:37: 37 02-24 23:09 :00 No .2mg 0.2 mg, Slow IV Push, Q5MIN PRN, 10 doses, Starting on Mon02/24/23 at 1537, Until Discontinu ed, Routine, Pain (scale 7-10), PACU
Us e approved by (Faculty): PACU USE -ANESTHESI A SERVICE-HY DROMORPHON E INJECTIONS [facility] FENTanyl PF (SUBLIMAZE (PF)) injection 25 mcg 2022-03 21:37: 37 02-24 23:19 :00 No 25ug 25 mcg, Slow IV Push, Q5MIN PRN, 4 doses, Starting on Mon02/24/23 at 1537, Until Discontinu ed, Routine, Pain (scale 4-6), PACU [facility] polyethylen e glycol 3350 powder 17 g 2022-03 21:34: 16 Yes 17g 17 g, Oral, PRN - SEE INSTRUCTTHUAN NS, Starting on Mon02/24/23 at 1534, Until Discontinu ed, Routine, Constipati on [facility] ondansetron (ZOFRAN (PF)) injection 4 mg 2022-03 21:34: 16 Yes 4mg 4 mg, Slow IV Push, Q6HPRN, Starting on Mon02/24/23 at 1534, Until Discontinu ed, Routine, Nausea and Vomiting (N/V) [facility] oxyCODONE immediate release tablet 10 mg 2022-03 21:34: 15 Yes 10mg 10 mg, Oral, Q4HPRN, Starting on Mon02/24/23 at 1534, Until Discontinu ed, Routine, Pain (scale 4-6)
Fa culty member approving Restricted medication : SNSNSURG [facility] bupivacaine (preserv free) (SENSORCAIN E MPF) 0.25 % (2.5 mg/mL) injection 2022-03 21:14: 00 02-24 22:04 :50 No PRN, Starting on Mon02/24/23 at 1514, Until Mon02/24/23 at 1604, Routine, Intra-op [facility] BUPivacaine liposome (PF) (EXPAREL (PF)) 1.3 % (13.3 mg/mL) injection 2022-03 21:12: 00 02-24 22:04 :50 No PRN, Starting on Mon02/24/23 at 1512, Until Mon02/24/23 at 1604, Routine, [facility]op [facility] methylPREDN ISolone acetate (DEPO-MEDRO L) injection 2022-03 21:11: 00 02-24 22:04 :50 No PRN, Starting on Mon02/24/23 at 1511, Until Mon02/24/23 at 1604, Routine, Intra-op [facility] vancomycin (VANCOCIN) 1 g in sodium chloride 0.9 % irrigation 2022-03 20:50: 00 02-24 22:04 :50 No PRN, Starting on Mon02/24/23 at 1450, Until Mon02/24/23 at 1604, 1,000 mL, Intra-op [facility] thrombin topical solution 2022-03 19:25: 00 02-24 22:04 :50 No PRN, Starting on Mon02/24/23 at 1325, Until Mon02/24/23 at 1604, Routine, Intra-op [facility] lidocaine-e pinephrine (XYLOCAINE WITH EPINEPHRINE ) 0.5 %-1:200,000 injection 2022-03 18:30: 00 02-24 22:04 :50 No PRN, Starting on Mon02/24/23 at 1230, Until Mon02/24/23 at 1604, Routine, Intra-op [facility] amphetamine -dextroamph etamine 20 mg 24 hr capsule 2022-03 10:09: 12 Yes 20mg Take 1 capsule by mouth in the morning. [facility] DULoxetine 60 mg capsule 2022-03 10:09: 12 Yes 60mg Take 1 capsule by mouth in the morning and 1 capsule in the evening. [facility] fluticasone propionate 50 mcg/actuati on nasal spray 2022-03 10:09: 12 Yes 2{spray } Use 2 Sprays in each nostril in the morning. [facility] atenolol 25 mg tablet 2022-03 09:27: 28 Yes 25mg Take 25 mg by mouth daily. [facility] atorvastati n 10 mg tablet 2022-03 09:27: 28 Yes 10mg Take 1 tablet by mouth at bedtime. [facility] celecoxib 200 mg capsule 2022-03 09:27: 28 Yes 200mg Take 1 capsule by mouth in the morning. [facility] clonazePAM 0.5 mg tablet 2022-03 09:27: 28 Yes .5mg Take 1 tablet by mouth every evening. [facility] estradiol 1 mg tablet 2022-03 09:27: 28 Yes 1mg Take 1 tablet by mouth in the morning. [facility] fluocinonid e 0.05 % ointment 2022-03 09:27: 28 Yes 1{dose} Apply 1 Dose to area(s) 2 (two) times daily. [facility] hyoscyamine 0.125 mg tablet 2022-03 09:27: 28 Yes .125mg Take 1 tablet by mouth every 6 (six) hours as needed. [facility] methocarbam ol 750 mg tablet 2022-03 09:27: 28 Yes 750mg Take 1 tablet by mouth in the morning and 1 tablet at noon and 1 tablet in the evening. [facility] budesonide- formoterol (SYMBICORT) 160-4.5 mcg/actuati on inhaler 2022-03 09:27: 28 Yes 1{puff} Inhale 1 Puff daily. [facility] valsartan-h ydrochlorot hiazide 320-25 mg per tablet 2022-03 09:27: 28 Yes 1{tbl} Take 1 tablet by mouth in the morning. [facility] multivit with minerals/maritza tein (MULTIVITAM IN 50 PLUS ORAL) 2022-03 09:27: 28 Yes 1{tbl} Take 1 tablet by mouth daily. [facility] coenzyme Q10 100 mg softgel 2022-03 09:27: 28 Yes 100mg Take 1 capsule by mouth in the morning. [facility] Biotin 2,500 mcg Cap 2022-03 09:27: 28 Yes 2500ug Take 2,500 mcg by mouth daily. [facility] acetaminoph en 650 mg CR tablet 2022-03 09:27: 28 Yes 1300mg Take 2 tablets by mouth in the morning and 2 tablets in the evening. [facility] atorvastati n 10 mg tablet 2022-03 08:18: 30 Yes 10mg Take 1 tablet by mouth at bedtime. [facility] fluticasone propionate 50 mcg/actuati on nasal spray 2022-03 08:18: 30 Yes 2{spray } Use 2 Sprays in each nostril in the morning. [facility] hyoscyamine 0.125 mg tablet 2022-03 08:18: 30 Yes .125mg Take 1 tablet by mouth every 6 (six) hours as needed. [facility] valsartan-h ydrochlorot hiazide 320-25 mg per tablet 2022-03 08:18: 30 Yes 1{tbl} Take 1 tablet by mouth in the morning. [facility] rosuvastati n calcium (ROSUVASTAT IN ORAL) 2022-03 08:18: 30 Yes Take by mouth. [facility] amphetamine -dextroamph etamine 20 mg 24 hr capsule 2022-03 11:20: 36 Yes 20mg Take 1 capsule by mouth in the morning. [facility] atorvastati n 10 mg tablet 2022-03 11:20: 36 Yes 10mg Take 1 tablet by mouth at bedtime. [facility] celecoxib 200 mg capsule 2022-03 11:20: 36 Yes 200mg Take 1 capsule by mouth in the morning. [facility] clonazePAM 0.5 mg tablet 2022-03 11:20: 36 Yes .5mg Take 1 tablet by mouth every evening. [facility] DULoxetine 60 mg capsule 2022-03 11:20: 36 Yes 60mg Take 1 capsule by mouth in the morning and 1 capsule in the evening. [facility] estradiol 1 mg tablet 2022-03 11:20: 36 Yes 1mg Take 1 tablet by mouth in the morning. [facility] hyoscyamine 0.125 mg tablet 2022-03 11:20: 36 Yes .125mg Take 1 tablet by mouth every 6 (six) hours as needed. [facility] methocarbam ol 750 mg tablet 2022-03 11:20: 36 Yes 750mg Take 1 tablet by mouth in the morning and 1 tablet at noon and 1 tablet in the evening. [facility] multivit with minerals/maritza tein (MULTIVITAM IN 50 PLUS ORAL) 2022-03 11:20: 36 Yes 1{tbl} Take 1 tablet by mouth daily. [facility] coenzyme Q10 100 mg softgel 2022-03 11:20: 36 Yes 100mg Take 1 capsule by mouth in the morning. [facility] Biotin 2,500 mcg Cap 2022-03 11:20: 36 Yes 2500ug Take 2,500 mcg by mouth daily. [facility] acetaminoph en 650 mg CR tablet 2022-03 11:20: 36 Yes 1300mg Take 2 tablets by mouth in the morning and 2 tablets in the evening. [facility] vedolizumab (ENTYVIO) 300 mg in NaCl 0.9% (NS) 250 mL IV infusion 12-09 15:45: 00 12-09 16:47 :00 No [id number] 300mg 300 mg, IV Infusion, ONCE, 1 dose, On Mon12/09/22 at 1045, Administer over 30 Minutes, 250 mL [facility] vedolizumab (ENTYVIO) 300 mg in NaCl 0.9% (NS) 250 mL IV infusion 10-11 15:30: 00 10-11 16:28 :00 No [id number] 300mg 300 mg, IV Infusion, ONCE, 1 dose, On Mon10/11/22 at 1030, Administer over 30 Minutes, 250 mL [facility] vedolizumab (ENTYVIO) 300 mg in NaCl 0.9% (NS) 250 mL IV infusion 05-31 15:30: 00 05-31 16:02 :00 No [id number] 300mg 300 mg, IV Infusion, ONCE, 1 dose, On Mon05/31/22 at 0930, Administer over 30 Minutes, 250 mL [facility] vedolizumab (ENTYVIO) 300 mg in NaCl 0.9% (NS) 250 mL IV infusion 04-14 15:00: 00 04-14 15:25 :00 No [id number] 300mg 300 mg, IV Infusion, ONCE, 1 dose, On Mon04/14/22 at 0900, Administer over 30 Minutes, 250 mL [facility] vedolizumab (ENTYVIO) 300 mg in NaCl 0.9% (NS) 250 mL IV infusion 2021-03 14:26: 00 02-08 15:48 :00 No [id number] 300mg 300 mg, IV Infusion, ONCE, 1 dose, On Mon02/08/22 at 0830, Administer over 30 Minutes, 250 mL [facility] water for irrigation irrigation solution 2021-03 19:36: 00 01-25 19:55 :51 No PRN, Starting on Mon01/25/22 at 1436, Until Mon01/25/22 at 1455, Routine, Intra-op [facility] simethicone (GAS RELIEF (SIMETHICON E)) 40 mg/0.6 mL drops 2021-03 19:36: 00 01-25 19:55 :51 No PRN, Starting on Mon01/25/22 at 1436, Until Mon01/25/22 at 1455, Routine, Intra-op [facility] lactated ringers IV infusion 1,000 mL 2021-03 18:15: 00 01-25 18:09 :00 No 1000mL at 42 mL/hr, 1,000 mL, IV Infusion, ONCE, 1 dose, On Mon01/25/22 at 1315, Routine, DSU Pre-op [facility] amphetamine -dextroamph etamine 20 mg 24 hr capsule 2021-03 15:43: 02 Yes 20mg Take 20 mg by mouth daily. [facility] atenolol 25 mg tablet 2021-03 15:43: 02 Yes 25mg Take 25 mg by mouth daily. [facility] atorvastati n 10 mg tablet 2021-03 15:43: 02 Yes 10mg Take 10 mg by mouth at bedtime. [facility] celecoxib 200 mg capsule 2021-03 15:43: 02 Yes 200mg Take 200 mg by mouth daily. [facility] clonazePAM 0.5 mg tablet 2021-03 15:43: 02 Yes .5mg Take 0.5 mg by mouth every evening. [facility] DULoxetine 60 mg capsule 2021-03 15:43: 02 Yes 60mg Take 60 mg by mouth 2 (two) times daily. [facility] estradiol 1 mg tablet 2021-03 15:43: 02 Yes 1mg Take 1 mg by mouth daily. [facility] fluticasone propionate 50 mcg/actuati on nasal spray 2021-03 15:43: 02 Yes 2{spray } Use 2 Sprays in each nostril daily. [facility] fluocinonid e 0.05 % ointment 2021-03 15:43: 02 Yes 1{dose} Apply 1 Dose to area(s) 2 (two) times daily. [facility] hyoscyamine 0.125 mg tablet 2021-03 15:43: 02 Yes .125mg Take 0.125 mg by mouth every 6 (six) hours as needed. [facility] methocarbam ol 750 mg tablet 2021-03 15:43: 02 Yes 750mg Take 750 mg by mouth 3 (three) times daily. [facility] budesonide- formoterol (SYMBICORT) 160-4.5 mcg/actuati on inhaler 2021-03 15:43: 02 Yes 1{puff} Inhale 1 Puff daily. [facility] valsartan-h ydrochlorot hiazide 320-25 mg per tablet 2021-03 15:43: 02 Yes 1{tbl} Take 1 tablet by mouth daily. [facility] multivit with minerals/maritza tein (MULTIVITAM IN 50 PLUS ORAL) 2021-03 15:43: 02 Yes 1{tbl} Take 1 tablet by mouth daily. [facility] coenzyme Q10 100 mg softgel 2021-03 15:43: 02 Yes 100mg Take 100 mg by mouth in the morning. [facility] Biotin 2,500 mcg Cap 2021-03 15:43: 02 Yes 2500ug Take 2,500 mcg by mouth daily. [facility] acetaminoph en 650 mg CR tablet 2021-03 15:43: 02 Yes 2{tbl} Take 2 tablets by mouth in the morning and 2 tablets in the evening. [facility] chlorphenir amine/pseud oephed (ALLERGY ORAL) 2021-03 16:26: 33 Yes 1{tbl} Take by mouth. [facility] coenzyme Q10 100 mg softgel 2021-03 16:26: 33 Yes 100mg Take 1 capsule by mouth in the morning. [facility] Biotin 2,500 mcg Cap 2021-03 16:26: 33 Yes 2500ug Take 2,500 mcg by mouth daily. [facility] acetaminoph en 650 mg CR tablet 2021-03 16:26: 33 Yes 2{tbl} Take 2 tablets by mouth in the morning and 2 tablets in the evening. [facility] amphetamine -dextroamph etamine 20 mg 24 hr capsule 2021-03 16:14: 10 Yes 20mg Take 20 mg by mouth daily. [facility] atenolol 25 mg tablet 2021-03 16:14: 10 Yes 25mg Take 25 mg by mouth daily. [facility] atorvastati n 10 mg tablet 2021-03 16:14: 10 Yes 10mg Take 10 mg by mouth at bedtime. [facility] celecoxib 200 mg capsule 2021-03 16:14: 10 Yes 200mg Take 200 mg by mouth daily. [facility] clonazePAM 0.5 mg tablet 2021-03 16:14: 10 Yes .5mg Take 0.5 mg by mouth every evening. [facility] DULoxetine 60 mg capsule 2021-03 16:14: 10 Yes 60mg Take 60 mg by mouth 2 (two) times daily. [facility] estradiol 1 mg tablet 2021-03 16:14: 10 Yes 1mg Take 1 mg by mouth daily. [facility] fluticasone propionate 50 mcg/actuati on nasal spray 2021-03 16:14: 10 Yes 2{spray } Use 2 Sprays in each nostril daily. [facility] fluocinonid e 0.05 % ointment 2021-03 16:14: 10 Yes 1{dose} Apply 1 Dose to area(s) 2 (two) times daily. [facility] hyoscyamine 0.125 mg tablet 2021-03 16:14: 10 Yes .125mg Take 0.125 mg by mouth every 6 (six) hours as needed. [facility] methocarbam ol 750 mg tablet 2021-03 16:14: 10 Yes 750mg Take 750 mg by mouth 3 (three) times daily. [facility] valsartan-h ydrochlorot hiazide 320-25 mg per tablet 2021-03 16:14: 10 Yes 1{tbl} Take 1 tablet by mouth daily. [facility] vedolizumab (ENTYVIO) 300 mg in NaCl 0.9% (NS) 250 mL IV infusion 12-14 15:15: 00 12-14 15:34 :00 No [id number] 300mg 300 mg, IV Infusion, ONCE, 1 dose, On Mon12/14/21 at 1015, Administer over 30 Minutes, 250 mL [facility] pregabalin 50 mg capsule 11-26 00:00: 00 Yes 100mg Take 2 capsules by mouth in the morning. [facility] metformin ER 500 mg 24 hr tablet 11-22 00:00: 00 Yes 500mg Take 1 tablet by mouth in the morning. [facility] vedolizumab (ENTYVIO) 300 mg in NaCl 0.9% (NS) 250 mL IV infusion 10-08 15:56: 00 10-08 17:02 :00 No [id number] 300mg 300 mg, IV Infusion, ONCE, 1 dose, On Mon10/08/21 at 1100, Administer over 30 Minutes, 250 mL [facility] vedolizumab (ENTYVIO) 300 mg in NaCl 0.9% (NS) 250 mL IV infusion 08-13 17:30: 00 08-13 17:29 :00 No [id number] 300mg 300 mg, IV Infusion, ONCE, 1 dose, On Mon08/13/21 at 1230, Administer over 30 Minutes, 250 mL [facility] DULoxetine 60 mg capsule 07-03 13:01: 23 Yes 60mg Take 1 capsule by mouth in the morning and 1 capsule in the evening. [facility] valsartan-h ydrochlorot hiazide 320-25 mg per tablet 07-03 13:01: 23 Yes 1{tbl} Take 1 tablet by mouth in the morning. [facility] atenolol 25 mg tablet 11-24 10:45: 10 Yes 25mg Take 1 tablet by mouth in the morning. [facility] estradiol 1 mg tablet 11-24 10:45: 10 Yes 1mg Take 1 tablet by mouth in the morning. [facility] amphetamine -dextroamph etamine 20 mg 24 hr capsule 2016-03 10:50: 24 Yes 20mg Take 1 capsule by mouth in the morning. [facility] atorvastati n 10 mg tablet 2016-03 10:50: 24 Yes 10mg Take 1 tablet by mouth at bedtime. [facility] celecoxib 200 mg capsule 2016-03 10:50: 24 Yes 200mg Take 1 capsule by mouth in the morning. [facility] clonazePAM 0.5 mg tablet 2016-03 10:50: 24 Yes .5mg Take 1 tablet by mouth every evening. [facility] fluticasone propionate 50 mcg/actuati on nasal spray 2016-03 10:50: 24 Yes 2{spray } Use 2 Sprays in each nostril in the morning. [facility] fluocinonid e 0.05 % ointment 2016-03 10:50: 24 Yes 1{dose} Apply 1 Dose to area(s) 2 (two) times daily. [facility] hyoscyamine 0.125 mg tablet 2016-03 10:50: 24 Yes .125mg Take 1 tablet by mouth every 6 (six) hours as needed. [facility] methocarbam ol 750 mg tablet 2016-03 10:50: 24 Yes 750mg Take 1 tablet by mouth in the morning and 1 tablet at noon and 1 tablet in the evening. [facility] budesonide- formoterol (SYMBICORT) 160-4.5 mcg/actuati on inhaler 2016-03 10:50: 24 Yes 1{puff} Inhale 1 Puff daily. [facility] montelukast 10 mg tablet 2008-03 00:00: 00 Yes 10mg Take 1 tablet by mouth in the morning. [facility] cimetidine (TAGAMET HB) 200 mg tablet 2008-03 00:00: 00 Yes 200mg Take 1 tablet by mouth in the morning. [facility] Immunizations Ordered Immunization Name Filled Immunization Name Date Status Comments Source SARS-COV-2 COVID-19 PFIZER VACCINE 2020-07-04 00:00:00 Completed [facility] SARS-COV-2 COVID-19 PFIZER VACCINE 2020-07-04 00:00:00 Completed [facility] SARS-COV-2 COVID-19 PFIZER VACCINE 2020-07-04 00:00:00 Completed [facility] SARS-COV-2 COVID-19 PFIZER VACCINE 2020-07-04 00:00:00 Completed [facility] SARS-COV-2 COVID-19 PFIZER VACCINE 2020-07-04 00:00:00 Completed [facility] SARS-COV-2 COVID-19 PFIZER VACCINE 2020-07-04 00:00:00 Completed [facility] SARS-COV-2 COVID-19 PFIZER VACCINE 2020-07-04 00:00:00 Completed [facility] SARS-COV-2 COVID-19 PFIZER VACCINE 2020-07-04 00:00:00 Completed [facility] SARS-COV-2 COVID-19 PFIZER VACCINE 2020-07-04 00:00:00 Completed [facility] SARS-COV-2 COVID-19 PFIZER VACCINE 2020-07-04 00:00:00 Completed [facility] SARS-COV-2 COVID-19 PFIZER VACCINE 2020-07-04 00:00:00 Completed [facility] SARS-COV-2 COVID-19 PFIZER VACCINE 2020-07-04 00:00:00 Completed [facility] SARS-COV-2 COVID-19 PFIZER VACCINE 2020-07-04 00:00:00 Completed [facility] SARS-COV-2 COVID-19 PFIZER VACCINE 2020-07-04 00:00:00 Completed [facility] SARS-COV-2 COVID-19 PFIZER VACCINE 2020-07-04 00:00:00 Completed [facility] SARS-COV-2 COVID-19 PFIZER VACCINE 2020-06-13 00:00:00 Completed [facility] SARS-COV-2 COVID-19 PFIZER VACCINE 2020-06-13 00:00:00 Completed [facility] SARS-COV-2 COVID-19 PFIZER VACCINE 2020-06-13 00:00:00 Completed [facility] SARS-COV-2 COVID-19 PFIZER VACCINE 2020-06-13 00:00:00 Completed [facility] SARS-COV-2 COVID-19 PFIZER VACCINE 2020-06-13 00:00:00 Completed [facility] SARS-COV-2 COVID-19 PFIZER VACCINE 2020-06-13 00:00:00 Completed [facility] SARS-COV-2 COVID-19 PFIZER VACCINE 2020-06-13 00:00:00 Completed [facility] SARS-COV-2 COVID-19 PFIZER VACCINE 2020-06-13 00:00:00 Completed [facility] SARS-COV-2 COVID-19 PFIZER VACCINE 2020-06-13 00:00:00 Completed [facility] SARS-COV-2 COVID-19 PFIZER VACCINE 2020-06-13 00:00:00 Completed [facility] SARS-COV-2 COVID-19 PFIZER VACCINE 2020-06-13 00:00:00 Completed [facility] SARS-COV-2 COVID-19 PFIZER VACCINE 2020-06-13 00:00:00 Completed [facility] SARS-COV-2 COVID-19 PFIZER VACCINE 2020-06-13 00:00:00 Completed [facility] SARS-COV-2 COVID-19 PFIZER VACCINE 2020-06-13 00:00:00 Completed [facility] SARS-COV-2 COVID-19 PFIZER VACCINE Unknown Completed [facility] SARS-COV-2 COVID-19 PFIZER VACCINE Unknown Completed [facility] SARS-COV-2 COVID-19 PFIZER VACCINE Unknown Completed [facility] SARS-COV-2 COVID-19 PFIZER VACCINE Unknown Completed [facility] SARS-COV-2 COVID-19 PFIZER VACCINE Unknown Completed [facility] SARS-COV-2 COVID-19 PFIZER VACCINE Unknown Completed [facility] SARS-COV-2 COVID-19 PFIZER VACCINE Unknown Completed [facility] SARS-COV-2 COVID-19 PFIZER VACCINE Unknown Completed [facility] SARS-COV-2 COVID-19 PFIZER VACCINE Unknown Completed [facility] SARS-COV-2 COVID-19 PFIZER VACCINE Unknown Completed [facility] SARS-COV-2 COVID-19 PFIZER VACCINE Unknown Completed [facility] SARS-COV-2 COVID-19 PFIZER VACCINE Unknown Completed [facility] SARS-COV-2 COVID-19 PFIZER VACCINE Unknown Completed [facility] SARS-COV-2 COVID-19 PFIZER VACCINE Unknown Completed [facility] SARS-COV-2 COVID-19 PFIZER VACCINE Unknown Completed [facility] SARS-COV-2 COVID-19 PFIZER VACCINE Unknown Completed [facility] SARS-COV-2 COVID-19 PFIZER VACCINE Unknown Completed [facility] SARS-COV-2 COVID-19 PFIZER VACCINE Unknown Completed [facility] SARS-COV-2 COVID-19 PFIZER VACCINE Unknown Completed [facility] SARS-COV-2 COVID-19 PFIZER VACCINE Unknown Completed [facility] SARS-COV-2 COVID-19 PFIZER VACCINE Unknown Completed [facility] SARS-COV-2 COVID-19 PFIZER VACCINE Unknown Completed [facility] SARS-COV-2 COVID-19 PFIZER VACCINE Unknown Completed [facility] SARS-COV-2 COVID-19 PFIZER VACCINE Unknown Completed [facility] SARS-COV-2 COVID-19 PFIZER VACCINE Unknown Completed [facility] SARS-COV-2 COVID-19 PFIZER VACCINE Unknown Completed [facility] SARS-COV-2 COVID-19 PFIZER VACCINE Unknown Completed [facility] SARS-COV-2 COVID-19 PFIZER VACCINE Unknown Completed [facility] SARS-COV-2 COVID-19 PFIZER VACCINE Unknown Completed [facility] SARS-COV-2 COVID-19 PFIZER VACCINE Unknown Completed [facility] SARS-COV-2 COVID-19 PFIZER VACCINE Unknown Completed [facility] SARS-COV-2 COVID-19 PFIZER VACCINE Unknown Completed [facility] SARS-COV-2 COVID-19 PFIZER VACCINE Unknown Completed [facility] SARS-COV-2 COVID-19 PFIZER VACCINE Unknown Completed [facility] SARS-COV-2 COVID-19 PFIZER VACCINE Unknown Completed [facility] SARS-COV-2 COVID-19 PFIZER VACCINE Unknown Completed [facility] SARS-COV-2 COVID-19 PFIZER VACCINE Unknown Completed [facility] SARS-COV-2 COVID-19 PFIZER VACCINE Unknown Completed [facility] SARS-COV-2 COVID-19 PFIZER VACCINE Unknown Completed [facility] SARS-COV-2 COVID-19 PFIZER VACCINE Unknown Completed [facility] Vital Signs Vital Name Observation Time Observation Value Comments S ource Systolic blood pressure 2024-05-31 20:13:00 117 mm[Hg] [facility] Diastolic blood pressure 2024-05-31 20:13:00 67 mm[Hg] [facility] Heart rate 2024-05-31 20:13:00 85 /min [facility] Body temperature 2024-05-31 20:13:00 36.17 [facility] Respiratory rate 2024-05-31 20:13:00 18 /min [facility] Body height 2024-05-31 20:13:00 160 cm [facility] Body weight 2024-05-31 20:13:00 107.956 kg [facility] BMI 2024-05-31 20:13:00 42.16 kg/m2 [facility] Oxygen saturation in Arterial blood by Pulse oximetry 2024-05-31 20:13:00 95 /min [facility] Systolic blood pressure 2024-04-05 20:37:00 137 mm[Hg] [facility] Diastolic blood pressure 2024-04-05 20:37:00 80 mm[Hg] [facility] Heart rate 2024-04-05 20:37:00 75 /min [facility] Body temperature 2024-04-05 20:37:00 36.11 [facility] Respiratory rate 2024-04-05 20:37:00 18 /min [facility] Body height 2024-04-05 20:37:00 160 cm [facility] Body weight 2024-04-05 20:37:00 110.224 kg [facility] BMI 2024-04-05 20:37:00 43.05 kg/m2 [facility] Oxygen saturation in Arterial blood by Pulse oximetry 2024-04-05 20:37:00 97 /min [facility] Heart rate 2024-02-13 15:31:00 68 /min [facility] Body temperature 2024-02-13 15:31:00 36.11 [facility] Respiratory rate 2024-02-13 15:31:00 18 /min [facility] Body height 2024-02-13 15:31:00 160 cm [facility] Body weight 2024-02-13 15:31:00 111.585 kg [facility] BMI 2024-02-13 15:31:00 43.58 kg/m2 [facility] Oxygen saturation in Arterial blood by Pulse oximetry 2024-02-13 15:31:00 94 /min [facility] Systolic blood pressure 2024-02-13 15:31:00 158 mm[Hg] [facility] Diastolic blood pressure 2024-02-13 15:31:00 78 mm[Hg] [facility] Systolic blood pressure 2023-12-15 19:16:00 122 mm[Hg] [facility] Diastolic blood pressure 2023-12-15 19:16:00 70 mm[Hg] [facility] Heart rate 2023-12-15 19:16:00 75 /min [facility] Body temperature 2023-12-15 19:16:00 36.39 [place] [facility] Respiratory rate 2023-12-15 19:16:00 18 /min [facility] Body height 2023-12-15 19:16:00 160 cm [facility] Body weight 2023-12-15 19:16:00 112.492 kg [facility] BMI 2023-12-15 19:16:00 43.93 kg/m2 [facility] Oxygen saturation in Arterial blood by Pulse oximetry 2023-12-15 19:16:00 97 /min [facility] Respiratory rate 2023-07-03 16:04:00 16 /min [facility] Body height 2023-07-03 16:04:00 160 cm [facility] Body weight 2023-07-03 16:04:00 115.214 kg [facility] BMI 2023-07-03 16:04:00 44.99 kg/m2 [facility] Systolic blood pressure 2023-06-29 15:00:00 121 mm[Hg] [facility] Diastolic blood pressure 2023-06-29 15:00:00 62 mm[Hg] [facility] Heart rate 2023-06-29 15:00:00 79 /min [facility] Body temperature 2023-06-29 15:00:00 36.33 [place] [facility] Respiratory rate 2023-06-29 15:00:00 18 /min [facility] Body height 2023-06-29 15:00:00 160 cm [facility] Body weight 2023-06-29 15:00:00 115.214 kg [facility] BMI 2023-06-29 15:00:00 44.99 kg/m2 [facility] Oxygen saturation in Arterial blood by Pulse oximetry 2023-06-29 15:00:00 96 /min [facility] Systolic blood pressure 2023-05-30 22:45:00 120 mm[Hg] [facility] Diastolic blood pressure 2023-05-30 22:45:00 64 mm[Hg] [facility] Heart rate 2023-05-30 22:45:00 81 /min [facility] Oxygen saturation in Arterial blood by Pulse oximetry 2023-05-30 22:45:00 95 /min [facility] Body temperature 2023-05-30 22:30:00 36.17 [place] [facility] Respiratory rate 2023-05-30 22:30:00 16 /min [facility] Body height 2023-05-30 15:24:00 160 cm [facility] Body weight 2023-05-30 15:24:00 116.8 kg [facility] BMI 2023-05-30 15:24:00 45.61 kg/m2 [facility] Systolic blood pressure 2023-05-30 20:30:00 131 mm[Hg] [facility] Diastolic blood pressure 2023-05-30 20:30:00 78 mm[Hg] [facility] Heart rate 2023-05-30 20:30:00 85 /min [facility] Body temperature 2023-05-30 20:30:00 36.33 [place] [facility] Respiratory rate 2023-05-30 20:30:00 10 /min [facility] Oxygen saturation in Arterial blood by Pulse oximetry 2023-05-30 20:30:00 95 /min [facility] Body height 2023-05-30 15:24:00 160 cm [facility] 2023-05-30 15:24:00 116.8 kg [facility] BMI 2023-05-30 15:24:00 45.61 kg/m2 [facility] Res[facility] 2023-05-08 17:55:00 16 /min [facility] Body height 2023-05-08 17:55:00 160 cm [facility] Body weight 2023-05-08 17:55:00 116.121 kg [facility] BMI 2023-05-08 17:55:00 45.35 kg/m2 [facility] Systolic blood pressure 2023-05-04 18:34:00 138 mm[Hg] [facility] Diastolic blood pressure 2023-05-04 18:34:00 76 mm[Hg] [facility] Heart rate 2023-05-04 18:34:00 77 /min [facility] Body temperature 2023-05-04 18:34:00 36.56 [place] [facility] Respiratory rate 2023-05-04 18:34:00 16 /min [facility] Body height 2023-05-04 18:34:00 160 cm [facility] Body weight 2023-05-04 18:34:00 117.799 kg [facility] BMI 2023-05-04 18:34:00 46.00 kg/m2 [facility] Oxygen saturation in Arterial blood by Pulse oximetry 2023-05-04 18:34:00 92 /min [facility] Respiratory rate 2023-04-13 17:34:00 18 /min [facility] Body height 2023-04-13 17:34:00 160 cm [facility] Body weight 2023-04-13 17:34:00 112.946 kg [facility] BMI 2023-04-13 17:34:00 44.11 kg/m2 [facility] Respiratory rate 2023-03-13 16:53:00 13 /min [facility] Body height 2023-03-13 16:53:00 160 cm [facility] Body weight 2023-03-13 16:53:00 113.399 kg [facility] BMI 2023-03-13 16:53:00 44.29 kg/m2 [facility] Systolic blood pressure 2023-03-02 17:28:00 134 mm[Hg] [facility] Diastolic blood pressure 2023-03-02 17:28:00 79 mm[Hg] [facility] Heart rate 2023-03-02 17:28:00 67 /min [facility] Body temperature 2023-03-02 17:28:00 36.22 [place] [facility] Respiratory rate 2023-03-02 17:28:00 18 /min [facility] Body height 2023-03-02 17:28:00 157.5 cm [facility] Body weight 2023-03-02 17:28:00 115.214 kg [facility] BMI 2023-03-02 17:28:00 46.46 kg/m2 [facility] Oxygen saturation in Arterial blood by Pulse oximetry 2023-03-02 17:28:00 97 /min [facility] Systolic blood pressure 2023-02-26 17:55:00 112 mm[Hg] [facility] Diastolic blood pressure 2023-02-26 17:55:00 54 mm[Hg] [facility] Heart rate 2023-02-26 17:55:00 74 /min [facility] Body temperature 2023-02-26 17:55:00 36.78 [place] [facility] Respiratory rate 2023-02-26 17:55:00 18 /min [facility] Oxygen saturation in Arterial blood by Pulse oximetry 2023-02-26 17:55:00 93 /min [facility] Body height 2023-02-25 01:23:00 157.5 cm [facility] Body weight 2023-02-25 01:23:00 115.667 kg [facility] BMI 2023-02-25 01:23:00 46.64 kg/m2 [facility] Systolic blood pressure 2023-02-24 15:57:00 140 mm[Hg] Uriah o [facility] Diastolic blood pressure 2023-02-24 15:57:00 79 mm[Hg] Uriah o [facility] Heart rate 2023-02-24 15:57:00 67 /min [facility] Body temperature 2023-02-24 15:57:00 36.17 [place] [facility] Respiratory rate 2023-02-24 15:57:00 20 /min [facility] Body height 2023-02-24 15:57:00 157.5 cm [facility] Body weight 2023-02-24 15:57:00 115.7 kg [facility] BMI 2023-02-24 15:57:00 46.64 kg/m2 [facility] Oxygen saturation in Arterial blood by Pulse oximetry 2023-02-24 15:57:00 97 /min [facility] Body height 2023-02-21 13:53:00 175.3 cm [facility] Body weight 2023-02-21 13:53:00 113.853 kg [facility] BMI 2023-02-21 13:53:00 37.07 kg/m2 [facility] Respiratory rate 2023-02-09 17:19:00 16 /min [facility] Body height 2023-02-09 17:19:00 175.3 cm [facility] Body weight 2023-02-09 17:19:00 113.853 kg [facility] BMI 2023-02-09 17:19:00 37.07 kg/m2 [facility] Systolic blood pressure 2023-01-20 21:11:00 153 mm[Hg] [facility] Diastolic blood pressure 2023-01-20 21:11:00 83 mm[Hg] [facility] Heart rate 2023-01-20 21:11:00 89 /min [facility] Res[facility] rate 2023-01-20 21:11:00 18 /min [facility] Body height 2023-01-20 21:11:00 160 cm [facility] Body weight 2023-01-20 21:11:00 117.482 kg [facility] BMI 2023-01-20 21:11:00 45.88 kg/m2 [facility] Oxygen saturation in Arterial blood by Pulse oximetry 2023-01-20 21:11:00 96 /min [facility] Systolic blood pressure 2022-12-09 15:28:00 146 mm[Hg] [facility] Diastolic blood pressure 2022-12-09 15:28:00 84 mm[Hg] [facility] Heart rate 2022-12-09 15:28:00 80 /min [facility] Body temperature 2022-12-09 15:28:00 36.33 [place] [facility] Respiratory rate 2022-12-09 15:28:00 18 /min [facility] Body height 2022-12-09 15:28:00 160 cm [facility] Body weight 2022-12-09 15:28:00 113.399 kg [facility] BMI 2022-12-09 15:28:00 44.29 kg/m2 [facility] Oxygen saturation in Arterial blood by Pulse oximetry 2022-12-09 15:28:00 96 /min [facility] Systolic blood pressure 2022-12-09 15:28:00 146 mm[Hg] [facility] Diastolic blood pressure 2022-12-09 15:28:00 84 mm[Hg] [facility] Heart rate 2022-12-09 15:28:00 80 /min [facility] Body temperature 2022-12-09 15:28:00 36.33 [place] [facility] Respiratory rate 2022-12-09 15:28:00 18 /min [facility] Body height 2022-12-09 15:28:00 160 cm [facility] Body weight 2022-12-09 15:28:00 113.399 kg [facility] BMI 2022-12-09 15:28:00 44.29 kg/m2 [facility] Oxygen saturation in Arterial blood by Pulse oximetry 2022-12-09 15:28:00 96 /min [facility] Systolic blood pressure 2022-10-11 15:26:00 148 mm[Hg] [facility] Diastolic blood pressure 2022-10-11 15:26:00 70 mm[Hg] [facility] Heart rate 2022-10-11 15:26:00 82 /min [facility] Body temperature 2022-10-11 15:26:00 36.44 [place] [facility] Respiratory rate 2022-10-11 15:26:00 17 /min [facility] Body height 2022-10-11 15:26:00 160 cm [facility] Body weight 2022-10-11 15:26:00 111.131 kg [facility] BMI 2022-10-11 15:26:00 43.40 kg/m2 [facility] Oxygen saturation in Arterial blood by Pulse oximetry 2022-10-11 15:26:00 97 /min [facility] Systolic blood pressure 2022-05-31 14:30:00 139 mm[Hg] [facility] Diastolic blood pressure 2022-05-31 14:30:00 81 mm[Hg] [facility] Heart rate 2022-05-31 14:30:00 78 /min [facility] Body temperature 2022-05-31 14:30:00 36 [place] [facility] Respiratory rate 2022-05-31 14:30:00 18 /min [facility] Body height 2022-05-31 14:30:00 160 cm [facility] Body weight 2022-05-31 14:30:00 111.131 kg [facility] BMI 2022-05-31 14:30:00 43.40 kg/m2 [facility] Oxygen saturation in Arterial blood by Pulse oximetry 2022-05-31 14:30:00 98 /min [facility] Systolic blood pressure 2022-04-14 14:06:00 152 mm[Hg] [facility] Diastolic blood pressure 2022-04-14 14:06:00 77 mm[Hg] [facility] Heart rate 2022-04-14 14:06:00 69 /min [facility] Body temperature 2022-04-14 14:06:00 35.94 [place] [facility] Respiratory rate 2022-04-14 14:06:00 16 /min [facility] Body weight 2022-04-14 14:06:00 108.863 kg [facility] BMI 2022-04-14 14:06:00 42.52 kg/m2 [facility] Oxygen saturation in Arterial blood by Pulse oximetry 2022-04-14 14:06:00 96 /min [facility] Systolic blood pressure 2022-02-08 14:24:00 145 mm[Hg] [facility] Diastolic blood pressure 2022-02-08 14:24:00 70 mm[Hg] [facility] Heart rate 2022-02-08 14:24:00 70 /min [facility] Body temperature 2022-02-08 14:24:00 36.17 [place] [facility] Respiratory rate 2022-02-08 14:24:00 16 /min [facility] Oxygen saturation in Arterial blood by Pulse oximetry 2022-02-08 14:24:00 97 /min [facility] Heart rate 2022-01-25 20:24:00 74 /min [facility] Respiratory rate 2022-01-25 20:24:00 16 /min [facility] Oxygen saturation in Arterial blood by Pulse oximetry 2022-01-25 20:24:00 94 /min [facility] Systolic blood pressure 2022-01-25 20:23:00 118 mm[Hg] [facility] Diastolic blood pressure 2022-01-25 20:23:00 66 mm[Hg] [facility] Body temperature 2022-01-25 19:46:00 36.28 [place] [facility] Body height 2022-01-13 18:30:00 160 cm [facility] Body weight 2022-01-13 18:30:00 108.9 kg [facility] BMI 2022-01-13 18:30:00 42.54 kg/m2 [facility] Systolic blood pressure 2022-01-25 19:46:00 129 mm[Hg] [facility] Diastolic blood pressure 2022-01-25 19:46:00 68 mm[Hg] [facility] Heart rate 2022-01-25 19:46:00 78 /min [facility] Body temperature 2022-01-25 19:46:00 36.28 [place] [facility] Respiratory rate 2022-01-25 19:46:00 17 /min [facility] Oxygen saturation in Arterial blood by Pulse oximetry 2022-01-25 19:46:00 100 /min [facility] Body height 2022-01-13 18:30:00 160 cm [facility] Body weight 2022-01-13 18:30:00 108.9 kg [facility] BMI 2022-01-13 18:30:00 42.54 kg/m2 [facility] Systolic blood pressure 2021-12-14 14:25:00 133 mm[Hg] [facility] Diastolic blood pressure 2021-12-14 14:25:00 76 mm[Hg] [facility] Heart rate 2021-12-14 14:25:00 74 /min [facility] Body temperature 2021-12-14 14:25:00 36.22 [place] [facility] Body weight 2021-12-14 14:25:00 108.863 kg [facility] BMI 2021-12-14 14:25:00 42.51 kg/m2 [facility] Oxygen saturation in Arterial blood by Pulse oximetry 2021-12-14 14:25:00 96 /min [facility] Systolic blood pressure 2021-10-08 15:53:00 161 mm[Hg] [facility] Diastolic blood pressure 2021-10-08 15:53:00 78 mm[Hg] [facility] Heart rate 2021-10-08 15:53:00 81 /min [facility] Body temperature 2021-10-08 15:53:00 36 [place] [facility] Respiratory rate 2021-10-08 15:53:00 16 /min [facility] Body height 2021-10-08 15:53:00 160 cm [facility] Body weight 2021-10-08 15:53:00 108.863 kg [facility] BMI 2021-10-08 15:53:00 42.51 kg/m2 [facility] Oxygen saturation in Arterial blood by Pulse oximetry 2021-10-08 15:53:00 95 /min [facility] Systolic blood pressure 2021-10-08 15:53:00 161 mm[Hg] [facility] Diastolic blood pressure 2021-10-08 15:53:00 78 mm[Hg] [facility] Heart rate 2021-10-08 15:53:00 81 /min [facility] Body temperature 2021-10-08 15:53:00 36 [place] [facility] Respiratory rate 2021-10-08 15:53:00 16 /min [facility] Body height 2021-10-08 15:53:00 160 cm [facility] Body weight 2021-10-08 15:53:00 108.863 kg [facility] BMI 2021-10-08 15:53:00 42.51 kg/m2 [facility] Oxygen saturation in Arterial blood by Pulse oximetry 2021-10-08 15:53:00 95 /min [facility] Systolic blood pressure 2021-08-13 16:22:00 155 mm[Hg] [facility] Diastolic blood pressure 2021-08-13 16:22:00 76 mm[Hg] [facility] Heart rate 2021-08-13 16:22:00 82 /min [facility] Body temperature 2021-08-13 16:22:00 36.39 [place] [facility] Body height 2021-08-13 16:22:00 160 cm [facility] Body weight 2021-08-13 16:22:00 111.131 kg [facility] BMI 2021-08-13 16:22:00 43.40 kg/m2 [facility] Oxygen saturation in Arterial blood by Pulse oximetry 2021-08-13 16:22:00 98 /min [facility] Systolic blood pressure 2024-04-05 20:37:00 137 mm[Hg] [facility] Diastolic blood pressure 2024-04-05 20:37:00 80 mm[Hg] [facility] Heart rate 2024-04-05 20:37:00 75 /min [facility] Body temperature 2024-04-05 20:37:00 36.11 [place] [facility] Respiratory rate 2024-04-05 20:37:00 18 /min [facility] Body height 2024-04-05 20:37:00 160 cm [facility] Body weight 2024-04-05 20:37:00 110.224 kg [facility] BMI 2024-04-05 20:37:00 43.05 kg/m2 [facility] Oxygen saturation in Arterial blood by Pulse oximetry 2024-04-05 20:37:00 97 /min [facility] Procedures Procedure Date / Time Performed Performing Clinician Source US ABDOMEN LIMITED 2024-04-25 21:25:48 Buddy Benoit [facility] US ABDOMEN LIMITED 2024-04-25 21:25:48 Buddy Benoit [facility] SCANNED LAB RESULTS 2024-02-29 21:59:40 [place] Unass[place], [place] [facility] SCANNED LAB RESULTS 2024-02-29 21:59:40 Doctor Unassigned, [place] [facility] SCANNED LAB RESULTS 2023-12-22 20:47:56 Doctor Unassigned, [place] [facility] REFERRAL- REQUEST/RESPONSE 2023-07-13 18:27:48 Doctor Unassigned, [place] [facility] PHYSICIAN ORDERS 2023-07-12 20:45:10 Doctor Unassigned, [place] [facility] XR CERVICAL SPINE 1 VW 2023-05-30 20:02:09 Elliott Morfin [facility] XR CERVICAL SPINE 1 VW 2023-05-30 20:02:09 Elliott Morfin [facility] ANTERIOR CERVICAL FUSION 2023-05-30 17:10:00 [facility] ANTERIOR CERVICAL FUSION 2023-05-30 17:10:00 [facility] ANTERIOR CERVICAL FUSION 2023-05-30 17:10:00 [facility] ANTERIOR CERVICAL FUSION 2023-05-30 17:10:00 [facility] ANTERIOR CERVICAL FUSION 2023-05-30 17:10:00 [facility] ANTERIOR CERVICAL FUSION 2023-05-30 17:10:00 [facility] HB INDIRECT ANTIGLOBULIN TEST 2023-05-30 15:47:00 Bridgette [facility] HB INDIRECT ANTIGLOBULIN TEST 2023-05-30 15:47:00 Bridgette [facility] ASSIGNMENT OF BENEFITS 2023-05-30 15:03:37 Doctor Unassigned, [place] [facility] MR CERVICAL SPINE WO CONTRAST 2023-04-19 19:20:37 Elizabeth Burrell [facility] XR LUMBAR SPINE 2 VW 2023-02-26 15:27:00 Anshul Moore [facility] MAGNESIUM 2023-02-25 10:37:00 [facility] BASIC METABOLIC PANEL (NA, K , CL, CO2, GLUCOSE, BUN, CREATININE, CA) 2023-02-25 10:37:00 [facility] MAGNESIUM 2023-02-25 10:37:00 [facility] BASIC METABOLIC PANEL (NA, K , CL, CO2, GLUCOSE, BUN, CREATININE, CA) 2023-02-25 10:37:00 [facility] CBC WITH DIFF 2023-02-25 10:36:00 [facility] CBC WITH DIFF 2023-02-25 10:36:00 [facility] [facility] [place] 2023-02-24 21:09[place]21 [place] 2023-02-24 21:09:21 Elliott Morfin [facility] [place] TIME [place] (NON-REPORTABLE) 2023-02-24 19:59:14 [place] 2023-02-24 19:59:14 [place] XR LUMBAR SPINE 1 VW 2023-02-24 18:43:34 [place] XR LUMBAR SPINE 1 VW 2023-02-24 18:43:34 [place] POSTERIOR LUMBAR INTERBODY S CRISTINA FUSION 2023-02-24 17:43:00 [facility] ABORH CONFIRMATION (LAB ONLY) 2023-02-24 17:23:00 [facility] COVID-19 (ID NOW RAPID TESTING) 17:23:00 Cynthia Ram [facility] ABORH CONFIRMATION (LAB ONLY) 2023-02-24 17:23:00 [facility] COVID-19 (ID NOW RAPID TESTING) 17:23:00 Cynthia Ram [facility] BASIC METABOLIC PANEL (NA, K , CL, CO2, GLUCOSE, BUN, CREATININE, CA) 2023-02-24 16:31:00 Oscar Anshul [facility] CBC WITH DIFF 2023-02-24 16:31:00 Oscar [facility] PROTHROMBIN TIME / INR 2023-02-24 16:31:00 Oscar [facility] ACTIVATED PARTIAL THRMPLAS ERIK 1 16:31:00 Oscar Anshul [facility] HB INDIRECT ANTIGLOBULIN TEST 2023-02-24 16:31:00 Shama Randolph [facility] ABORH INVESTIGATION 2023-02-24 16:31:00 Shama Randolph [facility] BASIC METABOLIC PANEL (NA, K , CL, CO2, GLUCOSE, BUN, CREATININE, CA) 2023-02-24 16:31:00 Anshul Moore [facility] CBC WITH DIFF 2023-02-24 16:31:00 Anshul Moore [facility] PROTHROMBIN TIME / INR 2023-02-24 16:31:00 Anshul Moore [facility] ACTIVATED PARTIAL THRMPLAS ERIK 1 16:31:00 Anshul Moore [facility] HB INDIRECT ANTIGLOBULIN TEST 2023-02-24 16:31:00 Shama Randolph [facility] ABORH INVESTIGATION 2023-02-24 16:31:00 Shama Randolph [facility] POCT GLUCOSE (AUTOMATED) 2023-02-24 15:50:00 Elliott Morfin [facility] POCT GLUCOSE (AUTOMATED) 2023-02-24 15:50:00 Elliott Morfin [facility] DAY SURGERY [facility] 06:01:00 [place] [facility] ASSIGNMENT OF BENEFITS 2023-02-21 23:11:00 Doctor [place]assigned[place] [facility] MR LUMBAR SPINE WO CONTRAST 2023-02-01 16:50:13 Peggy Ordonez [facility] ASSIGNMENT OF BENEFITS 2023-01-20 20:59:38 Doctor Unassigned, [place] [facility] REFERRAL- REQUEST/RESPONSE 2022-09-20 05:01:00 Doctor Unassigned, [place] [facility] INFUSION THERAPY DOCUMENTS 2022-05-31 06:01:00 Doctor [place]assigned, [place] [facility] PHYSICIAN ORDERS 2022-05-09 06:01:00 Doctor [place]assigned, [place] [facility] INFUSION THERAPY DOCUMENTS 2022-04-14 06:01:00 Doctor Unassigned, [place] [facility] ESOPHAGOGASTRODUODENOSCOPY 2022-01-25 19:18:00 Briana Merritt [facility] EGD (ENDO) 2022-01-25 19:09:20 Salome Barnett [facility] EGD (ENDO) 2022-01-25 19:09:20 Salome Barnett [facility] POCT GLUCOSE (AUTOMATED) 2022-01-25 18:06:00 Briana Merritt [facility] POCT GLUCOSE (AUTOMATED) 2022-01-25 18:06:00 Briana Merritt [facility] US ABDOMEN LIMITED 2022-01-20 15:33:21 Briana Merritt [facility] EXTERNAL PROVIDER RECORDS 2021-12-20 05:01:00 Doctor Unassigned, [place] [facility] EXTERNAL PROVIDER RECORDS 2021-12-20 05:01:00 Doctor Unassigned, [place] [facility] [id number] 2019-10-17 00:00:00 [facility] [id number] 2019-10-17 00:00:00 [facility] Encounters Start Date/Time End Date/Time Encounter Type Admission Type Attending Clinicians Care Facility Care Department Encounter ID Source 2019-10-15 09:00:00 Inpatient Yani Jacobo [facility] DAYS [id number] 28 [facility] 2024-10-15 00:00:00 2024-10-16 09:21:16 Refill Devin Benoit [facility] 1.2.840.114 350.1.13.10 4.2.7.2.686 [id number] [facility] 2024-06-05 09:28:27 2024-06-05 23:59:[address] [facility] [id number] [facility] 2024-05-31 14:00:00 2024-05-31 15:30:00 Nurse Visit 2, Adc Pob Amb Infusion Room Elidia Berman 2, Adc Pob Amb Infusion Room [facility] 1.2.840.114 350.1.13.10 4.2.7.2.686 [id number] [facility] 2024-05-31 14:00:00 2024-05-31 14:00:[address] [facility] [id number] [facility] 2023-08-28 00:00:00 2024-05-11 07:38:05 Orders Only Doctor Unassigned, [place] Doctor Unassigned[place] [facility] 1.2.840.114 350.1.13.10 4.2.7.2.686 [id number] [facility] 2023-12-22 00:00:00 2024-05-11 06:54:48 Orders Only Doctor Unassigned, [place] Doctor Unassigned, [place] [facility] 1.2.840.114 350.1.13.10 4.2.7.2.686 [id number] [id number] [facility] 2024-02-29 00:00:00 2024-05-11 06:31:43 Orders Only Doctor Unassigned, [place] 1.2.840.1 71977.1.1 3.104.2.7 .3.975601 .8 [id number] [facility] 2023-07-12 00:00:00 2024-05-11 02:18:15 Orders Only Doctor Unassigned, [place] Doctor Unassigned, [place] [facility] 1.2.840.114 350.1.13.10 4.2.7.2.686 [id number] [id number] [facility] 2023-07-13 00:00:00 2024-05-11 02:17:20 Orders Only Doctor Unassigned, [place] Doctor Unassigned, [place] [facility] 1.2.840.114 350.1.13.10 4.2.7.2.686 [id number] [id number] [facility] 2024-04-25 14:56:23 2024-04-25 23:59:[address] [facility] [id number] [facility] 2024-04-25 14:56:23 2024-04-25 23:59:00 Hospital Encounter Buddy Benoit 1.2.840.1 69859.1.1 3.104.2.7 .3.009849 .8 [id number] [facility] 2024-04-22 00:00:00 2024-04-22 00:00:00 Travel 1.2.840.1 31845.1.1 3.104.2.7 .3.808644 .8 1.2.840.114 350.1.13.10 4.2.7.3.698 084.8 [id number] [facility] 2024-04-05 14:00:00 2024-04-05 15:30:00 Nurse Visit Elidia Berman 2, Adc Pob Amb Infusion Room 1.2.840.1 58990.1.1 3.104.2.7 .3.088175 .8 [id number] [facility] 2024-04-05 14:00:00 2024-04-05 14:00:00 Outpatient R ELIDIA [facility]MAN [facility] [id number] [facility] 2024-04-05 00:00:00 2024-04-05 00:00:00 Travel 1.2.840.1 79233.1.1 3.104.2.7 .3.406331 .8 1.2.840.114 350.1.13.10 4.2.7.3.698 084.8 [id number] [facility] 2024-04-04 00:00:00 2024-04-04 00:00:00 Travel 1.2.840.1 98152.1.1 3.104.2.7 .3.463679 .8 1.2.840.114 350.1.13.10 4.2.7.3.698 084.8 [id number] [facility] 2024-02-09 00:00:00 2024-03-13 23:36:52 Telephone Briana Bauman 1.2.840.1 63748.1.1 3.104.2.7 .3.674670 .8 [id number] [facility] 2024-02-13 09:00:00 2024-02-13 11:42:32 Outpatient R ELIDIA [facility]MAN [facility] [id number] [facility] 2024-02-13 09:00:00 2024-02-13 11:42:32 Nurse Visit Elidia Berman 1, Adc Pob Amb Infusion Room 1.2.840.1 52348.1.1 3.104.2.7 .3.508609 .8 [id number] [facility] 2024-02-13 00:00:00 2024-02-13 00:00:00 Travel 1.2.840.1 43434.1.1 3.104.2.7 .3.036067 .8 1.2.840.114 350.1.13.10 4.2.7.3.698 084.8 [id number] [facility] 2024-02-09 14:00:00 2024-02-09 14:00:00 Outpatient R ELIDIA [facility] [facility] [id number] [facility] 2023-12-15 14:00:00 2023-12-15 16:11:12 Outpatient R ELIDIA [facility] [facility] [id number] [facility] 2023-12-15 14:00:00 2023-12-15 16:11:12 Nurse Visit 1, Adc Pob Amb Infusion Room Elidia Berman 1, Adc Pob Amb Infusion Room [facility] 1.2.840.114 350.1.13.10 4.2.7.2.686 [id number] 053 [id number] [facility] 2023-12-15 10:00:00 2023-12-15 10:00:[address] [facility] [id number] [facility] 2023-11-07 00:00:00 2023-12-09 18:22:30 Patient Secure Msg Elliott Morfin [facility] 1.2840.114 350.1.13.10 4.2.7.2.686 [id number] [facility] 2023-11-23 00:00:00 2023-11-24 08:15:55 Patient Secure Msg Doctor Unassigned, [place] Doctor Unassigned, [place] [facility] 1.2.840.114 350.1.13.10 4.2.7.2.686 [id number] 019 [id number] [facility] 2023-11-13 00:00:00 2023-11-22 10:05:39 Patient Secure Msg Doctor Unassigned, [place] Doctor Unassigned, [place] [facility] 1.2840.114 350.1.13.10 4.2.7.2.686 [id number] [facility] 2023-11-13 00:00:00 2023-11-13 14:09:14 Letter (Out) [facility] 1.2840.114 350.1.13.10 4.2.7.2.686 [id number] [id number] [facility] 2023-09-07 11:45:00 2023-09-07 11:45:[address] [facility] [id number] [facility] 2023-08-15 00:00:00 2023-08-15 09:24:36 Case Management Rodolfo Mckeon [facility] 1.2.114 350.1.13.10 4.2.7.2.686 [id number] [facility] 2023-07-03 11:15:00 2023-07-03 12:16:53 [facility] [id number] [facility] 2023-07-03 11:15:00 2023-07-03 12:16:53 Office Visit ShelbieElliott [facility] 1.2.840.114 350.1.13.10 4.2.7.2.686 [id number] [facility] 2023-06-29 10:00:00 2023-06-29 11:44:17 Outpatient R ELIDIA [address] [facility] [id number] [facility] 2023-06-29 10:00:00 2023-06-29 11:44:17 Nurse Visit 2, Adc Pob Amb Infusion Room Elidia Berman [facility] 1.2.840.114 350.1.13.10 4.2.7.2.686 [id number] [id number] [facility] 2023-06-19 00:00:00 2023-06-19 00:00:00 Patient Secure Msg Doctor Unassigned, [place] [facility] 1.2.840.114 350.1.13.10 4.2.7.2.686 [id number] 196 [id number] [facility] 2023-06-03 00:00:00 2023-06-03 00:00:00 Telephone Shelbie [facility] MEDICAL OFFICE BUILDING 1.2.840.114 350.1.13.10 4.2.7.2.686 [id number] 196 [id number] [facility] 2023-06-03 00:00:00 2023-06-03 00:00:00 Patient Secure g Elizabeth Burrell [facility] 1.2.840.114 350.1.13.10 4.2.7.2.686 [id number] [facility] 2023-05-30 09:02:00 2023-05-30 17:00:00 Outpatient R [facility]BIE [facility] [id number] [facility] 2023-05-30 09:02:00 2023-05-30 17:00:00 Hospital Encounter [facility] 1.2.840.114 350.1.13.10 4.2.7.2.686 [id number] [facility] 2023-05-30 11:03:00 2023-05-30 14:36:00 Surgery [facility] ([facility]) 1.2.840.114 350.1.13.10 4.2.7.2.686 [id number] [facility] 2023-05-30 00:00:00 2023-05-30 00:00:00 Orders Only Doctor Unassigned, [place] [facility] 1.2.840.114 350.1.13.10 4.2.7.2.686 [id number] [facility] 2023-05-17 08:00:00 2023-05-17 08:00:00 Outpatient R LAUREN ASHBY [facility] [id number] [facility] 2023-05-08 11:45:00 2023-05-08 12:00:00 Office Visit [facility] MEDICAL OFFICE BUILDING 1.2840.114 350.1.13.10 4.2.7.2.686 [id number] 196 [id number] [facility] 2023-05-08 11:45:00 2023-05-08 11:45:00 [id number] 2023-05-08 00:00:00 2023-05-08 00:00:00 Prep For Surgery [facility] 1.2840.114 350.1.13.10 4.2.7.2.686 [id number] [facility] 2023-05-08 00:00:00 2023-05-08 00:00:00 Prep For Surgery [facility] 1.2840.114 350.1.13.10 4.2.7.2.686 [id number] [facility] 2023-05-08 00:00:00 2023-05-08 00:00:00 Prep For Surgery [facility] 1.2840.114 350.1.13.10 4.2.7.2.686 [id number] [facility] 2023-05-04 12:00:00 2023-05-04 13:30:00 Nurse Visit 2, Adc Pob Amb Infusion Room BermanElidia [facility] 1..840.114 350.1.13.10 4.2.7.2.686 [id number] 053 [id number] [facility] 2023-05-04 12:00:00 2023-05-04 12:00:[address] [facility] [id number] [facility] 2023-04-20 12:00:00 2023-04-20 23:59:00 [address] [facility] [id number] [facility] 2023-04-20 12:00:00 2023-04-20 23:59:00 Hospital Encounter Nadine Desir [facility] 1.2.840.114 350.1.13.10 4.2.7.2.686 [id number] [facility] 2023-04-19 12:42:40 2023-04-19 23:59:00 Outpatient R ELIZABETH BURRE[address] [facility] [id number] [facility] 2023-04-19 12:42:40 2023-04-19 23:59:00 Hospital Encounter Elizabeth Burrell [facility] 1.2840.114 350.1.13.10 4.2.7.2.686 [id number] [facility] 2023-04-13 11:30:00 2023-04-13 13:58:11 Outpatient R E[address]IOTT MORFIN [facility] [id number] [facility] 2023-04-13 11:30:00 2023-04-13 13:58:11 Office Visit Shelbie [facility] BUILDING 1.2.840.114 350.1.13.10 4.2.7.2.686 [id number] [facility] 2023-03-13 10:30:00 2023-03-13 10:45:00 [facility] 1.2.840.114 350.1.13.10 4.2.7.2.686 [id number] [facility] 2023-03-13 10:30:00 2023-03-13 10:30:[address] [facility] [id number] [facility] 2023-03-02 11:00:00 2023-03-02 12:30:00 Nurse Visit Nurse, Adc Pob Amb Infusion Briana Bauman [facility] 1.2.840.114 350.1.13.10 4.2.7.2.686 [id number] 053 [id number] [facility] 2023-03-02 11:00:00 2023-03-02 11:00:[address] [facility] [id number] [facility] 2023-02-24 09:26:00 2023-02-26 13:27:00 Outpatient R AVINASH CARTY [facility] [id number] [facility] 2023-02-24 09:26:00 2023-02-26 13:27:00 Hospital Encounter Elliott Morfin Behnam Eisenberg, Skyler Carty, Avinash [facility] ([employer] [facility] 1.0.114 350.1.13.10 4.2.7.2.686 [id number] [facility] 2023-02-24 16:30:00 2023-02-24 16:30:00 Outpatient R PEGGY ORDONEZ [facility] [id number] [facility] 2023-02-24 11:34:00 2023-02-24 15:41:[facility] 1..114 350.1.13.10 4.2.7.2.686 [id number] [facility] 2023-02-24 00:00:00 2023-02-24 00:00:00 Orders Only Doctor Unassigned, [place] [facility] 1..114 350.1.13.10 4.2.7.2.686 [id number] [facility] 2023-02-24 00:00:00 2023-02-24 00:00:00 Telephone Briana Bauman [facility] 1.840.114 350.1.13.10 4.2.7.2.686 [id number] 053 [id number] [facility] 2023-02-23 10:00:00 2023-02-23 10:00:[address] 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 [id number] [facility] 2023-02-21 08:15:00 2023-02-21 08:20:00 Pre-Anesth esia Evaluation Call, [facility] Apa Phone [facility] ([employer] [facility] 1.2.840.114 350.1.13.10 4.2.7.2.686 [id number] [facility] 2023-02-21 00:00:00 2023-02-21 00:00:00 Orders Only Doctor Unassigned, [place] [facility] 1.2.840.114 350.1.13.10 4.2.7.2.686 [id number] [id number] [facility] 2023-02-21 00:00:00 2023-02-21 00:00:00 Telephone Elidia Berman [facility] BUILD[facility] 1.2840.114 350.1.13.10 4.2.7.2.686 [id number] [id number] [facility] 2023-02-09 10:45:00 2023-02-09 14:24:08 Outpatient R [facility] [id number] Boyd [facility] 2023-02-09 10:45:00 2023-02-09 14:24:08 Office Visit Shelbie [facility] MEDICAL OFFICE BUILDING 1.2.840.114 350.1.13.10 4.2.7.2.686 [id number] [facility] 2023-02-09 00:00:00 2023-02-09 00:00:00 Prep For Surgery Shelbie [facility] MEDICAL OFFICE BUILDING 1.2.840.114 350.1.13.10 4.2.7.2.686 [id number] [facility] 2023-02-06 00:00:00 2023-02-06 00:00:00 Telephone [facility] 1.2.840.114 350.1.13.10 4.2.7.2.686 [id number] [facility] 2023-02-03 09:00:00 2023-02-03 09:00:00 Outpatient R ELIDIA [address]MAN [facility] [id number] [facility] 2023-02-01 09:48:05 2023-02-01 23:59:00 [facility] [id number] [facility] 2023-02-01 09:45:00 2023-02-01 23:59:00 Hospital Encounter Iglesia Ordonezssica [facility] 1.2.840.114 350.1.13.10 4.2.7.2.686 [id number] [facility] 2023-01-20 16:00:00 2023-01-20 16:42:09 Out[facility] [id number] [facility] 2023-01-20 16:00:00 2023-01-20 16:42:09 [facility] 1.2.840.114 350.1.13.10 4.2.7.2.686 [id number] [facility] 2023-01-20 00:00:00 2023-01-20 00:00:00 Orders Only Doctor Unassigned, [place] [facility] 1.2.840.114 350.1.13.10 4.2.7.2.686 [id number] [facility] 2022-12-09 09:00:00 2022-12-09 15:55:30 Outpatient R ELIDIA [address] [facility] [id number] [facility] 2022-12-09 09:00:00 2022-12-09 15:55:30 Nurse Visit 2, Karishma Pob Amb Infusion Room Elidia Berman [facility] 1.2840.114 350.1.13.10 4.2.7.2.686 [id number] 053 [id number] [facility] 2022-10-11 10:00:00 2022-10-11 11:00:00 Nurse Visit 1, Adc Infusion Chair Elidia Berman [facility] 1.0.114 350.1.13.10 4.2.7.2.686 [id number] [id number] [facility] 2022-10-11 10:00:00 2022-10-11 10:00:00 [facility] [id number] 2022-09-20 00:00:00 2022-09-20 00:00:00 Orders Only Doctor Unassigned, [place] [facility] 1.0.114 350.1.13.10 4.2.7.2.686 [id number] [facility] 2022-05-31 08:00:00 2022-05-31 10:30:00 Nurse Visit 2, Adc Infusion Chair Briana Bauman [facility] 1.840.114 350.1.13.10 4.2.7.2.686 [id number] [facility] 2022-05-31 08:00:00 2022-05-31 08:00:00 Outpatient R BRIANA [address]UMAN [facility] [id number] [facility] 2022-05-31 00:00:00 2022-05-31 00:00:00 Orders Only Doctor Unassigned, [place] [facility] 1.2840.114 350.1.13.10 4.2.7.2.686 [id number] [facility] 2022-05-20 10:00:00 2022-05-20 10:00:00 Outpatient R BRIANA [address] [facility] [id number] [facility] 2022-05-09 00:00:00 2022-05-09 00:00:00 Orders Only Doctor Unassigned, [place] [facility] 1.840.114 350.1.13.10 4.2.7.2.686 [id number] [facility] 2022-04-14 07:30:00 2022-04-14 10:00:00 Nurse Visit 2, [facility] 1.84.114 350.1.13.10 4.2.7.2.686 [id number] [facility] 2022-04-14 07:30:00 2022-04-14 07:30:00 Outpatient R BRIANA BAUMAN [facility] [id number] [facility] 2022-04-14 00:00:00 2022-04-14 00:00:00 Orders Only Doctor Unassigned, [place] [facility] 1.2840.114 350.1.13.10 4.2.7.2.686 [id number] [facility] 2022-04-05 08:00:00 2022-04-05 08:00:00 Outpatient [address]RIANA BAUMAN [facility] [id number] [facility] 2022-02-08 08:00:00 2022-02-08 10:30:00 Nurse Visit 2, [facility] 1.84.114 350.1.13.10 4.2.7.2.686 [id number] [facility] 2022-02-08 08:00:00 2022-02-08 08:00:00 Out[address]ANA [address]UMAN [facility] [id number] [facility] 2022-01-25 12:54:00 2022-01-25 15:35:00 Outpatient R BRIANA BAUMAN [facility] [id number] [facility] 2022-01-25 12:54:00 2022-01-25 15:35:00 Hospital Encounter Briana Bauman [facility] 1.2.840.114 350.1.13.10 4.2.7.2.686 [id number] [facility] 2022-01-25 14:09:00 2022-01-25 14:46:00 Surgery KeeleychapismelissaBriana mahajan [facility] 1.2.840.114 350.1.13.10 4.2.7.2.686 [id number] [facility] 2022-01-20 10:03:11 2022-01-20 23:59:00 Outpatient R GINLIAM CHELO SureshOmero [facility] [id number] [facility] 2022-01-20 09:30:00 2022-01-20 23:59:00 Hospital Encounter Briana Bauman [facility] 1.2.840.114 350.1.13.10 4.2.7.2.686 [id number] [facility] 2022-01-19 00:00:00 2022-01-19 00:00:00 Outpatient R ASHWIN Demetrice BRIANA [facility] [id number] [facility] 2022-01-12 00:00:00 2022-01-12 00:00:00 Outpatient R ASHWIN MARY [facility]ureshLIZBETH [facility] [id number] [facility] 2022-01-12 00:00:00 2022-01-12 00:00:00 Outpatient R ASHWIN Demetrice BRIANA [facility] [id number] [facility] 2022-01-01 00:00:00 2022-01-01 00:00:00 Outpatient Omero ASHWIN Demetrice BRIANA [facility] [id number] [facility] 2021-12-14 09:00:00 2021-12-14 11:30:00 Nurse Visit 2, Adc Infusion Chair Briana Bauman [facility] 1.2.840.114 350.1.13.10 4.2.7.2.686 [id number] [facility] 2021-12-14 09:00:00 2021-12-14 09:00:00 Outpatient Omero JUAN PABLOYUE Suresh BRIANA [facility] [id number] [facility] 2021-12-10 09:00:00 2021-12-10 09:00:00 Outpatient Omero CHRISTOPHER Demetrice [facility]RIANA [facility] [id number] [facility] 2021-12-03 10:00:00 2021-12-03 10:00:00 Outpatient Omero ASHWIN Demetrice [facility]RIANA [facility] [id number] [facility] 2021-11-04 06:11:00 2021-11-04 06:11:00 Outpatient KATARZYNA Restrepo Tamia [facility] [id number] [facility] 2021-11-04 06:11:00 2021-11-04 06:11:00 Outpatient KATARZNYA Pimentelphiljw Tamia HCAPM DAYS [id number] [facility] 2021-10-08 10:00:00 2021-10-08 12:00:00 Nurse Visit 1, Adc Infusion Chair Briana Bauman [facility] 1.2.840.114 350.1.13.10 4.2.7.2.686 [id number] [facility] 2021-10-08 10:00:00 2021-10-08 10:00:00 Outpatient R ASHWIN Suresh [facility]ANA [facility] [id number] [facility] 2021-10-08 10:00:00 2021-10-08 10:00:00 Outpatient R BRIANA [facility]UM[facility] [id number] [facility] 2021-09-24 10:30:00 2021-09-24 10:30:00 Outpatient R BRIANA [facility] [id number] [facility] 2021-08-13 11:00:00 2021-08-13 13:00:00 Nurse Visit 1, Adc Infusion Chair Ginmelissayue sureshBriana [facility] 1.840.114 350.1.13.10 4.2.7.2.686 [id number] [id number] [facility] 2021-08-13 11:00:00 2021-08-13 11:00:00 Outpatient R BRIANA [facility] [id number] [facility] 2021-07-30 10:30:00 2021-07-30 10:30:[address] [facility] [id number] [facility] 2021-07-09 00:00:00 2021-07-09 00:00:00 Letter (Out) Renee Tafoya [facility] 1.84.114 350.1.13.10 4.2.7.2.686 [id number] [facility] 2021-07-08 11:30:00 2021-07-08 11:45:00 Laboratory Only Only, Ang Db Test Olvin Royal [facility]?CHITOJw [facility] 1.840.114 350.1.13.10 4.2.7.2.686 [id number] [facility] 2021-07-08 11:30:00 2021-07-08 11:30:00 Outpatient R OLVIN [facility] [id number] [facility] 2021-06-18 09:00:00 2021-06-18 09:30:00 Nurse Visit 1, Adc Infusion Chair Briana Bauman [facility] 1..840.114 350.1.13.10 4.2.7.2.686 [id number] [facility] 2021-06-18 09:00:00 2021-06-18 09:00:00 Outpatient R BRIANA [facility] [id number] [facility] 2021-06-08 00:00:00 2021-06-08 00:00:00 Orders Only Doctor Unassigned[place] [facility] 1..840.114 350.1.13.10 4.2.7.2.686 [id number] [facility] 2021-06-04 10:30:00 2021-06-04 10:30:00 Outpatient R BRIANA [facility] [id number] [facility] 2021-06-03 11:00:00 2021-06-03 11:00:00 Outpatient R BRIANA [facility] [id number] [facility] 2021-04-09 10:30:00 2021-04-09 12:30:00 Nurse Visit 1, Adc Infusion Nurse Briana Bauman [facility] 1..840.114 350.1.13.10 4.2.7.2.686 [id number] [facility] 2021-04-09 10:30:00 2021-04-09 10:30:00 Outpatient R BRIANA [facility] [id number] [facility] 2021-02-12 10:39:30 2021-02-12 12:39:30 Nurse Visit 1, Adc Infusion Briana Cotton [facility] 1.2.840.114 350.1.13.10 4.2.7.2.686 [id number] [facility] 2021-02-12 10:30:00 2021-02-12 10:30:00 Outpatient R BRIANA [facility] [id number] [facility] 2021-02-12 00:00:00 2021-02-12 00:00:00 Orders Only Doctor Unassigned, [place] [facility] 1.2.840.114 350.1.13.10 4.2.7.2.686 [id number] [id number] [facility] 2020-12-18 10:40:27 2020-12-18 12:40:27 Nurse Visit 1, [facility] Infusion Briana Cotton [facility] 1.2.840.114 350.1.13.10 4.2.7.2.686 [id number] [id number] [facility] 2020-12-18 10:30:00 2020-12-18 10:30:00 Outpatient R BRIANA [facility] [id number] [facility] 2020-12-18 00:00:00 2020-12-18 00:00:00 Orders Only Doctor Unassigned, [place] [facility] 1.2.840.114 350.1.13.10 4.2.7.2.686 [id number] [facility] 2020-12-04 10:30:00 2020-12-04 10:30:00 Outpatient R CHELO BAUMANON LICENSE OF [facility] [id number] [facility] 2020-10-23 10:49:58 2020-10-23 12:49:58 Nurse Visit 1, Adc Infusion Nurse Briana Bauman [facility] 1.2840.114 350.1.13.10 4.2.7.2.686 [id number] [id number] [facility] 2020-10-23 10:30:00 2020-10-23 10:30:00 Outpatient R BRIANA [facility] [id number] [facility] 2020-10-09 10:30:00 2020-10-09 10:30:[address] [facility] [id number] [facility] 2020-10-01 13:52:39 2020-10-01 23:59:00 Hospital Encounter Briana Bauman [facility] 1.2840.114 350.1.13.10 4.2.7.2.686 [id number] [facility] 2020-10-01 00:00:00 2020-10-01 00:00:00 Outpatient R BRIANA [facility] [id number] [facility] 2020-10-01 00:00:00 2020-10-01 00:00:00 Patient Secure Msg Doctor Unassigned, [place] [facility] 1.2840.114 350.1.13.10 4.2.7.2.686 [id number] [facility] 2020-08-28 10:20:20 2020-08-28 12:20:20 Nurse Visit 1, Adc Infusion Nurse Briana Bauman [facility] 1.2840.114 350.1.13.10 4.2.7.2.686 [id number] [facility] 2020-08-28 10:00:00 2020-08-28 10:00:00 Outpatient R BRIANA [facility] [id number] [facility] 2020-08-28 10:00:00 2020-08-28 10:00:00 Outpatient R BRIANA [facility] [id number] [facility] 2020-08-28 00:00:00 2020-08-28 00:00:00 Orders Only Doctor Unassigned, [place] [facility] 1.2.840.114 350.1.13.10 4.2.7.2.686 [id number] [id number] [facility] 2020-08-14 10:30:00 2020-08-14 10:30:[address] [facility] [id number] [facility] 2020-07-17 11:02:23 2020-07-17 13:02:23 Nurse Visit 1, [facility] 1.2840.114 350.1.13.10 4.2.7.2.686 [id number] [facility] 2020-07-17 10:30:00 2020-07-17 10:30:[address] [facility] [id number] [facility] 2020-07-10 00:00:00 2020-07-10 00:00:00 Orders Only Doctor Unassigned, [place] [facility] 1.2840.114 350.1.13.10 4.2.7.2.686 [id number] [facility] 2020-07-04 16:20:00 2020-07-04 16:20:[address] [facility] [id number] [facility] 2020-07-03 11:12:13 2020-07-03 13:12:13 Nurse Visit 1, [facility] 1.2840.114 350.1.13.10 4.2.7.2.686 [id number] [facility] 2020-07-03 11:00:00 2020-07-03 11:00:00 Outpatient R BRIANA [facility] [id number] [facility] 2020-06-23 00:00:00 2020-06-23 00:00:00 Orders Only Doctor Unassigned, [place] [facility] 1.2840.114 350.1.13.10 4.2.7.2.686 [id number] [facility] 2020-06-13 16:20:00 2020-06-13 16:20:[address] [facility] [id number] [facility] 2020-05-08 10:22:40 2020-05-08 12:22:40 Nurse Visit 1, Adc Infusion Chair Briana Bauman [facility] 1.2840.114 350.1.13.10 4.2.7.2.686 [id number] [facility] 2020-05-08 10:00:00 2020-05-08 10:00:00 Outpatient R BRIANA [facility] [id number] [facility] 2020-05-08 00:00:00 2020-05-08 00:00:00 Orders Only Doctor Unassigned, [place] [facility] 1.2840.114 350.1.13.10 4.2.7.2.686 [id number] [id number] [facility] 2020-05-01 10:00:00 2020-05-01 10:00:00 Outpatient R BRIANA [facility] [id number] [facility] 2020-04-28 00:00:00 2020-04-28 00:00:00 Orders Only Doctor Unassigned, [place] [facility] 1.2840.114 350.1.13.10 4.2.7.2.686 [id number] [facility] 2020-03-06 10:18:01 2020-03-06 13:00:35 Nurse Visit 1, Adc Infusion Nurse Briana Bauman [facility] 1.84114 350.1.13.10 4.2.7.2.686 [id number] [facility] 2020-03-06 10:00:00 2020-03-06 10:00:00 Outpatient R BRIANA [facility] [id number] [facility] 2020-01-10 10:00:00 2020-01-10 10:00:00 Outpatient R BRIANA [facility] [id number] [facility] 2020-01-07 10:19:32 2020-01-07 12:19:32 Nurse Visit 1, [facility] 1.840.114 350.1.13.10 4.2.7.2.686 [id number] [facility] 2020-01-07 10:00:00 2020-01-07 10:00:00 Outpatient R BRIANA [facility] [id number] [facility] 2020-01-07 00:00:00 2020-01-07 00:00:00 Orders Only Doctor Unassigned, [place] [facility] 1.840.114 350.1.13.10 4.2.7.2.686 [id number] [facility] 2019-11-15 10:00:00 2019-11-15 10:00:00 Outpatient R BRIANA [facility] [id number] [facility] 2019-11-12 11:18:05 2019-11-12 13:18:05 Nurse Visit 1, [facility] 1.840.114 350.1.13.10 4.2.7.2.686 [id number] [facility] 2019-11-12 11:00:00 2019-11-12 11:00:00 Outpatient R BRIANA [facility] [id number] [facility] 2019-11-12 00:00:00 2019-11-12 00:00:00 Orders Only Doctor Unassigned, [place] [facility] 1.2.840.114 350.1.13.10 4.2.7.2.686 [id number] [id number] [facility] 2019-10-08 00:00:00 2019-10-08 00:00:00 Orders Only Doctor Unassigned, [place] [facility] 1.2.840.114 350.1.13.10 4.2.7.2.686 [id number] [id number] 2019-10-08 00:00:00 2019-10-08 00:00:00 Orders Only Doctor Unassigned, [place] [facility] 1.2.840.114 350.1.13.10 4.2.7.2.686 [id number] [id number] [facility] 2019-09-20 10:24:26 2019-09-20 10:54:26 Nurse Visit 1, Adc Infusion Chair 1, Adc Infusion Nurse [facility] 1.2.840.114 350.1.13.10 4.2.7.2.686 [id number] 2019-09-20 10:24:26 2019-09-20 10:54:26 Nurse Visit 1, Adc Infusion Chair 1, Adc Infusion Nurse Briana Bauman [facility] 1.2.840.114 350.1.13.10 4.2.7.2.686 [id number] [facility] 2019-09-20 10:00:00 2019-09-20 10:00:00 Outpatient R BRIANA [facility] [id number] [facility] 2019-08-27 11:40:40 2019-08-27 23:59:00 Outpatient Omero BRIANA [facility]UMAN [facility] [id number] [facility] 2019-08-02 09:53:10 2019-08-02 10:23:10 Nurse Visit 2, Adc Infusion Chair 1, Adc Infusion Nurse [facility] 1.2.840.114 350.1.13.10 4.2.7.2.686 [id number] [id number] 2019-08-02 09:53:10 2019-08-02 10:23:10 Nurse Visit 2, Adc Infusion Chair 1, Adc Infusion Nurse Briana Bauman [facility] 1.2.840.114 350.1.13.10 4.2.7.2.686 [id number] [facility] 2019-08-02 10:00:00 2019-08-02 10:00:00 [facility] [id number] [facility] 2019-08-02 00:00:00 2019-08-02 00:00:00 Orders Only Doctor Unassigned, [place] [facility] 1.2.840.114 350.1.13.10 4.2.7.2.686 [id number] [id number] 2019-08-02 00:00:00 2019-08-02 00:00:00 Orders Only Doctor Unassigned, [place] [facility] 1.2.840.114 350.1.13.10 4.2.7.2.686 [id number] [id number] [facility] 2019-07-30 10:00:00 2019-07-30 10:00:00 Outpatient R CHELO BAUMANON LICENSE OF [facility] [id number] [facility] 2019-07-26 10:00:00 2019-07-26 10:00:[address] [facility] [id number] [facility] 2019-05-31 10:33:46 2019-05-31 11:03:46 Nurse Visit 1, Adc Infusion Chair 1, Adc Infusion Nurse [facility] 1.2.840.114 350.1.13.10 4.2.7.2.686 [id number] 2019-05-31 10:33:46 2019-05-31 11:03:46 Nurse Visit 1, Adc Infusion Chair 1, Adc Infusion Nurse Mary Baumanshannanomero Gallagher [facility] 1.2.840.114 350.1.13.10 4.2.7.2.686 [id number] [facility] 2019-05-31 10:00:00 2019-05-31 10:00:00 Outpatient R BRIANA [facility] [id number] [facility] 2019-04-12 10:21:57 2019-04-12 10:51:57 Nurse Visit 2, Adc Infusion Chair 1, Adc Infusion Nurse [facility] 1.2.840.114 350.1.13.10 4.2.7.2.686 [id number] [id number] 2019-04-12 10:21:57 2019-04-12 10:51:57 Nurse Visit 2, Adc Infusion Chair 1, Adc Infusion Nurse Ashwin sureshCheloomero Gallagher [facility] 1.2.840.114 350.1.13.10 4.2.7.2.686 [id number] [facility] 2019-04-12 10:00:00 2019-04-12 10:00:00 Outpatient R BRIANA [facility] [id number] [facility] 2019-04-12 00:00:00 2019-04-12 00:00:00 Orders Only Doctor Unassigned, [place] [facility] 1.2.840.114 350.1.13.10 4.2.7.2.686 [id number] [id number] 2019-04-12 00:00:00 2019-04-12 00:00:00 Orders Only Doctor Unassigned, [place] [facility] 1.2.840.114 350.1.13.10 4.2.7.2.686 [id number] [id number] [facility] 2018-12-14 10:15:46 2018-12-14 10:45:46 Nurse Visit 1, Adc Infusion Chair 1, Adc Infusion Nurse [facility] 1.2.840.114 350.1.13.10 4.2.7.2.686 [id number] 053 [id number] 2018-12-14 10:15:46 2018-12-14 10:45:46 Nurse Visit 1, Adc Infusion Chair 1, Adc Infusion Nurse Briana Bauman [facility] 1.2.840.114 350.1.13.10 4.2.7.2.686 [id number] [id number] [facility] 2018-12-14 10:00:00 2018-12-14 10:00:00 Outpatient R BRIANA [facility] [id number] [facility] 2018-12-14 00:00:00 2018-12-14 00:00:00 Orders Only Doctor Unassigned, [place] [facility] 1.2.840.114 350.1.13.10 4.2.7.2.686 [id number] [id number] 2018-12-14 00:00:00 2018-12-14 00:00:00 Orders Only Doctor Unassigned, [place] [facility] 1.2.840.114 350.1.13.10 4.2.7.2.686 [id number] [id number] [facility] Results Test Description Test Time Test Comments Results Result Comments Source US Abdomen limited 00:36:19 EXAM: US ABDOMEN LIMITED HISTORY: 63 years-old Female with left upper quadrant pain Notes: attnbiliary tree, liver, and pancreas. TECHNIQUE: Limited abdominal ultrasound was performed focused on the liver,biliary system, pancreas and spleen. Main portal vein was evaluated withcolor and spectral Doppler imaging. Fact Checker images were obtained forthe record. COMPARISON: Abdominal ultrasound dated 01/20/2022 FINDINGS: AORTA:Abdominal aorta is normal in caliber where visualized. Diameter of theproximal abdominal aorta is 2.5 cm. IVC:IVC is normal in appearance where visualized. PANCREAS: The pancreatic head and body display normal echogenicity to the extentvisualized. LIVER: Length: 19.4 cm.Parenchyma/Contour: Diffuse increased hepatic parenchymal echogenicity andindistinct periportal echogenicity with focal sparing about gallbladderfossa. No mass is detected.Portal vein: Hepatopetal flow present in the main portal vein.MPV diameter: 1.3 cm.MPV velocity: 25 cm/s. GALLBLADDER:No cholelithiasis.Normal gallbladder wall thickness, 2 mm.Negative Wing's sign. BILE DUCTS:No intra- or extrahepatic biliary dilatation..Common Duct diameter: 4 mm. SPLEEN: Length: 10.4 cm. Parenchyma: No focal lesion is detected. OTHER: Imaged portions of the right kidney are unremarkable. [facility] SCANNED LAB RESULTS 21:59:40 Ordered by an unspecified provider. [facility] SCANNED LAB RESULTS 20:47:56 Ordered by an unspecified provider. [facility] REFERRAL- REQUEST/RESPONS E 18:27:48 Ordered by an unspecified provider. [facility] PHYSICIAN ORDERS 20:45:10 Ordered by an unspecified provider. [facility] XR CERVICAL SPINE 1 VW 20:02:17 These images do not require a Radiology diagnostic report. [facility] XR CERVICAL SPINE 1 VW 20:02:17 These images do not require a Radiology diagnostic report. [facility] MR CERVICAL SPINE WO CONTRAST 20:08:23 MR [...] spinal canal stenosis or neural foraminal narrowing. [facility] (Lab Only)2023-02-24 17:51:00* Test Item Value Reference Range Interpretation Comme nts ABO & RH (test code = 20) A Negative [facility] INVESTIGATION [id number] 17:48:04 * Test Item Value Reference Range Interpretation Comme nts ABO & RH (test code = 20) A Negative Performed at [facility] Laboratory Services - [facility] Blood [address] [place] [id number] Free: [phone] No. [id number] [facility] INVESTIGATION [id number] 17:48:04 * Test Item Value Reference Range Interpretation Comme nts ABO & RH (test code = 20) A Negative Performed at [facility] Laboratory Services - [employer] Blood [address] [place] [address]Epzo Free: [phone] No. [id number] [facility] (NA, K, CL, CO2, GLUCOSE, BUN, CREATININE, CA)2023-02-24 17:21:37* Test Item Value Reference Range Interpretation Comme nts NA (test code = 3667578956) 138 mmol/L 135-145 K (test code = 7309097036) 4.2 mmol/L 3.5-5.0 CL (test code = 0605125891) 105 mmol/L 98-108 CO2 TOTAL (test code = 4132441311) 29 mmol/L 23-31 AGAP (test code = 2723284485) 4 2-16 BUN (test code = 6512757622) 21 mg/dL 7-23 GLUCOSE (test code = 7969211524) 127 mg/dL 70-110 H CREATININE (test code = 9085010456) 0.43 mg/dL 0.50-1.04 L CALCIUM (test code = 8992360156) 8.6 mg/dL 8.6-10.6 eGFR (test code = 04821-3) 111.5 mL/min/1.73m2 CKD-EPI eGFR (2020). Assuming creatinine has been stable day-to-day for at least three months, the eGFR indicates Category G1 (>= 90 mL/min/1.73 m2) Lab Interpretation (test code = 17834-8) Abnormal [facility] METABOLIC PANEL (NA, K, CL, CO2, GLUCOSE, BUN, CREATININE, CA)2023-02-24 17:21:37* Test Item Value Reference Range Interpretation Comme nts NA (test code = 9350757842) 138 mmol/L 135-145 K (test code = 6006000100) 4.2 mmol/L 3.5-5.0 CL (test code = 8076692770) 105 mmol/L 98-108 CO2 TOTAL (test code = 8333930511) 29 mmol/L 23-31 AGAP (test code = 4426487613) 4 2-16 BUN (test code = 8698091451) 21 mg/dL 7-23 GLUCOSE (test code = 5571466147) 127 mg/dL 70-110 H CREATININE (test code = 7697535978) 0.43 mg/dL 0.50-1.04 L CALCIUM (test code = 9497091218) 8.6 mg/dL 8.6-10.6 eGFR (test code = 60914-6) 111.5 mL/min/1.73m2 CKD-EPI eGFR (2020). Assuming creatinine has been stable day-to-day for at least three months, the eGFR indicates Category G1 (>= 90 mL/min/1.73 m2) Lab Interpretation (test code = 74263-9) Abnormal [facility] THRM[facility] [id number] 17:05:17* Test Item Value Reference Range Interpretation Comme nts APTT Patient (test code = 3173-2) 34 See_Comment [Automated messa ge] The system which generated this result transmitted reference range: 26 - 36 Seconds. The reference range was not used to interpret this result as normal/abnormal. Lab Interpretation (test code = 98012-1) Normal [facility] / [id number] 17:05:17* Test Item Value Reference Range Interpretation [...] the indications. Lab Interpretation (test code = 03778-0) Normal [facility] THRM[facility] [id number] 17:05:17* Test Item Value Reference Range Interpretation Comme nts APTT Patient (test code = 3173-2) 34 See_Comment [Automated messa ge] The system which generated this result transmitted reference range: 26 - 36 Seconds. The reference range was not used to interpret this result as normal/abnormal. Lab Interpretation (test code = 94740-5) Normal [facility] / [id number] 17:05:17* Test Item Value Reference Range Interpretation [...] the indications. Lab Interpretation (test code = 64159-9) Normal [facility] WITH [id number] 16:57:16* Test Item Value Reference Range Interpretation [...] 32.0 g/dL 31.6-35.1 RDW-SD (test code = 29538-7) 47.8 fL 39.0-49.9 RDW-CV (test code = 788-0) 14.9 % 12.0-15.5 PLT (test code = 777-3) 261 See_Comment [Automated messa ge] The system which generated this result transmitted reference range: 166 - 358 10*3/?L. The reference range was not used to interpret this result as normal/abnormal. MPV (test code = 03691-8) 9.1 fL 9.5-12.9 L NRBC/100 WBC (test code = 2637571483) 0.0 See_Comment [Automated CH4e ssage] The system which generated this result transmitted reference range: 0.0 - 10.0 /100 WBCs. The reference range was not used to interpret this result as normal/abnormal. NRBC x10^3 (test code = 0410460794) See_Comment [Automated messa ge] The system which generated this result transmitted reference range: 10*3/?L. The reference range was not used to interpret this result as normal/abnormal. GRAN MAT (NEUT) % (test code = 770-8) 71.9 % IMM GRAN % (test code = 6274289646) 0.10 % LYMPH % (test code = 736-9) 16.6 % MONO % (test code = 5905-5) 8.5 % EOS % (test code = 713-8) 2.5 % BASO % (test code = 706-2) 0.4 % GRAN MAT x10^3(ANC) (test code = 0765442198) 6.14 10*3/uL 1.88-7.09 IMM GRAN x10^3 (test code = 2848691168) 0.00-0.06 LYMPH x10^3 (test code = 731-0) 1.42 10*3/uL 1.32-3.29 MONO x10^3 (test code = 742-7) 0.73 10*3/uL 0.33-0.92 EOS x10^3 (test code = 711-2) 0.21 10*3/uL 0.03-0.39 BASO x10^3 (test code = 704-7) 0.03 10*3/uL 0.01-0.07 Lab Interpretation (test code = 31129-2) Abnormal [facility] WITH [id number] 16:57:16* Test Item Value Reference Range Interpretation [...] 32.0 g/dL 31.6-35.1 RDW-SD (test code = 64594-5) 47.8 fL 39.0-49.9 RDW-CV (test code = 788-0) 14.9 % 12.0-15.5 PLT (test code = 777-3) 261 See_Comment [Automated messa ge] The system which generated this result transmitted reference range: 166 - 358 10*3/?L. The reference range was not used to interpret this result as normal/abnormal. MPV (test code = 49083-8) 9.1 fL 9.5-12.9 L NRBC/100 WBC (test code = [id number]) 0.0 See_Comment [Automated CH4e ssage] The system which generated this result transmitted reference range: 0.0 - 10.0 /100 WBCs. The reference range was not used to interpret this result as normal/abnormal. NRBC x10^3 (test code = [id number]) See_Comment [Automated messa ge] The system which generated this result transmitted reference range: 10*3/?L. The reference range was not used to interpret this result as normal/abnormal. GRAN MAT (NEUT) % (test code = 770-8) 71.9 % IMM GRAN % (test code = [id number]) 0.10 % LYMPH % (test code = 736-9) 16.6 % MONO % (test code = 5905-5) 8.5 % EOS % (test code = 713-8) 2.5 % BASO % (test code = 706-2) 0.4 % GRAN MAT x10^3(ANC) (test code = 7043298769) 6.14 10*3/uL 1.88-7.09 IMM GRAN x10^3 (test code = 5762276864) 0.00-0.06 LYMPH x10^3 (test code = 731-0) 1.42 10*3/uL 1.32-3.29 MONO x10^3 (test code = 742-7) 0.73 10*3/uL 0.33-0.92 EOS x10^3 (test code = 711-2) 0.21 10*3/uL 0.03-0.39 BASO x10^3 (test code = 704-7) 0.03 10*3/uL 0.01-0.07 Lab Interpretation (test code = 71809-9) [facility] [id number] 16:55:00* Test Item Value Reference Range Interpretation Comme nts IAT (test code = 1185) Negative [facility] [id number] 16:55:00* Test Item Value Reference Range Interpretation Comme nts IAT (test code = 1185) Negative [facility] GLUCOSE (AUTOMATED)2023-02-24 15:52:47* Test Item Value Reference Range Interpretation Comme nts POCT GLU (test code = 2463528906) 146 mg/dL 70-110 H 1234 Lab Interpretation (test cod e = 47220-6) Abnormal [facility] GLUCOSE (AUTOMATED)2023-02-24 15:52:47* Test Item Value Reference Range Interpretation Comme nts POCT GLU (test code = 9015444790) 146 mg/dL 70-110 H 1234 Lab Interpretation (test cod e = 73753-9) Abnormal [facility] GLUCOSE (AUTOMATED)2022-01-25 18:08:14* Test Item Value Reference Range Interpretation Comme nts POCT GLU (test code = 0463111918) 120 mg/dL 70-110 H Lab Interpretation (test cod e = 91998-3) Abnormal [facility] GLUCOSE (AUTOMATED)2022-01-25 18:08:14* Test Item Value Reference Range Interpretation Comme nts POCT GLU (test code = 9549782416) 120 mg/dL 70-110 H Lab Interpretation (test cod e = 72157-5) [facility]normal [facility] ARLMBSA9304-03-27 08:34:00* Test Item Value Reference Range Interpretation Comme nts GLUCOSE BEDSIDE TESTING (kayla t code = GLUBED) 134 mg/dL 70-110 H PROTHROMBIN [id number] 14:55:00* Test Item Value Reference Range Interpretation [...] Infarction (to prevent recurrent infarct). THROMBOPLASTIN TIME AZIKGMF4668-89-36 14:55:00* Test Item Value Reference Range Interpretation [facility] THROMBOPLASTIN TIME PARTIAL (test code = PTT) 36.5 SECONDS 26-35 H BASIC METABOLIC [id number] 12:52:00* Test Item Value Reference Range Interpretation [facility] (test code = NA) 137 mmol/L [...] 9.1 MG/DL 8.5-10.1 N COVID 19 INHOUSE [id number] 12:50:00* Test Item Value Reference Range Interpretation Comme [facility] COVID 19 INHOUSE AG (test code = VFMFV97UYRB) NEGATIVE Negative Per auto brake mechanic , negative results should be treated aspresumptive [...] clinicalsigns and symptoms consistent with COVID-19. URINALYSIS [id number] 12:45:00* Test Item Value Reference Range Interpretation [...] NEGATIVE Urine Specimen Type: Clean CatchUR HCG [id number] 12:45:00* Test Item Value Reference Range Interpretation Comme nts UR HCG QUAL (test code = HCGQLU) NEGATIVE NEGATIVE Urine Specimen Type: Clean Catch- XR CHEST 1 Q9571-53-07 12:41:00 [facility] 1960 Sex: F Name:CRISTAL MUNIZ : 1960 Age/S: 60 / F [address] Unit #: [id number] Loc: [place] [address] Phys: Elio Cavazos MD Acct: [id number] Dis Date: Status: PRE SDC PHONE #: [phone] Exam Date: 11/03/2021 1234 FAX #: Reason: PREOP EXAMS: CPT: [id number] XR CHEST 1 V 94870 Fluoro Time: DAP (Gy m2): Air Kerma [...] PAGE 1 Signed Report Name: CRISTAL MUNIZ : 1960 Age/S: 60 / F [address] [place] [address] Unit #: [id number] Loc: [place] [address] Phys: Elio Cavazos MD Acct: [id number] Dis Date: Status: PRE [facility] PHONE #: [phone] Exam Date:11/03/2021 1232 FAX #: Reason: PREOP EXAMS: CPT: [id number] XR CHEST 1 V 50974 Fluoro Time: DAP (Gy m2): Air Kerma (mGy): <Continued> Technologist: Nava English, RT(R) Trnscb Date/Time: 11/03/2021 (1241) 16 Orig Print D/T: S: 11/03/2021 (4027) PAGE 2 Signed [facility] W/AUTO [id number] 12:38:00* Test Item Value Reference Range Interpretation [...] ode = MDIFF) NO DIFF/SCN CRITERIA SURGICAL [id number] 21:57:00 RUN DATE: 10/21/19 [facility] *LIVE* PAGE 1 RUN TIME: 2156 Specimen Inquiry RUN USER: INTERFACE ------- -----PATIENT: CRISTAL MUNIZ LOC: [place] U #: [id number] AGE/SX: 58/F [place] [facility] RE10[facility]19REG DR: Yani Jacobo : 64 BED: 1 DIS: 10/19/19 STATUS: DIS IN TLOC: SPEC #: [id number] RECD: 10/18/19 STATUS: NANCY REGaby #: [id number] ARNOLD: 10/18/[address]: Yani Jacobo MD ENTERED: 10/21/19 SP TYPE: SURG SPEC OTHR DR: Marc Flynn MD, Luigi MD Undefined ProviderORDERED: GROSS AND MICRO CODES: N92359 - COLON, NOS COPIES TO: Marc Flynn MD [address] [place] [address] Murtaza Hernandez MD [address] [address] Undefined Provider Yani Jacobo MD [address] [place] [address] [address] [place] [id number] [email or web address] PROCEDURES: GROSS AND MICRO (Incomplete) TISSUES: 1. [...] diameter portion of small intestine and a 5.5cm in length 1 cm in diameter vermiform appendix. The surrounding adipose has CONTINUED ON NEXT PAGE RUN DATE: 10/21/19 [facility] *LIVE* PAGE 2 RUN TIME: 2156 Specimen Inquiry RUN USER: INTERFACE SPEC #:[id number] PATIENT: CRISTAL MUNIZ #[id number] (Continued) GROSS AND MICROSCOPIC (Continued) some dense [...] reveal viable tissue. There are reactive lymphoid aggr egates present. The appendix shows fibrous obliteration of [...] SIGNATURE ON FILE Salome Veloz DO 10/21/19 5041 END OF REPORT CBC W/AUTO [id number] 08:27:00* Test Item Value Reference Range Interpretation [...] c ode = MDIFF) NO BASIC METABOLIC GIYRJ0553-92-27 08:19:00* Test Item Value Reference Range Interpretation [...] CA) 8.7 mg/dL 8.0-10.5 N CBC W/AUTO RYGV3508-08-00 08:38:00* Test Item Value Reference Range Interpretation [...] (test code = MDIFF) NO BASIC METABOLIC [id number] 07:18:00* Test Item Value Reference Range Interpretation [...] code = CA) 8.5 mg/dL 8.0-10.5 N UMUPLADQSVZ9637-29-76 07:18:00* Test Item Value Reference Range Interpretation Comme nts PHOSPHOROUS (test code = PHOS) 2.5 MG/DL 2.5-4.9 N [id number] 07:18:00* Test Item Value Reference Range Interpretation Comme nts MAGNESIUM (test code = MAG) 2.40 mg/dL 1.8-2.4 N CALCIUM [id number] 07:18:00* Test Item Value Reference Range Interpretation Comme nts CALCIUM IONIZED (test code = GLO) 1.04 MMOL/L 1.12-1.32 L BASIC METABOLIC [id number] 07:05:00* Test Item Value Reference Range Interpretation [...] CALCIUM (test code = CA) mg/dL 8.0-10.5 FPVSQQYMLBP7340-54-28 07:05:00* Test Item Value Reference Range Interpretation Comme nts PHOSPHOROUS (test code = PHOS) MG/DL 2.5-4.9 ZMYSPLCHH9019-42-06 07:05:00* Test Item Value Reference Range Interpretation Comme nts MAGNESIUM (test code = MAG) mg/dL 1.8-2.4 CALCIUM [id number] 07:05:00* Test Item Value Reference Range Interpretation Comme nts CALCIUM IONIZED (test code = GLO) 1.04 MMOL/L 1.12-1.32 L BASIC METABOLIC [id number] 08:12:00* Test Item Value Reference Range Interpretation [...] CA) 9.1 mg/dL 8.0-10.5 N BASIC METABOLIC [id number] 08:06:00* Test Item Value Reference Range Interpretation [...] mg/dL 8.0-10.5 N COVID 19 Asymptomatic IH [id number] 11:48:00* Test Item Value Reference Range Interpretation [...] moderate, high or waivedcomplexity tests. BASIC METABOLIC [id number] 10:45:00* Test Item Value Reference Range Interpretation [...] CA) 9.4 mg/dL 8.0-10.5 N BASIC METABOLIC [id number] 10:44:00* Test Item Value Reference Range Interpretation [...] = CA) 9.4 mg/dL 8.0-10.5 N PROTHROMBIN [id number] 10:26:00* Test Item Value Reference Range Interpretation Comme nts PROTHROMBIN TIME PATIENT (test code = PTP) [...] Infarction (to prevent recurrent infarct). THROMBOPLASTIN TIME [id number] 10:26:00* Test Item Value Reference Range Interpretation Comme nts THROMBOPLASTIN TIME PARTIAL (test code = PTT) 37.3 Seconds 25.0-39.5 N Therapeutic Rang e: 50.4 - 88.3 Seconds Effective 07/10/2018 CBC W/AUTO [id number] 10:05:00* Test Item Value Reference Range Interpretation Comme [...] MANUAL DIFF REQUIRED (test c ode = MURRAY) NO - XR CHEST 2 [id number] 09:49:00FAX: [place] Jacobo [phone] [place]: St: PRE Name: CRISTAL MUNIZ [facility] : 1960 Age/S: 58/F [address] [place] [address] Unit #: [id number] Loc: [address] [address] Phys: Yani Jacobo MD Acct: [id number] Dis Date: Status: PRE IN PHONE #: [phone] Exam Date: 10/15/2019 0942FAX #: [phone] Reason: PRE-OP COLECTOMY EXAMS: CPT CODE: [id number] XR CHEST 2 V 88941 XR CHEST 2 VIEWS HISTORY: PRE-OP COLECTOMY COMPARISON: None. FINDINGS: The lungs are clear. The heart and vascular markings are normal. No pleural abnormality. The bones are intact. IMPRESSION: No active process. at 0949 Reported and signed by: Mckinley Carlson M.D. CC: Yani Jacobo MD Technologist: Caroline Ventura RT(R) Trnscrd Date/Time/By: 10/15/2019 (49) : By: [email or web address] Orig Print D/T: S: 10/15/2019 (5186) PAGE 1 Signed Report History and Physical [...] paralysis, CSF leak, hoarseness, dysphagia and other. OUT DRAFTER Associated attestation - Elliott Morfin MD - 05/30/2023 11:02 AM LAY OUT DRAFTER Faculty Addendum: I personally evaluated and examined the patient and agree with the note by Dr. Borden with no changes. Elliott Morfin MD [facility] Neurosurgery NS-NEUROLOGICAL SURGERY [facility] Notes Date/Time Note Provider Source 2024-03-13 23:34:23 Pt seen for Infusion Therapy on 02/13/24. Pleased refer to notes. Encounter closed as part of [facility] chart maintenance. Encounter has been open greater than 72 hours with no recent documentation. DHRUV Bro, home care nurse Center OUT DRAFTER Kaylyn Piedra RN [facility] 2024-02-09 12:56:48 At 1143 Spoke with Ms. Muniz in regards to her Entyvio appointment today when she called to cancel. Patient is unable to come she states "she is unable to leave the house due to excessive toileting needs" Pt seems very upset about situation and inability to make appointment today. Pt reassured and was given two other appointment options provided which were unable to be kept per pt. Pt did state that she Pt reassured that we would do our best to accommodate and work with her for her Entyvio Infusion. OUT DRAFTER Elli Gross RN [facility] 2023-11-22 10:03:16 The PT order was placed and faxed at this time. [facility] 2023-11-21 14:55:54 Cristal Muniz is a 63 year old female Megha calling from [facility] requesting a referral for PT for the pt back. States the other referral that was sent is for her neck Delfina.[phone] Fax:[phone] Priya Ledezma V [facility] 2023-07-04 09:35:52 I received this message yesterday, patient sent message 2 weeks ago and was routed to wrong pool - patient was seen in clinic by Dr. Morfin yesterday. Sierra Rodriguez RN [facility] 2023-06-05 08:26:06 Encounter completed by concrete pipe making machine operator provider. Sierra Rodriguez RN [facility] 2023-06-03 14:57:26 Copied from [facility] #[id number]. Topic: Clinical - Medical Advice >> Jun 03, 2023 2:55 PM Patient Web Systems Developer wrote: Cristal Muniz is a 62 year old female Daughter called and stated that patient was coughing up wolf mucus and wheezing Resident contacted at 3:07pm and connected. OUT DRAFTER Tiki Givens [facility] 2023-05-30 12:09:00 BRIEF NEUROSURGERY OPERATIVE NOTE Date of Surgery: 05/30/2023 Faculty: Elliott Morfin MD Resident(s): Sudheer Brooke MD Anesthesia Type: General Pre-operative diagnosis: cervical myelopathy Post-operative diagnosis: same Procedures: ACDF C5-7 Findings: see op note Complications: none Estimated blood loss: 20mL Specimens: * No specimens in log * Implants: Implant Name Type Inv. Item Serial No. Line Camera Operator Lot No. LRB No. Used Action dbm plus 1cc NA [employer] [id number] 1 Implanted Colonial ACDF TPS Spacer 12 x 14 N/A [employer] [id number] 1 Implanted [employer] ACDF TPS Spacer 12x14 N/A [employer] [id number] 1 Implanted Resonate Plate N/A [employer] [...] Morfin 4-6 weeks Sudheer Brooke Neuorsurgery Resident OUT DRAFTER [facility] 2023-05-29 12:29:19 Surgery date: 05/30/2023 Location: [facility]. Address: [address] [place] [address]. You will check in on the 3rd [...] questions, please call Day Surgery [facility] at [phone] from 5 am to 5 pm. YIN Almeida RN [facility] 2021-11-04 11:15:00 [facility] ([facility]) Brief Op Note REPORT#:[id number] REPORT STATUS: Signed DATE:11/04/21 TIME:1115 PATIENT: CRISTAL MUNIZ UNIT #: [id number] ROOM/BED: : 62 AGE: 60 SEX: F [...] enterocele, perineocele repairs, cystoscopy Primary Surgeon: christopher Wood Pole Treater(s): salome Anesthesia: general anesthesia Findings: pop q as dictated, ant apical defect as well, so, colpopexy performed Complications: none Estimated blood loss in ml's: 100 Specimens removed/altered: none Drain(s): Hutson Catheter Placed Urine output: 500 Approach: vaginal Wound class: clean-contaminated Disposition: plan to D/C home Counts: Sponge count: correct Instrument count: correct Needle count: correct Dictation number: [id number] at 1118 [facility] #: [id number] END OF REPORT [facility] 2021-11-04 11:14:00 [id number] [facility] [address] [place] [address] PATIENT NAME: CRISTAL MUNIZ ADMIT DATE: 11/04/21 ACCOUNT NO: [id number] ROOM NO: AGE: 60 REPORT TYPE: OPERATIVE [...] repair and cystoscopy. SURGEON: Tamia Restrepo MD KNITTER WIRE MESH: Salome, he is a records assistant, unsure of the last name. ESTIMATED BLOOD [...] a.m. tomorrow and then office appointment at for voiding trials. Dictated By: Tamia Restrepo MD WT: OP:ZEINA/LALO/IZABELLA Conf#: [id number]/DID#: [id number] Authenticated and Edited by Tamia Restrepo MD On 11/11/21 8:29:40 AM at 0831 PATIENT NAME: CRISTAL MUNIZ [facility] 2021-11-03 11:07:00 [id number] [address] PATIENT NAME: CRISTAL MUNIZ ADMIT DATE: 11/04/21 ACCOUNT NO: [id number] ROOM NO: AGE: 60 REPORT TYPE: eELECTROCARDIOGRAM SEX: F ADMITTING PHYSICIAN: ATTENDING PHYSICIAN: Tamia Restrepo MD Order: [id number] Test Reason : PREOP Test Date/Time Stamp: [...] Penny at 0808 PATIENT NAME: CRISTAL MUNIZ [facility] 2019-10-19 19:32:00 [id number] [place] [address] PATIENT NAME: CRISTAL MUNIZ ADMIT DATE: 10/17/19 ACCOUNT NO: [id number] [place]OM NO: [facility] AGE: 58 REPORT TYPE: OPERATIVE REPORT SEX: [...] gastrointestinal vascular supply. SURGEON: Yani Jacobo MD KNITTER WIRE MESH: Nisha Guajardo. ANESTHESIA: General. INTRAVENOUS FLUIDS: 1300 [...] ileocecal valve involving the valve as per gravity manager service. The patient was having chronic right [...] permanent sections. We then performed an antimesenteric nkbr-iu-vbmp functional end-to-end anastomosis with another load of [...] By: Yani Jacobo MD WT: OP:JADON/HELEN/IZABELLA Conf#: [id number]/DID#: [id number] Authenticated and Edited by Yani Jacobo MD On 10/24/19 8:14:44 AM at 0816 PATIENT NAME: CRISTAL MUNIZ [facility] 2019-10-19 10:02:00 [facility] Hospitalist Progress Note REPORT#:[id number] REPORT STATUS: Signed DATE:10/19/19 TIME: 1002 PATIENT: CRISTAL MUNIZ UNIT #: [id number] ROOM/BED: [place] [address] : [birth year] AGE: 58 SEX: F ATTEND: [...] clubbing, no cyanosis Musculoskeletal: no muscle spasm Neuro/WATER POLLUTION SCIENTIST: alert, oriented X 3, CNII-XII intact Skin: [...] % (Auto) (14.0 - 32.0 %) 26.4 [place] % (Auto) (4.8 - 9.0 %) 9.0 Eos % (Auto) (0.3 - 3.7 %) 2.1 Baso % (Auto) (0.0 - 2.0 %) 0.3 Neut # (Auto) (2.0 - 7.6 x10 3/uL) 5.98 Lymph # (Auto) (1.0 - 3.8 x10 3/uL) 2.55 [place] # (Auto) (0.1 - 0.8 x10 3/uL) [...] admitting physician, consultants, nurse at 1003 RPT #:[id number] END OF REPORT [facility] 2019-10-19 10:02:00 [facility] ([facility]) Hospitalist Progress Note REPORT#:[id number] REPORT STATUS: Signed DATE:10/19/19 TIME: 1002 PATIENT: CRISTAL MUNIZ UNIT #: [id number] ROOM/BED: [place] [address] : [birth year] AGE: 58 SEX: F ATTEND: [...] clubbing, no cyanosis Musculoskeletal: no muscle spasm Neuro/WATER POLLUTION SCIENTIST: alert, oriented X 3, CNII-XII intact Skin: dry, intact Results Findings/Data: Laboratory Tests 10/18 0330 Chemistry Sodium (134 - 147 mEq/L) 142 [...] - 10.5 mg/dL) 8.7 Laboratory Tests 10/18 0330 Hematology WBC (4.5 - 11.0 x10 3/uL) [...] % (Auto) (14.0 - 32.0 %) 26.4 [place] % (Auto) (4.8 - 9.0 %) 9.0 Eos % (Auto) (0.3 - 3.7 %) 2.1 Baso % (Auto) (0.0 - 2.0 %) 0.3 Neut # (Auto) (2.0 - 7.6 x10 3/uL) 5.98 Lymph # (Auto) (1.0 - 3.8 x10 3/uL) 2.55 [place] # (Auto) (0.1 - 0.8 x10 3/uL) [...] the findings and plan as documented by MANAGER INSTRUMENTATION as above reviewed pt seen and examined mckayla RN at 1003 RPT #:[id number] END OF REPORT [facility] 2019-10-19 10:02:00 [facility] Hospitalist Progress Note REPORT#:[id number] REPORT STATUS: Signed DATE:10/19/19 TIME: 1002 PATIENT: CRISTAL MUNIZ UNIT #: [id number] ROOM/BED: [place] [address] : [birth year] AGE: 58 SEX: F ATTEND: Yani Jacobo MD ADM AUTHOR: Ryan Weston MANAGER INSTRUMENTATION * ALL edits or amendments must be [...] clubbing, no cyanosis Musculoskeletal: no muscle spasm Neuro/WATER POLLUTION SCIENTIST: alert, oriented X 3, CNII-XII intact Skin: [...] % (Auto) (14.0 - 32.0 %) 26.4 [place] % (Auto) (4.8 - 9.0 %) 9.0 Eos % (Auto) (0.3 - 3.7 %) 2.1 Baso % (Auto) (0.0 - 2.0 %) 0.3 Neut # (Auto) (2.0 - 7.6 x10 3/uL) 5.98 Lymph # (Auto) (1.0 - 3.8 x10 3/uL) 2.55 [place] # (Auto) (0.1 - 0.8 x10 3/uL) [...] the findings and plan as documented by MANAGER INSTRUMENTATION as above reviewed pt seen and examined mckayla RN at 1003 at 2357 [facility] #:[id number] END OF REPORT [facility] 2019-10-19 08:31:00 [facility] ([facility]) Discharge Summary REPORT#:[id number] REPORT STATUS: Signed DATE:10/19/19 TIME: 08 PATIENT: CRISTAL MUNIZ UNIT #: [id number] ROOM/BED: [place] [address] : [birth year] AGE: 58 SEX: F ATTEND: [...] Discharge Instructions Diet: regular at 1344 RPT #:[id number] END OF REPORT [facility] 2019-10-19 08:31:00 [facility] ([facility]) Discharge Summary REPORT#:[id number] REPORT STATUS: Signed DATE:10/19/19 TIME: 830 PATIENT: CRISTAL MUNIZ UNIT #: [id number] ROOM/BED: [place] [address] : [birth year] AGE: 58 SEX: F ATTEND: [...] Diet: regular at 1344 at 0803 RPT #:[id number] END OF REPORT [facility] 2019-10-19 07:35:00 [facility]) Colorectal Surgery Prog Note REPORT#:[id number] REPORT STATUS: Signed DATE:10/19/19 TIME: 734 PATIENT: CRISTAL MUNIZ UNIT #: [id number] ROOM/BED: [place] [address] : [birth year] AGE: 58 SEX: F ATTEND: [...] 726 Pulse 93 10/18 726 Resp 14 10/18 726 O2 Delivery Room air 10/17 1107 O2 Flow Rate 2.530992 07/24 0800 24 hour I O ending at [...] Plan Hospital course to date: ok to dc home with follow up in our clinic in two weeks for postop evaluation and staple removal at 0830 RPT #:[id number] END OF REPORT [facility] 2019-10-19 07:35:00 [facility] ([facility]) Colorectal Surgery Prog Note REPORT#:[id number] REPORT STATUS: Signed DATE:10/19/19 TIME: 734 PATIENT: CRISTAL MUNIZ UNIT #: [id number] ROOM/BED: [place] [address] : [birth year] AGE: 58 SEX: F ATTEND: [...] 726 Pulse 93 10/18 726 Resp 14 10/18 726 O2 Delivery Room air 10/17 1107 O2 Flow Rate 2.117955 10/17 08 24 hour I O ending at 0700: [...] Plan Hospital course to date: ok to dc home with follow up in our clinic in two weeks for postop evaluation and staple removal at 0830 at 0803 RPT #:[id number] END OF REPORT [facility] 2019-10-18 15:05:00 [facility] ([facility]) Colorectal Surgery Prog Note REPORT#:[id number] REPORT STATUS: Signed DATE:10/18/19 TIME: 1505 PATIENT: CRISTAL MUNIZ UNIT #: [id number] ROOM/BED: [place] [address] : [birth year] AGE: 58 SEX: F ATTEND: [...] Resp 12 10/17 1107 O2 Flow Rate 2.033057 10/17 0800 24 hour I O ending [...] GI function VTE prophylaxis at 1506 RPT #:[id number] END OF REPORT [facility] 2019-10-18 15:05:00 [facility] ([facility]) Colorectal Surgery Prog Note REPORT#:[id number] REPORT STATUS: Signed DATE:10/18/19 TIME: 150 PATIENT: CRISTAL MUNIZ UNIT #: [id number] ROOM/BED: [place] [address] : [birth year] AGE: 58 SEX: F ATTEND: [...] Resp 12 10/17 1107 O2 Flow Rate 2.294481 10/17 0800 24 hour I O ending [...] infection at this time. at 0736 RPT #:[id number] END OF REPORT [facility] 2019-10-18 15:05:00 [facility] ([facility]) Colorectal Surgery Prog Note REPORT#:[id number] REPORT STATUS: Signed DATE:10/18/19 TIME: 150 PATIENT: CRISTAL MUNIZ UNIT #: [id number] ROOM/BED: [place] [address] : [birth year] AGE: 58 SEX: F ATTEND: [...] Resp 12 10/17 1107 O2 Flow Rate 2.938517 10/17 0800 24 hour I O ending [...] infection at this time. at 0736 RPT #:[id number] END OF REPORT [facility] 2019-10-18 11:22:00 [facility] ([facility]) Pain Management Progress Note REPORT#:[id number] REPORT STATUS: Signed DATE:10/18/19 TIME: 1121 PATIENT: CRISTAL MUNIZ UNIT #: [id number] ROOM/BED: [place] [address] : [birth year] AGE: 58 SEX: F ATTEND: [...] daily 2.tramadol 50 mg every 4 hours 3.Pgabwisr360 mg every 6-8 hours as needed 4.Gabapentin [...] Resp 12 10/17 1107 O2 Flow Rate 2.269854 10/17 0800 24 hour I O ending [...] daily 2.tramadol 50 mg every 4 hours 3.Destcuko539 mg every 6-8 hours as needed 4.Gabapentin [...] your patient' s care at 1314 RPT #:[id number] END OF REPORT [facility] 2019-10-18 10:39:00 [facility] Progress Note REPORT#:[id number] REPORT STATUS: Signed DATE:10/18/19 TIME: 1039 PATIENT: CRISTAL MUNIZ UNIT #: [id number] ROOM/BED: [place] [address] : [birth year] AGE: 58 SEX: F ATTEND: Yani Jacobo MD ADM AUTHOR: Jose Mcduffie [facility] * ALL edits or amendments must [...] estCrCl >30ml/min per protocol at 1039 RPT #:[id number] END OF REPORT [facility] 2019-10-18 08:15:00 [facility] ([facility]) Hospitalist Progress Note REPORT#:[id number] REPORT STATUS: Signed DATE:10/18/19 TIME: 814 PATIENT: CRISTAL MUNIZ UNIT #: [id number] ROOM/BED: [place] [address] : [birth year] AGE: 58 SEX: F ATTEND: [...] 20 120/64 82 95 10/16 2000 Nasal 2.076035 cannula 10/17 1999 37.0 80 20 117/66 83 96 10/16 1629 94 110/75 86.7 91 10/16 1530 90 106/72 83.3 91 10/16 1429 95 110/68 81.7 92 10/16 1207 Nasal 2.892543 cannula 10/16 1200 84 12 112/69 83.2 96 10/16 1159 36.4 88 112/69 83.2 95 10/16 1145 78 12 117/66 93 Nasal 2.547474 cannula 10/16 1140 82 16 119/67 97 10/16 1135 81 15 118/62 96 10/16 1130 80 18 114/64 97 10/16 1125 81 15 124/70 98 10/16 1120 73 11 111/64 87 10/16 1115 78 12 116/65 96 10/16 1110 79 16 122/70 97 10/16 1105 82 15 121/69 96 Nasal 3.445163 cannula 10/16 1100 83 17 122/68 93 10/16 1055 86 26 126/69 96 10/16 1050 85 14 129/72 98 10/16 1045 83 14 137/72 93 Simple 7.766007 mask 10/16 1040 82 11 131/74 96 Simple mask 10/16 1038 Simple 7.986766 mask 10/16 1035 36.4 92 20 126/72 90 Simple 8.105987 mask 24 hour I O ending at [...] clubbing, no cyanosis Musculoskeletal: no muscle spasm Neuro/WATER POLLUTION SCIENTIST: alert, oriented X 3, CNII-XII intact Skin: [...] admitting physician, consultants, nurse at 0818 RPT #:[id number] END OF REPORT [facility] 2019-10-18 08:15:00 [facility] Hospitalist Progress Note REPORT#:[id number] REPORT STATUS: Signed DATE:10/18/19 TIME: 814 PATIENT: CRISTAL MUNIZ UNIT #: [id number] ROOM/BED: [place] [address] : [birth year] AGE: 58 SEX: F ATTEND: Yani Jacobo MD ADM AUTHOR: Ryan Weston MANAGER INSTRUMENTATION * ALL edits or amendments must be [...] 20 120/64 82 95 10/16 2000 Nasal 2.196594 cannula 10/17 1999 37.0 80 20 117/66 83 96 10/16 1629 94 110/75 86.7 91 10/16 1530 90 106/72 83.3 91 10/16 1429 95 110/68 81.7 92 10/16 1207 Nasal 2.962038 cannula 10/16 1200 84 12 112/69 83.2 96 10/16 1159 36.4 88 112/69 83.2 95 10/16 1145 78 12 117/66 93 Nasal 2.399034 cannula 10/16 1140 82 16 119/67 97 10/16 1135 81 15 118/62 96 10/16 1130 80 18 114/64 97 10/16 1125 81 15 124/70 98 10/16 1120 73 11 111/64 87 10/16 1115 78 12 116/65 96 10/16 1110 79 16 122/70 97 10/16 1105 82 15 121/69 96 Nasal 3.337482 cannula 10/16 1100 83 17 122/68 93 10/16 1055 86 26 126/69 96 10/16 1050 85 14 129/72 98 10/16 1045 83 14 137/72 93 Simple 7.569048 mask 10/16 1040 82 11 131/74 96 Simple mask 10/16 1038 Simple 7.677975 mask 10/16 1035 36.4 92 20 126/72 90 Simple 8.796104 mask 24 hour I O ending at [...] clubbing, no cyanosis Musculoskeletal: no muscle spasm Neuro/WATER POLLUTION SCIENTIST: alert, oriented X 3, CNII-XII intact Skin: [...] the findings and plan as documented by MANAGER INSTRUMENTATION as above reviewed pt seen and examined mckayla RN at 0818 RPT #:[id number] END OF REPORT [facility] 2019-10-18 08:15:00 [facility] Hospitalist Progress Note REPORT#:[id number] REPORT STATUS: Signed DATE:10/18/19 TIME: 0815 PATIENT: CRISTAL MUNIZ UNIT #: [id number] ROOM/BED: [place] [address] : [birth year] AGE: 58 SEX: F ATTEND: Yani Jacobo MD ADM AUTHOR: Ryan Weston MANAGER INSTRUMENTATION * ALL edits or amendments must be [...] 0000 36.8 82 20 120/64 82 95 10/17 1999 Nasal 2.883776 cannula 10/17 1999 37.0 80 20 117/66 83 96 10/16 1629 94 110/75 86.7 91 10/16 1530 90 106/72 83.3 91 10/16 1429 95 110/68 81.7 92 10/16 1207 Nasal 2.793880 cannula 10/16 1200 84 12 112/69 83.2 96 10/16 1159 36.4 88 112/69 83.2 95 10/16 1145 78 12 117/66 93 Nasal 2.988920 cannula 10/16 1140 82 16 119/67 97 10/16 1135 81 15 118/62 96 10/16 1130 80 18 114/64 97 10/16 1125 81 15 124/70 98 10/16 1120 73 11 111/64 87 10/16 1115 78 12 116/65 96 10/16 1110 79 16 122/70 97 10/16 1105 82 15 121/69 96 Nasal 3.981880 cannula 10/16 1100 83 17 122/68 93 10/16 1055 86 26 126/69 96 10/16 1050 85 14 129/72 98 10/16 1045 83 14 137/72 93 Simple 7.918640 mask 10/16 1040 82 11 131/74 96 Simple mask 10/16 1038 Simple 7.768671 mask 10/16 1035 36.4 92 20 126/72 90 Simple 8.929967 mask 24 hour I O ending at [...] clubbing, no cyanosis Musculoskeletal: no muscle spasm Neuro/WATER POLLUTION SCIENTIST: alert, oriented X 3, CNII-XII intact Skin: [...] the findings and plan as documented by MANAGER INSTRUMENTATION as above reviewed pt seen and examined mckayla RN at 0818 at 0019 RPT #:[id number] END OF REPORT [facility] 2019-10-17 23:45:00 [facility] ([facility]) Pain Management Consult Note REPORT#:[id number] REPORT STATUS: Signed DATE:10/17/19 TIME: 2344 PATIENT: CRISTAL MUNIZ UNIT #: [id number] ROOM/BED: [place] [address] : [birth year] AGE: 58 SEX: F ATTEND: [...] daily 2.tramadol 50 mg every 4 hours 3.Qbjosnmh006 mg every 6-8 hours as needed 4.Gabapentin [...] PO DAILY 10/15/19 10/17/19 AMPHETAMINE/DEXTROAMPHETAM INE SALTS 101 0619 (ADDERALL) Strength: 20 MG TAB DULoxetine [...] 2100 AC 10/16 (KlonoPIN) PO 11/15 2058 2131 Gabapentin 300 MG BEDTIME 10/16 2100 AC 10/16 (NEURONTIN) PO 10/20 2101 2130 Acetaminophen 1,000 MG Q6HR 10/16 1200 AC [...] 1030 AC 10/16 (SODIUM CHLORIDE IV 10/17 06 1437 0.9%) Sodium Chloride 250 ML ASDIR PRN 10/16 1030 AC (SODIUM CHLORIDE IV 11/15 1029 0.9%) Sodium Chloride 20 ML ASDIR 10/16 0600 DC (SODIUM CHLORIDE) IV 11/15 0559 Lactated Ringer's 1,000 ML PREOP ONCALL 10/14 1045 DC 10/16 (LACTATED RINGERS) IV 11/13 235 0628 Sodium Chloride 500 ML PREOP ONCALL 10/14 1045 DC (SODIUM CHLORIDE IV 11/13 2359 0.9%) Sodium Chloride 500 ML PREOP ONCALL 10/14 1045 DC (SODIUM CHLORIDE IV 11/13 235 0.9%) Sodium Chloride 1,000 ML PREOP ONCALL [...] CKD Propionate NASAL 11/15 1059 (Flonase Nasal [place]) Gastrointestinal Drugs Sig/Manuela Start time Last Medication [...] Nasal cannula 10/16 1207 O2 Flow Rate 2.888153 10/16 1207 Resp 12 10/16 1200 Temp [...] 0942 Report Impression - Status: SIGNED Entered: 10/15/2019 9852 IMPRESSION: No active process. Impression By: [email or web address] - Mckinley Carlson M.D. Diagnosis, Assessment Plan [...] daily 2.tramadol 50 mg every 4 hours 3.Yyfzyeac940 mg every 6-8 hours as needed 4.Gabapentin [...] your patient' s care at 1308 RPT #:[id number] END OF REPORT [facility] 2019-10-17 23:45:00 [facility] ([facility]) Pain Management Consult Note REPORT#:[id number] REPORT STATUS: Signed DATE:10/17/19 TIME: 2344 PATIENT: CRISTAL MUNIZ UNIT #: [id number] ROOM/BED: [place] [address] : 64 AGE: 58 SEX: F ATTEND: [...] daily 2.tramadol 50 mg every 4 hours 3.Qsbfzewx516 mg every 6-8 hours as needed 4.Gabapentin [...] BID 10/15/19 10/17/19 Strength: 200 MG TAB 1015 618 BUDESONIDE/FORMOTEROL 2 PUFF INH 10/15/19 10/17/19 (SYMBICORT [...] Status Admin Atenolol 25 MG DAILY 10/17 09 AC (TENORMIN) PO 11/16 0859 Valsartan 320 [...] Status Admin Celecoxib 200 MG Q12H 10/17 2099 AC (CeleBREX) PO 10/24 09 Duloxetine HCl 60 MG DAILY 10/17 0900 AC (CYMBALTA) PO 11/16 0859 Clonazepam 0.5 MG BEDTIME 10/16 2099 AC 10/16 (KlonoPIN) PO 11/15 Gabapentin 300 MG BEDTIME 10/16 2100 AC 10/16 (NEURONTIN) PO 10/20 2101 2130 Acetaminophen 1,000 MG Q6HR 10/16 1200 AC [...] ONCE 10/16 1045 DC Acetaminophen PO 10/16 183 (NORCO 5/325) Hydromorphone HCl 1 MG PACU Q10MIN PRN PRN 10/16 1045 DC 10/16 (DILAUDID) IV 10/16 1839 1102 Hydromorphone HCl 0.5 MG PACU Q5MIN PRN PRN 10/16 1045 DC 10/16 (DILAUDID) IV 10/16 1839 1146 Meperidine HCl 12.5 MG PACU ONCE PRN 10/16 1045 DC (DEMEROL) IV 10/16 1839 Morphine Sulfate 2 MG PACU Q10MIN PRN [...] 10/14 1045 DC 10/16 (TYLENOL EXTRA PO 08/20 2359 0628 STRENGTH) Diagnostic Agents Sig/Manuela Start [...] 1045 DC 10/16 (LACTATED RINGERS) IV 11/13 235 0628 Sodium Chloride 500 ML PREOP ONCALL [...] CKD Propionate NASAL 11/15 1059 (Flonase Nasal [place]) Gastrointestinal Drugs Sig/Manuela Start time Last Medication [...] Nasal cannula 10/16 1207 O2 Flow Rate 2.382194 10/16 1207 Resp 12 10/16 1200 Temp 36.4 10/16 1159 Patient Weight Weight (lb): 252 Weight (oz): 3.34 Weight (kg): 114.400 Results Findings/data: Laboratory Tests: 10/16 07 Chemistry Sodium (134 - 147 mEq/L) 137 [...] 0942 Report Impression - Status: SIGNED Entered: 10/15/2019 0952 IMPRESSION: No active process. Impression By: [email or web address] - Mckinley Carlson M.D. Diagnosis, Assessment Plan [...] daily 2.tramadol 50 mg every 4 hours 3.Fzvykclz291 mg every 6-8 hours as needed 4.Gabapentin [...] tenderness Thoracic: muscle tenderness at 1316 RPT #:[id number] END OF REPORT [facility] 2019-10-17 11:20:00 [id number] [address] PATIENT NAME: CRISTAL MUNIZ ADMIT DATE: 10/17/19 ACCOUNT NO: [id number] [place] [facility] [place] 58 REPORT TYPE: CONSULTATION REPORT SEX: [...] Weston NP for Murtaza Hernandez MD WT: CON:GJACKI/MAXINE/NTS Conf#: [id number]/DID#: [id number] PATIENT NAME: CRISTAL MUNIZ Authenticated by Ryan Weston On 10/17/2019 05:13:39 PM Authenticated by Murtaza Hernandez MD On 10/23/2019 01:19:11 PM at 1319 at 1319 PATIENT NAME: CRISTAL MUNIZ [facility] 2019-10-17 10:56:00 [facility] ([facility]) Clinical Note REPORT#:[id number] REPORT STATUS: Signed DATE:10/17/19 TIME: 105 PATIENT: CRISTAL MUNIZ UNIT #: [id number] ROOM/BED: [place] [address] : 64 AGE: 58 SEX: F ATTEND: Yani Jacobo MD ADM AUTHOR: Ryan Weston MANAGER INSTRUMENTATION * ALL edits or amendments must be made on the electronic/computer document * Clinical Note Note: Medical consult # [id number] at 1121 RPT #:[id number] END OF REPORT [facility] 2019-10-17 10:56:00 [facility] ([facility]) Clinical Note REPORT#:[id number] REPORT STATUS: Signed DATE:10/17/19 TIME: 1055 PATIENT: CRISTAL MUNIZ UNIT #: [id number] ROOM/BED: [place] [address] : [birth year] AGE: 58 SEX: F ATTEND: Yani Jacobo MD ADM AUTHOR: Ryan Weston MANAGER INSTRUMENTATION * ALL edits or amendments must be made on the electronic/computer document * Ryan Weston 10/17/19 1056: Clinical Note Note: Medical consult # [id number] Murtaza Hernandez 10/21/19 0028: Clinical Note Note: Reviewed the findings and plan as documented by MANAGER INSTRUMENTATION as above reviewed pt seen and examined dw RN at 1121 RPT #:[id number] END OF REPORT [facility] 2019-10-17 10:56:00 [facility] ([facility]) Clinical Note REPORT#:[id number] REPORT STATUS: Signed DATE:10/17/19 TIME: 1055 PATIENT: CRISTAL MUNIZ UNIT #: [id number] [address] AGE: 58 SEX: F ATTEND: Yani Jacobo MD ADM AUTHOR: Ryan Weston MANAGER INSTRUMENTATION * ALL edits or amendments must be made on the electronic/computer document * Ryan Weston 10/17/19 1056: Clinical Note Note: Medical consult # [id number] Murtaza Hernandez 10/21/19 0028: Clinical Note Note: Reviewed the findings and plan as documented by MANAGER INSTRUMENTATION as above reviewed pt seen and examined dw RN at 1121 at 0034 RPT #:[id number] END OF REPORT [facility] 2019-10-15 09:42:00 [id number] [place] [address] PATIENT NAME: CRISTAL MUNIZ ADMIT DATE: ACCOUNT NO: [id number] ROOM NO: AGE: 58 REPORT TYPE: eELECTROCARDIOGRAM REPORT SEX: F ADMITTING PHYSICIAN:Yani Jacobo MD ATTENDING PHYSICIAN:Yani Jacobo MD Order: [id number] Test Reason : PREOP Test Date/Time Stamp: [...] Yani Jacobo Confirmed by:LISSETH JAIME MD at 1421 PATIENT NAME: CRISTAL MUNIZ [facility]
[2024-11-21] MEDS ORDERED: KETOROLAC 30 MG/ML INJ ONE (11:10)
[2024-11-21] MEDS ORDERED: ACETAMINOPHEN 500 MG TAB ONE ×2 (11:10→11:20)
[2024-11-21 11:46] LABS: Absolute Lymphocytes (CBC) 1.7 K/uL (0.7-4.9); Hematocrit 42.6 % (36.0-45.0); Hemoglobin 14.0 g/dL (12.0-15.0); MCH 27.7 pg (27.0-35.0); MCHC 32.8 g/dL (32.0-36.0); MCV 84.4 fL (80-100); MPV 7.3 fL (7.6-11.3); Nucleated RBC Absolute Count 0.0 (0-0); Nucleated Red Blood Cells % 0.0 % (0-0); RBC Red Blood Cell Count 5.04 M/uL (3.86-4.86); White Blood Count 9.40 thou/uL (4.3-10.9)
[2024-11-21 11:55] LABS: ALT/SGPT 39.0 U/L (13-56); AST/SGOT 31.0 U/L (15-37); Albumin 4.1 g/dL (3.4-5.0); Albumin/Globulin Ratio 1.2 (1.1-1.8); Alkaline Phosphatase 65.0 U/L (45-117); Anion Gap 9.9 mEq/L (5.0-15.0); BUN Blood Urea Nitrogen 20.0 mg/dL (7-18); Globulin 3.5 g/dL (2.3-3.5); Glucose Level 161.0 mg/dL (74-106); Potassium 3.9 mEq/L (3.5-5.1)
--- NOTE | 2024-11-21 12:19 | RAD REPORT ---
EXAM: XR Hand Right 3 View HISTORY: [facility] MAIN Pain;Swelling Bed Name: [facility] COMPARISON: 05/09/2012 TECHNIQUE: 3 radiographic views of the RIGHT hand submitted. FINDINGS: No evidence of acute fracture or dislocation. Joint alignment is maintained. Thumb soft ti ssue swelling is seen.. Mild to moderate scattered degenerative changes most pronounced at the distal interphalangeal joints and first metacarpophalangeal articulation. IMPRESSION: No you've bone or joint abnormality. Soft tissue swelling about the thumb. Degenerative c hanges as above.
--- NOTE | 2024-11-21 12:39 | ER ---
Nurse's Notes [facility] Name: Cristal Ramsay Age: 64 yrs Sex: Female : 1960 Arrival Date: 11/21/2024 Time: 09:53 Bed 15 Private MD: Diagnosis: Cellulitis of finger Presentation: 11/21 10:20 Chief complaint: Patient states: woke up at 3 am and pad of right thumb was swollen, me1 purple of painful. Pain level 3/10. Reports dizziness in triage. Coronavirus screen: Vaccine status: Patient reports receiving the 2nd dose of the covid vaccine. Ebola Screen: No symptoms or risks identified at this time. Initial Sepsis Screen: Does the patient meet any 2 criteria? No. Patient's initial sepsis screen is negative. Does the patient have a suspected source of infection? No. Patient's initial sepsis screen is negative. Risk Assessment: Do you want to hurt yourself or someone else? Patient reports no desire to harm self or others. Onset of symptoms was November 21, 2024 at 03:00. 10:20 Method Of Arrival: Ambulatory mi1 10:20 Acuity: HARLEEN 3 me1 Triage Assessment: 11:00 General: Appears in no apparent distress. Behavior is calm, cooperative, appropriate aa5 for age. Pain: Complains of pain in right thumb Pain does not radiate. Pain currently is 4 out of 10 on a pain scale. Quality of pain is described as aching. Pain: Pain began last night Is intermittent. EENT: No signs and/or symptoms were reported regarding the EENT system. GI: No signs and/or symptoms were reported involving the gastrointestinal system. GI: Patient currently denies diarrhea, nausea, vomiting. : No signs and/or symptoms were reported regarding the genitourinary system. Musculoskeletal: Range of motion: intact in all extremities. 11:00 Neuro: Level of Consciousness is awake, alert, obeys commands, Oriented to person, aa5 place, time, situation. Cardiovascular: Patient's skin is warm and dry. Respiratory: Airway is patent Trachea midline Respiratory effort is even, unlabored, Respiratory pattern is regular, symmetrical. Derm: Skin is pink, warm \T\ dry. Bruising that is dark purple, on right thumb. Historical: - Allergies: 10:23 capsaicin; me1 10:23 Morphine; me1 - PMHx: 10:23 ADD/ADHD; COPD; Crohn's; Fibromyalgia; High Cholesterol; Hypertension; restless leg me1 syndrome; - PSHx: 10:23 Appendectomy; back; cervical fusion; me1 - Immunization history:: Adult Immunizations up to date. - Infectious Disease History:: Denies. - Social history:: Smoking status: Patient denies any tobacco usage or history of. Screenin:36 [facility] ED Fall Risk Assessment (Adult) History of falling in the last 3 months, nh2 including since admission No falls in past 3 months (0 pts) Confusion or Disorientation No (0 pts) Intoxicated or Sedated No (0 pts) Impaired Gait No (0 pts) Mobility Assist Device Used No (0 pt) Altered Elimination No (0 pt) Score/Fall Risk Level 0 - 2 = Low Risk Oriented to surroundings, Maintained a safe environment, Educated pt \T\ family on fall prevention, incl call for assistance when getting out of bed, Assessed \T\ reinforced patient's understanding of fall precautions. Abuse screen: Denies threats or abuse. Denies injuries from another. Nutritional screening: No deficits noted. Tuberculosis screening: No symptoms or risk factors identified. Assessment: 11:00 Reassessment: See triage assessment . aa5 11:30 Reassessment: Patient is alert, oriented x 3, equal unlabored respirations, skin aa5 warm/dry/pink. 12:32 Reassessment: Patient is alert, oriented x 3, equal unlabored respirations, skin aa5 warm/dry/pink. Pt given warm blanket for comfort. . Vital Signs: 10:20 BP 150 / 77; Pulse 81; Resp 18; Temp 98.2; Pulse Ox 96% ; Weight 114.31 kg; Height 5 me1 ft. 3 in. ; Pain 3/10; 13:42 BP 124 / 84; Pulse 81; Resp 18; Pulse Ox 100% on R/A; nh2 10:20 Body Mass Index 44.64 (114.31 kg, 160.02 cm) me1 10:20 Pain Scale: Adult me1 ED Course: 09:55 Patient arrived in ED. mr 09:59 Jaime Joy, [facility] 09:59 Sharad Vasquez MD is Attending Physician. dr5 10:23 Triage completed. me1 10:23 Arm band placed on Patient placed in waiting room. me1 11:00 Patient has correct armband on for positive identification. Provided Education on: aa5 using call light for assistance. 11:07 Arianna Giron, RN is Primary Nurse. aa5 11:18 Initial lab(s) drawn, by me, sent to lab. aa5 11:18 Missed attempt(s): 22 gauge in right antecubital area. Bleeding controlled, band aid aa5 applied, catheter tip intact. 11:22 Missed attempt(s): 22 gauge in left hand. Bleeding controlled, band aid applied, aa5 catheter tip intact. 11:25 Inserted saline lock: 22 gauge in right hand, using aseptic technique. aa5 11:38 Hand Right 3 View XRAY In Process Unspecified. EDMS 13:36 No provider procedures requiring assistance completed. IV discontinued, intact, nh2 bleeding controlled, No redness/swelling at site. Pressure dressing applied. Administered Medications: 11:31 CANCELLED (CHANGED ROUTEe): nwizniqim39 mg IM once aa5 11:31 Drug: Ketorolac IVP 30 mg IVP once Route: IVP; Site: right hand; aa5 12:01 Follow up: Response: No adverse reaction; Pain is decreased nh2 11:33 Drug: Acetaminophen PO 1000 mg PO once Route: PO; nh2 12:25 Follow up: Response: No adverse reaction; Pain is decreased nh2 Medication: 13:41 VIS not applicable for this client. nh2 Outcome: 12:39 Discharge ordered by MD. dr5 13:40 Discharged to home ambulatory, nh2 13:40 Condition: good 13:40 Discharge instructions given to patient, Instructed on discharge instructions, no drinking with medication, medication usage, Demonstrated understanding of instructions, follow-up care, medications, Prescriptions given X 2, 13:43 Patient left the ED. nh2 Signatures: Dispatcher [employer] EDVT Cedric Susanne, Reg Reg mr Arianna Giron, RN RN aa5 Cynthia Evans RN RN mi1 Grayson Houston Jr, RN RN nh2 Jaime Joy, BICYCLE MESSENGER-C BICYCLE MESSENGER-Cdr5 Corrections: (The following items were deleted from the chart) 13:40 13:37 General: Appears uncomfortable, Behavior is calm, cooperative, appropriate for nh2 age, nh2 13:40 13:37 Pain: Complains of pain in right thumb Pain does not radiate. Pain nh2 13:36 Patient has correct armband on for positive identification. [facility] 13:36 Provided Education on: using call light for assistance. nh2 13:38 Pain: Complains of pain in right thumb Pain does not radiate. Pain currently is 4 aa5 out of 10 on a pain scale. Quality of pain is described as aching, 13:38 Neuro: Level of Consciousness is awake, alert, obeys commands, Oriented to aa5 person, place, time, situation, [facility] 13:38 Cardiovascular: Patient's skin is warm and dry. nh2 13:38 Respiratory: Airway is patent Trachea midline [facility] 13:38 GI: No signs and/or symptoms were reported involving the gastrointestinal system. aa5 [facility] 13:38 : No signs and/or symptoms were reported regarding the genitourinary system. nh2 13:38 Derm: No signs and/or symptoms reported regarding the dermatologic system. [facility] 13:38 Musculoskeletal: Range of motion: intact in all extremities, nh2 13:38 GI: Patient currently denies diarrhea, nausea, vomiting, nh2 13:38 EENT: No signs and/or symptoms were reported regarding the EENT system. [facility] 13:38 Pain: Pain began last night Is intermittent, [facility] 13:38 General: Appears in no apparent distress. Behavior is calm, cooperative, aa5 appropriate for age, nh2
--- NOTE | 2024-11-21 12:39 | EDPHYS ---
Physician Documentation [facility] Name: Cristal Ramsay Age: 64 yrs Sex: Female : 1960 Arrival Date: 11/21/2024 Time: 09:53 Bed 15 Private MD: TRAVIS Physician Sharad Vasquez HPI: 11/21 14:57 This 64 yrs old Female presents to ER via Ambulatory with complaints of Thumb dr5 problem. 14:57 Onset: The symptoms/episode began/occurred at 03:30. Patient is a 64-year-old female dr5 with history of ADD, COPD, Crohn's, from algia, hyperlipidemia, hypertension coming in with discoloration and mild pain to right distal thumb. Patient reports that her pain started at 330 this morning and denies or remembers any trauma to the right thumb. Patient reports that she took pictures of it this morning and it has improved since. Patient denies numbness, tingling, decreased range of motion of right thumb.. Historical: - Allergies: 10:23 capsaicin; me1 10:23 Morphine; me1 - PMHx: 10:23 ADD/ADHD; COPD; Crohn's; Fibromyalgia; High Cholesterol; Hypertension; restless leg me1 syndrome; - PSHx: 10:23 Appendectomy; back; cervical fusion; me1 - Immunization history:: Adult Immunizations up to date. - Infectious Disease History:: Denies. - Social history:: Smoking status: Patient denies any tobacco usage or history of. ROS: 14:57 Constitutional: as per hpi dr5 Exam: 14:57 Constitutional: This is a well developed, well nourished patient who is awake, alert, dr5 and in no acute distress. Head/Face: Normocephalic, atraumatic. Eyes: Pupils equal round and reactive to light, extra-ocular motions intact. Lids and lashes normal. Conjunctiva and sclera are non-icteric and not injected. Cornea within normal limits. Periorbital areas with no swelling, redness, or edema. Chest/axilla: Normal chest wall appearance and motion. Nontender with no deformity. No lesions are appreciated. Cardiovascular: Regular rate and rhythm with a normal S1 and S2. Normal PMI, no JVD. No pulse deficits. Respiratory: Lungs have equal breath sounds bilaterally, clear to auscultation. No rales, rhonchi or wheezes noted. No increased work of breathing, no retractions or nasal flaring. Back: No spinal tenderness. No costovertebral tenderness. Full range of motion. Skin: Warm, dry with normal turgor. Normal color with no rashes, no lesions, and no evidence of cellulitis. Neuro: Awake and alert, GCS 15, oriented to person, place, time, and situation. Cranial nerves II-XII grossly intact. Motor strength 5/5 in all extremities. Sensory grossly intact. Cerebellar exam normal. Normal gait. 14:57 Musculoskeletal/extremity: Extremities: grossly normal except: noted in the palmar aspect of distal phalanx of right thumb: Redness and discoloration noted. No tenderness to palpation. Patient did show me pictures of thumb this morning and redness is slowly resolving and improving., ROM: no acute changes, intact in all extremities, Circulation is intact in all extremities. Sensation intact. Vital Signs: 10:20 BP 150 / 77; Pulse 81; Resp 18; Temp 98.2; Pulse Ox 96% ; Weight 114.31 kg; Height 5 me1 ft. 3 in. ; Pain 3/10; 13:42 BP 124 / 84; Pulse 81; Resp 18; Pulse Ox 100% on R/A; nh2 10:20 Body Mass Index 44.64 (114.31 kg, 160.02 cm) me1 10:20 Pain Scale: Adult me1 MDM: 10:00 Medical Screening Exam initiated dr5 14:57 Differential diagnosis: viral Infection, Cellulitis, felon, paronychia, Raynaud's. Data dr5 reviewed: vital signs, nurses notes, lab test result(s), CBC, white blood cell count, hemoglobin, hematocrit, platelets, electrolytes, sodium, potassium, chloride, serum bicarbonate, BUN, creatinine, serum glucose, radiologic studies, plain films. Data reviewed: I have discussed the patient's presentation/case with the attending Emergency Department Physician;. Consideration of Admission/Observation Escalation of care including admission/observation considered. Escalation considered if patient found to have abnormality on blood work or fracture on x-ray. Care significantly affected by the following chronic conditions: ADD, COPD, Crohn's, pulm algia, hyperlipidemia, hypertension. Care significantly affected by the following Social Determinants of Health: Poor access to healthcare and/or lack of insurance, Poor access to transportation, Problems related to employment. Counseling: I had a detailed discussion with the patient and/or guardian regarding the historical points, exam findings, and any diagnostic results supporting the discharge/admit diagnosis, the presence of at least one elevated blood pressure reading (>120/80) during this emergency department visit, lab results, radiology results, the need for outpatient follow up, for definitive care, a family practitioner, to return to the emergency department if symptoms worsen or persist or if there are any questions or concerns that arise at home. Medication response: Toradol markedly relieved the patient's pain, Response to treatment: the patient's symptoms have markedly improved after treatment. Special discussion: I discussed with the patient/guardian in detail that at this point there is no indication for admission to the hospital. It is understood, however, that if the symptoms persist or worsen the patient needs to return immediately for re-evaluation. Based on the history and exam findings, there is no indication for further emergent testing or inpatient evaluation. I discussed with the patient/guardian the need to see the primary care provider for further evaluation of the symptoms. ED course: Will cover patient with cephalexin for possible cellulitis. Recommend patient follow primary care doctor closely for reassessment. All questions answered. Patient is agreeable to plan. Strict ER precautions given.. 11/21 10:34 Order name: CBC with Diff; Complete Time: 11:50 dr5 11/21 10:34 Order name: CMP; Complete Time: 12:32 dr5 11/21 10:39 Order name: Glucose, Ancillary Testing; Complete Time: 10:39 EDMS 11/21 10:34 Order name: Hand Right 3 View XRAY; Complete Time: 12:32 dr5 Administered Medications: 11:31 CANCELLED (CHANGED ROUTEe): [id number] mg IM once aa5 11:31 Drug: Ketorolac IVP 30 mg IVP once Route: IVP; Site: right hand; aa5 12:01 Follow up: Response: No adverse reaction; Pain is decreased nh2 11:33 Drug: Acetaminophen PO 1000 mg PO once Route: PO; nh2 12:25 Follow up: Response: No adverse reaction; Pain is decreased nh2 Disposition: 11/22 13:35 Co-signature as Attending Physician, Sharad Vasquez MD I agree with the assessment and nirmala plan of care. Disposition Summary: 11/21/24 12:39 Discharge Ordered Notes: Location: Home dr5 Condition: Stable dr5 Diagnosis - Cellulitis of finger dr5 Followup: dr5 - With: Emergency Department - When: As needed - Reason: Worsening of condition Followup: dr5 - With: Private Physician - When: 1 - 2 days - Reason: Recheck today's complaints, Continuance of care, Re-evaluation by your physician Discharge Instructions: - Discharge Summary Sheet dr5 - Cellulitis, Adult dr5 Forms: - Medication Reconciliation Form dr5 - Antibiotic Education dr5 - Prescription Opioid Use dr5 - Patient Portal Instructions dr5 - Leadership Thank You Letter dr5 Prescriptions: - Cephalexin 500 mg Oral Capsule - take 1 capsule ORAL route every 12 hours for 10 days; 20 capsule; Refills: 0, dr5 Product Selection Permitted - Tramadol 50 mg Oral Tablet - take 1 tablet ORAL route every 8 hours as needed; 12 tablet; Refills: 0, dr5 Product Selection Permitted Signatures: Dispatcher [employer] EDMS Sharad Vasquez MD MD cha Calderon, Audri RN RN aa5 Cynthia Evans RN RN me1 Grayson Houston Jr, RN RN nh2 Jaime Joy, MATERIAL SPECIALIST-C MATERIAL SPECIALIST-Cdr5 Corrections: (The following items were deleted from the chart) 11/21 10:34 10:34 CBC+H.LAB.BRZ ordered. EDMS EDMS 10:34 10:34 COMPREHENSIVE METABOLIC PANEL+C.LAB.BRZ ordered. EDMS EDMS 11:31 10:34 Ketorolac IM 30 mg IM once ordered. dr5 aa5 11:31 11:31 Ketorolac IM 30 mg IM once ordered. aa5 aa5
[2024-11-21 20:30] VITALS: TEMP 98.2
[2024-11-21 20:31] VITALS: BP 124/84; O2SAT 100
== END 2024-11-21 13:43 | disposition home or self-care (01) ==
LOC: ER 09:53
DX: L03.011 Cellulitis of right finger (principal)
CPT/HCPCS: 36415; 80053; 82947; 85025; 96374; 99284